=== PATIENT | female | born 1940 | race Caucasian/White ===

== ENCOUNTER 2019-12-23 12:27 | Emergency (ER) | payer OTHER ==
--- OUTSIDE RECORDS SUMMARY | 2019-12-23 12:34 | XMS REPORT | Continuity of Care Document ---
:1940 Author Organization [employer] Information [facility] Care Team Providers Name Role Phone Exit41 Unavailable Un available Problems Problem Status Onset Classification Date Comments Sourc e Date Reported LUMBAR HNP Active Condition 08/12/2014 [facility] 015 Neuro LUMBAR SPINAL STENOSIS Active Condition 08/12/2014 Mischer 015 Neuro 724.4 - LUMBOSACRAL Active OPID TRISTIAN 015 [employer] LUMBAR RADICULOPATHY Active Condition 08/12/2014 Mischer 015 Neuro LOW BACK PAIN Active Condition 08/12/2014 Misch er 015 Neuro JUAN Active [address] HISTORY OF Active Condition 08/12/2014 M[facility] HYPERCHOLESTEROLEMIA 012 Neuro HISTORY OF DEPRESSION Active Condition 08/12/2014 [facility] 012 Neuro STATUS POST Active Condition 08/12/2014 M[facility] HYSTERECTOMY 012 Neuro STATUS POST Active Condition 08/12/2014 M[facility] APPENDECTOMY HX OF 012 N euro STATUS POST BREAST Active Condition 08/12/2014 Mischer BIOPSY 012 Neuro STATUS POST BACK Active Condition 08/12/2014 Mi ignacio SURGERY 012 Neuro TRIGEMINAL NERVE Active [address] History of - Active Problem 08/18/2011 Peter as trigeminal neuralgia [facility] Pain Active Problem 08/18/2011 [facility] Headache Active Problem 09/04/2011 [facility] TRIGEMINAL NEURALGIA Active Condition 08/12/2014 [facility] Neuro Peripheral Neuropathy Active 04/20/2012 [facility] Herniated Active 04/20/2012 [facility] Interverte[facility] Facial Pain Active 04/20/2012 [facility] Headache Active 04/20/2012 [facility] Fibromyalgia Active 04/20/2012 [facility] Chronic Fatigue Active 04/20/2012 [facility] Syndrome [facility] TRIGEMINAL NEURALGIA Active [facility] HEADACHE Active [facility] Medications Medication Details Route Status Patient Ordering Order Source Instructions Provider Date MEDROL (MITCHEL) 4 MG to be taken as No 06/17/ Mischer TABS directed Longer 2014 Neuro Active LIDODERM 5 % PTCH apply to No 06/17/ Misch er affected area Longer 2014 Neuro 12h on 12h off Active per 24h period (may use up to 3 patches at one time) LIDODERM 5 % PTCH Apply to the No 05/13/ M ischer affected area Longer 2014 Neuro 12 hrs on and Active 12hrs off per 24 hr period. ( up to 3 patches at one time) Amitriptyline HCl ; Start Date: Active 02/10/ [place] 10 MG Oral Tablet 02/11/2012; 2011 Ph ysicians End Date: (Active) hydrochlorothiazi 12.5 mg, 1 PO No Lo 09/02/ [facility] de tab, Route: Longer 2011 Medical PO, Drug form: Active Center TAB, Daily, Start date: 09/03/11 9:00:00, Duration: 30 day, Stop date: 10/02/11 9:00:00 pravastatin 80 mg, 4 tab, PO No 09/02/ Peter as Route: PO, Longer 2011 Medical Drug form: Active Center TAB, Daily, Start date: 09/03/11 9:00:00, Duration: 30 day, Stop date: 10/02/11 9:00:00 levothyroxine 0.075 mg, 1 PO No Lo 09/02/ Peter as tab, Route: Longer 2011 Medical PO, Drug form: Active Center TAB, Daily, Start date: 09/03/11 9:00:00, Duration: 30 day, Stop date: 10/02/11 9:00:00 fluoxetine 40 mg, 2 cap, PO No Lo 09/02/ Petera s Route: PO, Longer 2011 Medical Drug form: Active Center CAP, Daily, Start date: 09/03/11 9:00:00, Duration: 30 day, Stop date: 10/02/11 9:00:00 diphenhydrAMINE 25 mg, 1 cap, PO No Lo 09/02/ [place] Route: PO, Longer 2011 Medical Drug form: Active Center CAP, Bedtime, Start date: 09/02/11 21:00:00, Duration: 30 day, Stop date: 10/01/11 21:00:00 Pepcid 20 mg oral 20 mg, 1 tab, PO Active Lo 09/01[facility] tablet PO, BID, 180 2011 Medical tab, Center Substitution Allowed dexamethasone 1 1 mg, 1 tab, PO Active 09/01[facility] [place] mg oral tablet PO, QID, 90 2011 Medic al tab, Center Substitution Allowed, Dexamethasone Taper:4mg PO QID x 2 days, then 3mg PO QID x 2 days, then 2mg PO QID x 2 days, then 1mg PO QID x 2 days, then 1 mg PO BID x 2 days, then 1mg PO daily x 2 days, then stop, TABDexamethaso ne Taper:4mg PO QID x 2 days, then 3mg PO QID x 2 days, then 2mg PO QID x 2 days, then 1mg PO QID x 2 days, then 1 mg PO BID x 2 days, then 1mg PO daily x 2 days, then stop levothyroxine 75 microgram, PO Active [place] PO, Daily, 2011 [facility] Substitution [place] Allowed diphenhydrAMINE 25 mg, PO, [place] Bed[place], 2011 Medical Substitution Center Allowed acetaminophen 325 mg, PO, PO Active 09/01[facility] [place] as Q4H, 2011 Medical Substitution Center Allowed hydrochlorothiazi 12.5 mg, PO, PO Active 09/01/ H [place] de Daily, 2011 Medical Substitution Center Allowed fluoxetine 40 mg 40 mg, 1 cap, PO Active [facility] oral capsule PO, Daily, 30 2011 Medic al cap, [place] Substitution Allowed, CAP pravastatin 80 mg 80 mg, 1 tab, PO Active [facility] oral tablet PO, Daily, 30 2011 Medica l tab, Center Substitution Allowed, TAB Saline Flush 0.9% 5 ml, Route: IVP No Mendoza [facility] IVP, Drug Longer 2011 Medical Form: INJ, Active Center Q12H, Start date: 09/01/11 9:00:00, Duration: 30 day, Stop date: 09/30/11 21:00:00 vancomycin 1 gm, Route: IVPB No [place] IVPB, Q12H, Longer 2011 Medical For 65 - 90kg, Active Center Start date: 09/01/11 9:00:00, Duration: 30 day, Stop date: 09/30/11 21:00:00 docusate sodium 100 mg, 1 cap, PO No Mendoza [place] 100 mg oral Route: PO, Longer 2011 Medical capsule Drug form: Active Center CAP, Q12H, Start date: 09/01/11 9:00:00, Duration: 30 day, Stop date: 09/30/11 21:00:00 senna 8.6 mg, 1 tab, PO No Mendoza [place] Route: PO, Longer 2011 Medical Drug Form: Active Center TAB, Q12H, Start date: 09/01/11 9:00:00, Duration: 30 day, Stop date: 09/30/11 21:00:00 docusate sodium 100 mg, 10 mL, NG No Mendoza [place] 100 mg/25 mL oral Route: NG, Longer 2011 Med ical syrup Drug form: Active Center LIQ, Q12H, Start date: 09/01/11 9:00:00, Duration: 30 day, Stop date: 09/30/11 21:00:00 dexamethasone 4 mg, 1 tab, PO No Mendoza [place] Route: PO, Longer 2011 Medical Drug form: Active Center TAB, Q6H, Start date: 09/01/11 6:00:00, Duration: 30 day, Stop date: 10/01/11 0:00:00 Dextrose 50% 6.25 gm, 12.5 IVP No Calvin [facility] Syringe mL, Route: Longer 2011 Medical IVP, Drug Active Center Form: INJ, PRN, PRN Abnormal Lab Result, Start date: 09/01/11 3:08:00, Duration: 30 day, Stop date: 10/01/11 3:07:00 insulin regular 7 unit, 0.07 SUB-Q No Calvin [facility] human recombinant mL, Route: Longer 2011 Med ical 100 units/mL SUB-Q, Drug Active Center injectable form: SOLN, solution PRN, PRN Abnormal Lab Result, Start date: 09/01/11 3:08:00, Duration: 30 day, Stop date: 10/01/11 3:07:00 Saline Flush 0.9% 5 ml, Route: IVP No Calvin 07/13[facility] IVP, Drug Longer 2011 Medical Form: INJ, Active Center PRN, PRN Line Flush, Start date: 09/01/11 3:08:00, Duration: 30 day, Stop date: 10/01/11 3:07:00 acetaminophen-hyd 1 tab, Route: PO No Calvin 08/31 [facility] rocodone 325 PO, Drug Form: Longer 2011 Medi joann mg-10 mg oral TAB, Q4H, PRN Active Cent er tablet Pain Score 4-6, Start date: 09/01/11 3:08:00, Duration: 30 day, Stop date: 10/01/11 3:07:00 ondansetron 4 mg, 2 mL, IVP No [place] 08/31[facility] [place] Route: IVP, Longer 2011 Medical Drug form: Active Center INJ, Q8H, PRN Nausea & Vomiting, Start date: 09/01/11 3:08:00, Duration: 30 day, Stop date: 10/01/11 3:07:00 bisacodyl 10 mg, 1 supp, [place] No Calvin 08/31[facility] [place] Route: [place], Longer 2011 Medical Drug form: Active Center SUPP, Daily, PRN Constipation, Start date: 09/01/11 3:08:00, Duration: 30 day, Stop date: 10/01/11 3:07:00 Sodium Chloride 250 mL, Rate: IV No Calvin [facility] 0.9% (Bolus) IV 500 ml/hr, Longer 2011 Medic al 250 mL Infuse over: Active Center 30 minutes, Route: IV, Dosing Weight 77.273 kg, Total Volume: 250, Priority: STAT, Start date: 09/01/11 3:08:00, Duration: 1 doses or times, Stop date: 09/01/11 3:37:00 Sodium Chloride 1,000 mL, IV No [place] [id number] 0.9% IV 1,000 mL Rate: 50 Longer 2011 Medica l ml/hr, Infuse Active Center over: 20 hr, Route: IV, Dosing Weight 77.273 kg, Total Volume: 1,000, Start date: 09/01/11 3:08:00, Duration: 30 day, Stop date: 10/01/11 3:07:00 DEXAMETHASONE 1 qd Active 08/28/ Mischer MG TABS 2011 Neuro Flomax 0.8 mg, 2 cap, PO No Dexter 08/15[facility] Route: PO, Longer 2011 Medical Drug form: Active Center CAP, After Breakfast, Start date: 08/16/11 8:30:00, Duration: 1 day, Stop date: 08/16/11 8:30:00 calcium gluconate 3,000 mg, 30 IVPB No Wilma H [place] mL, Route: Longer 2011 Medical IVPB, ONCE, Active Center Start date: 08/16/11 3:30:00, Stop date: 08/16/11 3:30:00 K-Dur 20 40 mEq, 2 tab, PO No Wilma 08/15[facility] Route: PO, Longer 2011 Medical Drug form: Active Center ERTAB, ONCE, Start date: 08/16/11 3:00:00, Stop date: 08/16/11 3:00:00 heparin 5,000 unit, 1 [facility] mL, Route: Longer 2011 Medical SUB-Q, Drug Active Center form: INJ, Q8H, Start date: 08/16/11 0:00:00, Duration: 30 day, Stop date: 09/14/11 16:00:00 acetaminophen 650 mg, 2 tab, PO No [facility] 08/14[facility] Route: PO, Longer 2011 Medical Drug form: Active Center TAB, Q6H, PRN Pain, Start date: 08/15/11 10:56:00, Duration: 30 day, Stop date: 09/14/11 10:55:00 Tylenol 325 mg, 1 tab, PO No [facility] 08/14[facility] Route: PO, Longer 2011 Medical Drug form: Active Center TAB, Q4H, PRN Pain, Start date: 08/15/11 10:39:00, Duration: 30 day, Stop date: 09/14/11 10:38:00 Prozac 40 mg, 2 cap, PO No Parul 08/14[facility] Route: PO, Longer 2011 Medical Drug form: Active Center CAP, Daily, Start date: 08/15/11 9:00:00, Duration: 30 day, Stop date: 09/13/11 9:00:00 Microzide 12.5 mg, 1 PO No [facility] 08/14[facility] cap, Route: Longer 2011 Medical PO, Drug form: Active Center CAP, Daily, Start date: 08/15/11 9:00:00, Duration: 30 day, Stop date: 09/13/11 9:00:00 Synthroid 0.075 mg, 1 PO No [facility] 08/14[facility] tab, Route: Longer 2011 Medical PO, Drug form: Active Center TAB, Before Breakfast, Start date: 08/15/11 7:30:00, Duration: 30 day, Stop date: 09/13/11 7:30:00 Senokot 8.6 mg, 1 tab, PO No [facility] 08/14[facility] Route: PO, Longer 2011 Medical Drug Form: Active Center TAB, Q12H, Start date: 08/14/11 21:00:00, Duration: 30 day, Stop date: 09/13/11 9:00:00 vancomycin (SCIP) 1 gm, Route: IVPB No [facility] 08/14[facility] IVPB, Drug Longer 2011 Medical form: INJ, Active Center [id number], Start date: 08/14/11 20:00:00, Duration: 2 doses or times, Stop date: 08/15/11 8:00:00 dexamethasone 4 mg, 1 tab, PO No [facility] 08/13[facility] [place] Route: PO, Longer 2011 Medical Drug form: Active Center TAB, Q6H, Start date: 08/14/11 18:00:00, Duration: 30 day, Stop date: 09/13/11 12:00:00 Reglan 10 mg, 2 mL, IVP No Zakaria 08/13[facility] Route: IVP, Longer 2011 Medical Drug form: Active Center INJ, Q6H, Start date: 08/14/11 18:00:00, Duration: 48 hr, Stop date: 08/16/11 12:00:00 Pravachol 80 mg, 4 tab, PO [facility] [place] Route: PO, Longer 2011 Medical Drug form: Active Center TAB, QPM, Start date: 08/14/11 17:00:00, Duration: 30 day, Stop date: 09/12/11 17:00:00 Klonopin 2 mg, 1 tab, PO No Abdunnur 08/13[facility] Route: PO, Longer 2011 Medical Drug form: Active Center TAB, TID, Start date: 08/14/11 17:00:00, Duration: 30 day, Stop date: 09/13/11 13:00:00 promethazine 6.25 mg, 0.25 IVPB No [place] 08/13[facility] [place] mL, Route: Longer 2011 Medical IVPB, Drug Active Center form: INJ, ONCE, PRN Nausea & Vomiting, Start date: 08/14/11 14:23:00 ondansetron 4 mg, 2 mL, IVP No More[place] 08/13[facility] [place] Route: IVP, Longer 2011 Medical Drug form: Active Center INJ, ONCE, PRN Nausea & Vomiting, Start date: 08/14/11 14:23:00 dexamethasone 4 mg, 1 mL, IVP No Moreno 08/13[facility] [place] as Route: IVP, Longer 2011 Medical Drug form: Active Center INJ, ONCE, PRN Nausea & Vomiting, Start date: 08/14/11 14:23:00 naloxone 0.04 mg, 0.1 IVP No [place] 08/13[facility] [place] mL, Route: Longer 2011 Medical IVP, Drug Active Center form: INJ, Q2MIN, PRN Narcotic Reversal, Start date: 08/14/11 14:23:00, Duration: 8 doses or times, Stop date: 08/15/11 0:00:00 flumazenil 0.2 mg, 2 mL, IVP No Moreno 08/13[facility] [place] Route: IVP, Longer 2011 Medical Drug form: Active Center INJ, PRN, PRN Benzodiazepine Reversal, Initial dose, Start date: 08/14/11 14:23:00, Stop date: 08/15/11 0:00:00 hydromorphone 0.5 mg, 0.25 IVP No [place] 08/13[facility] [place] mL, Route: Longer 2011 Medical IVP, Drug Active Center form: INJ, Q5Min, PRN Pain Score 4-6, Start date: 08/14/11 14:23:00, Duration: 5 doses or times, Stop date: 08/15/11 0:00:00 hydrALAZINE 5 mg, 0.25 mL, IVP No [place] 08/13[facility] [place] Route: IVP, Longer 2011 Medical Drug form: Active Center INJ, Q5Min, PRN Elevated BP, Start date: 08/14/11 14:23:00, Duration: 4 doses or times, Stop date: 08/15/11 0:00:00 labetalol 5 mg, 1 mL, IVP No [place] 08/13[facility] [place] Route: IVP, Longer 2011 Medical Drug form: Active Center INJ, Q5Min, PRN Elevated BP, Start date: 08/14/11 14:23:00, Duration: 5 doses or times, Stop date: 08/15/11 0:00:00 dexamethasone 4 mg, 1 tab, [facility] [place] Route: PO, Longer 2011 Medical Drug form: Active Center TAB, Q6H, Start date: 08/14/11 12:00:00, Duration: 30 day, Stop date: 09/13/11 6:00:00 metoclopramide 10 mg, 2 mL, IVP No [facility] 08/13[facility] [place] Route: IVP, Longer 2011 Medical Drug form: Active Center INJ, Q6H, Start date: 08/14/11 12:00:00, Duration: 48 hr, Stop date: 08/16/11 6:00:00 clonazepam 2 mg, 1 tab, PO No Abdunnur 08/13[facility] [place] Route: PO, Longer 2011 Medical Drug form: Active Center TAB, TID, Start date: 08/14/11 9:00:00, Duration: 30 day, Stop date: 09/12/11 17:00:00 Pepcid 20 mg oral 20 mg, 1 tab, PO No Abdunnur 08/13[facility] [place] tablet Route: PO, Longer 2011 Medical Drug form: Active Center TAB, Q12H, Start date: 08/14/11 9:00:00, Duration: 30 day, Stop date: 09/12/11 21:00:00 Saline Flush 0.9% 5 ml, Route: IVP No Abdunnur 08/13[facility] [place] IVP, Drug Longer 2011 Medical Form: INJ, Active Center Q12H, Start date: 08/14/11 9:00:00, Duration: 30 day, Stop date: 09/12/11 21:00:00 vancomycin (SCIP) 1 gm, Route: IVPB No [facility] 08/13[facility] IVPB, Drug Longer 2011 Medical form: INJ, Active Center Q12H, Start date: 08/14/11 9:00:00, Duration: 2 doses or times, Stop date: 08/14/11 21:00:00 senna 8.6 mg, 1 tab, PO No [facility] 08/13[facility] Route: PO, Longer 2011 Medical Drug Form: Active Center TAB, Q12H, Start date: 08/14/11 9:00:00, Duration: 30 day, Stop date: 09/12/11 21:00:00 docusate sodium 100 mg, 1 cap, PO No [facility] 08/13[facility] [place] 100 mg oral Route: PO, Longer 2011 Medical capsule Drug form: Active Center CAP, Q12H, Start date: 08/14/11 9:00:00, Duration: 30 day, Stop date: 09/12/11 21:00:00 levothyroxine 0.075 mg, 1 PO No [facility] 08/13[facility] [place] tab, Route: Longer 2011 Medical PO, Drug form: Active Center TAB, Daily, Start date: 08/14/11 9:00:00, Duration: 30 day, Stop date: 09/12/11 9:00:00 pravastatin 80 mg, 4 tab, PO No [facility] 08/13[facility] [place] Route: PO, Longer 2011 Medical Drug form: Active Center TAB, Daily, Start date: 08/14/11 9:00:00, Duration: 30 day, Stop date: 09/12/11 9:00:00 hydrochlorothiazi 12.5 mg, 1 PO No [facility] 08/13[facility] de 12.5 mg oral cap, Route: Longer 2011 Medi joann capsule PO, Drug form: Active Center CAP, Daily, Start date: 08/14/11 9:00:00, Duration: 30 day, Stop date: 09/12/11 9:00:00 Prozac 40 mg, 2 cap, PO No [facility] [place] Route: PO, Longer 2011 Medical Drug form: Active Center CAP, Daily, Start date: 08/14/11 9:00:00, Duration: 30 day, Stop date: 09/12/11 9:00:00 magnesium citrate 17.45 gm, 300 PO Active [facility] 8.85% oral liquid mL, PO, ONCE, 2011 Medical PRN, 1 mL, 1, Center 1, Severe constipation, Substitution Allowed, Maintenance, LIQ docusate sodium 100 mg, 0, PO, PO Active Abdunnur [place] 100 mg oral BID, 20 cap, 2011 Medical capsule Substitution Center Allowed Pepcid 20 mg oral 20 mg, 1 tab, PO No Zakaria [place] tablet PO, BID, 16 Longer 2011 Medical tab, Active Center Substitution Allowed [place] 10/325 oral 1 tab, PO, [facility] tablet Q4H, PRN, 30 Longer 2011 Medical tab, 2, 2, as Active Center needed for pain, Substitution Allowed, Maintenance, TAB dexamethasone 1 1 mg, 1 tab, PO Active [facility] [place] mg oral tablet PO, BID, 37 2011 Medic al tab, Center Substitution Allowed, Please take 2 tabs PO Q6H x 2 days, then 2 tabs PO Q8H x 2 days, then 1 tab PO Q8H x 2 days, then 1 tab PO Q12h x 1 day, then 1 tab PO daily x 1 day, then stop, TABPlease take 2 tabs PO Q6H x 2 days, then 2 tabs PO Q8H x 2 days, then 1 tab PO Q8H x 2 days, then 1 tab PO Q12h x 1 day, then 1 tab PO daily x 1 day, then stop insulin regular 7 unit, 0.07 SUB-Q No [facility] human recombinant mL, Route: Longer 2011 Med ical 100 units/mL SUB-Q, Drug Active Center injectable form: SOLN, solution PRN, PRN Abnormal Lab Result, Start date: 08/14/11 6:47:00, Duration: 30 day, Stop date: 09/13/11 6:46:00 Dextrose 50% 12.5 gm, 25 IVP No [facility] Peter as Syringe mL, Route: Longer 2011 Medical IVP, Drug Active Center Form: INJ, PRN, PRN Abnormal Lab Result, Start date: 08/14/11 6:47:00, Duration: 30 day, Stop date: 09/13/11 6:46:00 Saline Flush 0.9% 5 ml, Route: IVP No Parul [place] IVP, Drug Longer 2011 Medical Form: INJ, Active Center PRN, PRN Line Flush, Start date: 08/14/11 6:47:00, Duration: 30 day, Stop date: 09/13/11 6:46:00 acetaminophen-hyd 2 tab, Route: PO No [place] rocodone 325 mg-5 PO, Drug Form: Longer 2011 Medical mg oral tablet TAB, Q4H, PRN Active [facility] ter Pain Score 4-6, Start date: 08/14/11 6:47:00, Duration: 30 day, Stop date: 09/13/11 6:46:00 morphine Sulfate 2 mg, 0.5 mL, IVP No Parul [place] Route: IVP, Longer 2011 Medical Drug form: Active Center INJ, Q1H, PRN Pain Score 7-10, Start date: 08/14/11 6:47:00, Duration: 30 day, Stop date: 09/13/11 6:46:00 ondansetron 4 mg, 2 mL, IVP No B[place]ani [place] Route: IVP, Longer 2011 Medical Drug form: Active Center INJ, Q8H, PRN Nausea & Vomiting, Start date: 08/14/11 6:47:00, Duration: 30 day, Stop date: 09/13/11 6:46:00 Sodium Chloride 1,000 mL, IV No blake [place] 0.9% IV 1,000 mL Rate: 50 Longer 2011 Medica l ml/hr, Infuse Active Center over: 20 hr, Route: IV, Dosing Weight 65.909 kg, Total Volume: 1,000, Start date: 08/14/11 6:47:00, Duration: 30 day, Stop date: 09/13/11 6:46:00 Benadryl 25 mg, 1 cap, PO No Parul [place] Route: PO, Longer 2011 Medical Drug form: Active Center CAP, Bedtime, PRN as needed for sleep, Start date: 08/14/11 6:44:00, Stop date: 09/13/11 6:43:00 vancomycin 1 gm, Route: IVPB No [facility] Jeanne luz IVPB, Drug Longer 2011 Medical form: INJ, PRE Active Center OP, Start date: 08/13/11 22:00:00, Duration: 1 day, Stop date: 08/14/11 21:59:00 Tylenol 325 mg 325 mg, 1 tab, PO Active [place] oral tablet PO, Q4H, PRN, 2011 Medica l 60 tab, Pain, Center Substitution Allowed hydrochlorothiazi 12.5 mg, 1 PO Active [facility] [place] de 12.5 mg oral tab, PO, 2011 Medical tablet Daily, 30 tab, Center Substitution Allowed, TAB Prozac 40 mg oral 40 mg, 1 cap, PO Active [facility] [place] capsule PO, Daily, 30 2011 Medical cap, Center Substitution Allowed, CAP clonazepam 2 mg 2 mg, 1 tab, PO Active [facility] oral tablet PO, TID, 2011 Medical Substitution Center Allowed, TAB diphenhydrAMINE 25 mg, 1 cap, PO Active [facility] [place] 25 mg oral PO, Bedtime, 2011 Medical capsule PRN, 30 cap, [place] Insomnia, Substitution Allowed pravastatin 80 mg 80 mg, 1 tab, PO Active [facility] [place] oral tablet PO, Daily, 30 2011 Medica l tab, Center Substitution Allowed, TAB levothyroxine 75 75 microgram, PO Active [facility] 07/31[facility] [place] mcg (0.075 mg) 1 tab, PO, 2011 Medica l oral tablet Daily, 30 tab, Cente r Substitution Allowed, TAB Bactrim DS 1 tab, PO, PO No [place] BID, 20 tab, Longer 2011 Medical Substitution Active Center Allowed, Maintenance Gabapentin 100 MG ; Start Date: Active [place] Oral Capsule 07/19/2011; 2011 Physici ans End Date: (Active) LEVOTHYROXINE 1 tab po qd Active Mische r SODIUM 75 MCG 2011 Neuro TABS HYDROCHLOROTHIAZI 1 cap po qd Active ignacio DE 12.5 MG CAPS 2011 Neuro FLUOXETINE HCL 40 1 cap po qd Active ignacio MG CAPS 2011 Neuro PRAVASTATIN 1 tab po qd Active cher SODIUM 80 MG TABS 2011 Neuro CLONAZEPAM 2 MG 1 tab po tid Active Mis milly TABS 2011 Neuro CLONAZEPAM 2 MG 1 tab po tid Active Mis milly TABS 2011 Neuro Pravastatin (Active) Active [place] Sodium 80 MG Oral Physic ians Tablet ClonazePAM 2 MG (Active) Active [place] Oral Tablet Physicians Hydrochlorothiazi (Active) Active [place] de 12.5 MG Oral Physicia ns Capsule Levothyroxine (Active) Active [place] Sodium 75 MCG [facility] Oral Tablet Allergies, Adverse Reactions, Alerts Substance Category Reaction Severity Reaction Status Date Comments S ource type Reported DEMEROL Drug DEMEROL Mische r allergy 2 Neuro PCN Drug PCN Mische r allergy 2 Neuro CODEINE Drug CODEINE Mische r allergy 2 Neuro FENTANYL Drug FENTANYL Mis her allergy 2 Neuro codeine drug Allergy Active [facility] Demerol HCl drug Allergy Active [facility] fentaNYL drug Allergy Active [facility] penicillins drug Allergy Active [facility] cephalosporins drug Allergy Active M [facility] Darvon drug Allergy Active [facility] Demerol TABS drug drug Active [place] allergy allergy Physicia ns Penicillins drug drug Active [place] allergy allergy Physicia ns Codeine drug drug Active [place] Derivatives allergy allergy Phys icians FentaNYL [id number] drug drug Active [place] allergy allergy Physicia ns Immunizations No Data Provided for This Section Results Order Name Results Value Reference Date Interpretation Comments Lore rce Range BEDSIDE Gluc POC 126 70 - 99 09/01 HI <sup>2</sup>I [facility] GLUCOSE [place] nterpretive Medical TESTING Data: [place] Reportable Limit: 200 mg/dL. BEDSIDE Comment2 Sliding 09/01 NA [facility] GLUCOSE Scale /2011 Medical TESTING Center BEDSIDE Comment1 Notify 09/01 NA [facility] GLUCOSE RN/MD /2011 Medical TESTING Center BEDSIDE Gluc POC 171 70 - 99 09/01 HI <sup>3</sup>I [facility] GLUCOSE Lifscn /2011 nterpretive Medical TESTING Data: [place] Reportable Limit: 200 mg/dL. CHEMISTRY Ca Ion mgdL 4.00 4.65 - 08/31 [facility] 5. [facility] CHEMISTRY Ca Ion 1.00 1.16 - 08/31 [facility] [place] 1.30 Medical Center CHEMISTRY Ca Norm 1.01 1.16 - 08/31 [facility] 1.30 [facility] CHEMISTRY Ca Norm mgdL 4.04 4.65 - 08/31 [facility] 5. [facility] CHEMISTRY Globulin 3.2 2.0 - 4.0 08/31 Normal [facility] CHEMISTRY Bili Indirect 0.6 0.0 - 1.0 08/31 Normal [facility] CHEMISTRY A/G Ratio 1.0 0.7 - 1.6 08/31 Normal [facility] CHEMISTRY Total Protein 6.3 6.4 - 8.4 08/31 LOW [facility] CHEMISTRY Bili Total 0.8 0.2 - 1.3 08/31 Normal [facility] CHEMISTRY Bili Direct 0.2 0.0 - 0.3 08/31 Normal [facility] CHEMISTRY AST 11 0 - 37 08/31 Normal [facility] CHEMISTRY Alk Phos 70 39 - 136 08/31 Normal [facility] CHEMISTRY Albumin Lvl 3.1 3.5 - 5.0 08/31 LOW [facility] CHEMISTRY ALT 17 0 - 65 08/31 Normal [facility] HEMATOLOGY PTT 30.9 22.9 - 08/31 Normal <sup>5</sup>I Jeanne s 35.8 nterpretive Medical Data: Heparin Center Therapeutic Range: 57 - 92 Second[place] HEMATOLOGY PT 13.7 12.0 - 08/31 Normal [place] 14.7 Medical [place] HEMATOLOGY INR 1.05 0.85 - 08/31 Normal <sup>4</sup>I Jeanne s 1. nterpretive Medical Data: Center RECOMMENDED RANGES FOR PROTIME INR:
2.0-3.0 for most medical and surgical thromboemboli c states.
2.5-3.5 for artificial heart valves and recurrent embolism.<br/ >
INR SHOULD BE USED ONLY FOR PATIENTS ON STABLE ANTICOAGULANT THERAPY. HEMATOLOGY MCV 96.0 81.0 - 08/31 Normal [facility] 99.0 Medical Center HEMATOLOGY MPV 8.4 7.4 - 10.4 08/31 Normal /2011 [facility] HEMATOLOGY Platelet 181 133 - 450 08/31 Normal [facility] HEMATOLOGY RDW 16.9 11.5 - 07 HI [place] 14.5 /2011 Medical Center HEMATOLOGY MCHC 33.7 32.0 - 07 Normal [place] 36.0 /2011 Medical Center HEMATOLOGY MCH 32.3 27.0 - 07 HI [place] 31.0 /2011 Medical Center HEMATOLOGY Hct 32.5 36.0 - 07 LOW [place] 48.0 /2011 Medical Center HEMATOLOGY Hgb 11.0 12.0 - 07 LOW [place] 16.0 /2011 Medical Center HEMATOLOGY RBC 3.39 4.20 - 07 LOW [place] 5.40 /2011 Medical Center HEMATOLOGY WBC 13.2 3.7 - 10.4 08/31 HI [facility] HEMATOLOGY Lymphocytes 3.0 20.0 - 08/31 LOW [place] 40.0 /2011 [facility] HEMATOLOGY Monocytes 1.0 2.0 - 12.0 08/31 LOW [facility] HEMATOLOGY Lymphocytes # 0.4 1.0 - 5.5 08/31 [place] [facility] HEMATOLOGY Monocytes # 0.1 0.0 - 0.8 08/31 [place] [facility] HEMATOLOGY Atypical 0.0 <=0.0 08/31 Normal [place] Lymphs [facility] HEMATOLOGY Bands 1.0 0.0 - 11.0 08/31 Normal [facility] HEMATOLOGY Segs 95.0 45.0 - 08/31 [facility] [place] 75.0 /2011 Medical [place] HEMATOLOGY Segs-Bands # 12.7 1.5 - 8.1 08/31 [facility] [place] /2011 [facility] BODY FLUIDS Supernat CSF Colorless Colorless 08/31 Normal [place] (09/01/2011 03:10:00) Nm dical Center BODY FLUIDS Tube Num CSF 4 08/31 [place] [facility] BODY FLUIDS Color CSF Colorless Colorless 08/31 Normal [place] as (09/01/2011 03:10:00) Nm dical Center BODY FLUIDS Clarity CSF Slight Clear 08/31 ABN [place] *ABN* /2011 Medical (09/01/2011 03:10:00) Ce nter BODY FLUIDS WBC CSF 1566 0 - 5 08/31 HI [facility] BODY FLUIDS RBC CSF 2 0 - 0 / HI [facility] BODY FLUIDS Lymph CSF 4 40 - 80 / LOW [facility] BODY FLUIDS Monocyte CSF 3 15 - 45 08/31 [place] [facility] BODY FLUIDS Segs CSF 93 0 - 6 08/31 HI [facility] BODY FLUIDS Lactic Acid 3.0 0.6 - 2.2 08/31 HI [place] as CSF [facility] BODY FLUIDS Protein CSF 176 15 - 45 08/31 HI <sup>1</sup>R esult Medical Comment: Center "Significant Findings called to dr hastings __at _09/01/2011 04:15:41 CDT__by _lg__.Read Back OK." BODY FLUIDS Tube Num CSF 1 08/31 NA [place] [facility] BODY FLUIDS Color CSF Colorless Colorless 08/31 Normal [place] as (09/01/2011 03:05:00) [facility] BODY FLUIDS Supernat CSF Colorless Colorless 08/31 Normal [place] (09/01/2011 03:05:00) /[facility] WBC CSF 1761 0 - 5 08/31 [facility] BODY FLUIDS Clarity CSF Slight Clear 08/31 ABN *ABN* /2011 Medical (09/01/2011 03:05:00) Ce nter BODY FLUIDS RBC CSF 2 0 - 0 08/31 [facility] BODY FLUIDS Segs CSF 92 0 - 6 08/31 [facility] BODY FLUIDS Lymph CSF 4 40 - 80 08/31 LOW [facility] BODY FLUIDS Monocyte CSF 4 15 - 45 08/31 [place] [facility] BODY FLUIDS Glucose CSF 78 45 - 80 08/31 Normal [facility] FUNGAL - Crypto Ag CSF Negative Negative 08/31 [facility]09[facility]01[facility]2011 03:05:00) /[facility] VDRL Scr CSF Non Reactive Non 08/31 Normal [facility] (09/01/2011 03:05:00) /2011 edical Center IMMUNOLOGY CSF Men B Negative Negative 08/31 Normal [facility] (09/01/2011 03:05:00) /2011 Nm dicvt Center IMMUNOLOGY CSF Men A Negative Negative 08/31 Normal [facility] (09/01/2011 03:05:00) Nm dicvt Center IMMUNOLOGY CSF H Influ B Negative 6 Negative 08/31 Normal <sup>6</sup >I [facility] (09/01/2011 03:05:00) nterpretiv e Medical Data: Testing Center includes polyclonal antibody to Haemophilus influenzae
type b. IMMUNOLOGY CSF S pneumo Negative Negative 08/31 Normal [place] as (09/01/2011 03:05:00) Nm dical Center IMMUNOLOGY CSF Men C Negative Negative 08/31 Normal [facility] (09/01/2011 03:05:00) Nm dicvt Center IMMUNOLOGY CSF Strep B Negative Negative 08/[place] (09/01/[place] 03:05:00) [facility] Microbiolog Culture: CSF 08/31 [facility] y w[facility] BEDSIDE Gluc POC 174 70 - 99 08/15 HI <sup>2</sup>I [facility] GLUCOSE [facility] nterpretive Medical TESTING Data: [place] Reportable Limit: 200 mg/dL. BEDSIDE Gluc POC 151 70 - 99 08/15 HI <sup>3</sup>I [facility] TESTING Data: [place] Reportable Limit: 200 mg/dL. BEDSIDE Gluc POC 147 70 - 99 08/15 HI <sup>4</sup>I [facility] TESTING Data: [place] Reportable Limit: 200 mg/dL. CHEMISTRY Magnesium Lvl 2.0 1.8 - 2.4 08/15 Normal [place] [facility] CHEMISTRY AGAP 7.6 10.0 - 08/15 LOW [place] 20.0 Medical Center CHEMISTRY Calcium Lvl 8.4 8.5 - 10.5 08/15 LOW [facility] CHEMISTRY CO2 32 24 - 32 08/15 Normal [facility] CHEMISTRY Chloride Lvl 107 95 - 109 08/15 Normal [facility] CHEMISTRY Creatinine 1.0 0.5 - 1.4 08/15 Normal [facility] Medical Center CHEMISTRY BUN 21 7 - 22 08/15 Normal Medical Center CHEMISTRY Potassium Lvl 3.6 3.5 - 5.1 08/15 Normal [facility] CHEMISTRY Sodium Lvl 143 135 - 145 08/15 Normal Medical Center CHEMISTRY Glucose Lvl 136 70 - 99 08/15 HI <sup>5</sup>I T ex nterpretive Medical Data: Adult Center reference range values reflect the clinical guidelines of the [place] [employer]. CHEMISTRY Phosphorus 2.2 2.5 - 4.5 08/15 LOW [facility] CHEMISTRY Ca Ion 1.09 1.16 - 08/15 LOW [place] . Medical Center CHEMISTRY Ca Ion mgdL 4.36 4.65 - 08/15 [facility] [place] 07.08 Medical Center CHEMISTRY Ca Norm mgdL 4.60 4. - 08/15 [facility] [place] . [facility] CHEMISTRY Ca Norm 1.15 1. - 08/15 [facility] [place] . Medical Center HEMATOLOGY Platelet 211 133 - 450 08/15 Normal Medical Center HEMATOLOGY RDW 15.9 11.5 - 08/15 [facility] [place] 14.5 Medical Center HEMATOLOGY MCV 93.4 81.0 - 08/15 Normal [place] 99.0 Medical Center HEMATOLOGY MCHC 34.1 32.0 - 08/15 [facility] [place] 36.0 Medical Center HEMATOLOGY MCH 31.8 27.0 - 08/15 [facility] [place] 31.0 Medical Center HEMATOLOGY MPV 9.3 7.4 - 10.4 08/15 [facility] HEMATOLOGY Hct 29.6 36.0 - 08/15 [facility] [place] 48.0 /2011 Medical Center HEMATOLOGY Hgb 10.1 12.0 - 08/15 [facility] [place] 16.0 Medical Center HEMATOLOGY RBC 3.17 4.20 - 08/15 [facility] [place] 5.40 Medical Center HEMATOLOGY WBC 16.3 3.7 - 10.4 08/15 [facility] Medical Center HEMATOLOGY Basophils # 0.0 0.0 - 0.2 08/15 [place] [facility] [place] HEMATOLOGY Eosinophils # 0.0 0.0 - 0.5 08/15 [place] [facility] HEMATOLOGY Lymphocytes 3.1 20.0 - 08/15 [facility] [place] 40.0 Medical Center HEMATOLOGY Segs 95.4 45.0 - 08/15 [facility] [place] 75.0 Medical Center HEMATOLOGY Lymphocytes # 0.5 1.0 - 5.5 08/15 [place] [facility] HEMATOLOGY Eosinophils 0.0 0.0 - 4.0 08/15 Normal a [facility] HEMATOLOGY Monocytes 1.5 2.0 - 12.0 08/15 LOW [facility] HEMATOLOGY Segs-Bands # 15.6 1.5 - 8.1 08/15 HI Medical Center HEMATOLOGY Basophils 0.0 0.0 - 1.0 08/15 Normal [facility] HEMATOLOGY Monocytes # 0.2 0.0 - 0.8 08/15 Normal [facility] BEDSIDE Comment1 Notify 08/15 [facility] GLUCOSE RN/MD Medical TESTING Center CHEMISTRY Total CK 75 12 - 191 08/15 Normal [facility] CHEMISTRY CK MB Index 1.6 0.0 - 2.5 08/15 Normal Medical [place] CHEMISTRY CK MB 1.2 0.5 - 3.6 08/15 Normal Medical Center BEDSIDE Comment1 Notify 08/15 [facility] GLUCOSE RN/MD Medical TESTING Center CHEMISTRY POC A O2 Sat 100.0 95.0 - 08/14 [facility] 100.0 Medical Center CHEMISTRY POC A BE 3 -2-2 - 2 08/14 [facility] Medical Center CHEMISTRY POC A PO2 184 80 - 100 08/14 [facility] Medical Center CHEMISTRY POC A pH 7.44 7.35 - 08/14 [facility] [place] 7.45 Medical Center CHEMISTRY POC A Temp 37.0 08/14 [facility] Medical Center CHEMISTRY POC A HCO3 28 22 - 26 08/14 [facility] Medical Center CHEMISTRY POC A PCO2 41 35 - 45 08/14 Normal Medical Center CHEMISTRY POC A Source ART 08/14 [facility] Medical Center CHEMISTRY POC A %FIO2 50.0 18.0 - 08/14 Normal [place] 100.0 Medical Center CHEMISTRY POC A O2 Sat 70.0 95.0 - 08/14 LOW [place] 100.0 Medical Center CHEMISTRY POC A BE 3 -2-2 - 2 08/14 [facility] Medical Center CHEMISTRY POC A %FIO2 50.0 18.0 - 08/14 Normal [place] 100.0 Medical Center CHEMISTRY POC A Source ART 08/14 NA Medical Center CHEMISTRY POC A Temp 37.0 08/14 NA Medical Center CHEMISTRY POC A pH 7.39 7.35 - 08/14 Normal 7.45 Medical Center CHEMISTRY POC A PO2 37 80 - 100 08/14 [facility] CHEMISTRY POC A HCO3 29 22 - 26 08/14 [facility] CHEMISTRY POC A PCO2 48 35 - 45 08/14 HI Medical Center BEDSIDE Comment1 Notify 08/14 NA [facility] GLUCOSE RN/MD Medical TESTING Center CHEMISTRY Total CK 76 12 - 191 08/14 Normal Medical Center CHEMISTRY CK MB Index 1.6 0.0 - 2.5 08/14 Normal Medical Center CHEMISTRY CK MB 1.2 0.5 - 3.6 08/14 Normal Medical Center CHEMISTRY POC A Source ART 08/14 NA Medical Center CHEMISTRY POC A PCO2 54 35 - 45 08/14 HI [facility] Center CHEMISTRY POC A PO2 113 80 - 100 08/14 HI [facility] Center CHEMISTRY POC A pH 7.32 7.35 - 08/14 LOW Medical Center CHEMISTRY POC A Temp 37.0 08/14 NA Medical Center CHEMISTRY POC A O2 Sat 98.0 95.0 - 08/14 Normal 100.0 Medical Center CHEMISTRY POC A BE 1 -2-2 - 2 08/14 Normal Medical Center CHEMISTRY POC A HCO3 28 22 - 26 08/14 HI Medical Center CHEMISTRY Total CK 78 12 - 191 08/14 Normal Medical Center CHEMISTRY AGAP 14.1 10.0 - 08/14 Normal 20.0 Medical Center CHEMISTRY Chloride Lvl 111 95 - 109 08/14 [facility] Medical Center CHEMISTRY Calcium Lvl 8.2 8.5 - 10.5 08/14 LOW Medical Center CHEMISTRY CO2 24 24 - 32 08/14 Normal Medical Center CHEMISTRY Glucose Lvl 120 70 - 99 08/14 HI <sup>6</sup>I T ex nterpretive Medical Data: Adult Center reference range values reflect the clinical guidelines of the [place] [employer]. CHEMISTRY Sodium Lvl 145 135 - 145 08/14 Normal [facility] CHEMISTRY Potassium Lvl 4.1 3.5 - 5.1 08/14 Normal [place] [facility] CHEMISTRY BUN 25 7 - 22 08/14 [facility] Medical Center CHEMISTRY Creatinine 1.3 0.5 - 1.4 08/14 Normal [place] Lvl Medical Center CHEMISTRY CK MB Index 2.4 0.0 - 2.5 08/14 Normal [facility] CHEMISTRY CK MB 1.9 0.5 - 3.6 08/14 Normal [facility] HEMATOLOGY Basophils # 0.0 0.0 - 0.2 08/14 Normal [place] [facility] HEMATOLOGY Basophils 0.0 0.0 - 1.0 08/14 Normal Medical [place] HEMATOLOGY Segs-Bands # 14.6 1.5 - 8.1 08/14 [facility] HEMATOLOGY Lymphocytes # 0.5 1.0 - 5.5 08/14 [place] [facility] HEMATOLOGY Eosinophils # 0.0 0.0 - 0.5 08/14 [place] [facility] HEMATOLOGY Monocytes # 0.5 0.0 - 0.8 08/14 Normal [place] [facility] HEMATOLOGY Lymphocytes 3.1 20.0 - 08/14 [facility] [place] 40.0 Medical Center HEMATOLOGY Eosinophils 0.0 0.0 - 4.0 08/14 [place] [facility] HEMATOLOGY Monocytes 3.4 2.0 - 12.0 08/14 Normal Medical Center HEMATOLOGY Segs 93.5 45.0 - 08/14 [facility] [place] 75.0 Medical Center HEMATOLOGY Platelet 255 133 - 450 08/14 Normal Medical Center HEMATOLOGY RDW 16.1 11.5 - 08/14 [facility] [place] 14.5 Medical Center HEMATOLOGY Hct 33.2 36.0 - 08/14 LOW [place] 48.0 Medical Center HEMATOLOGY MCV 94.5 81.0 - 08/14 Normal [place] 99.0 Medical Center HEMATOLOGY MCH 32.3 27.0 - 08/14 [facility] [place] 31.0 Medical Center HEMATOLOGY Hgb 11.3 12.0 - 08/14 [facility] [place] 16.0 [facility] HEMATOLOGY MCHC 34.1 32.0 - 08/14 Normal [facility] 36.0 [facility] HEMATOLOGY MPV 8.9 7.4 - 10.4 08/14 [facility] HEMATOLOGY WBC 15.6 3.7 - 10.4 08/14 [facility] HEMATOLOGY RBC 3.51 4.20 - 08/14 LOW [facility] 5.40 [facility] CHEMISTRY POC A %FIO2 40.0 18.0 - 08/14 Normal [facility] 100.0 [facility] CHEMISTRY POC A 5.0 0.0 - 40.0 08/14 Normal [facility] BIPAP(E) [facility] CHEMISTRY POC A 10.0 0.0 - 50.0 08/14 [facility] BIPAP(I) [facility] CHEMISTRY POC A Mech 5 0 - 70 08/14 Normal [facility] Rate [facility] CHEMISTRY Troponin-I <0.02 0.00 - 08/14 Normal [facility] 0.40 [facility] CHEMISTRY Troponin-T <0.010 0.000 - 08/14 Normal [facility] 0.100 [facility] CHEMISTRY Myoglobin 117 25 - 72 08/14 [facility] Microbiolog Culture: 08/13 [facility] y Resistant [facility] Center Screen BACTERIAL - MRSA by PCR Negative 1 08/13 Normal <sup>1</sup>I [facility] SEROLOGY (08/14/2011 15:45:00) nterpreti ve Medical Data: Center INTERPRETATIO N: Negative..... .No MRSA DNA detected by PCR Positive..... .MRSA DNA detected by PCR ASSAY LIMITATIONS: This is a screening test for colonization by MRSA. A positive test result indicates the patient is colonized by MRSA, but does not necessarily mean that an infection is present or that treatment is necessary. Likewise, a negative test does not exclude colonization or infection. Patients should be evaluated clinically for symptoms and signs of infection before making therapeutic decisions. Routine decolonizatio n is discouraged and should only be considered for select patients after consultation with an infectious diseases specialist. CHEMISTRY Calcium Lvl 8.0 8.5 - 10.5 08/13 [place] [facility] [place] CHEMISTRY Chloride Lvl 108 95 - 109 08/13 Normal Medical Center CHEMISTRY CO2 22 24 - 32 08/13 LOW [facility] CHEMISTRY BUN 22 7 - 22 08/13 Normal [facility] CHEMISTRY Glucose Lvl 179 70 - 99 08/13 [place] <sup>7</sup>I T ex nterpretive Medical Data: Adult Center reference range values reflect the clinical guidelines of the [place] [employer]. CHEMISTRY Sodium Lvl 140 135 - 145 08/13 Normal [facility] CHEMISTRY Potassium Lvl 3.6 3.5 - 5.1 08/13 Normal [facility] CHEMISTRY Creatinine 1.4 0.5 - 1.4 08/13 Normal [place] [facility] CHEMISTRY AGAP 13.6 10.0 - 08/13 Normal [place] 20.0 [facility] HEMATOLOGY Segs-Bands # 10.1 1.5 - 8.1 08/13 [facility] HEMATOLOGY Monocytes 0.6 2.0 - 12.0 08/13 [facility] HEMATOLOGY Basophils 0.0 0.0 - 1.0 08/13 Normal [facility] HEMATOLOGY Eosinophils 0.0 0.0 - 4.0 08/13 [place] [facility] HEMATOLOGY Lymphocytes 5.5 20.0 - 08/13 [facility] [place] 40.0 [facility] HEMATOLOGY Basophils # 0.0 0.0 - 0.2 08/13 Normal [place] [facility] HEMATOLOGY Eosinophils # 0.0 0.0 - 0.5 08/13 [place] [facility] HEMATOLOGY Monocytes # 0.1 0.0 - 0.8 08/13 Normal a [facility] HEMATOLOGY Lymphocytes # 0.6 1.0 - 5.5 08/13 [facility] [place] [facility] HEMATOLOGY Segs 93.9 45.0 - 08/13 [facility] [place] 75.0 Medical Center HEMATOLOGY INR 1.12 0.85 - 08/13 Normal <sup>8</sup>I [place] 1. nterpretive Medical Data: Center RECOMMENDED RANGES FOR PROTIME INR: 2.0-3.0 for most medical and surgical thromboemboli c states. 2.5-3.5 for artificial heart valves and recurrent embolism. INR SHOULD BE USED ONLY FOR PATIENTS ON STABLE ANTICOAGULANT THERAPY. HEMATOLOGY PT 14.4 12.0 - 08/13 Normal [facility] 14.7 /2011 [facility] HEMATOLOGY MPV 9.5 7.4 - 10.4 08/13 Normal /2011 [facility] HEMATOLOGY Platelet 230 133 - 450 08/13 Normal [facility] HEMATOLOGY RDW 16.4 11.5 - 08/13 [facility] [place] 14.5 /2011 [facility] HEMATOLOGY MCHC 33.7 32.0 - 08/13 Normal [facility] 36.0 /2011 [facility] HEMATOLOGY WBC 10.7 3.7 - 10.4 08/13 [facility] HEMATOLOGY MCH 31.4 27.0 - 08/13 [facility] 31.0 [facility] HEMATOLOGY MCV 93.2 81.0 - 08/13 Normal [facility] 99.0 /2011 [facility] HEMATOLOGY Hct 33.3 36.0 - 08/13 LOW [place] 48.0 /2011 [facility] HEMATOLOGY Hgb 11.2 12.0 - 08/13 LOW [facility] 16.0 [facility] HEMATOLOGY RBC 3.57 4.20 - 08/13 LOW [facility] 5.40 /2011 [facility] URINALYSIS UA Mucus Few /LPF None Seen 08/13 [facility] Medical (08/14/2011 15:44:00) Ce nter URINALYSIS UA Amorph Occasional /HPF None Seen 08/13 [facility] * Medical (08/14/2011 15:44:00) Ce nter URINALYSIS UA 0.1 - 1.0 08/13 [facility] Urobilinogen /2011 [facility] URINALYSIS UA Bacteria Occasional /HPF None Seen 08/13 [facility] Medical (08/14/2011 15:44:00) Ce nter URINALYSIS UA Leuk Est Negative Negative 08/13 [place] (08/14/2011 15:44:00) /2011 Nm dicvt Center URINALYSIS UA RBC 6 0 - 2 08/13 [facility] URINALYSIS UA Sq Epi Occasional /LPF Few 08/13 [facility] Medical (08/14/2011 15:44:00) Ce nter URINALYSIS UA WBC 1 0 - 5 08/13 Normal [facility] URINALYSIS UA Blood Negative Negative 08/13 Normal [facility] (08/14/2011 15:44:00) Nm dical Center URINALYSIS UA Nitrite Negative Negative 08/13 Normal [facility] (08/14/2011 15:44:00) Nm dical Center URINALYSIS UA Bili Negative Negative 08/13 NA [facility] * Medical (08/14/2011 15:44:00) Ce nter URINALYSIS UA Turbidity Slight Clear 08/13 [facility] (08/14/2011 15:44:00) Ce nter URINALYSIS [facility] Color Yellow [facility] 15:44:00[facility] Ce nter URINALYSIS UA Ketones Negative mg/dL Negative 08/13 [facility] (08/14[facility]2011 15:44:00) Ce nter URINALYSIS UA Glucose 50 mg/dL Negative 08/13 [facility] (08/14/2011 15:44:00) Ce nter URINALYSIS UA Protein 20 mg/dL Negative 08/13 [facility] (08/14/2011 15:44:00) Ce nter URINALYSIS UA Spec Grav 1.036 <=1.030 08/13 [facility] URINALYSIS UA pH 5.5 5.0 - 8.0 08/13 Normal [facility] Microbiolog Culture: 08/13 [facility] y [facility] CHEMISTRY POC A Ca Ion 1.14 1.16 - 08/13 LOW [place] 1.30 [facility] CHEMISTRY POC A LA 2.3 0.5 - 2.2 08/13 [facility] CHEMISTRY POC A Glu 100 70 - 99 08/13 [facility] CHEMISTRY POC A Na 136 135 - 145 08/13 Normal [facility] CHEMISTRY POC A K 3.2 3.5 - 5.1 08/13 LOW [facility] CHEMISTRY POC A Hct 36.0 36.0 - 08/13 Normal 48.0 [facility] BLOOD BANK ABO/Rh A NEG 08/13 Unknown Medical Center BLOOD BANK Antibody Scrn Negative 08/13 Normal [facility] as RESULTS (08/14/2011 06:20:00) /2011 Nm dical Center HEMATOLOGY INR 1.12 0.85 - 07/31 Normal <sup>9</sup>I [facility] 1.17 nterpretive Medical Data: Center RECOMMENDED RANGES FOR PROTIME INR: 2.0-3.0 for most medical and surgical thromboemboli c states. 2.5-3.5 for artificial heart valves and recurrent embolism. INR SHOULD BE USED ONLY FOR PATIENTS ON STABLE ANTICOAGULANT THERAPY. HEMATOLOGY PT 14.4 12.0 - 07/31 Normal [place] 14.7 /2011 [facility] HEMATOLOGY PTT 32.4 22.9 - 07/31 Normal <sup>10</sup> [facility] 35.8 Interpretive Medical Data: Heparin Center Therapeutic Range: 57 - 92 Seconds Chemistry SODIUM 138 MEQ/L 135 - 145 07/17 Neuro Chemistry POTASSIUM 3.9 MEQ/L 3.5 - 5.1 07/17 Neuro Chemistry CREATININE 1.2 0.5 - 1.4 07/17 Neuro Chemistry BUN 17 7 - 22 07/17 Neuro Chemistry BUN/CREAT 14 6 - 25 07/17 Neuro Chemistry ALBUMIN 4.5 3.5 - 5.0 07/17 Neuro Chemistry CALCIUM 9.3 8.5 - 10.5 07/17 Neuro Chemistry SGPT (ALT) 20 0 - 65 07/17 Neuro Chemistry SGOT (AST) 15 0 - 37 07/17 Neuro Chemistry ALK PHOS 121 39 - 136 07/17 Neuro Chemistry TSH 3.200 0.360 - 07/17 [facility] 3.740 /2011 Neuro Chemistry SODIUM 138 MEQ/L 135 - 145 07/17 Neuro Chemistry POTASSIUM 3.9 MEQ/L 3.5 - 5.1 07/17 Neuro Chemistry CREATININE 1.2 0.5 - 1.4 07/17 Neuro Chemistry BUN 17 7 - 22 07/17 Neuro Chemistry BUN/CREAT 14 6 - 25 07/17 Neuro Chemistry ALBUMIN 4.5 3.5 - 5.0 07/17 Neuro Chemistry CALCIUM 9.3 8.5 - 10.5 07/17 Neuro Chemistry SGPT (ALT) 20 0 - 65 07/17 Neuro Chemistry SGOT (AST) 15 0 - 37 07/17 Neuro Chemistry ALK PHOS 121 39 - 136 07/17 Neuro Chemistry TSH 3.200 0.360 - 07/17 Neuro Chemistry SODIUM 138 MEQ/L 135 - 145 07/17 Neuro Chemistry POTASSIUM 3.9 MEQ/L 3.5 - 5.1 07/17 Neuro Chemistry CREATININE 1.2 0.5 - 1.4 07/17 Neuro Chemistry BUN 17 7 - 22 07/17 Neuro Chemistry BUN/CREAT 14 6 - 25 07/17 Neuro Chemistry ALBUMIN 4.5 3.5 - 5.0 07/17 Neuro Chemistry CALCIUM 9.3 8.5 - 10.5 07/17 Neuro Chemistry SGPT (ALT) 20 0 - 65 07/17 Neuro Chemistry SGOT (AST) 15 0 - 37 07/17 Neuro Chemistry ALK PHOS 121 39 - 136 07/17 Neuro Chemistry TSH 3.200 0.360 - 07/17 Neuro Chemistry SODIUM 138 MEQ/L 135 - 145 07/17 Neuro Chemistry POTASSIUM 3.9 MEQ/L 3.5 - 5.1 07/17 Neuro Chemistry CREATININE 1.2 0.5 - 1.4 07/17 Neuro Chemistry BUN 17 7 - 22 07/17 Neuro Chemistry BUN/CREAT 14 6 - 25 07/17 Neuro Chemistry ALBUMIN 4.5 3.5 - 5.0 07/17 Neuro Chemistry CALCIUM 9.3 8.5 - 10.5 07/17 Neuro Chemistry SGPT (ALT) 20 0 - 65 07/17 Neuro Chemistry SGOT (AST) 15 0 - 37 07/17 Neuro Chemistry ALK PHOS 121 39 - 136 07/17 Neuro Chemistry TSH 3.200 0.360 - 07/17 Neuro Hematology HGB 14.0 12.0 - 07/17 [facility] 16. Neuro Hematology HCT 41.1 36.0 - 07/17 [facility] . Neuro Hematology PLATELETS 262 K/CMM 133 - 450 07/17 Neuro Hematology ESR 18 0 - 20 07/17 Neuro Hematology HGB 14.0 12.0 - 07/17 [facility] . Neuro Hematology HCT 41.1 36.0 - 07/17 [facility] 48. Neuro Hematology PLATELETS 262 K/CMM 133 - 450 07/17 Neuro Hematology ESR 18 0 - 20 07/17 Neuro Hematology HGB 14.0 12.0 - 07/17cher Neuro Hematology HCT 41.1 36.0 - 07/17cher . Neuro Hematology PLATELETS 262 K/CMM 133 - 450 07/17 Neuro Hematology ESR 18 0 - 20 07/17 Neuro Hematology HGB 14.0 12.0 - 07/17cher . Neuro Hematology HCT 41.1 36.0 - 07/17cher Neuro Hematology PLATELETS 262 K/CMM 133 - 450 07/17 Neuro Hematology ESR 18 0 - 20 07/17 Neuro Serology KIMBERLY Positive 07/17 Neuro Serology KIMBERLY Positive 07/17 Neuro Serology KIMBERLY Positive 07/17 Neuro Serology KIMBERLY Positive 07/17 Neuro Pathology Reports No Data Provided for This Section Diagnostic Reports No Data Provided for This Section Consultation Notes No Data Provided for This Section Discharge Summaries No Data Provided for This Section History and Physicals No Data Provided for This Section Vital Signs Vital Sign Value Date Comments Source Weight 138 08/12/2014 [facility] 66 [facility] 80 [facility]12[facility] Systolic (mm Hg) 141 08/12/2014 [facility] [place] [facility] Diastolic (mm Hg) 80 08/12/2014 [facility] Weight 140.0 06/17/2014 [facility] Height 66 06/17/2014 [facility] Heart Rate 90 06/17/2014 [facility] Systolic (mm Hg) 136 06/17/2014 [facility] [place] [facility] Diastolic (mm Hg) 81 06/17/2014 [facility] Temperature Oral (F) 97.9 F 06/17/2014 [facility] Respitory Rate 15 06/17/2014 [facility] Weight 140.0 05/13/2014 [facility] Height 66 05/13/2014 [facility] Temperature Oral (F) 98.4 F 05/13/2014 [facility] Heart Rate 78 05/13/2014 [facility] Systolic (mm Hg) 133 05/13/2014 [facility] [place] [facility] Diastolic (mm Hg) 75 05/13/2014 [facility] Respitory Rate 14 05/13/2014 [facility] Weight 144.6 09/12/2011 [facility] Height 66 09/12/2011 [facility] Temperature Oral (F) 98.7 F 09/12/2011 [facility] Heart Rate 61 09/12/2011 [facility] Systolic (mm Hg) 148 09/12/2011 [facility] [place] [facility] Diastolic (mm Hg) 81 09/12/2011 [facility] Respitory Rate 18 09/02/2011 [facility] Center Systolic (mm Hg) 159 09/02/2011 [facility] Diastolic (mm Hg) 77 09/02/2011 [facility] [place] Temperature Oral (F) 98.7 F 09/02/2011 [facility] Heart Rate 74 09/02/2011 [facility] Diastolic (mm Hg) 65 09/02/2011 [facility] Center Respitory Rate 20 09/02/2011 [facility] jo[facility] Center Systolic (mm Hg) 139 09/02/2011 [facility] Heart Rate 86 09/02/2011 [facility] Temperature Oral (F) 98.3 F 09/02/2011 [facility] Heart Rate 86 09/02/2011 [facility] Diastolic (mm Hg) 70 09/02/2011 [facility] Center Systolic (mm Hg) 147 09/02/2011 [facility] Respitory Rate 20 09/02/2011 [facility] jo[facility] Center Temperature Oral (F) 98.4 F 09/02/2011 [facility] Weight 65.909 09/01/2011 [facility] Height 167.64 cm 09/01/2011 [facility] Height 167.64 cm 09/01/2011 [facility] Weight 77.273 09/01/2011 [facility] Weight 147.6 08/29/2011 [facility] Height 66 08/29/2011 [facility] Temperature Oral (F) 99.0 F 08/29/2011 [facility] Heart Rate 76 08/29/2011 [facility] Diastolic (mm Hg) 143 08/29/2011 [facility] Systolic (mm Hg) 128 08/16/2011 [facility] Diastolic (mm Hg) 74 08/16/2011 [facility] Center Respitory Rate 43 08/16/2011 [facility] Diastolic (mm Hg) 70 08/16/2011 [facility] Systolic (mm Hg) 133 08/16/2011 [facility] [place] Respitory Rate 29 08/16/2011 [facility] Diastolic (mm Hg) 64 08/16/2011 [facility] Systolic (mm Hg) 145 08/16/2011 [facility] Center Respitory Rate 34 08/16/2011 [facility] Temperature Oral (F) 98.1 F 08/14/2011 [facility] Heart Rate 61 08/14/2011 [facility] Height 167.64 cm 08/14/2011 [facility] Weight 65.909 08/14/2011 [facility] Weight 147.8 08/01/2011 [facility] Height 66 08/01/2011 [facility] Temperature Oral (F) 98.8 F 08/01/2011 [facility] Heart Rate 83 08/01/2011 [facility] Systolic (mm Hg) 144 08/01/2011 [facility] [place] [facility] Diastolic (mm Hg) 86 08/01/2011 [facility] Height 167.64 cm 08/01/2011 [facility] Weight 65.909 08/01/2011 [facility] Encounters Location Location Encounter Encounter Reason Attending ADM AK Stat us Source Details Type Number For Provider Date Date Visit [facility] Inpatient [id number] PANTERA DILLON 08/13 08/15 Disch arg [facility] ed Medical Center Center [facility] OU [id number] YESSICA DILLON 08/31 09/01 Active [facility] [place] [facility] AUDIT [id number] 02/08 Phys[facility] AUDIT [id number] 02/11 Physicia ns GES, [id number] 03/12 02/11 [place] Provider: /2012 ELISSA Ozuna mary ann , Status: Pen, Time: 11:30 AM AUDIT [id number] 04/19 Physicajith ns [facility] [id number] Pantera Dillon 05/13 05/13 Mi ign[facility] Visit 75013 [facility] [id number] Pantera 06/17 Mi ignacio Neuroscienc Visit 28589 [facility] e [facility] [id number] Pantera Wilma 08/12 08/12 Mi ignacio Neuroscienc Visit 70555 [facility] Outpatient [id number] RHODA 12/03 [facility] FENOY Giorgi Procedures Procedure Code Date Perfomer Comments Source smoking/tobacco 14 07/18/2011 not needed [facility] euro cessation, patient education and counseling Assessment and Plan No Data Provided for This Section Plan of Care No Data Provided for This Section Social History Social History Date Source Alcohol Use (Active) 04/20/2012 [facility] Never A Smoker (Active) Marital History - Currently (Active) No History of Drug Use (Denied) Family History Value Date Source Paternal history of Acute 04/20/2012 [facility] Myocardial Infarction (V17.3); (Active) Paternal history of Stroke Syndrome (V17.1); (Active) Paternal history of Stroke 02/12/2012 [facility] Syndrome (V17.1); (Active) Paternal history of Acute Myocardial Infarction (V17.3); (Active) Paternal history of Acute 02/09/2012 [facility] Myocardial Infarction (V17.3); (Active) Paternal history of Stroke Syndrome (V17.1); (Active) Advance Directives Order Name Results Value Date Source Advance Directives Advance Directives No Advance 04/20/2012 [facility] Directives available. Advance Directives Advance Directives No Advance 02/12/2012 [facility] Directives available. Advance Directives Advance Directives No Advance 02/09/2012 [facility] Directives available. Functional Status No Data Provided for This Section
--- OUTSIDE RECORDS SUMMARY | 2019-12-23 12:37 | XMS REPORT | Summary of Care ---
:1940 Author Organization [facility] Address [address] [place] [address] Care Team Providers Name Role Phone Serena Rojas Primary Care Provider Reason for Visit Reason Comments Refill Request Encounter Details Date Type Department Care Team Description 10/08/2019 Refill [facility] Miky Ortiz MD Refill Request Neurology-[address] [place] [phone] [address] [place] [address] [phone] Allergies Active Allergy Reactions Severity Noted Date Comments Onabotulinumtoxina Other - See comments 02/26/2018 Codeine Hallucinations 02/26/2018 Meperidine Hcl Other - See comments 02/26/2018 fever Penicillin Hives 02/26/2018 documented as of this encounter (statuses as of 10/10/2019) Medications Medication Sig Dispensed Refills Start Date End Date Status levothyroxine 75 mcg 0 10/29/2017 Active tablet pravastatin 80 mg 0 10/29/2017 A ctive tablet spironolactone 50 mg 0 10/29/2017 Active tablet traZODONE 100 mg 0 12/27/2017 Ac tive tablet clonazePAM 2 mg Take 1 60 tablet 0 10/10/2019 Act albertina tabletIndications: tablet by 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 clonazePAM 2 mg Take 1 60 tablet 0 09/05/2019 Dis continued tabletIndications: tablet by 0 ( Reorder) 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 documented as of this encounter (statuses as of 10/10/2019) Active Problems Not on filedocumented as of this encounter (statuses as of 10/10/2019) Social History Tobacco Use Types Packs/Day Years Used Date Never Smoker Smokeless Tobacco: Never Used Alcohol Use Drinks/Week oz/Week Comments No Sex Assigned at Date Recorded Not on file documented as of this encounter Last Filed Vital Signs Not on filedocumented in this encounter Miscellaneous Notes Telephone Encounter - Keira Becerra LVN - 10/10/2019 3:01 PM CDT Received erx refill request for: Requested Prescriptions Pending Prescriptions Disp Refills clonazePAM 2 mg tablet 60 tablet 0 Sig: Take 1 tablet by mouth 2 (two) times daily. Last filled: clonazePAM 2 mg tablet 60 tablet 0 09/05/2019 Follow up scheduled for : Not scheduled yet Last office visit: 05-19-19We will continue with the clonazepam. It has provided her with some benefit, she doesn't like muscle relaxers, and she has had previous uses of other analgesics which have notbenefitted her. She will return to the office and follow-up in the future as needed. Refilled approval sent to: Pharmacy: [id number] - [place], [place] - [address] [facility] [address] 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 [facility] Medicare & B t 82 [id number] [place] [phone] [employer] AETNA INDEMNITY [id number] 2013-[place] Silvaty t documented as of this encounter
--- OUTSIDE RECORDS SUMMARY | 2019-12-23 12:37 | XMS REPORT | Summary of Care ---
:1940 Author Organization [facility] Address [address] [place] [address] Care Team Providers Name Role Phone Serena Rojas Primary Care Provider Reason for Visit Reason Comments Refill Request Encounter Details Date Type Department Care Team Description 10/31/2019 Refill [facility] Miky Ortiz MD Refill Request Neurology-[address] [place] [phone] [address] [place] [address] [phone] Allergies Active Allergy Reactions Severity Noted Date Comments Onabotulinumtoxina Other - See comments 02/26/2018 Codeine Hallucinations 02/26/2018 Meperidine Hcl Other - See comments 02/26/2018 fever Penicillin Hives 02/26/2018 documented as of this encounter (statuses as of 11/05/2019) Medications Medication Sig Dispensed Refills Start Date End Date Status levothyroxine 75 mcg 0 10/29/2017 Active tablet pravastatin 80 mg 0 10/29/2017 A ctive tablet spironolactone 50 mg 0 10/29/2017 Active tablet traZODONE 100 mg 0 12/27/2017 Ac tive tablet clonazePAM 2 mg Take 1 60 tablet 0 11/05/2019 Act albertina tabletIndications: tablet by 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 clonazePAM 2 mg Take 1 60 tablet 0 11/05/2019 Dis continued tabletIndications: tablet by 0 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 documented as of this encounter (statuses as of 11/05/2019) Active Problems Not on filedocumented as of this encounter (statuses as of 11/05/2019) Social History Tobacco Use Types Packs/Day Years Used Date Never Smoker Smokeless Tobacco: Never Used Alcohol Use Drinks/Week oz/Week Comments No Sex Assigned at Date Recorded Not on file documented as of this encounter Last Filed Vital Signs Not on filedocumented in this encounter Miscellaneous Notes Telephone Encounter - Keira Becerra LVN - 11/05/2019 10:39 AM CDT Received erx refill request for: Requested Prescriptions Pending Prescriptions Disp Refills clonazePAM 2 mg tablet 60 tablet 0 Sig: Take 1 tablet by mouth 2 (two) times daily. Last filled: clonazePAM 2 mg tablet 60 tablet 0 10/10/2019 Follow up scheduled for : Not scheduled yet Last office visit: 04-22-19 Impression: We will continue with the clonazepam. It has provided her with some benefit, she doesn'tlike muscle relaxers, and she has had previous uses of other analgesics which have not benefitted her. She will return to the office and follow-up in the future as needed. Refilled approval sent to: Pharmacy: [id number] - [place], [place] - [address] [facility] [address] [facility] [address] [facility] [id number] Refilled per Guidelines documented in this encounter [...] ss Type Group MEDICARE MEDICARE PART A [id number] 1993-Walker [phone] [address] Medicare & B t 82 [id number] [place] [phone] A[employer] AETNA INDEMNITY [id number] 2013-[place] Indemnity t documented as of this encounter
--- OUTSIDE RECORDS SUMMARY | 2019-12-23 12:37 | XMS REPORT | Summary of Care ---
:1940 Author Organization [facility] - Health Address [address] [place] [address] Care Team Providers Name Role Phone Serena Rojas Primary Care Provider Encounter Details Date Type Department Care Team Description 10/31/2019 Orders Only [facility] Doctor Unassigned, No [address] [facility] [place] [address] [address] [place] [address] Allergies Active Allergy Reactions Severity Noted Date Comments Onabotulinumtoxina Other - See comments 02/26/2018 Codeine Hallucinations 02/26/2018 Meperidine Hcl Other - See comments 02/26/2018 fever Penicillin Hives 02/26/2018 documented as of this encounter (statuses as of 11/12/2019) Medications Medication Sig Dispensed Refills Start Date End Date Status levothyroxine 75 mcg 0 10/29/2017 Active tablet pravastatin 80 mg tablet 0 10/29/2017 Active spironolactone 50 mg 0 10/29/2017 Active tablet traZODONE 100 mg tablet 0 12/27/2017 Active clonazePAM 2 mg Take 1 tablet by 60 tablet 0 11/05/2019 Active tabletIndications: mouth 2 (two) Lumbosacral spondylosis times daily. without myelopathy documented as of this encounter (statuses as of 11/12/2019) Active Problems Not on filedocumented as of this encounter (statuses as of 11/12/2019) Social History Tobacco Use Types Packs/Day Years Used Date Never Smoker Smokeless Tobacco: Never Used Alcohol Use Drinks/Week oz/Week Comments No Sex Assigned at Date Recorded Not on file documented as of this encounter Last Filed Vital Signs Not on filedocumented in this encounter Plan of Treatment Health Maintenance Due Date Last Done Comments DTaP,Tdap,and Td Vaccines (1 - Tdap) 1961 Zoster Recombinant Vaccine (SHINGRIX) (1 of 2) 02/11/1992 Medicare Wellness Visit 2007 Osteoporosis Screening 2007 PNEUMOCOCCAL VACCINES 65+ (1 of 1 - PPSV23) 2007 INFLUENZA VACCINE (#1) 2019 Depression Screening 04/21/2020 04/22/2019 documented as of this encounter Procedures Procedure Name Priority Date/Time Associated Diagnosis Comme nts CONTROLLED SUBSTANCE Routine 10/31/2019 12:01 AM PRESCRIPTION CDT documented in this encounter Results Not on filedocumented in this encounter Insurance Payer Benefit Plan / Subscriber ID Effective Dates Phone Addre ss Type Group MEDICARE MEDICARE PART A [id number] 1993-Walker [phone] Medicare & B t 82 [id number] [place] [phone] [employer] AETNA INDEMNITY [id number] 2013-[place] espinosa documented as of this encounter
--- OUTSIDE RECORDS SUMMARY | 2019-12-23 12:37 | XMS REPORT | Continuity of Care Document ---
:1940 Author Organization [facility] t Address [address] [place] [address] Care Team Providers Name Role Phone Diana GIBBS, Gene Attending Clinician Doctor Unassigned, Name Attending Clinician Unavailable Problems Condition Condition Condition Status Onset Resolution Last Treating Co mments Source Name Details Category Date Date Treatment Clinician Date LUMBAR HNP Condition Active 2014-08-12 Memoria 06-17 11:35:12 l LUMBAR 00:00: Dudley HNP 00 Active 06/17/2014 Condition 5 [facility] LUMBAR Condition Active 2014-08-12 Mem oria SPINAL 06-17 11:35:12 l STENOSIS LUMBAR 00:00: Richie n SPINAL 00 STENOSIS Active 06/17/2014 Condition 5 [facility] 724.4 - Diagnosis Active 2014-07-05 Me moria LUMBOSACRA 06-02 15:44:00 l L STEPHEN 724.4 - 00:01: Giorgi LUMBOSACRA 00 L STEPHEN Active 06/02/2014 [facility] LUMBAR Condition Active 2014-08-12 Mem oria RADICULOPA 05-13 11:35:12 l THY LUMBAR 00:00: Dudley RADICULOPA 00 THY Active 05/13/2014 Condition 5 [facility] LOW BACK Condition Active 2014-08-12 M emoria PAIN 05-13 11:35:12 l LOW BACK 00:00: Richie n PAIN 00 Active 05/13/2014 Condition 5 [facility] JUAN Diagnosis Active 2011-09-11 Mem oria 7-12 21:43:00 l JUAN 00:00: Giorgi 00 Active 08/31/2011 [facility] HISTORY OF Condition Active 2014-08-12 Memoria HYPERCHOLE 07-17 11:35:12 l STEROLEMIA HISTORY 00:00: Her gray OF 00 HYPERCHOLE STEROLEMIA Active 07/18/2011 Condition 5 [facility] HISTORY OF Condition Active 2014-08-12 Memoria DEPRESSION 07-17 11:35:12 l HISTORY 00:00: Dudley OF 00 DEPRESSION Active 07/18/2011 Condition 5 [facility] STATUS Condition Active 2014-08-12 Mem oria POST 07-17 11:35:12 l HYSTERECTO STATUS 00:00: Herm heber MY POST 00 HYSTERECTO MY Active 2 Condition 08/12/2014 [facility] STATUS Condition Active 2014-08-12 Mem oria POST 07-17 11:35:12 l APPENDECTO STATUS 00:00: Herm heber MY HX OF POST 00 APPENDECTO MY HX OF Active 07/18/2011 Condition 5 [facility] STATUS Condition Active 2014-08-12 Mem oria POST 07-17 11:35:12 l BREAST STATUS 00:00: Giorgi BIOPSY POST 00 BREAST BIOPSY Active 07/18/2011 Condition 5 [facility] STATUS Condition Active 2014-08-12 Mem oria POST BACK 07-17 11:35:12 l SURGERY STATUS 00:00: Giorgi POST BACK 00 SURGERY Active 07/18/2011 Condition 5 [facility] TRIGEMINAL Diagnosis Active 2011-08-16 Memoria NERVE 07-17 02:41:00 l 00:00: Giorgi TRIGEMINAL 00 NERVE Active 07/18/2011 [facility] History of Problem Active 2011-08-18 M emoria - 08:27:27 l trigeminal History Her gray neuralgia of - trigeminal neuralgia Active Problem 08/18/2011 [facility] Pain Problem Active 2011-08-18 Memor ia 08:27:27 l Pain Giorgi Active Problem 08/18/2011 [facility] Headache Problem Active 2011-09-04 Mem oria 08:24:51 l Headache Richie n Active Problem 09/04/2011 [facility] TRIGEMINAL Condition Active 2014-08-12 Memoria NEURALGIA 11:35:12 l Dudley TRIGEMINAL NEURALGIA Active Condition 08/12/2014 [facility] Peripheral Problem Active 2012-04-20 M emoria Neuropathy 02:06:39 l Dudley Peripheral Neuropathy Active 04/20/2012 [facility] Herniated Problem Active 2012-04-20 Me moria Interverte 02:06:39 l bral Disc Giorgi Herniated Interverte bral Disc Active 3 [facility] Facial Problem Active 2012-04-20 Memor ia Pain 02:06:39 l Facial Dudley Pain Active 3 [facility] Fibromyalg Problem Active 2012-04-20 M emoria ia 02:06:39 l Giorgi Fibromyalg ia Active 04/20/2012 [facility] Chronic Problem Active 2012-04-20 José Luis ke Fatigue 02:06:39 l Syndrome Chronic Kiera nn Fatigue Syndrome Active 3 [facility] TRIGEMINAL Diagnosis Active 2011-08-16 Memoria NEURALGIA 02:41:00 l Dudley TRIGEMINAL NEURALGIA Active [facility] Allergies, Adverse Reactions, Alerts Allergy Allergy Status Severity Reaction(s) Onset Inactive Treating Comm ents Source Name Type Date Date Clinician DEMEROL DEMEROL Active Memoria 5-29 l 00:00: Dudley 00 PCN PCN Active Memoria 5-29 l 00:00: Giorgi 00 CODEINE CODEINE Active Memoria 5-29 l 00:00: Dudley 00 FENTANYL FENTANYL Active Memori a 5-29 l 00:00: Giorgi 00 codeine codeine Active Memoria l Dudley Demerol Demerol Active Memoria HCl HCl l Dudley fentaNYL fentaNYL Active Memori a l Dudley penicill penicill Active Memori a ins ins l Giorgi cephalos cephalos Active Memori a porins porins l Giorgi Darvon Darvon Active Memoria l Giorgi Demerol Demerol Active Memoria TABS TABS l Giorgi Penicill Penicill Active Memori a ins ins l Giorgi Codeine Codeine Active Memoria Derivati Derivati l ves ves Giorgi FentaNYL FentaNYL Active Memori a PT72 PT72 l Dudley Family History Family Member Diagnosis Comments Start Date Stop Date Source Unknown Family Family History 2012-02-09 2012-02-09 Memori al Dudley Member 12:35:28 12:35:28 Social History Social Habit Start Date Stop Date Quantity Comments Source Social History 2012-04-20 2012-04-20 [facility] 02:06:39 02:06:39 Medications Ordered Filled Start Stop Current Ordering Indication Dosage Frequency Signature Comments Components Source Medication Medication Date Date Medication? Clinician (SIG) Name Name OCTAVIA No to be Memoria (MITCHEL) 4 MG 4-29 taken as l TABS 00:00: directed Giorgi 00 LIDODERM 5 No apply to Mem oria % PTCH 4-29 affected l 00:00: area 12h Giorgi 00 on 12h off per 24h period (may use up to 3 patches at one time) LIDODERM 5 No Apply to Mem oria % PTCH 3-25 the l 00:00: affected Dudley 00 area 12 hrs on and 12hrs off per 24 hr period. ( up to 3 patches at one time) Pravastatin Yes (Active) M emoria Sodium 80 3-02 l MG Oral 02:06: Dudley Tablet 39 ClonazePAM Yes (Active) Me moria 2 MG Oral 3-02 l Tablet 02:06: Giorgi 39 Hydrochloro Yes (Active) M emoria thiazide 3-02 l 12.5 MG 02:06: Dudley Oral 39 Capsule Levothyroxi Yes (Active) M emoria ne Sodium 3-02 l 75 MCG Oral 02:06: Richie n Tablet 39 Amitriptyli 2011-02 Yes ; Start Mem oria ne HCl 10 -23 Date: l MG Oral 06:00: 02/11/2012 Herm heber Tablet 00 ; End Date: (Active) hydrochloro No Patel 12.5 mg, 1 Memoria thiazide 7-15 Ping-Mora tab, l 14:00: Lo Route: PO, Giorgi Drug form: TAB, Daily, Start date: 09/03/11 9:00:00, Duration: 30 day, Stop date: 10/02/11 9:00:00 pravastatin No Patel 80 mg, 4 Memoria 7-15 Ping-Mora tab, l 14:00: Lo Route: PO, Dudley 00 Drug form: TAB, Daily, Start date: 09/03/11 9:00:00, Duration: 30 day, Stop date: 10/02/11 9:00:00 levothyroxi No Patel 0.075 mg, Memoria ne 7-15 Ping-Mora 1 tab, l 14:00: Lo Route: PO, Giorgi 00 Drug form: TAB, Daily, Start date: 09/03/11 9:00:00, Duration: 30 day, Stop date: 10/02/11 9:00:00 fluoxetine No Patel 40 mg, 2 M emoria 7-15 Ping-Mora cap, l 14:00: Lo Route: PO, Giorgi Drug form: CAP, Daily, Start date: 09/03/11 9:00:00, Duration: 30 day, Stop date: 10/02/11 9:00:00 diphenhydrA No Patel 25 mg, 1 Memoria MINE 7-15 Ping-Mora cap, l 02:00: Lo Route: PO, Dudley 00 Drug form: CAP, Bedtime, Start date: 09/02/11 21:00:00, Duration: 30 day, Stop date: 10/01/11 21:00:00 Pepcid 20 Yes Patel 20 mg, 1 Me moria mg oral 7-14 Ping-Mora tab, PO, l tablet 17:49: Lo BID, 180 Giorgi 52 tab, Substituti on Allowed dexamethaso Yes Patel 1 mg, 1 M emoria ne 1 mg 7-14 Ping-Mora tab, PO, l oral tablet 17:49: Lo QID, 90 Her gray 46 tab, Substituti on Allowed, Dexamethas one Taper:4mg PO QID x 2 days, then 3mg PO QID x 2 days, then 2mg PO QID x 2 days, then 1mg PO QID x 2 days, then 1 mg PO BID x 2 days, then 1mg PO daily x 2 days, then stop, TABDexamet hasone Taper:4mg PO QID x 2 days, then 3mg PO QID x 2 days, then 2mg PO QID x 2 days, then 1mg PO QID x 2 days, then 1 mg PO BID x 2 days, then 1mg PO daily x 2 days, then stop levothyroxi Yes Patel 75 José Luis ke ne 7-14 Ping-Mora microgram, l 16:33: Lo PO, Daily, Giorgi 01 Substituti on Allowed diphenhydrA Yes Patel 25 mg, PO, Memoria MINE 7-14 Ping-Mora Bedtime, l 16:32: Lo Substituti Dudley 13 on Allowed acetaminoph Yes 325 mg, Mem oria en 7-14 PO, Q4H, l 16:31: Substituti Giorgi 17 on Allowed hydrochloro Yes Patel 12.5 mg, Memoria thiazide 14 Ping-Mora PO, Daily, l 16:29: Lo Substituti Dudley 58 on Allowed fluoxetine Yes Patel 40 mg, 1 M emoria 40 mg oral 09-01 Ping-Mora cap, PO, l capsule 16:29: Lo Daily, 30 Kiera nn 22 cap, Substituti on Allowed, CAP pravastatin Yes Patel 80 mg, 1 Memoria 80 mg oral 09-01 Ping-Mora tab, PO, l tablet 16:28: Lo Daily, 30 Richie n 44 tab, Substituti on Allowed, TAB Saline No Alexey 5 ml, Memor ia Flush 0.9% 08-31 Efren Route: l 14:00: Mendoza IVP, Drug He rmann 00 Form: INJ, Q12H, Start date: 09/01/11 9:00:00, Duration: 30 day, Stop date: 09/30/11 21:00:00 vancomycin No Alexey 1 gm, M emoria 08-31 Efren Route: l 14:00: Mendoza IVPB, Richie n 00 Q12H, For 65 - 90kg, Start date: 09/01/11 9:00:00, Duration: 30 day, Stop date: 09/30/11 21:00:00 docusate No Alexey 100 mg, 1 Memoria sodium 100 08-31 Efren cap, l mg oral 14:00: Mendoza Route: PO, Giorgi capsule 00 Drug form: CAP, Q12H, Start date: 09/01/11 9:00:00, Duration: 30 day, Stop date: 09/30/11 21:00:00 senna 2012-0 No Alexey 8.6 mg, 1 Me moria 7-13 Efren tab, l 14:00: Mendoza Route: PO, H ermann 00 Drug Form: TAB, Q12H, Start date: 09/01/11 9:00:00, Duration: 30 day, Stop date: 09/30/11 21:00:00 docusate 2011-0 No Alexey 100 mg, 10 Memoria sodium 100 7-13 Efren mL, Route: l mg/25 mL 14:00: Mendoza NG, Drug Giorgi oral syrup 00 form: LIQ, Q12H, Start date: 09/01/11 9:00:00, Duration: 30 day, Stop date: 09/30/11 21:00:00 dexamethaso 2011-0 No Alexey 4 mg, 1 Memoria ne -13 Efren tab, l 11:00: Mendoza Route: PO, H ermann 00 Drug form: TAB, Q6H, Start date: 09/01/11 6:00:00, Duration: 30 day, Stop date: 10/01/11 0:00:00 Dextrose 2011-0 No Alexey 6.25 gm, Memoria 50% Syringe 08-31 Efren 12.5 mL, l 08:08: Mendoza Route: Kiera nn 00 IVP, Drug Form: INJ, PRN, PRN Abnormal Lab Result, Start date: 09/01/11 3:08:00, Duration: 30 day, Stop date: 10/01/11 3:07:00 insulin 2011-0 No Alexey 7 unit, [place] moria regular - Efren 0.07 mL, l human 08:08: Mendoza Route: Herm heber recombinant 00 SUB-Q, 100 Drug form: units/mL SOLN, PRN, injectable PRN solution Abnormal Lab Result, Start date: 09/01/11 3:08:00, Duration: 30 day, Stop date: 10/01/11 3:07:00 Saline 2011-0 No Alexey 5 ml, Memor ia Flush 0.9% - Efren Route: l 08:08: Mendoza IVP, Drug He rmann 00 Form: INJ, PRN, PRN Line Flush, Start date: 09/01/11 3:08:00, Duration: 30 day, Stop date: 10/01/11 3:07:00 acetaminoph 2011-0 No Alexey 1 tab, Memoria en-hydrocod 08-31 Efren Route: PO, l one 325 08:08: Mendoza Drug Form: Giorgi mg-10 mg 00 TAB, Q4H, oral tablet PRN Pain Score 4-6, Start date: 09/01/11 3:08:00, Duration: 30 day, Stop date: 10/01/11 3:07:00 ondansetron 2011- No Alexey 4 mg, 2 Memoria - Efren mL, Route: l 08:08: Mendoza IVP, Drug He rmann 00 form: INJ, Q8H, PRN Nausea & Vomiting, Start date: 09/01/11 3:08:00, Duration: 30 day, Stop date: 10/01/11 3:07:00 bisacodyl 2011- No Alexey 10 mg, 1 Memoria - Efren supp, l 08:08: Mendoza Route: MD, H ermann 00 Drug form: SUPP, Daily, PRN Constipati on, Start date: 09/01/11 3:08:00, Duration: 30 day, Stop date: 10/01/11 3:07:00 Sodium 2011-0 No Alexey 250 mL, Mem oria Chloride 08-31 Efren Rate: 500 l 0.9% 08:08: Mendoza ml/hr, Kiera nn (Bolus) IV 00 Infuse 250 mL over: 30 minutes, Route: IV, Dosing Weight 77.273 kg, Total Volume: 250, Priority: STAT, Start date: 09/01/11 3:08:00, Duration: 1 doses or times, Stop date: 09/01/11 3:37:00 Sodium 2011-0 No Alexey 1,000 mL, M emoria Chloride 08-31 Efren Rate: 50 l 0.9% IV 08:08: Mendoza ml/hr, He rmann 1,000 mL 00 Infuse over: 20 hr, Route: IV, Dosing Weight 77.273 kg, Total Volume: 1,000, Start date: 09/01/11 3:08:00, Duration: 30 day, Stop date: 10/01/11 3:07:00 DEXAMETHASO Yes qd Memori a NE 1 MG 7-10 l TABS 00:00: Giorgi 00 Flomax No Cl 0.8 mg, 2 Memor ia 08-15 Patel cap, l 13:30: Abdunnur Route: PO, Her Drug form: CAP, After Breakfast, Start date: 08/16/11 8:30:00, Duration: 1 day, Stop date: 08/16/11 8:30:00 calcium No Dong H Wilma 3,000 mg, Memoria gluconate 08-15 30 mL, l 08:30: Route: Dudley 00 IVPB, ONCE, Start date: 08/16/11 3:30:00, Stop date: 08/16/11 3:30:00 K-Dur 20 No Dong H Wilma 40 mEq, 2 Memoria 08-15 tab, l 08:00: Route: PO, Drug form: ERTAB, ONCE, Start date: 08/16/11 3:00:00, Stop date: 08/16/11 3:00:00 heparin No Asma 5,000 Memoria 08-15 Zakaria unit, 1 l 05:00: mL, Route: SUB-Q, Drug form: INJ, Q8H, Start date: 08/16/11 0:00:00, Duration: 30 day, Stop date: 09/14/11 16:00:00 acetaminoph No Asma 650 mg, 2 M emoria en 08-14 Zakaria tab, l 15:56: Route: PO, Drug form: TAB, Q6H, PRN Pain, Start date: 08/15/11 10:56:00, Duration: 30 day, Stop date: 09/14/11 10:55:00 Tylenol No Asma 325 mg, 1 Memor ia 08-14 Zakaria tab, l 15:39: Route: PO, Drug form: TAB, Q4H, PRN Pain, Start date: 08/15/11 10:39:00, Duration: 30 day, Stop date: 09/14/11 10:38:00 Prozac 2012-0 No Cl 40 mg, 2 Memori a 08-14 Patel cap, l 14:00: Abdunnur Route: PO, Her gray 00 Drug form: CAP, Daily, Start date: 08/15/11 9:00:00, Duration: 30 day, Stop date: 09/13/11 9:00:00 Microzide 2011-0 No Cl 12.5 mg, 1 M emoria 08-14 Patel cap, l 14:00: Abdunnur Route: PO, Her gray 00 Drug form: CAP, Daily, Start date: 08/15/11 9:00:00, Duration: 30 day, Stop date: 09/13/11 9:00:00 Synthroid 2011-0 No Cl 0.075 mg, Me moria 08-14 Patel 1 tab, l 12:30: Abdunnur Route: PO, Her gray 00 Drug form: TAB, Before Breakfast, Start date: 08/15/11 7:30:00, Duration: 30 day, Stop date: 09/13/11 7:30:00 Senokot 2011-0 No Cl 8.6 mg, 1 José Luis ke 08-14 Patel tab, l 02:00: Abdunnur Route: PO, Her rgay 00 Drug Form: TAB, Q12H, Start date: 08/14/11 21:00:00, Duration: 30 day, Stop date: 09/13/11 9:00:00 vancomycin 2011-0 No Cl 1 gm, Memor ia (SCIP) 08-14 Patel Route: l 01:00: Abdunnur IVPB, Drug Her gray 00 form: INJ, [id number], Start date: 08/14/11 20:00:00, Duration: 2 doses or times, Stop date: 08/15/11 8:00:00 dexamethaso 2011-0 No Cl 4 mg, 1 Me moria ne 08-13 Patel tab, l 23:00: Abdunnur Route: PO, Her gray 00 Drug form: TAB, Q6H, Start date: 08/14/11 18:00:00, Duration: 30 day, Stop date: 09/13/11 12:00:00 Reglan 2011-0 No Asma 10 mg, 2 Memoria 25 Zakaria mL, Route: l 23:00: IVP, Drug Dudley 00 form: INJ, Q6H, Start date: 08/14/11 18:00:00, Duration: 48 hr, Stop date: 08/16/11 12:00:00 Pravachol 2012-0 No Cl 80 mg, 4 Mem oria 6-25 Patel tab, l 22:00: Abdunnur Route: PO, Her gray 00 Drug form: TAB, QPM, Start date: 08/14/11 17:00:00, Duration: 30 day, Stop date: 09/12/11 17:00:00 Klonopin 2012-0 No Cl 2 mg, 1 Memor ia 6-25 Patel tab, l 22:00: Abdunnur Route: PO, Her gray 00 Drug form: TAB, TID, Start date: 08/14/11 17:00:00, Duration: 30 day, Stop date: 09/13/11 13:00:00 promethazin 2011-0 No Kin 6.25 mg, Memoria e 6-25 Chavez Moreno 0.25 mL, l 19:23: Route: Giorgi IVPB, Drug form: INJ, ONCE, PRN Nausea & Vomiting, Start date: 08/14/11 14:23:00 ondansetron 2011-0 No Kin 4 mg, 2 M emoria 6-25 Chavez Moreno mL, Route: l 19:23: IVP, Drug form: INJ, ONCE, PRN Nausea & Vomiting, Start date: 08/14/11 14:23:00 dexamethaso 2011-0 No Kin 4 mg, 1 M emoria ne 6-25 Chavez Moreno mL, Route: l 19:23: IVP, Drug form: INJ, ONCE, PRN Nausea & Vomiting, Start date: 08/14/11 14:23:00 naloxone 2011-0 No Kin 0.04 mg, Mem oria 6-25 Chavez Moreno 0.1 mL, l 19:23: Route: Dudley 00 IVP, Drug form: INJ, Q2MIN, PRN Narcotic Reversal, Start date: 08/14/11 14:23:00, Duration: 8 doses or times, Stop date: 08/15/11 0:00:00 flumazenil 2011-0 No Kin 0.2 mg, 2 Memoria 6-25 Chavez Moreno mL, Route: l 19:23: IVP, Drug Giorgi form: INJ, PRN, PRN Benzodiaze pine Reversal, Initial dose, Start date: 08/14/11 14:23:00, Stop date: 08/15/11 0:00:00 hydromorpho 2011-0 No Kin 0.5 mg, M emoria ne 6-25 Chavez Moreno 0.25 mL, l 19:23: Route: Dudley IVP, Drug form: INJ, Q5Min, PRN Pain Score 4-6, Start date: 08/14/11 14:23:00, Duration: 5 doses or times, Stop date: 08/15/11 0:00:00 hydrALAZINE 2011-0 No Kin 5 mg, 0.25 Memoria 6-25 Chavez Moreno mL, Route: l 19:23: IVP, Drug Dudley 00 form: INJ, Q5Min, PRN Elevated BP, Start date: 08/14/11 14:23:00, Duration: 4 doses or times, Stop date: 08/15/11 0:00:00 labetalol 2011-0 No Kin 5 mg, 1 Mem oria 6-25 Chavez Moreno mL, Route: l 19:23: IVP, Drug Giorgi 00 form: INJ, Q5Min, PRN Elevated BP, Start date: 08/14/11 14:23:00, Duration: 5 doses or times, Stop date: 08/15/11 0:00:00 dexamethaso 2011-0 No Cl 4 mg, 1 Me moria ne 6-25 Patel tab, l 17:00: Abdunnur Route: PO, Her gray 00 Drug form: TAB, Q6H, Start date: 08/14/11 12:00:00, Duration: 30 day, Stop date: 09/13/11 6:00:00 metoclopram 2011-0 No Cl 10 mg, 2 M emoria virgie 6-25 Patel mL, Route: l 17:00: Abdunnur IVP, Drug Herm form: INJ, Q6H, Start date: 08/14/11 12:00:00, Duration: 48 hr, Stop date: 08/16/11 6:00:00 clonazepam 2011-0 No Cl 2 mg, 1 Mem oria 6-25 Patel tab, l 14:00: Abdunnur Route: PO, Her gray 00 Drug form: TAB, TID, Start date: 08/14/11 9:00:00, Duration: 30 day, Stop date: 09/12/11 17:00:00 Pepcid 20 2011-0 No Cl 20 mg, 1 Mem oria mg oral 6-25 Patel tab, l tablet 14:00: Abdunnur Route: PO, H ermann 00 Drug form: TAB, Q12H, Start date: 08/14/11 9:00:00, Duration: 30 day, Stop date: 09/12/11 21:00:00 Saline 2011-0 No Cl 5 ml, Memoria Flush 0.9% 6-25 Patel Route: l 14:00: Abdunnur IVP, Drug Herm heber 00 Form: INJ, Q12H, Start date: 08/14/11 9:00:00, Duration: 30 day, Stop date: 09/12/11 21:00:00 vancomycin 2011-0 No Cl 1 gm, Memor ia (SCIP) 6-25 Patel Route: l 14:00: Abdunnur IVPB, Drug Her gray 00 form: INJ, Q12H, Start date: 08/14/11 9:00:00, Duration: 2 doses or times, Stop date: 08/14/11 21:00:00 senna 2011-0 No Cl 8.6 mg, 1 Memori a 6-25 Patel tab, l 14:00: Abdunnur Route: PO, Her gray 00 Drug Form: TAB, Q12H, Start date: 08/14/11 9:00:00, Duration: 30 day, Stop date: 09/12/11 21:00:00 docusate 2011-0 No Cl 100 mg, 1 Mem oria sodium 100 6-25 Patel cap, l mg oral 14:00: Abdunnur Route: PO, Dudley capsule 00 Drug form: CAP, Q12H, Start date: 08/14/11 9:00:00, Duration: 30 day, Stop date: 09/12/11 21:00:00 levothyroxi 2012-0 No Cl 0.075 mg, Memoria ne 6-25 Patel 1 tab, l 14:00: Abdunnur Route: PO, Her gray 00 Drug form: TAB, Daily, Start date: 08/14/11 9:00:00, Duration: 30 day, Stop date: 09/12/11 9:00:00 pravastatin No Cl 80 mg, 4 M emoria 6-25 Patel tab, l 14:00: Abdunnur Route: PO, Her gray 00 Drug form: TAB, Daily, Start date: 08/14/11 9:00:00, Duration: 30 day, Stop date: 09/12/11 9:00:00 hydrochloro No Cl 12.5 mg, 1 Memoria thiazide 6-25 Patel cap, l 12.5 mg 14:00: Abdunnur Route: PO, Dudley oral 00 Drug form: capsule CAP, Daily, Start date: 08/14/11 9:00:00, Duration: 30 day, Stop date: 09/12/11 9:00:00 Prozac No Cl 40 mg, 2 Memori a 6-25 Patel cap, l 14:00: Abdunnur Route: PO, Her gray 00 Drug form: CAP, Daily, Start date: 08/14/11 9:00:00, Duration: 30 day, Stop date: 09/12/11 9:00:00 magnesium Yes Cl 17.45 gm, Me moria citrate 6-25 Patel 300 mL, l 8.85% oral 11:49: Abdunnur PO, ONCE, Giorgi liquid 24 PRN, 1 mL, 1, 1, Severe constipati on, Substituti on Allowed, Maintenanc e, LIQ docusate Yes Cl 100 mg, 0, Me moria sodium 100 6-25 Patel PO, BID, l mg oral 11:49: Abdunnur 20 cap, Her gray capsule 20 Substituti on Allowed Pepcid 20 No Asma 20 mg, 1 José Luis ke mg oral 6-25 Zakaria tab, PO, l tablet 11:49: BID, 16 Dudley 16 tab, Substituti on Allowed [place] No Asma 1 tab, PO, Memori a 10/325 oral 6-25 Zakaria Q4H, PRN, l tablet 11:49: 30 tab, 2, Kiera nn 14 2, as needed for pain, Substituti on Allowed, Maintenanc e, TAB dexamethaso Yes Cl 1 mg, 1 Me moria ne 1 mg 625 Patel tab, PO, l oral tablet 11:49: Abdunnur BID, 37 Giorgi 13 tab, Substituti on Allowed, Please take 2 tabs PO Q6H [...] daily x 1 day, then stop insulin No Cl 7 unit, Memori a regular -25 Patel 0.07 mL, l human 11:47: Abdunnur Route: Richie n recombinant 00 SUB-Q, 100 Drug form: units/mL SOLN, PRN, injectable PRN solution Abnormal Lab Result, Start date: 08/14/11 6:47:00, Duration: 30 day, Stop date: 09/13/11 6:46:00 Dextrose No Cl 12.5 gm, José Luis ke 50% Syringe 08-13 Patel 25 mL, l 11:47: Abdunnnani Route: Dudley 00 IVP, Drug Form: INJ, PRN, PRN Abnormal Lab Result, Start date: 08/14/11 6:47:00, Duration: 30 day, Stop date: 09/13/11 6:46:00 Saline No Cl 5 ml, Memoria Flush 0.9% 25 Patel Route: l 11:47: Abdunnur IVP, Drug Herm heber 00 Form: INJ, PRN, PRN Line Flush, Start date: 08/14/11 6:47:00, Duration: 30 day, Stop date: 09/13/11 6:46:00 acetaminoph No Asma 2 tab, José Luis ke en-hydrocod 6-25 Zakaria Route: PO, l one 325 11:47: Drug Form: Herm heber mg-5 mg 00 TAB, Q4H, oral tablet PRN Pain Score 4-6, Start date: 08/14/11 6:47:00, Duration: 30 day, Stop date: 09/13/11 6:46:00 morphine 2011-0 No Cl 2 mg, 0.5 Mem oria Sulfate 6-25 Patel mL, Route: l 11:47: Abdunnur IVP, Drug Herm heber 00 form: INJ, Q1H, PRN Pain Score 7-10, Start date: 08/14/11 6:47:00, Duration: 30 day, Stop date: 09/13/11 6:46:00 ondansetron 2011-0 No Cl 4 mg, 2 Me moria 6-25 Patel mL, Route: l 11:47: Abdunnur IVP, Drug Herm heber 00 form: INJ, Q8H, PRN Nausea & Vomiting, Start date: 08/14/11 6:47:00, Duration: 30 day, Stop date: 09/13/11 6:46:00 Sodium 2011-0 No Asma 1,000 mL, Memori a Chloride 6-25 Zakaria Rate: 50 l 0.9% IV 11:47: ml/hr, Giorgi 1,000 mL 00 Infuse over: 20 hr, Route: IV, Dosing Weight 65.909 kg, Total Volume: 1,000, Start date: 08/14/11 6:47:00, Duration: 30 day, Stop date: 09/13/11 6:46:00 Benadryl 2011-0 No Cl 25 mg, 1 José Luis ke 6-25 Patel cap, l 11:44: Abdunnur Route: PO, Her gray 00 Drug form: CAP, Bedtime, PRN as needed for sleep, Start date: 08/14/11 6:44:00, Stop date: 09/13/11 6:43:00 vancomycin 2011-0 No Cl 1 gm, Memor ia 6-25 Patel Route: l 03:00: Abdunnur IVPB, Drug Her gray 00 form: INJ, PRE OP, Start date: 08/13/11 22:00:00, Duration: 1 day, Stop date: 08/14/11 21:59:00 Tylenol 325 Yes 325 mg, 1 M emoria mg oral 6-12 tab, PO, l tablet 17:22: Q4H, PRN, Richie n 58 60 tab, Pain, Substituti on Allowed hydrochloro Yes Cl 12.5 mg, 1 Memoria thiazide 6-12 Patel tab, PO, l 12.5 mg 17:22: Abdunnur Daily, 30 H ermann oral tablet 47 tab, Substituti on Allowed, TAB Prozac 40 Yes Cl 40 mg, 1 Mem oria mg oral 6-12 Patel cap, PO, l capsule 17:22: Abdunnur Daily, 30 H ermann 10 cap, Substituti on Allowed, CAP clonazepam Yes Cl 2 mg, 1 Mem oria 2 mg oral 6-12 Patel tab, PO, l tablet 17:21: Abdunnur TID, Giorgi 55 Substituti on Allowed, TAB diphenhydrA Yes Cl 25 mg, 1 M emoria MINE 25 mg 6-12 Patel cap, PO, l oral 17:21: Abdunnur Bedtime, Kiera nn capsule 36 PRN, 30 cap, Insomnia, Substituti on Allowed pravastatin Yes Cl 80 mg, 1 M emoria 80 mg oral 6-12 Patel tab, PO, l tablet 17:21: Abdunnur Daily, 30 He rmann 18 tab, Substituti on Allowed, TAB levothyroxi Yes Cl 75 Memor ia ne 75 mcg 6-12 Patel microgram, l (0.075 mg) 17:21: Abdunnur 1 tab, PO, Giorgi oral tablet 06 Daily, 30 tab, Substituti on Allowed, TAB Bactrim DS No 1 tab, PO, M emoria 6-12 BID, 20 l 17:20: tab, Giorgi 52 Substituti on Allowed, Maintenanc e Gabapentin Yes ; Start José Luis ke 100 MG Oral 5-30 Date: l Capsule 05:00: 07/19/2011 Herm heber 00 ; End Date: (Active) LEVOTHYROXI Yes 1 tab po Me moria NE SODIUM 5-29 qd l 75 MCG TABS 00:00: Richie ibrahim 00 HYDROCHLORO 2011-0 Yes 1 cap po Me moria THIAZIDE 5-29 qd l 12.5 MG 00:00: [place] CAPS 00 FLUOXETINE 2011- Yes 1 cap po [facility] HCL 40 MG 5-29 qd l CAPS 00:00: [place] 00 PRAVASTATIN 2011-0 Yes 1 tab po Me moria SODIUM 80 5-29 qd l MG TABS 00:00: [place] CLONAZEPAM 2011- Yes 1 tab po [facility] 2 MG TABS 5-29 tid l 00:00: Giorgi CLONAZEPAM 2011-0 Yes 1 tab po [facility] 2 MG TABS 5-29 tid l 00:00: [place] Vital Signs Vital Name Observation Time Observation Value Comments Source Weight 2014-08-12 16:35:12 [facility] Height 2014-08-12 16:35:12 [facility] Heart Rate 2014-08-12 16:35:12 [facility] Systolic (mm Hg) 2014-08-12 16:35:12 José Luis rial [facility] Diastolic (mm Hg) 2014-08-12 16:35:12 [facility] Weight 2014-06-17 17:09:01 [facility] Height 2014-06-17 17:09:01 [facility] [place] Heart Rate 2014-06-17 17:09:01 [facility] Systolic (mm Hg) 2014-06-17 17:09:01 José Luis rial [place] Diastolic (mm Hg) 2014-06-17 17:09:01 [facility] Temperature Oral (F) 2014-06-17 17:09:01 97.9 F [facility] Respitory Rate 2014-06-17 17:09:01 [facility] Weight 2014-05-13 18:20:11 [facility] Height 2014-05-13 18:20:11 [facility] Temperature Oral (F) 2014-05-13 18:20:11 98.4 F [facility] Heart Rate 2014-05-13 18:20:11 [facility] Systolic (mm Hg) 2014-05-13 18:20:11 José Luis [facility] Diastolic (mm Hg) 2014-05-13 18:20:11 [facility] Respitory Rate 2014-05-13 18:20:11 [facility] Weight 2011-09-12 14:52:20 [facility] Height 2011-09-12 14:52:20 [facility] Temperature Oral (F) 2011-09-12 14:52:20 98.7 F [facility] Heart Rate 2011-09-12 14:52:20 [facility] Systolic (mm Hg) 2011-09-12 14:52:20 José Luis [facility] Diastolic (mm Hg) 2011-09-12 14:52:20 [facility] Respitory Rate 2011-09-02 16:30:00 [facility] Systolic (mm Hg) 2011-09-02 16:30:00 José Luis [facility] Diastolic (mm Hg) 2011-09-02 16:30:00 [facility] Temperature Oral (F) 2011-09-02 16:30:00 98.7 F [facility] Heart Rate 2011-09-02 16:30:00 [facility] Diastolic (mm Hg) 2011-09-02 12:00:00 [facility] Respitory Rate 2011-09-02 12:00:00 [facility] Systolic (mm Hg) 2011-09-02 12:00:00 José Luis [facility] Heart Rate 2011-09-02 12:00:00 [facility] Temperature Oral (F) 2011-09-02 12:00:00 98.3 F [facility] Heart Rate 2011-09-02 09:00:00 [facility] Diastolic (mm Hg) 2011-09-02 09:00:00 [facility] Systolic (mm Hg) 2011-09-02 09:00:00 José Luis [facility] Respitory Rate 2011-09-02 09:00:00 [facility] Temperature Oral (F) 2011-09-02 09:00:00 98.4 F [facility] Weight 2011-09-01 11:48:00 [facility] Height 2011-09-01 11:48:00 167.64 cm [facility] Height 2011-09-01 04:34:00 167.64 cm [facility] Weight 2011-09-01 04:34:00 [facility] Weight 2011-08-29 17:03:50 [facility] Height 2011-08-29 17:03:50 [facility] Temperature Oral (F) 2011-08-29 17:03:50 99.0 F [facility] Heart Rate 2011-08-29 17:03:50 [facility] Diastolic (mm Hg) 2011-08-29 17:03:50 [facility] Systolic (mm Hg) 2011-08-16 23:00:00 José Luis [facility] Diastolic (mm Hg) 2011-08-16 23:00:00 [facility] Respitory Rate 2011-08-16 23:00:00 [facility] Diastolic (mm Hg) 2011-08-16 22:00:00 [facility] Systolic (mm Hg) 2011-08-16 22:00:00 José Luis [facility] Respitory Rate 2011-08-16 22:00:00 [facility] Diastolic (mm Hg) 2011-08-16 21:00:00 [facility] Systolic (mm Hg) 2011-08-16 21:00:00 José Luis [facility] Respitory Rate 2011-08-16 21:00:00 [facility] Temperature Oral (F) 2011-08-14 20:00:00 98.1 F [facility] Heart Rate 2011-08-14 11:10:00 [facility] Height 2011-08-14 11:01:00 167.64 cm [facility] Weight 2011-08-14 11:01:00 [facility] Weight 2011-08-01 17:53:50 [facility] Height 2011-08-01 17:53:50 [facility] Temperature Oral (F) 2011-08-01 17:53:50 98.8 F [facility] Heart Rate 2011-08-01 17:53:50 [facility] Systolic (mm Hg) 2011-08-01 17:53:50 José Luis [facility] Diastolic (mm Hg) 2011-08-01 17:53:50 [facility] Height 2011-08-01 17:42:00 167.64 cm [facility] Weight 2011-08-01 17:42:00 [facility] Procedures Procedure Date / Time Performed Performing Clinician [facility] e smoking/tobacco 2011-07-18 18:46:51 [facility] cessation, patient education and counseling Encounters Start End Encounter Admission Attending Care Care Encounter Source Date/Time Date/Time Type Type Clinicians Facility Department ID 2019-10-31 2019-10-31 IESHA Gan [id number] 00:00:00 00:00:00 Miky Rowell [id number] [place] [id number] Professio [phone] [address] 2019-10-31 2019-10-31 Orders Doctor STEFAN [id number] 00:00:00 00:00:00 Only Unassigned, REGAN [id number] [employer] [facility] [id number] [id number] 2019-10-08 2019-10-08 [facility] [id number] 00:00:00 00:00:00 Miky Rowell [id number] [place] [id number] Professio [id number] [address] 2019-08-29 2019-08-29 [facility] [id number] 00:00:00 00:00:00 Miky Rowell [id number] [place] [id number] Professio [phone] [address] 2012-04-19 2012-04-19 Outpatient MHIE HANNAH [id number] 20:06:57 20:06:39 2012-02-12 2012-02-12 Outpatient MHIE IE [id number] 03:02:06 03:01:32 2012-02-09 2012-02-09 Outpatient MHIE HANNAH [id number] 06:35:44 06:35:28 Results Test Description Test Time Test Comments Results Result Comments Source BEDSIDE GLUCOSE 2011-09-02 126 [facility] TESTING 17:02:00 BEDSIDE GLUCOSE 2011-09-02 171 [facility] TESTING 03:35:00 CHEMISTRY 2011-09-01 4.00 [facility] nn 11:00:00 CHEMISTRY 2011-09-01 1.00 [facility] nn 11:00:00 CHEMISTRY 2011-09-01 1.01 [facility] nn 11:00:00 CHEMISTRY 2011-09-01 4.04 [facility] nn 11:00:00 CHEMISTRY 2011-09-01 3.2 [facility] nn 11:00:00 CHEMISTRY 2011-09-01 0.6 [facility] nn 11:00:00 CHEMISTRY 2011-09-01 1.0 [facility] nn 11:00:00 CHEMISTRY 2011-09-01 6.3 [facility] nn 11:00:00 CHEMISTRY 2011-09-01 0.8 [facility] nn 11:00:00 CHEMISTRY 2011-09-01 0.2 [facility] nn 11:00:00 CHEMISTRY 2011-09-01 11 [facility] nn 11:00:00 CHEMISTRY 2011-09-01 70 [facility] nn 11:00:00 CHEMISTRY 2011-09-01 3.1 [facility] nn 11:00:00 CHEMISTRY 2011-09-01 17 [facility] nn 11:00:00 HEMATOLOGY 2011-09-01 11:00:00 Test Item Value Reference Range Interpretation Comme nts PTT (test code = PTT) 30.9 s 22.9-35.8 N [facility] QmmjthuODHKWHYWTI9607-32-60 11:00:00 Test Item Value Reference Range Interpretation Comments PT (test code = PT) 13.7 s 12.0-14.7 N [facility] AzyaemmMAPDYMGOSP3084-25-22 11:00:001.05[facility]annHEMATOLOGY 2011-09-01 11:00:0096.0[facility] RiqctieBLLBHCTVTO6025-11-55 11:00:008.4[facility] AreorsxGZJILSEAIM2852-55-95 11:00:38089Czkujsxf BhfvnixHYWYDZYIEM6073-27-38 11:00:0016.9[facility] ZkfwibcEHMBITJKYR9924-49-57 11:00:0033.7[facility] JCBHEDHXMB2472-72-42 11:00:00 Test Item Value Reference Range Interpretation Comments MCH (test code = MCH) 32.3 pg 27.0-31.0 H [facility] XtpfgegWVGBTYYXDU5341-77-88 11:00:0032.5[facility] HermannHEMATOLOGY 2011-09-01 11:00:0011.0[facility] VntwnzvIZHUNTCTRA7838-35-05 11:00:003.39[facility] LytnueuZNEFZVNIBO2146-04-95 11:00:0013.2[facility] UzmgwsoSCQUIIROEH9237-32-37 11:00:003.0[facility] FaxlnhdDOXLJDOVDY1740-06-42 11:00:001.0[facility] DPZMAUABPJ2376-04-18 11:00:000.4[facility] GcxdiwlCJPGZEIFJO1830-39-27 11:00:000.1 [facility] PpwrlljJAJNTSSDSH6426-22-48 11:00:000.0[facility] HermannHEMATOLOGY 2011-09-01 11:00:001.0[facility] QixtiwsQXLEECKMOA9177-62-40 11:00:0095.0[facility] MorwifzCJWVASBWIM6168-79-16 11:00:0012.7[facility] HermannBODY NBRHLT9858-76-20 08:10:00Colorless (09/01/2011 03:10:00)[facility] WTWGWT8294-58-37 08:10:00 Test Item Value Reference Range Interpretation Comments Tube Num CSF (test code = Tube Num CSF) 4 1 [facility] IJFFSJ0831-34-73 08:10:00Colorless (09/01/2011 03:10:00) [facility] YSMESE0512-86-28 08:10:00Slight *ABN*(09/01/2011 03:10:00) [facility] YXUCDF9738-23-94 08:10:297519Ztxsxxjk [facility]ann[facility] FLUIDS 2011-09-01 08:10:002[facility] MANHZI9693-32-72 08:10:004[facility] AHDWWD6611-79-78 08:10:003[facility] ABFBKI4125-15-18 08:10:0093[facility] PDDPEV2711-33-57 08:05:003.0[facility] PUTGJA8894-29-77 08:05:96045Azrfxuzn [facility]ann[facility] FKJHDC1732-21-43 08:05:00 Test Item Value Reference Range Interpretation Comments Tube Num CSF (test code = Tube Num CSF) 1 1 [facility] GYZDIR9554-45-18 08:05:00Colorless (09/01/2011 03:05:00) [facility] BLOMWA0633-36-74 08:05:00Colorless (09/01/2011 03:05:00) [facility] CKBBAC2351-26-17 08:05:915540Udpdxnet [facility] FLUIDS 2011-09-01 08:05:00Slight *ABN*(09/01/2011 03:05:00)[facility] HermannBODY FLUIDS 2011-09-01 08:05:002[facility] ZGWJGI3446-73-85 08:05:0092[facility]ann[facility] MCLEGH5173-53-68 08:05:004[facility] TTHVZI4345-11-80 08:05:004[facility]ann[facility] SCJDKE1199-09-72 08:05:0078[facility] HermannFUNGAL - FQGBBTUF8915-29-66 08:05:00Negative (09/01/2011 03:05:00)[facility] AVWUBSHZXL6733-73-25 08:05:00Non Reactive (09/01/2011 03:05:00)[facility] DSWWEMSQRN1630-85-23 08:05:00Negative (09/01/2011 03:05:00)[facility] DWCFSFPCNS6488-15-39 08:05:00Negative (09/01/2011 03:05:00)[facility] FCZEVRNABW1372-23-97 08:05:00Negative 6(09/01/2011 03:05:00)[facility] HAFZLWATJV5172-17-45 08:05:00Negative (09/01/2011 03:05:00)[facility] USEVXWIERE4471-65-92 08:05:00Negative (09/01/2011 03:05:00)[facility] SVDHCAZAWI9816-95-52 08:05:00Negative (09/01/2011 03:05:00)[facility] BEDSIDE GLUCOSE XACFJVH0671-92-28 22:14:56941Fbbfeocc HermannBEDSIDE GLUCOSE FEEJCYN9529-61-34 16:37:29659Fjonxnqd HermannBEDSIDE GLUCOSE EPRDPSI5524-37-54 12:56:32115Brmcpmmc XlfyyuzLADUKEBMB9725-83-72 05:50:002.0[facility] OCTBHWXJE2149-39-77 05:50:007.6[facility] IviiielRODOUYXWR0096-59-50 05:50:008.4 [facility] YdyqewqUUSIQOPXE5495-53-85 05:50:0032[facility] HermannCHEMISTRY 2011-08-16 05:50:61293Qcivhuee EgzjizoEUSXTDPNW0996-16-01 05:50:001.0[facility] DsfictgQOGKYFENA7173-35-12 05:50:0021[facility] ZhiqdyoPTLKMBFCZ3771-45-13 05:50:003.6[facility] PfzlhlrSSQPPLJFS5789-10-33 05:50:49571Umshnuye [facility] MZYTUCCMG3096-34-98 05:50:90398Oxajmtfz SswjgbuKPIRSOZGB7809-58-23 05:50:002.2 [facility] ZchcdnxTOANIEBNR8150-08-74 05:50:001.09[facility] HermannCHEMISTRY 2011-08-16 05:50:004.36[facility] JdnxyzsGOEZZRTOA5837-29-98 05:50:004.60[facility] QxssehsKIOSCFNBY2261-48-89 05:50:001.15[facility] WqbtprdWPXIVMIXMK6570-61-64 05:50:16081Jmkznbqz KtfqzpsHTPBQGLLEV2309-80-59 05:50:0015.9[facility] CVDVSPAHDT2996-28-45 05:50:0093.4[facility] XpuprtbOUUAMOXFJV3247-50-20 05:50:00 34.1[facility] DeyrbiuVJXDIEIEVD3080-63-01 05:50:00 Test Item Value Reference Range Interpretation Comments MCH (test code = MCH) 31.8 pg 27.0-31.0 H [facility] AhmunfuNBCFGNNXUQ7871-00-88 05:50:009.3[facility] HermannHEMATOLOGY 2011-08-16 05:50:0029.6[facility] PesqgqmQDCOTQELGU8270-57-74 05:50:0010.1[facility] TgxvnicHFWUXQRVAP7788-89-85 05:50:003.17[facility] GluwawgSZVCZXNKZG0343-20-02 05:50:0016.3[facility] LtrgoqoIHVUXGSIUH7031-11-92 05:50:000.0[facility] MHLXPAYOEC4855-68-78 05:50:000.0[facility] WupzhuhGMUXPGOAJJ9417-07-43 05:50:003.1 [facility] DchylcaKHATWZZDQP8512-54-85 05:50:0095.4[facility] HermannHEMATOLOGY 2011-08-16 05:50:000.5[facility] AvhnazyNMUIWSZJCB9673-72-77 05:50:000.0[facility] SgbkxnxFYLMQFTKYQ6225-28-51 05:50:001.5[facility] IfxkxdoXDUZJLTDRS7401-92-51 05:50:0015.6[facility] GwmaroxUNDFGHOBAX6017-81-36 05:50:000.0[facility] XSCPPVOSAU1178-58-76 05:50:000.2[facility] YxyyjvaTMBBLNMSO9299-09-31 01:19:0075 [facility] HsidsarLDGSGIWWO0108-92-43 01:19:001.6[facility] HermannCHEMISTRY 2011-08-16 01:19:001.2[facility] DfnnxfbSEKLBAFWS5008-34-71 22:15:51477.0[facility] EbplkaaRYPDIDGBC6347-69-16 22:15:003[facility] QuxznzmRYHKFYKFO9974-44-28 22:15:00 184[facility] YbulezbPLDPKLHZJ1830-72-45 22:15:007.44[facility] HermannCHEMISTRY 2011-08-15 22:15:0037.0[facility] SmhcfuzHOIAFCYWE9734-24-47 22:15:0028[facility] KetgwklIUTEBYGUK0819-26-53 22:15:0041[facility] OjhtoqlBPMHUAJLZ8929-59-36 22:15:0050.0[facility] QxtyqefZOALIKAGJ2541-15-48 22:09:0070.0[facility] QAXSXVRYM3413-06-07 22:09:003[facility] BeknpmqURIESJEYE2402-12-26 22:09:0050.0 [facility] OszsuojDQGHVZGEF5784-41-15 22:09:0037.0[facility] HermannCHEMISTRY 2011-08-15 22:09:007.39[facility] OqgxuneWPXRUJLEJ6492-13-81 22:09:0037[facility] NgnutteUASBUJAUW4948-07-77 22:09:0029[facility] NiojcogZWKEMBBCV8865-31-19 22:09:0048[facility] RbkcbotFHYLMJTPF9523-48-10 17:50:0076[facility] XPVCMWPVC0326-86-11 17:50:001.6[facility] KxbjdmrEIHSVAVXA2780-65-00 17:50:001.2 [facility] SwjvjckYWRFGBJQC4319-03-88 08:25:0054[facility] HermannCHEMISTRY 2011-08-15 08:25:95479Reglbfjx HqxebfoENYLUFIID8956-62-98 08:25:007.32[facility] DqopjymSHLRFSBKK1454-43-03 08:25:0037.0[facility] OhlliwbJYJLPYZBZ8143-35-35 08:25:0098.0[facility] UymibrxPMQJVRYGB5728-17-29 08:25:001[facility] TPGIUNHXE7520-44-61 08:25:0028[facility] SmbhzyzLWRMYSKET0895-62-26 06:00:0078 [facility] NpdlwcoZALCEPDHF1793-77-53 06:00:0014.1[facility] HermannCHEMISTRY 2011-08-15 06:00:87703Idqcgzym MoultlkMPWSKOSTV6597-64-17 06:00:008.2[facility] GhemtljHMOBGKIQQ8596-54-39 06:00:0024[facility] AfiqeaxPGSCQVIYU8828-93-79 06:00:90105Jguxvihg EsiqwisORERKGQWJ8523-79-57 06:00:35455Uezfltpq [facility] GBEUSVOXP1033-50-10 06:00:004.1[facility] PwheasvDSVDXCZIL8260-00-26 06:00:0025 [facility] DujvkufRZPCCPACT3085-01-71 06:00:001.3[facility] HermannCHEMISTRY 2011-08-15 06:00:002.4[facility] WhyjiqdCLUUIVHNS2124-86-59 06:00:001.9[facility] KbtsjlcJAPACNBBYI4885-36-19 06:00:000.0[facility] PdyrkfxOHAHMXHROB8451-78-04 06:00:000.0[facility] XhuhybxROBSVWUBBJ2053-17-68 06:00:0014.6[facility] HHELUOWGXP1892-75-94 06:00:000.5[facility] WaszouaCSCXSKKRGC3698-18-79 06:00:000.0 [facility] SysjxlsMYRZUTJERP0419-00-83 06:00:000.5[facility] HermannHEMATOLOGY 2011-08-15 06:00:003.1[facility] ZcuwdykBSLEQUCMSJ5538-64-05 06:00:000.0[facility] UjcuuoeKSLPDOXRUZ5796-76-07 06:00:003.4[facility] UorjtviORBZPLHLGT8808-49-39 06:00:0093.5[facility] AmmxpqeWOSFVCWZAG7402-97-75 06:00:30659Sqyloykf [facility] HJSIBUXTQL4152-11-46 06:00:0016.1[facility] ZiqcejbUSLVPZBWQX6677-54-39 06:00:00 33.2[facility] WtbkvsuHSLHAFYAKN3984-20-33 06:00:0094.5[facility] HermannHEMATOLOGY 2011-08-15 06:00:00 Test Item Value Reference Range Interpretation Comments MCH (test code = MCH) 32.3 pg 27.0-31.0 H [facility] CaknudzRFWJZELAFQ9518-39-58 06:00:0011.3[facility] HermannHEMATOLOGY 2011-08-15 06:00:0034.1[facility] TaudvgxIZOJJDZKLI1051-46-05 06:00:008.9[facility] NetwyayXHZVGLPWCW9249-11-64 06:00:0015.6[facility] OtmqbrpPDRZLSUXVX9422-89-92 06:00:003.51[facility] LwnxbmcDJKINAUJN9393-29-32 03:11:0040.0[facility] VATVPXLRG3989-80-56 03:11:005.0[facility] JiocsnwLSYVOAJHX7292-29-94 03:11:0010.0 [facility] DfrtegqSLXZTFLPT3427-46-72 03:11:00 Test Item Value Reference Range Interpretation Comments POC A Mech Rate (test code = POC A Mech 5 bpm <=70 N Rate) [facility] NsdxhqdICRTAAKGZ4558-99-04 02:21:00<0.02[facility] HermannCHEMISTRY 2011-08-15 02:21:00<0.010[facility] XtxiphoLIRDLGBCD0774-15-88 02:21:14657 [facility] HermannBACTERIAL - EBLKTHDY9277-41-43 20:45:00Negative 1(08/14/2011 15:45:00)[facility] QdpwijtIEWXJSBXL5126-64-34 20:44:008.0[facility] OAKFJJWMR9375-80-52 20:44:86501Jxdtkvov UtbpgxoVMHYZVJNG0749-17-13 20:44:0022 [facility] HridiasUMXVMFPEJ0871-95-11 20:44:0022[facility] HermannCHEMISTRY 2011-08-14 20:44:62177Gozoxlwy TympmdxCFKEQMHRY5682-73-99 20:44:49272Mgkvubwg LbzxhhoQIZYIXTQC8075-63-55 20:44:003.6[facility] FicuurwCOAMJJWOZ0005-74-94 20:44:001.4[facility] RzhbpeuCZYGJVTMS6891-16-32 20:44:0013.6[facility] ZEKNQTWEUS1433-03-53 20:44:0010.1[facility] SolknhyOKIYMXYDXL8495-18-06 20:44:00 0.6[facility] EztimgeXJZFMSUGVC0397-72-18 20:44:000.0[facility] HermannHEMATOLOGY 2011-08-14 20:44:000.0[facility] EwnkhchBGYBSYNTML1351-30-69 20:44:005.5[facility] HnafxvkDBJLONAFKT1517-22-60 20:44:000.0[facility] TjtxoaiARXDEZBKNP3349-05-63 20:44:000.0[facility] RivzhyyHUINJAOYUJ9767-61-63 20:44:000.1[facility] LLIZCQNBOX1120-50-39 20:44:000.6[facility] ElfmjbbJSTAOMHMWH0011-98-14 20:44:00 93.9[facility] AqxihedIBCTOFVDSD2134-91-36 20:44:001.12[facility] HermannHEMATOLOGY 2011-08-14 20:44:00 Test Item Value Reference Range Interpretation Comments PT (test code = PT) 14.4 s 12.0-14.7 N [facility] DqienqhJOJKREKOTW4371-68-84 20:44:009.5[facility] HermannHEMATOLOGY 2011-08-14 20:44:47097Qimmqnrt HzccxrbROFAEQKQUY0609-09-84 20:44:0016.4[facility] TvphtrgOYZJZTAQDR9305-81-56 20:44:0033.7[facility] GkstfgoJLAGCLBOCY9578-57-91 20:44:0010.7[facility] AhrdgymTRHAQOXMPI3041-90-55 20:44:00 Test Item Value Reference Range Interpretation Comments MCH (test code = MCH) 31.4 pg 27.0-31.0 H [facility] NsbkxxiQPXROXHNLP3021-93-97 20:44:0093.2[facility] HermannHEMATOLOGY 2011-08-14 20:44:0033.3[facility] CqmmhnzYXMGFSBNRL4768-97-65 20:44:0011.2[facility] KlakhjkZFSVFLNJUK8523-27-33 20:44:003.57[facility] WlphulqOKOAPLWLTG8593-18-69 20:44:00Few /LPF *NA*(08/14/2011 15:44:00)[facility] AoqdddePHEIALDSFC9829-95-61 20:44:00Occasional /HPF *NA*(08/14/2011 15:44:00)[facility] HermannURINALYSIS 2011-08-14 20:44:00Occasional /HPF *NA*(08/14/2011 15:44:00)[facility] RRWWQPUMAE1733-58-79 20:44:00Negative (08/14/2011 15:44:00)[facility] IZUNKYUAIF9322-61-82 20:44:006[facility] RsklnruJWRWCTOSWJ7811-64-42 20:44:00 Occasional /LPF *NA*(08/14/2011 15:44:00)[facility] YjjwstzBYBXHRLCBY0155-72-98 20:44:001[facility] UjlsekaWZAKPILXAF2603-61-99 20:44:00Negative (08/14/2011 15:44:00)[facility] LyvrawwSVPTQWUVEL9019-84-76 20:44:00Negative (08/14/2011 15:44:00)[facility] NwazifbIKWCZCGSTP1342-07-87 20:44:00Negative *NA*(08/14/2011 15:44:00)[facility] YiagktxOCJEJDQHYT1041-45-33 20:44:00Slight *ABN*(08/14/2011 15:44:00)[facility] UofaulkLPYTRZTDDO4945-05-43 20:44:00Yellow *NA*(08/14/2011 15:44:00)[facility] DjyhsyvMNBMFMABZE8911-70-17 20:44:00Negative mg/dL *NA*(08/14/2011 15:44:00)[facility] TkpmmniKOOFYQULNC4057-69-85 20:44:0050 mg/dL *ABN*(08/14/2011 15:44:00)[facility] AbmpkieUMHFAWVZSZ0834-32-42 20:44:0020 mg/dL *ABN*(08/14/2011 15:44:00)[facility] TfrktsaPMULBWQZDL7139-43-70 20:44:001.036 [facility] ItmaeufNEJXBZBBTX8557-98-73 20:44:005.5[facility] HermannCHEMISTRY 2011-08-14 14:17:001.14[facility] HvaqjovSRWJAFIIQ6821-09-24 14:17:002.3[facility] BoagsybIXTYRMJCA2363-28-54 14:17:21221Vikwzkpq BfwlbmvBODUDOHMN9146-13-83 14:17:73624Rihiqhxl WbrzmcrXXKRSZMPO4991-58-61 14:17:003.2[facility] VIVDXZHZO8002-90-86 14:17:0036.0[facility]BL[facility] B[facility] KPWFAFZ7438-81-47 11:20:00Negative (08/14/2011 06:20:00)[facility] RhkcarpJXIVFKRZNY9267-44-93 16:30:001.12[facility] WvowqxzMZJFCUGQZX6432-15-06 16:30:00 Test Item Value Reference Range Interpretation Comments PT (test code = PT) 14.4 s 12.0-14.7 [facility]ALJOEKH7043-01-47 16:30:00 Test Item Value Reference Range Interpretation Comments PTT (test code = PTT) 32.4 s 22.9-35.8 N [facility] GigwlexFepnwpufn4031-00-04 20:25:54910 MEQ/LMemorial HermannChemistry 2011-07-18 20:25:003.9 MEQ/LMemorial GghdhsnYouoxagsf3400-35-34 20:25:001.2 [facility] OskmrmhZzjtteblr0328-71-18 20:25:0017[facility] HermannChemistry 2011-07-18 20:25:00 Test Item Value Reference Range Interpretation Comments BUN/CREAT (test code = BUN/CREAT) 14 08-13 [facility] EldtbpsSgzfzxvpc2334-88-46 20:25:004.5[facility] HermannChemistry 2011-07-18 20:25:009.3[facility] KsmiwllCggqiopkt9112-38-57 20:25:0020[facility] XzlvkldIvctshlnm2760-68-80 20:25:0015[facility] GdmxvkoCbnpvgheh8213-58-19 20:25:39484Ftyewnln MfmujngLotcojaua7094-46-74 20:25:003.200[facility] Btkrixdju2420-93-06 20:25:83322 MEQ/LMem[facility] LwmqixzDacsilrnx9781-01-04 20:25:003.9 MEQ/LMem[facility] FuhxxbbEpepcwvnr2478-71-70 20:25:001.2[facility] Jlhoorioc5318-94-26 20:25:0017[facility] SpdwtfjCwkuonjqq6178-14-96 20:25:00 Test Item Value Reference Range Interpretation Comments BUN/CREAT (test code = BUN/CREAT) 14 02 24- [facility] AfkbklwNitgnbvkt6071-20-33 20:25:004.5[facility] 2011-07-18 20:25:009.3[facility] PqschdiPzmivdcsb8829-79-68 20:25:0020[facility] WgiwkkuMxlyhkkyn7353-22-27 20:25:0015[facility] PxblykvGjpsxodar4660-24-32 20:25:06537Jqczmjrh YjpphifOyrdlrpps5881-88-37 20:25:003.200[facility] Dvdveyccp6895-04-47 20:25:15505 MEQ/LMem[facility] OhqhjivUidawsaca4387-80-44 20:25:003.9 MEQ/LMem[facility] LdwmjicTsaztqsll9418-24-05 20:25:001.2[facility] Eziciwuxi6282-27-68 20:25:0017[facility] UssltdsViougggar6753-08-98 20:25:00 Test Item Value Reference Range Interpretation Comments BUN/CREAT (test code = BUN/CREAT) 14 08-13 [facility] LwvstquQtfaalxer4535-72-55 20:25:004.5[facility] 2011-07-18 20:25:009.3[facility] HmudvfgClwljzmnl9834-83-99 20:25:0020[facility] JkbfjczLgxqidras0947-66-79 20:25:0015[facility] HuvhvesTebtmwghy5157-48-34 20:25:76183Meguvhov EwdthhoQawbcdezm8983-90-12 20:25:003.200[facility] Iuawpdgdk9914-07-87 20:25:69518 MEQ/LMem[facility] DuaddbkGvsjihjpq9548-01-36 20:25:003.9 MEQ/LMem[facility] XuslqdmFlwpbnehy6395-15-89 20:25:001.2[facility] Diresqhne5155-48-83 20:25:0017[facility] FpfkzutUkgttlyiz1452-91-36 20:25:00 Test Item Value Reference Range Interpretation Comments BUN/CREAT (test code = BUN/CREAT) 08-13 [facility] UfbaeimRqovhrkbu7351-56-84 20:25:004.5[facility] 2011-07-18 20:25:009.3[facility] PpiubvfNkbuwmsxg0364-31-25 20:25:0020[facility] VetclolOwmtsgxam6456-66-29 20:25:0015[facility] MrhualkRkjqkvgtv0901-85-00 20:25:93328Kzodmdyc JoeviflRudavtojj9033-93-65 20:25:003.200[facility] Yghunnytve5279-62-17 20:25:0014.0[facility] PuncczsHnnkgwdrje7830-49-44 20:25:00 41.1[facility] NiyujojOkiwohnmqh9436-29-39 20:25:70224 K/CMMMemorial Giorgi Smpbqmusmp7616-04-83 20:25:0018[facility] JseibxmLhwgszcigf1893-24-78 20:25:0014.0 [facility] TwvusjfMbssidmcah7204-21-23 20:25:0041.1[facility] 2011-07-18 20:25:48243 K/CMemorial LsvxrwnTlzexatqyb6197-32-90 20:25:0018 [facility] NumqndwXjeopbdxfo8376-23-06 20:25:0014.0[facility] 2011-07-18 20:25:0041.emorial SnfankjXugfdlydhk5163-82-94 20:25:70058 K/CM [facility] IjfnwdsLusxonicou0435-45-43 20:25:0018[facility] 2011-07-18 20:25:0014.0[facility] AblmhcuAyqzjrkkkd3220-63-63 20:25:0041.emorial SoasmwgWmxvginznp9260-65-47 20:25:08709 K/CMem[facility]annHematology 2011-07-18 20:25:0018[facility] OtubcplXxvvwqyq7046-28-85 20:25:00PositiveMemorial JfoxoruGismccmg4674-01-99 20:25:00PositiveMemorial ZdzpqelMzyvlkxe1999-59-39 20:25:00PositiveMemorial QxenvakFheowrey7881-94-35 20:25:00PositiveMemorial Dudley
[2019-12-23] MEDS ORDERED: MORPHINE 2 MG/ML SYR ONE (14:44)
[2019-12-23] MEDS ORDERED: NA CHLORIDE 0.9% 500 ML ONE (14:44)
[2019-12-23] MEDS ORDERED: ONDANSETRON 4 MG/2 ML VIAL ONE (14:44)
[2019-12-23] MEDS ORDERED: PANTOPRAZOLE 40 MG INJ ONE (14:44)
[2019-12-23 14:59] LABS: Basophils % 0.5 % (0-1.3); Hematocrit 39.2 % (36.0-45.0); Lymphocytes % 20.2 % (15.3-44.8); MPV 9.6 fL (7.6-11.3); RBC Red Blood Cell Count 4.35 M/uL (3.86-4.86)
[2019-12-23 15:06] LABS: Albumin 3.6 g/dL (3.4-5.0); Bilirubin Direct 0.2 mg/dL (0-0.2); Magnesium 2.1 mg/dL (1.8-2.4); Potassium 4.2 mmol/L (3.5-5.1); Protein, Total 6.9 g/dL (6.4-8.2)
--- NOTE | 2019-12-23 16:26 | RAD REPORT ---
EXAM DESCRIPTION: CT - Abdomen Pelvis W Contrast - 12/23/2019 3:39 pm CLINICAL HISTORY: ABD PAIN COMPARISON: <Comparisons> TECHNIQUE: Biphasic, helical CT imaging of the abdomen and pelvis was performed following 100 ml non -ionic IV contrast. No oral contrast given. All CT scans are performed using dose optimization technique as appropriate and may include automated exposure control or mA/KV adjustment according to patient size. FINDINGS: No suspicious findings in the lung bases. The liver, spleen, and pancreas show no suspicious findings. Gallbladder and biliary tree are also wi thout suspicious finding. Symmetric renal function is seen with no hydronephrosis or suspicious renal mass. No pyelonephritis o r acute parenchymal process. No bladder abnormalities. No adrenal abnormalities. Uterus is absent. Ov zaki are absent or atrophic. No dilated bowel loops or bowel wall thickening. Prominent diverticulosis without diverticulitis. The re are several prominent, distended small bowel loops. No transition point, mass or focal wall thicke lisette. No free air or pneumatosis. One small trace focus of free fluid is present in the lower right p lidia. No hernia, mass or bulky lymphadenopathy. Disc and bony degenerative changes are present. No pathologic bone process. IMPRESSION: Prominent small bowel loops are present and likely reflect a nonspecific enteritis. This likely accounts for the trace amount of free fluid in the pelvis.
--- NOTE | 2019-12-23 16:53 | ER ---
Nurse's Notes [facility] Name: Jarrod Graham Age: 79 yrs Sex: Female : 1940 Arrival Date: 12/23/2019 Time: 12:28 Bed 5 Private MD: Diagnosis: Unspecified abdominal pain Presentation: 12/22 12:39 Chief complaint: Patient states: Abdominal pain with N/D for 5 days. No fever. ll1 Coronavirus screen: Client denies travel out of the [place] in the last 14 days. diarrhea, nausea, Client presents with at least one sign or symptom that may indicate coronavirus-19. Standard/surgical mask placed on the client. Ebola Screen: Patient denies travel to an Ebola-affected area in the 21 days before illness onset. Initial Sepsis Screen: Does the patient meet any 2 criteria? No. Patient's initial sepsis screen is negative. Does the patient have a suspected source of infection? Yes: Acute abdominal pain. Risk Assessment: Do you want to hurt yourself or someone else? Patient reports no desire to harm self or others. Onset of symptoms was December 19, 2019. 12:39 Method Of Arrival: Ambulatory ll1 12:39 Acuity: JIN 3 ll1 Historical: - Allergies: 12:42 PENICILLINS; ll1 12:42 Codeine; ll1 12:42 Fentanyl; ll1 12:42 meperidine HCl; ll1 12:42 Trazodone; ll1 - PMHx: 12:42 Hypertension; Thyroid problem; ll1 - PSHx: 12:42 Hysterectomy; Brain surgery; Levy's Palsy surgery; ll1 - Immunization history:: Flu vaccine is not up to date. - Social history:: Smoking status: Patient denies any tobacco usage or history of. Screenin:24 Abuse screen: Denies threats or abuse. Denies injuries from another. Nutritional sv screening: No deficits noted. Tuberculosis screening: No symptoms or risk factors identified. Fall Risk None identified. Assessment: 15:45 Reassessment: Patient appears in no apparent distress at this time. Patient and/or sv family updated on plan of care and expected duration. Pain level reassessed. Patient is alert, oriented x 3, equal unlabored respirations, skin warm/dry/pink. Patient states feeling better. Patient states symptoms have improved. 16:47 Reassessment: Patient appears in no apparent distress at this time. Patient and/or sv family updated on plan of care and expected duration. Pain level reassessed. Patient is alert, oriented x 3, equal unlabored respirations, skin warm/dry/pink. Pt able to drink 3 sips of water with her Bentyl. Patient states feeling better. Patient states symptoms have improved. 17:16 Reassessment: Patient appears in no apparent distress at this time. Patient and/or sv family updated on plan of care and expected duration. Pain level reassessed. Patient is alert, oriented x 3, equal unlabored respirations, skin warm/dry/pink. Patient states feeling better. Patient states symptoms have improved. Vital Signs: 12:39 BP 146 / 90; Pulse 75; Resp 17; Temp 97.9; Pulse Ox 98% ; Weight 61.69 kg; Height 5 ft. ll1 6 in. (167.64 cm); Pain 6/10; 15:00 BP 147 / 55; Pulse 55; Resp 16; Pulse Ox 100% ; sv 15:45 Pain 2/10; sv 16:08 BP 116 / 49; Pulse 65; Resp 16; Pulse Ox 100% ; sv 16:47 BP 137 / 58; Pulse 64; Resp 16; Pulse Ox 100% ; sv 12:39 Body Mass Index 21.95 (61.69 kg, 167.64 cm) ll1 ED Course: 12:28 Patient arrived in ED. ds1 12:41 Triage completed. ll1 12:41 Arm band placed on. ll1 14:03 Jb Wallace PA is PHCP. cp 14:03 Martínez Grullon MD is Attending Physician. cp 14:10 Nivia Jo, RIKA is Primary Nurse. sv 14:24 Patient has correct armband on for positive identification. Bed in low position. Call sv light in reach. 14:40 Inserted saline lock: 22 gauge in right forearm, using aseptic technique. ,using sv aseptic technique. diffusics Blood collected. Flushed right forearm with 5 ml normal saline. 15:39 CT Abd/Pelvis - IV Contrast Only In Process Unspecified. EDMS 16:20 Awaiting radiology results. Awaiting re-evaluation by ER provider. sv 17:16 No provider procedures requiring assistance completed. IV discontinued, intact, sv bleeding controlled, No redness/swelling at site. Pressure dressing applied. Administered Medications: 14:42 Drug: NS 0.9% 500 ml Route: IV; Rate: 500 ml/hr; Site: right forearm; sv 14:42 Drug: Zofran (Ondansetron) 4 mg Route: IVP; Site: right forearm; sv 15:53 Follow up: Response: No adverse reaction sv 14:44 Drug: ProTONIX 40 mg Route: IVP; Site: right forearm; sv 15:53 Follow up: Response: No adverse reaction sv 14:46 Drug: morphine 2 mg {Note: rass2.} Route: IVP; Site: right forearm; sv 15:45 Follow up: Pain 210 Adult; Response: No adverse reaction; Marked relief of symptoms; sv Pain is decreased; RASS: Alert and Calm (0) 16:46 Drug: Bentyl 20 mg Route: PO; sv Outcome: 16:53 Discharge ordered by MD. cp 17:16 Discharged to home via wheelchair, with family. sv 17:16 Condition: stable 17:16 Discharge instructions given to patient, family, Instructed on discharge instructions, follow up and referral plans. medication usage, Demonstrated understanding of instructions, follow-up care, medications, Prescriptions given X 4. 17:17 Patient left the ED. sv Signatures: Dispatcher [employer] Nivai Yang RN RN sv Sanford, Demi ds1 Jb Wallace PA PA cp Lewis, Lynsay RN RN ll1
--- NOTE | 2019-12-23 16:54 | EDPHYS ---
Physician Documentation [facility] Name: Jarrod Graham Age: 79 yrs Sex: Female : 1940 Arrival Date: 12/23/2019 Time: 12:28 Bed 5 Private MD: ED Physician Martínez Grullon HPI: 12/22 14:24 This 79 yrs old Female presents to ER via Ambulatory with complaints of cp Abdominal Pain. 14:24 The patient presents with abdominal pain that is diffuse. Onset: The symptoms/episode cp began/occurred 5 day(s) ago. The symptoms do not radiate. Associated signs and symptoms: Pertinent positives: nausea, Pertinent negatives: constipation, diarrhea, fever, vomiting. Historical: - Allergies: 12:42 PENICILLINS; ll1 12:42 Codeine; ll1 12:42 Fentanyl; ll1 12:42 meperidine HCl; ll1 12:42 Trazodone; ll1 - PMHx: 12:42 Hypertension; Thyroid problem; ll1 - PSHx: 12:42 Hysterectomy; Brain surgery; Levy's Palsy surgery; ll1 - Immunization history:: Flu vaccine is not up to date. - Social history:: Smoking status: Patient denies any tobacco usage or history of. ROS: 14:28 Eyes: Negative for injury, pain, redness, and discharge. cp 14:28 Constitutional: Negative for body aches, chills, fever, poor PO intake. 14:28 ENT: Negative for ear pain, sore throat, difficulty swallowing, difficulty handling secretions. 14:28 Cardiovascular: Negative for chest pain, palpitations. 14:28 Respiratory: Negative for cough, shortness of breath, wheezing. 14:28 Abdomen/GI: Positive for abdominal pain, nausea, anorexia, loose stools, Negative for vomiting, diarrhea, constipation, black/tarry stool, rectal bleeding. 14:28 Back: Negative for radiated pain. 14:28 : Negative for urinary symptoms. 14:28 Neuro: Negative for altered mental status, headache, syncope, weakness. 14:28 All other systems are negative. Exam: 14:35 Constitutional: The patient appears in no acute distress, alert, awake, cp non-diaphoretic, non-toxic, well developed, well nourished. 14:35 Head/Face: Normocephalic, atraumatic. cp 14:35 Eyes: Periorbital structures: appear normal, Conjunctiva: normal, no exudate, no injection, Sclera: no appreciated abnormality, Lids and lashes: appear normal, bilaterally. 14:35 ENT: External ear(s): are unremarkable, Nose: is normal, Posterior pharynx: Airway: no evidence of obstruction, patent. 14:35 Neck: ROM/movement: is normal, is supple, without pain, no range of motions limitations. 14:35 Chest/axilla: Inspection: normal, Palpation: is normal, no crepitus, no tenderness. 14:35 Cardiovascular: Rate: normal, Rhythm: regular, Edema: is not appreciated, JVD: is not appreciated. 14:35 Respiratory: the patient does not display signs of respiratory distress, Respirations: normal, no use of accessory muscles, no retractions, labored breathing, is not present, Breath sounds: are clear throughout, no decreased breath sounds. 14:35 Abdomen/GI: Inspection: abdomen appears normal, Bowel sounds: active, all quadrants, Palpation: soft, in all quadrants, moderate abdominal tenderness, in all quadrants, rebound tenderness, is not appreciated, involuntary guarding, is elicited in the left lower quadrant. 14:35 Back: pain, is absent, ROM is normal. Vital Signs: 12:39 BP 146 / 90; Pulse 75; Resp 17; Temp 97.9; Pulse Ox 98% ; Weight 61.69 kg; Height 5 ft. ll1 6 in. (167.64 cm); Pain 6/10; 15:00 BP 147 / 55; Pulse 55; Resp 16; Pulse Ox 100% ; sv 15:45 Pain 2/10; sv 16:08 BP 116 / 49; Pulse 65; Resp 16; Pulse Ox 100% ; sv 16:47 BP 137 / 58; Pulse 64; Resp 16; Pulse Ox 100% ; sv 12:39 Body Mass Index 21.95 (61.69 kg, 167.64 cm) ll1 MDM: 14:14 Patient medically screened. cp 16:52 Data reviewed: vital signs, nurses notes, lab test result(s), radiologic studies, CT cp scan. 16:52 Differential diagnosis: cholecystitis, Cholelithiasis, diverticulitis, gastritis, cp non-specific abd pain, pancreatitis, urinary tract infection. Counseling: I had a detailed discussion with the patient and/or guardian regarding: the historical points, exam findings, and any diagnostic results supporting the discharge/admit diagnosis, lab results, radiology results, to return to the emergency department if symptoms worsen or persist or if there are any questions or concerns that arise at home. Response to treatment: the patient's symptoms have markedly improved after treatment, Nausea and pain markedly improved. Will discharge to home for continued monitoring. 12/22 14:27 Order name: Basic Metabolic Panel; Complete Time: 15:19 cp 12/22 15:19 Interpretation: Normal except: CL 108; GFR 43. cp 12/22 14:27 Order name: CBC with Diff; Complete Time: 15:19 cp 12/22 15:19 Interpretation: Normal except: MCV 90.1. cp 12/22 14:27 Order name: Hepatic Function; Complete Time: 15:19 cp 12/22 14:27 Order name: Lipase; Complete Time: 15:19 cp 12/22 14:27 Order name: Magnesium; Complete Time: 15:19 cp 12/22 14:28 Order name: Lactate; Complete Time: 15:19 cp 12/22 14:27 Order name: IV Saline Lock; Complete Time: 14:54 cp 12/22 14:27 Order name: CT Abd/Pelvis - IV Contrast Only; Complete Time: 16:31 cp 12/22 14:27 Order name: Labs collected and sent; Complete Time: 14:54 cp 12/22 16:32 Order name: PO challenge; Complete Time: 16:46 cp Administered Medications: 14:42 Drug: NS 0.9% 500 ml Route: IV; Rate: 500 ml/hr; Site: right forearm; sv 14:42 Drug: Zofran (Ondansetron) 4 mg Route: IVP; Site: right forearm; sv 15:53 Follow up: Response: No adverse reaction sv 14:44 Drug: ProTONIX 40 mg Route: IVP; Site: right forearm; sv 15:53 Follow up: Response: No adverse reaction sv 14:46 Drug: morphine 2 mg {Note: rass2.} Route: IVP; Site: right forearm; sv 15:45 Follow up: Pain 2/10 Adult; Response: No adverse reaction; Marked relief of symptoms; sv Pain is decreased; RASS: Alert and Calm (0) 16:46 Drug: Bentyl 20 mg Route: PO; sv Disposition: 17:34 Co-signature as Attending Physician, Martínez Grullon MD. rn Disposition: 12/23/19 16:53 Discharged to Home. Impression: Unspecified abdominal pain. - Condition is Stable. - Discharge Instructions: Abdominal Pain, Adult. - Prescriptions for Bentyl 20 mg Oral Tablet - take 2 tablets by ORAL route every 6 hours As needed; 30 tablet. Pepcid 20 mg Oral Tablet - take 1 tablet by ORAL route every 12 hours for 5 days; 10 tablet. Zofran 4 mg Oral Tablet - take 1 tablet by ORAL route every 12 hours As needed; 20 tablet. Cipro 500 mg Oral Tablet - take 1 tablet by ORAL route every 12 hours for 7 days; 14 tablet. - Medication Reconciliation Form, Thank You Letter, Antibiotic Education, Prescription Opioid Use form. - Follow up: Private Physician; When: 1 - 2 days; Reason: Recheck today's complaints. - Problem is new. - Symptoms have improved. Signatures: Dispatcher [employer] [facility] Nivia Jo RN RN sv Nieto, Roman, MD MD rn Page, Corey, PA PA cp Lewis, Lynsay RN RN ll1 Corrections: (The following items were deleted from the chart) 17:02 14:29 UA MICROSCOPIC+[id number].LAB.BRZ ordered. [facility] EDIN 17:17 16:53 12/23/2019 16:53 Discharged to Home. Impression: Unspecified abdominal pain. sv Condition is Stable. Forms are Medication Reconciliation Form, Thank You Letter, Antibiotic Education, Prescription Opioid Use. Follow up: Private Physician; When: 1 - 2 days; Reason: Recheck today's complaints. Problem is new. Symptoms have improved. cp 12/23 14:48 12/22 14:24 Associated signs and symptoms: Pertinent positives: nausea, cp cp
[2019-12-23] MEDS ORDERED: DICYCLOMINE HCL 10 MG CAP ONE (16:56)
[2019-12-23 18:28] VITALS: TEMP 97.9
[2019-12-23 18:30] VITALS: O2SAT 100
[2019-12-23 18:35] VITALS: BP 137/58
== END 2019-12-23 17:17 | disposition home or self-care (01) ==
LOC: ER 12:27
DX: R10.9 Unspecified abdominal pain (principal); I10 Essential (primary) hypertension; Z88.0 Allergy status to penicillin; Z88.5 Allergy status to narcotic agent; Z88.8 Allergy status to other drugs, medicaments and biological substances
CPT/HCPCS: 85025; 80048; 36415; 83735; 80076; 83605; 83690; 74177; Q9967; C9113; J2270; J7040; J2405; 96374; 96375; 99284

== ENCOUNTER 2020-02-22 13:30 | Observation (INO) | payer OTHER ==
--- OUTSIDE RECORDS SUMMARY | 2020-02-22 13:35 | XMS REPORT | Continuity of Care Document ---
:1940 Author Organization [facility] [facility] Care Team Providers Name Role Phone [facility] Unavailable Un available Problems Problem Status Onset Classification Date Comments Sourc e Date Reported LUMBAR HNP Active Condition 08/12/2014 [facility] 015 Neuro LUMBAR SPINAL STENOSIS Active Condition 08/12/2014 [facility] 015 Neuro 724.4 - LUMBOSACRAL Active OPID TRISTIAN 015 [employer] LUMBAR RADICULOPATHY Active Condition 08/12/2014 [facility] 015 Neuro LOW BACK PAIN Active Condition 08/12/2014 Misch er 015 Neuro JUAN Active [address] HISTORY OF Active Condition 08/12/2014 Mischer [...] ignacio SURGERY 012 Neuro TRIGEMINAL NERVE Active [address] History of - Active Problem 08/18/2011 Peter as trigeminal neuralgia [facility] Pain Active Problem 08/18/2011 [facility] Headache Active Problem 09/04/2011 [facility] TRIGEMINAL NEURALGIA Active Condition 08/12/2014 [facility] Peripheral Neuropathy Active 04/20/2012 [facility] Herniated Active 04/20/2012 MD Inter[facility] Facial Pain Active 04/20/2012 [facility] Headache Active 04/20/2012 [facility] Fibromyalgia Active 04/20/2012 [facility] Chronic Fatigue Active 04/20/2012 MD Syndrome [facility] TRIGEMINAL NEURALGIA Active [facility] HEADACHE Active [facility] Medications Medication Details Route Status Patient Ordering [...] (Active) hydrochlorothiazi 12.5 mg, 1 PO No 09/02/ [facility] de tab, Route: Longer 2011 Medical PO, Drug form: Active Center TAB, Daily, Start date: 09/03/11 9:00:00, Duration: 30 day, Stop date: 10/02/11 9:00:00 pravastatin 80 mg, 4 tab, PO No 09/02[facility] Peter as Route: PO, Longer 2011 Medical [...] fluoxetine 40 mg, 2 cap, PO No 09/02/ Petera s Route: PO, Longer 2011 [...] oral 20 mg, 1 tab, PO Active [place] tablet PO, BID, 180 2011 Medical tab, Center Substitution Allowed dexamethasone 1 1 mg, 1 tab, PO Active 09/01[facility] [place] mg oral tablet PO, QID, 90 [...] then stop levothyroxine 75 microgram, PO Active 09/01[facility] [place] PO, Daily, 2011 [facility] [place] Allowed diphenhydrAMINE 25 mg, PO, [place] Bed[place], 2011 Medical Substitution Center Allowed acetaminophen 325 mg, PO, PO Active 09/01[facility] [place] Q4H, 2011 Medical Substitution Center Allowed hydrochlorothiazi 12.5 mg, PO, PO Active 09/01/ H [place] de Daily, 2011 Medical Substitution Center Allowed fluoxetine 40 mg 40 mg, 1 cap, PO Active [facility] oral capsule PO, Daily, 30 2011 Medic al cap, [place] Substitution Allowed, CAP pravastatin 80 mg 80 mg, 1 tab, PO Active [facility] oral tablet PO, Daily, 30 2011 Medica l tab, Center Substitution Allowed, TAB Saline Flush 0.9% 5 ml, Route: IVP No Mendoza [facility] IVP, Drug Longer 2011 Medical Form: [...] Dextrose 50% 6.25 gm, 12.5 IVP No [place] [facility] Syringe mL, Route: Longer 2011 Medical IVP, Drug Active Center Form: INJ, PRN, PRN Abnormal Lab Result, Start date: 09/01/11 3:08:00, Duration: 30 day, Stop date: 10/01/11 3:07:00 insulin regular 7 unit, 0.07 SUB-Q No [place] [facility] human recombinant mL, Route: Longer 2011 Med ical 100 units/mL SUB-Q, Drug Active Center injectable form: SOLN, solution PRN, PRN Abnormal Lab Result, Start date: 09/01/11 3:08:00, Duration: 30 day, Stop date: 10/01/11 3:07:00 Saline Flush 0.9% 5 ml, Route: IVP No [place] 08/31[facility] IVP, Drug Longer 2011 Medical Form: INJ, Active Center PRN, PRN Line Flush, Start date: 09/01/11 3:08:00, Duration: 30 day, Stop date: 10/01/11 3:07:00 acetaminophen-hyd 1 tab, Route: PO No [place] 08/31 [facility] rocodone 325 PO, Drug Form: Longer 2011 Medi joann mg-10 mg oral TAB, Q4H, PRN Active Cent er tablet Pain Score 4-6, Start date: 09/01/11 3:08:00, Duration: 30 day, Stop date: 10/01/11 3:07:00 ondansetron 4 mg, 2 mL, [place]P [place] Route: IVP, Longer 2011 Medical Drug form: Active Center INJ, Q8H, PRN Nausea & Vomiting, Start date: 09/01/11 3:08:00, Duration: 30 day, Stop date: 10/01/11 3:07:00 bisacodyl 10 mg, 1 supp, NE [place] 08/31[facility] [place] Route: NE, Longer 2011 Medical Drug form: Active Center SUPP, Daily, PRN Constipation, Start date: 09/01/11 3:08:00, Duration: 30 day, Stop date: 10/01/11 3:07:00 Sodium Chloride 250 mL, Rate: IV No [place] [facility] 0.9% (Bolus) IV 500 ml/hr, Longer 2011 Medic al 250 mL Infuse over: Active Center 30 minutes, Route: IV, Dosing Weight 77.273 kg, Total Volume: 250, Priority: STAT, Start date: 09/01/11 3:08:00, Duration: 1 doses or times, Stop date: 09/01/11 3:37:00 Sodium Chloride 1,000 mL, IV No [place] [address] 0.9% IV 1,000 mL Rate: 50 Longer 2011 Medica l ml/hr, Infuse Active Center over: 20 hr, Route: IV, Dosing Weight 77.273 kg, Total Volume: 1,000, Start date: 09/01/11 3:08:00, Duration: 30 day, Stop date: 10/01/11 3:07:00 DEXAMETHASONE 1 qd Active 08/28/ [facility] MG TABS 2011 Neuro Flomax 0.8 mg, 2 cap, PO No Dexter 08/15[facility] Route: PO, Longer 2011 Medical Drug form: Active Center CAP, After Breakfast, Start date: 08/16/11 8:30:00, Duration: 1 day, Stop date: 08/16/11 8:30:00 calcium gluconate 3,000 mg, 30 IVPB No Wilma H [place] mL, Route: Longer 2011 Medical IVPB, ONCE, Active Center Start date: 08/16/11 3:30:00, Stop date: 08/16/11 3:30:00 K-Dur 20 40 mEq, 2 tab, PO No Wilma 08/15[facility] Route: PO, Longer 2011 Medical Drug form: Active Center ERTAB, ONCE, Start date: 08/16/11 3:00:00, Stop date: 08/16/11 3:00:00 heparin 5,000 unit, 1 [facility] mL, Route: Longer 2011 Medical SUB-Q, Drug Active Center form: INJ, Q8H, Start date: 08/16/11 0:00:00, Duration: 30 day, Stop date: 09/14/11 16:00:00 acetaminophen 650 mg, 2 tab, PO No [facility] 08/14[facility] Route: PO, Longer 2011 Medical Drug form: Active Center TAB, Q6H, PRN Pain, Start date: 08/15/11 10:56:00, Duration: 30 day, Stop date: 09/14/11 10:55:00 Tylenol 325 mg, 1 tab, PO No [facility] 08/14[facility] Route: PO, Longer 2011 Medical Drug form: Active Center TAB, Q4H, PRN Pain, Start date: 08/15/11 10:39:00, Duration: 30 day, Stop date: 09/14/11 10:38:00 Prozac 40 mg, 2 cap, PO No Dexter 08/14[facility] Route: PO, Longer 2011 Medical Drug form: Active Center CAP, Daily, Start date: 08/15/11 9:00:00, Duration: 30 day, Stop date: 09/13/11 9:00:00 Microzide 12.5 mg, 1 PO No [facility] 08/14[facility] cap, Route: Longer 2011 Medical PO, Drug form: Active Center CAP, Daily, Start date: 08/15/11 9:00:00, Duration: 30 day, Stop date: 09/13/11 9:00:00 Synthroid 0.075 mg, 1 PO No [facility] 08/14[facility] tab, Route: Longer 2011 Medical PO, Drug form: Active Center TAB, Before Breakfast, Start date: 08/15/11 7:30:00, Duration: 30 day, Stop date: 09/13/11 7:30:00 Senokot 8.6 mg, 1 tab, PO No [facility] 08/14[facility] Route: PO, Longer 2011 Medical Drug Form: Active Center TAB, Q12H, Start date: 08/14/11 21:00:00, Duration: 30 day, Stop date: 09/13/11 9:00:00 vancomycin (SCIP) 1 gm, Route: IVPB No [facility] 08/14[facility] IVPB, Drug Longer 2011 Medical form: INJ, Active Center [id number], Start date: 08/14/11 20:00:00, Duration: 2 doses or times, Stop date: 08/15/11 8:00:00 dexamethasone 4 mg, 1 tab, PO No [facility] 08/13[facility] [place] Route: PO, Longer 2011 Medical Drug form: Active Center TAB, Q6H, Start date: 08/14/11 18:00:00, Duration: 30 day, Stop date: 09/13/11 12:00:00 Reglan 10 mg, 2 mL, IVP No Zakaria 08/13[facility] Route: IVP, Longer 2011 Medical Drug form: Active Center INJ, Q6H, Start date: 08/14/11 18:00:00, Duration: 48 hr, Stop date: 08/16/11 12:00:00 Pravachol 80 mg, 4 tab, [facility] [place] Route: PO, Longer 2011 Medical Drug form: Active Center TAB, QPM, Start date: 08/14/11 17:00:00, Duration: 30 day, Stop date: 09/12/11 17:00:00 Klonopin 2 mg, 1 tab, PO No Abdunnur 08/13[facility] Route: PO, Longer 2011 Medical Drug form: Active Center TAB, TID, Start date: 08/14/11 17:00:00, Duration: 30 day, Stop date: 09/13/11 13:00:00 promethazine 6.25 mg, 0.25 IVPB No [place] 08/13[facility] [place] mL, Route: Longer 2011 Medical IVPB, Drug Active Center form: INJ, ONCE, PRN Nausea & Vomiting, Start date: 08/14/11 14:23:00 ondansetron 4 mg, 2 mL, IVP No [place] 08/13[facility] [place] Route: IVP, Longer 2011 Medical Drug form: Active Center INJ, ONCE, PRN Nausea & Vomiting, Start date: 08/14/11 14:23:00 dexamethasone 4 mg, 1 mL, IVP No More[place] 08/13[facility] [place] as Route: IVP, Longer 2011 Medical Drug form: Active Center INJ, ONCE, PRN Nausea & Vomiting, Start date: 08/14/11 14:23:00 naloxone 0.04 mg, 0.1 IVP No [place] 08/13[facility] [place] mL, Route: Longer 2011 Medical IVP, Drug Active Center form: INJ, Q2MIN, PRN Narcotic Reversal, Start date: 08/14/11 14:23:00, Duration: 8 doses or times, Stop date: 08/15/11 0:00:00 flumazenil 0.2 mg, 2 mL, IVP No [place] 08/13[facility] [place] Route: IVP, Longer 2011 Medical Drug form: Active Center INJ, PRN, PRN Benzodiazepine Reversal, Initial dose, Start date: 08/14/11 14:23:00, Stop date: 08/15/11 0:00:00 hydromorphone 0.5 mg, 0.25 IVP No [place]13[facility] [place] mL, Route: Longer 2011 Medical IVP, Drug Active Center form: INJ, Q5Min, PRN Pain Score 4-6, Start date: 08/14/11 14:23:00, Duration: 5 doses or times, Stop date: 08/15/11 0:00:00 hydrALAZINE 5 mg, 0.25 mL, IVP No [place] 06[place] [place] Route: IVP, Longer 2011 Medical Drug form: Active Center INJ, Q5Min, PRN Elevated BP, Start date: 08/14/11 14:23:00, Duration: 4 doses or times, Stop date: 08/15/11 0:00:00 labetalol 5 mg, 1 mL, IVP No [place] 08/13[facility] [place] Route: IVP, Longer 2011 Medical Drug form: Active Center INJ, Q5Min, PRN Elevated BP, Start date: 08/14/11 14:23:00, Duration: 5 doses or times, Stop date: 08/15/11 0:00:00 dexamethasone 4 mg, 1 tab, [facility] [place] Route: PO, Longer 2011 Medical Drug form: Active Center TAB, Q6H, Start date: 08/14/11 12:00:00, Duration: 30 day, Stop date: 09/13/11 6:00:00 metoclopramide 10 mg, 2 mL, [facility]P [facility] [place] Route: IVP, Longer 2011 Medical Drug form: Active Center INJ, Q6H, Start date: 08/14/11 12:00:00, Duration: 48 hr, Stop date: 08/16/11 6:00:00 clonazepam 2 mg, 1 tab, PO No Abdunnur 08[place]13[facility] [place] Route: PO, Longer 2011 Medical Drug form: Active Center TAB, TID, Start date: 08/14/11 9:00:00, Duration: 30 day, Stop date: 09/12/11 17:00:00 Pepcid 20 mg oral 20 mg, 1 tab, PO No Abdunnur 08/13[facility] [place] tablet Route: PO, Longer 2011 Medical Drug form: Active Center TAB, Q12H, Start date: 08/14/11 9:00:00, Duration: 30 day, Stop date: 09/12/11 21:00:00 Saline Flush 0.9% 5 ml, Route: IVP No Abdunnnani 08/13[facility] [place] IVP, Drug Longer 2011 Medical Form: INJ, Active Center Q12H, Start date: 08/14/11 9:00:00, Duration: 30 day, Stop date: 09/12/11 21:00:00 vancomycin (SCIP) 1 gm, Route: IVPB No [facility] 08/13[facility] IVPB, Drug Longer 2011 Medical form: INJ, Active Center Q12H, Start date: 08/14/11 9:00:00, Duration: 2 doses or times, Stop date: 08/14/11 21:00:00 senna 8.6 mg, 1 tab, PO No [facility] [address] [place] [address] Route: PO, Longer 2011 Medical Drug Form: Active Center TAB, Q12H, Start date: 08/14/11 9:00:00, Duration: 30 day, Stop date: 09/12/11 21:00:00 docusate sodium 100 mg, 1 cap, PO No [facility] 08/13[facility] [place] 100 mg oral Route: PO, Longer 2011 Medical capsule Drug form: Active Center CAP, Q12H, Start date: 08/14/11 9:00:00, Duration: 30 day, Stop date: 09/12/11 21:00:00 levothyroxine 0.075 mg, 1 PO No [facility] 08/13[facility] [place] tab, Route: Longer 2011 Medical PO, Drug form: Active Center TAB, Daily, Start date: 08/14/11 9:00:00, Duration: 30 day, Stop date: 09/12/11 9:00:00 pravastatin 80 mg, 4 tab, PO No [facility] 08[place]13[facility] [place] Route: PO, Longer 2011 Medical Drug form: Active Center TAB, Daily, Start date: 08/14/11 9:00:00, Duration: 30 day, Stop date: 09/12/11 9:00:00 hydrochlorothiazi 12.5 mg, 1 PO No [facility] 08/13[facility] [place] de 12.5 mg oral cap, Route: Longer 2011 Medi joann capsule PO, Drug form: Active Center CAP, Daily, Start date: 08/14/11 9:00:00, Duration: 30 day, Stop date: 09/12/11 9:00:00 Prozac 40 mg, 2 cap, PO No [facility] [place] Route: PO, Longer 2011 Medical Drug form: Active Center CAP, Daily, Start date: 08/14/11 9:00:00, Duration: 30 day, Stop date: 09/12/11 9:00:00 magnesium citrate 17.45 gm, 300 PO Active [facility] 8.85% oral liquid mL, PO, ONCE, [...] 2011 Medical tab, Active Center Substitution Allowed Nelson 10/325 oral 1 tab, PO, [facility] tablet Q4H, PRN, 30 Longer 2011 Medical tab, 2, 2, as Active Center needed for pain, Substitution Allowed, Maintenance, TAB dexamethasone 1 1 mg, 1 tab, PO Active [facility] [place] mg oral tablet PO, BID, 37 [...] insulin regular 7 unit, 0.07 SUB-Q No [facility] human recombinant mL, Route: Longer 2011 Med ical 100 units/mL SUB-Q, Drug Active Center injectable form: SOLN, solution PRN, PRN Abnormal Lab Result, Start date: 08/14/11 6:47:00, Duration: 30 day, Stop date: 09/13/11 6:46:00 Dextrose 50% 12.5 gm, 25 IVP No [facility] Peter as Syringe mL, Route: Longer 2011 [...] ondansetron 4 mg, 2 mL, IVP No [facility] [place] Route: IVP, Longer 2011 Medical Drug form: Active Center INJ, Q8H, PRN Nausea & Vomiting, Start date: 08/14/11 6:47:00, Duration: 30 day, Stop date: 09/13/11 6:46:00 Sodium Chloride 1,000 mL, IV [facility] [place] as 0.9% IV 1,000 mL Rate: [...] 6:43:00 vancomycin 1 gm, Route: IVPB No [facility] Jeanne luz IVPB, Drug Longer 2011 Medical form: INJ, PRE Active Center OP, Start date: 08/13/11 22:00:00, Duration: 1 day, Stop date: 08/14/11 21:59:00 Tylenol 325 mg 325 mg, 1 tab, PO Active [place] oral tablet PO, Q4H, PRN, 2011 Medica l 60 tab, Pain, Center Substitution Allowed hydrochlorothiazi 12.5 mg, [address] [facility] [place] de 12.5 mg oral tab, PO, 2011 Medical tablet Daily, 30 tab, Center Substitution Allowed, TAB Prozac 40 mg oral 40 mg, 1 cap, PO Active [facility] [place] capsule PO, Daily, 30 2011 Medical cap, Center Substitution Allowed, CAP clonazepam 2 mg 2 mg, 1 tab, PO Active [facility] oral tablet PO, TID, 2011 Medical Substitution Center Allowed, TAB diphenhydrAMINE 25 mg, 1 cap, PO Active [facility] H [place] 25 mg oral PO, Bedtime, 2011 Medical capsule PRN, 30 cap, [place] Insomnia, Substitution Allowed pravastatin 80 mg 80 mg, 1 tab, PO Active [facility] [place] oral tablet PO, Daily, 30 2011 Medica l tab, Center Substitution Allowed, TAB levothyroxine 75 75 microgram, PO Active [facility] [place] mcg (0.075 mg) 1 tab, PO, 2011 Medica l oral tablet Daily, 30 tab, Cente r Substitution Allowed, TAB Bactrim DS 1 tab, PO, PO No [place] BID, 20 tab, Longer 2011 Medical Substitution Active Center Allowed, Maintenance Gabapentin 100 MG ; Start Date: Active MD Oral Capsule 07/19/2011; 2011 Physici ans End Date: (Active) LEVOTHYROXINE 1 tab po qd Active Mische r SODIUM 75 MCG 2011 Neuro TABS HYDROCHLOROTHIAZI 1 cap po qd Active Ar ignacio DE 12.5 MG CAPS 2011 Neuro [...] allergy 2 Neuro codeine drug Allergy Active [facility] Demerol HCl drug Allergy Active [facility] fentaNYL drug Allergy Active [facility] penicillins drug Allergy Active [facility] cephalosporins drug Allergy Active M [facility] Darvon drug Allergy Active [facility] Demerol TABS drug drug Active [place] allergy [...] 126 70 - 99 09/01 [place] <sup>2</sup>I [facility] GLUCOSE Lifkyn nterpretive Medical TESTING Data: [place] Reportable Limit: 200 mg/dL. BEDSIDE Comment2 Sliding 09/01 NA [place] GLUCOSE Scale /2011 Medical TESTING Center BEDSIDE Comment1 Notify 09/01 NA [facility] GLUCOSE RN/MD /2011 Medical TESTING Center BEDSIDE Gluc POC 171 70 - 99 09/01 HI <sup>3</sup>I [facility] GLUCOSE Lifscn /2011 nterpretive Medical TESTING Data: [place] Reportable Limit: 200 mg/dL. CHEMISTRY Ca Ion mgdL 4.00 4.65 - 08/31 [facility] 5. [facility] CHEMISTRY Ca Ion 1.00 1.16 - 08/31 [facility] [place] 1.30 Medical [place] CHEMISTRY Ca Norm 1.01 1.16 - 08/31 [facility] 1.30 [facility] CHEMISTRY Ca Norm mgdL 4.04 4.65 - 08/31 [facility] 5. [facility] CHEMISTRY Globulin 3.2 2.0 - 4.0 08/31 Normal [facility] CHEMISTRY Bili Indirect 0.6 0.0 - 1.0 08/31 Normal [facility] CHEMISTRY A/G Ratio 1.0 0.7 - 1.6 08/31 Normal [facility] CHEMISTRY Total Protein 6.3 6.4 - 8.4 08/31 LOW [facility] CHEMISTRY Bili Total 0.8 0.2 - 1.3 08/31 Normal [facility] CHEMISTRY Bili Direct 0.2 0.0 - 0.3 08/31 Normal [facility] CHEMISTRY AST 11 0 - 37 08/31 Normal [facility] CHEMISTRY Alk Phos 70 39 - 136 08/31 Normal [facility] CHEMISTRY Albumin Lvl 3.1 3.5 - 5.0 08/31 LOW [facility] CHEMISTRY ALT 17 0 - 65 08/31 Normal [facility] HEMATOLOGY PTT 30.9 22.9 - 08/31 Normal <sup>5</sup>I Jeanne s 35.8 nterpretive Medical Data: Heparin Center Therapeutic Range: 57 - 92 Seconds HEMATOLOGY PT 13.7 12.0 - 08/31 Normal [place] 14.7 [facility] HEMATOLOGY INR 1.05 0.85 - 08/31 Normal <sup>4</sup>I Jeanne s 1. nterpretive Medical Data: Center RECOMMENDED RANGES FOR PROTIME INR:
2.0-3.0 for most medical and surgical thromboemboli c states.
2.5-3.5 for artificial heart valves and recurrent embolism.<br/ >
INR SHOULD BE USED ONLY FOR PATIENTS ON STABLE ANTICOAGULANT THERAPY. HEMATOLOGY MCV 96.0 81.0 - 08/31 Normal [facility] 99.0 [facility] HEMATOLOGY MPV 8.4 7.4 - 10.4 08/31 Normal /2011 Medical [place] HEMATOLOGY Platelet 181 133 - 450 08/31 Normal [facility] HEMATOLOGY RDW 16.9 11.5 - [...] WBC 13.2 3.7 - 10.4 08/31 [facility] HEMATOLOGY Lymphocytes 3.0 20.0 - 08/31 LOW [place] 40.0 /2011 Medical Center HEMATOLOGY Monocytes 1.0 2.0 - 12.0 08/31 LOW [facility] HEMATOLOGY Lymphocytes # 0.4 1.0 - 5.5 08/31 [place] /2011 [facility] HEMATOLOGY Monocytes # 0.1 0.0 - 0.8 08/31 [place] [facility] HEMATOLOGY Atypical 0.0 <=0.0 08/31 Normal [place] Lymphs /2011 [facility] HEMATOLOGY Bands 1.0 0.0 - 11.0 08/31 Normal [facility] HEMATOLOGY Segs 95.0 45.0 - 08/31 [facility] [place] 75.0 /2011 Medical [place] HEMATOLOGY Segs-Bands # 12.7 1.5 - 8.1 08/31 [facility] Peter as /2011 [facility] BODY FLUIDS Supernat CSF Colorless Colorless 08/31 Normal [place] (09/01/2011 03:10:00) Az dical Center BODY FLUIDS Tube Num CSF 4 08/31 [place] [facility] BODY FLUIDS Color CSF Colorless Colorless 08/31 Normal Epter as (09/01/2011 03:10:00) Az dical Center BODY FLUIDS Clarity CSF Slight Clear 08/31 ABN [place] *ABN* /2011 Medical (09/01/2011 03:10:00) Ce nter BODY FLUIDS WBC CSF 1566 0 - 5 08/31 [facility] BODY FLUIDS RBC CSF 2 0 - 0 / HI Medical [place] BODY FLUIDS Lymph CSF 4 40 - 80 / LOW [facility] BODY FLUIDS Monocyte CSF 3 15 - 45 08/31 [place] [facility] BODY FLUIDS Segs CSF 93 0 - 6 08/31 [facility] BODY FLUIDS Lactic Acid 3.0 0.6 - 2.2 08/31 HI [place] as CSF Medical [place] BODY FLUIDS Protein CSF 176 15 - 45 08/31 HI <sup>1</sup>R esult Medical Comment: Center "Significant Findings called to dr hastings __at _09/01/2011 04:15:41 CDT__by _lg__.Read Back OK." BODY FLUIDS Tube Num CSF 1 08/31 NA [place] [facility] BODY FLUIDS Color CSF Colorless Colorless 08/31 Normal [place] (09/01/2011 03:05:00) Az dicnh Center BODY FLUIDS Supernat CSF Colorless Colorless 08/31 Normal [place] (09/01/2011 03:05:00) /2011 Az dicnh Center BODY FLUIDS WBC CSF 1761 0 - 5 08/31 [facility] BODY FLUIDS Clarity CSF Slight Clear 08/31 ABN [place] *ABN* /2011 Medical (09/01/2011 03:05:00) Ce nter BODY FLUIDS RBC CSF 2 0 - 0 08/31 [facility] BODY FLUIDS Segs CSF 92 0 - 6 08/31 [facility] BODY FLUIDS Lymph CSF 4 40 - 80 08/31 LOW [facility] BODY FLUIDS Monocyte CSF 4 15 - 45 08/31 [place] [facility] BODY FLUIDS Glucose CSF 78 45 - 80 08/31 Normal [facility] FUNGAL - Crypto Ag CSF Negative Negative 08/31 Normal [facility]09/01/2011 03:05:00[facility] V[facility]L Scr CSF Non Reactive Non 08/31 Normal [facility] (09/01/2011 03:05:00) /2011 edical Center IMMUNOLOGY CSF Men B Negative Negative 08/31 Normal [facility] (09/01/2011 03:05:00) /2011 [facility] dic[facility] Center IMMUNOLOGY CSF Men A Negative Negative 08/31 Normal [facility] (09/01/2011 03:05:00) Az dicnh Center IMMUNOLOGY CSF H Influ B Negative 6 Negative 08/31 Normal <sup>6</sup >I [facility] (09/01/2011 03:05:00) nterpretiv e Medical Data: Testing Center includes polyclonal antibody to Haemophilus influenzae
type b. IMMUNOLOGY CSF S pneumo Negative Negative 08/31 Normal [place] as (09/01/2011 03:05:00) Az dical Center IMMUNOLOGY CSF Men C Negative Negative 08/31 Normal [facility] (09/01/2011 03:05:00) Az dicnh Center IMMUNOLOGY CSF Strep B Negative Negative 08/31 [place] (09/01/2011 03:05:00) [facility] Microbiolog Culture: CSF 08/31 [facility] s y w/[facility] BEDSIDE Gluc POC 174 70 - 99 08/15 [place] <sup>2</sup>I [facility] n[facility] TESTING Data: [place] Reportable Limit: 200 mg/dL. BEDSIDE Gluc POC 151 70 - 99 08/15 [place] <sup>3</sup>I [facility] n[facility]pret[facility] Medical TESTING Data: [place] Reportable Limit: 200 mg/dL. BEDSIDE Gluc POC 147 70 - 99 08/15 [place] <sup>4</sup>I [facility] nterpretive Medical TESTING Data: [place] Reportable Limit: 200 mg/dL. CHEMISTRY Magnesium Lvl 2.0 1.8 - 2.4 08/15 Normal [place] [facility] CHEMISTRY AGAP 7.6 10.0 - 08/15 LOW [place] 20.0 Medical Center CHEMISTRY Calcium Lvl 8.4 8.5 - 10.5 08/15 LOW [facility] CHEMISTRY CO2 32 24 - 32 08/15 Normal [facility] CHEMISTRY Chloride Lvl 107 95 - 109 08/15 Normal [facility] CHEMISTRY Creatinine 1.0 0.5 - 1.4 08/15 Normal [facility] CHEMISTRY BUN 21 7 - 22 08/15 Normal [facility] CHEMISTRY Potassium Lvl 3.6 3.5 - 5.1 08/15 Normal [facility] CHEMISTRY Sodium Lvl 143 135 - 145 08/15 Normal Medical Center CHEMISTRY Glucose Lvl 136 70 - 99 08/15 HI <sup>5</sup>I T ex nterpretive Medical Data: Adult Center reference range values reflect the clinical guidelines of the [employer]. CHEMISTRY Phosphorus 2.2 2.5 - 4.5 08/15 LOW [facility] CHEMISTRY Ca Ion 1.09 1.16 - 08/15 LOW [place] [facility] CHEMISTRY Ca Ion mgdL 4.36 4.65 - 08/15 LOW [place] 07.08 Medical Center CHEMISTRY Ca Norm mgdL 4.60 4. - 08/15 [facility] [place] 07.08 Medical Center CHEMISTRY Ca Norm 1.15 1. - 08/15 [facility] [place] [facility] HEMATOLOGY Platelet 211 133 - 450 08/15 Normal Medical Center HEMATOLOGY RDW 15.9 11.5 - 08/15 [facility] [place] 14.5 Medical Center HEMATOLOGY MCV 93.4 81.0 - 08/15 Normal [place] 99.0 Medical Center HEMATOLOGY MCHC 34.1 32.0 - 08/15 [facility] [place] 36.0 Medical Center HEMATOLOGY MCH 31.8 27.0 - 08/15 [facility] [place] 31.0 Medical Center HEMATOLOGY MPV 9.3 7.4 - 10.4 08/15 Normal Medical Center HEMATOLOGY Hct 29.6 36.0 - 08/15 [facility] [place] 48.0 /2011 Medical Center HEMATOLOGY Hgb 10.1 12.0 - 08/15 LOW [place] 16.0 Medical Center HEMATOLOGY RBC 3.17 4.20 - 08/15 [facility] [place] 5.40 Medical Center HEMATOLOGY WBC 16.3 3.7 - 10.4 08/15 [facility] HEMATOLOGY Basophils # 0.0 0.0 - 0.2 08/15 [place] [facility] HEMATOLOGY Eosinophils # 0.0 0.0 - 0.5 08/15 [place] [facility] HEMATOLOGY Lymphocytes 3.1 20.0 - 08/15 LOW [place] 40.0 Medical Center HEMATOLOGY Segs 95.4 45.0 - 08/15 [facility] [place] 75.0 Medical Center HEMATOLOGY Lymphocytes # 0.5 1.0 - 5.5 08/15 [place] [facility] HEMATOLOGY Eosinophils 0.0 0.0 - 4.0 08/15 Normal a Medical [place] HEMATOLOGY Monocytes 1.5 2.0 - 12.0 08/15 LOW [facility] HEMATOLOGY Segs-Bands # 15.6 1.5 - 8.1 08/15 [facility] Medical Center HEMATOLOGY Basophils 0.0 0.0 - 1.0 08/15 Normal Medical [place] HEMATOLOGY Monocytes # 0.2 0.0 - 0.8 08/15 Normal [facility] BEDSIDE Comment1 Notify 08/15 [facility] GLUCOSE RN/MD Medical TESTING Center CHEMISTRY Total CK 75 12 - 191 08/15 Normal [facility] CHEMISTRY CK MB Index 1.6 0.0 - 2.5 08/15 Normal Medical [place] CHEMISTRY CK MB 1.2 0.5 - 3.6 08/15 Normal Medical Center BEDSIDE Comment1 Notify 08/15 [facility] GLUCOSE RN/MD Medical TESTING Center CHEMISTRY POC A O2 Sat 100.0 95.0 - 08/14 [facility] 100.0 Medical Center CHEMISTRY POC A BE 3 -2-2 - 2 08/14 [facility] Medical Center CHEMISTRY POC A PO2 184 80 - 100 08/14 [facility] Medical Center CHEMISTRY POC A pH 7.44 7.35 - 08/14 [facility] 7.45 Medical Center CHEMISTRY POC A Temp 37.0 08/14 [facility] Medical Center CHEMISTRY POC A HCO3 28 22 - 26 08/14 [facility] Medical Center CHEMISTRY POC A PCO2 41 35 - 45 08/14 [facility] Center CHEMISTRY POC A Source ART 08/14 [facility] Medical Center CHEMISTRY POC A %FIO2 50.0 18.0 - 08/14 Normal [place] 100.0 Medical Center CHEMISTRY POC A O2 Sat 70.0 95.0 - 08/14 LOW [place] 100.0 Medical Center CHEMISTRY POC A BE 3 -2-2 - 2 08/14 [facility] Medical Center CHEMISTRY POC A %FIO2 [...] Medical Center BEDSIDE Comment1 Notify 08/14 NA [facility] GLUCOSE RN/MD Medical TESTING Center CHEMISTRY [...] Chloride Lvl 111 95 - 109 08/14 [facility] CHEMISTRY Calcium Lvl 8.2 8.5 - 10.5 08/14 [place] [facility] CHEMISTRY CO2 24 24 - 32 08/14 Normal Medical Center CHEMISTRY Glucose Lvl 120 70 - 99 08/14 [place] <sup>6</sup>I [facility] [place] nterpretive Medical Data: Adult Center reference range values reflect the clinical guidelines of the [employer] [employer]. CHEMISTRY Sodium Lvl 145 135 - 145 08/14 [facility] CHEMISTRY Potassium Lvl 4.1 3.5 - 5.1 08/14 [facility] CHEMISTRY BUN 25 7 - 22 08/14 [facility] Medical Center CHEMISTRY Creatinine 1.3 0.5 - 1.4 08/14 Normal [place] L[place] Medical Center CHEMISTRY CK MB Index 2.4 0.0 - 2.5 08/14 [facility] CHEMISTRY CK MB 1.9 0.5 - 3.6 08/14 Normal [facility] HEMATOLOGY Basophils # 0.0 0.0 - 0.2 08/14 [place] [facility] HEMATOLOGY Basophils 0.0 0.0 - 1.0 08/14 Normal Medical [place] HEMATOLOGY Segs-Bands # 14.6 1.5 - 8.1 08/14 [facility] HEMATOLOGY Lymphocytes # 0.5 1.0 - 5.5 08/14 [place] [facility] HEMATOLOGY Eosinophils # 0.0 0.0 - 0.5 08/14 [facility] [place] [facility] HEMATOLOGY Monocytes # 0.5 0.0 - 0.8 08/14 [place] [facility] HEMATOLOGY Lymphocytes 3.1 20.0 - 08/14 LOW [place] 40.0 Medical Center HEMATOLOGY Eosinophils 0.0 0.0 - 4.0 08/14 [place] [facility] HEMATOLOGY Monocytes 3.4 2.0 - 12.0 08/14 Normal Medical Center HEMATOLOGY Segs 93.5 45.0 - 08/14 [facility] [place] 75.0 Medical Center HEMATOLOGY Platelet 255 133 - 450 08/14 Normal Medical Center HEMATOLOGY RDW 16.1 11.5 - 08/14 [facility] [place] 14.5 Medical Center HEMATOLOGY Hct 33.2 36.0 - 08/14 LOW [place] 48.0 Medical Center HEMATOLOGY MCV 94.5 81.0 - 08/14 Normal [place] 99.0 Medical Center HEMATOLOGY MCH 32.3 27.0 - 08/14 [facility] [place] 31.0 Medical Center HEMATOLOGY Hgb 11.3 12.0 - 08/14 [facility] 16.0 [facility] HEMATOLOGY MCHC 34.1 32.0 - 08/14 [facility] 36.0 [facility] HEMATOLOGY MPV 8.9 7.4 - 10.4 08/14 [facility] HEMATOLOGY WBC 15.6 3.7 - 10.4 08/14 [facility] HEMATOLOGY RBC 3.51 4.20 - 08/14 LOW [facility] 5.40 [facility] CHEMISTRY POC A %FIO2 40.0 18.0 - 08/14 Normal [facility] 100.0 [facility] CHEMISTRY POC A 5.0 0.0 - 40.0 08/14 Normal [facility] BIPAP(E) [facility] CHEMISTRY POC A 10.0 0.0 - 50.0 08/14 [facility] BIPAP(I) [facility] CHEMISTRY POC A Mech 5 0 - 70 08/14 Normal [facility] Rate [facility] CHEMISTRY Troponin-I <0.02 0.00 - 08/14 Normal [facility] 0.40 [facility] CHEMISTRY Troponin-T <0.010 0.000 - 08/14 Normal [facility] 0.100 [facility] CHEMISTRY Myoglobin 117 25 - 72 08/14 [facility] Microbiolog Culture: 08/13 [facility] y Resistant [facility] Center Screen BACTERIAL - MRSA by PCR Negative 1 08/13 Normal <sup>1</sup>I [facility] SEROLOGY (08/14/2011 15:45:00) nterpreti ve Medical [...] Lvl 8.0 8.5 - 10.5 08/13 LOW [facility] CHEMISTRY Chloride Lvl 108 95 - 109 08/13 Normal Medical Center CHEMISTRY CO2 22 24 - 32 08/13 LOW [facility] CHEMISTRY BUN 22 7 - 22 08/13 [facility] CHEMISTRY Glucose Lvl 179 70 - 99 08/13 [place] <sup>7</sup>I T ex nterpretive Medical Data: Adult Center reference range values reflect the clinical guidelines of the [employer]. CHEMISTRY Sodium Lvl 140 135 - 145 08/13 Normal [facility] CHEMISTRY Potassium Lvl 3.6 3.5 - 5.1 08/13 Normal [facility] CHEMISTRY Creatinine 1.4 0.5 - 1.4 08/13 Normal [place] Lvl [facility] CHEMISTRY AGAP 13.6 10.0 - 08/13 Normal [place] 20.0 [facility] HEMATOLOGY Segs-Bands # 10.1 1.5 - 8.1 08/13 [facility] HEMATOLOGY Monocytes 0.6 2.0 - 12.0 08/13 [facility] HEMATOLOGY Basophils 0.0 0.0 - 1.0 08/13 Normal [facility] HEMATOLOGY Eosinophils 0.0 0.0 - 4.0 08/13 [place] [facility] HEMATOLOGY Lymphocytes 5.5 20.0 - 08/13 [facility] [place] 40.0 [facility] HEMATOLOGY Basophils # 0.0 0.0 - 0.2 08/13 [place] [facility] HEMATOLOGY Eosinophils # 0.0 0.0 - 0.5 08/13 [place] [facility] HEMATOLOGY Monocytes # 0.1 0.0 - 0.8 08/13 Normal [place] [facility] HEMATOLOGY Lymphocytes # 0.6 1.0 - 5.5 08/13 [facility] [place] [facility] HEMATOLOGY Segs 93.9 45.0 - 08/13 [facility] [place] 75.0 Medical Center HEMATOLOGY INR 1.12 0.85 - 08/13 Normal <sup>8</sup>I [place] 1[place] nterpretive Medical Data: Center RECOMMENDED RANGES FOR PROTIME INR: 2.0-3.0 for most medical and surgical thromboemboli c states. 2.5-3.5 for artificial heart valves and recurrent embolism. INR SHOULD BE USED ONLY FOR PATIENTS ON STABLE ANTICOAGULANT THERAPY. HEMATOLOGY PT 14.4 12.0 - 08/13 Normal [facility] 14.7 /2011 [facility] HEMATOLOGY MPV 9.5 7.4 - 10.4 08/13 Normal /2011 [facility] HEMATOLOGY Platelet 230 133 - 450 08/13 Normal /2011 [facility] HEMATOLOGY RDW 16.4 11.5 - 08/13 [facility] [place] 14.5 /2011 [facility] HEMATOLOGY MCHC 33.7 32.0 - 08/13 Normal [facility] 36.0 /2011 [facility] HEMATOLOGY WBC 10.7 3.7 - 10.4 08/13 [facility] HEMATOLOGY MCH 31.4 27.0 - 08/13 [facility] 31.0 [facility] HEMATOLOGY MCV 93.2 81.0 - 08/13 Normal [facility] 99.0 /2011 [facility] HEMATOLOGY Hct 33.3 36.0 - 08/13 LOW [facility] 48.0 /2011 [facility] HEMATOLOGY Hgb 11.2 12.0 - 08/13 LOW [facility] 16.0 /2011 [facility] HEMATOLOGY RBC 3.57 4.20 - 08/13 LOW [facility] 5.40 /2011 [facility] URINALYSIS UA Mucus Few /LPF None [facility] (08/14/2011 15:44:00) Ce nter URINALYSIS UA Amorph Occasional /HPF None Seen 08/13 [facility] * Medical (08/14/2011 15:44:00) Ce nter URINALYSIS UA 0.1 - 1.0 08/13 [facility] Urobilinogen /2011 [facility] URINALYSIS UA Bacteria Occasional /HPF None Seen 08/13 [facility] Medical (08/14/2011 15:44:00) Ce nter URINALYSIS UA Leuk Est Negative Negative 08/13 [place] (08/14/2011 15:44:00) /2011 [facility] URINALYSIS UA RBC 6 0 - 2 08/13 [facility] URINALYSIS UA Sq Epi Occasional /LPF Few 08/13 [facility] (08/14/2011 15:44:00) Ce nter URINALYSIS UA WBC 1 0 - 5 08/13 Normal [facility] URINALYSIS UA Blood Negative Negative 08/13 Normal [facility] (08/14/2011 15:44:00) Az dical Center URINALYSIS UA Nitrite Negative Negative 08/13 Normal [facility] (08/14/2011 15:44:00) Az dical Center URINALYSIS UA Bili Negative Negative 08/13 NA [facility] *NA Medical (08/14/2011 15:44:00) Ce nter URINALYSIS UA Turbidity Slight Clear 08/13 [facility]08/14[facility]2011 15:44:00) Ce nter URINALYSIS UA Color Yellow Yellow 08/13 [facility] (08/14/2011 15:44:00) Ce nter URINALYSIS UA Ketones Negative mg/dL Negative 08/13 [facility] (08/14/2011 15:44:00) Ce nter URINALYSIS UA Glucose 50 mg/dL Negative 08/13 [facility] (08/14/2011 15:44:00) Ce nter URINALYSIS UA Protein 20 mg/dL Negative 08/13 [facility] (08/14/2011 15:44:00) Ce nter URINALYSIS UA Spec Grav 1.036 <=1.030 08/13 [facility] URINALYSIS UA pH 5.5 5.0 - 8.0 08/13 Normal [facility] Microbiolog Culture: 08/13 [facility] y [facility] CHEMISTRY POC A Ca Ion 1.14 1.16 - 08/13 LOW 1.30 [facility] CHEMISTRY POC A LA 2.3 0.5 - 2.2 08/13 [facility] CHEMISTRY POC A Glu 100 70 - 99 08/13 [facility] CHEMISTRY POC A Na 136 135 - 145 08/13 Normal [facility] CHEMISTRY POC A K 3.2 3.5 - 5.1 08/13 LOW [facility] CHEMISTRY POC A Hct 36.0 36.0 - 08/13 Normal 48.0 [facility] BLOOD BANK ABO/Rh A NEG 08/13 Unknown Medical Center BLOOD BANK Antibody Scrn Negative 08/13 Normal AUDREY [place] as RESULTS (08/14/2011 06:20:00) /2011 Az dical Center HEMATOLOGY INR 1.12 0.85 - 07/31 Normal <sup>9</sup>I AUDREY luz 1.17 nterpretive Medical Data: Center RECOMMENDED RANGES FOR PROTIME INR: 2.0-3.0 for most medical and surgical thromboemboli c states. 2.5-3.5 for artificial heart valves and recurrent embolism. INR SHOULD BE USED ONLY FOR PATIENTS ON STABLE ANTICOAGULANT THERAPY. HEMATOLOGY PT 14.4 12.0 - 07/31 Normal [facility] 14.7 [facility] HEMATOLOGY PTT 32.4 22.9 - [...] Neuro Hematology HGB 14.0 12.0 - 07/17cher 16. Neuro Hematology HCT 41.1 36.0 - 07/17cher 48. Neuro Hematology PLATELETS 262 K/CMM 133 [...] 08/12/2014 [facility] Height 66 [facility]/12[facility] Heart Rate 80 08/12/2014 [facility] Systolic (mm Hg) 141 08/12/2014 [facility] [place] [facility] Diastolic (mm Hg) 80 08/12/2014 [facility] Weight 140.0 06/17/2014 [facility] Height 66 06/17/2014 [facility] Heart Rate 90 06/17/2014 [facility] Systolic (mm Hg) 136 06/17/2014 [facility] [...] [facility] Respitory Rate 18 09/02/2011 [facility] joann Center Systolic (mm Hg) 159 09/02/2011 [facility] dical Center Diastolic (mm Hg) 77 09/02/[facility] [place] Temperature Oral (F) 98.7 F 09/02/2011 [facility] Heart Rate 74 09/02/2011 [facility] Diastolic (mm Hg) 65 09/02/2011 [facility] edical Center Respitory Rate 20 09/02/2011 [facility] joann Center Systolic (mm Hg) 139 09/02/2011 [facility] dical Center Heart Rate 86 09/02/2011 [facility] Center Temperature Oral (F) 98.3 F 09/02/2011 [facility] Heart Rate 86 09/02/2011 [facility] Center Diastolic (mm Hg) 70 09/02/2011 [facility] edical Center Systolic (mm Hg) 147 09/02/2011 [facility] dical Center Respitory Rate 20 09/02/2011 [facility] Center Temperature Oral (F) 98.4 F 09/02/2011 [facility] Weight 65.909 09/01/2011 [facility] Height 167.64 cm 09/01/2011 [facility] Height 167.64 cm 09/01/2011 [facility] Center Weight 77.273 09/01/2011 [facility] Weight 147.6 08/29/2011 [facility] Height 66 08/29/2011 [facility] Temperature Oral (F) 99.0 F 08/29/2011 [facility] Heart Rate 76 08/29/2011 [facility] Diastolic (mm Hg) 143 08/29/2011 [facility] Systolic (mm Hg) 128 08/16/2011 [facility] dical Center Diastolic (mm Hg) 74 08/16/2011 [facility] edical Center Respitory Rate 43 08/16/2011 [facility] Diastolic (mm Hg) 70 08/16/2011 [facility] Systolic (mm Hg) 133 08/16/2011 [facility] [place] Respitory Rate 29 08/16/2011 [facility] Diastolic (mm Hg) 64 08/16/[facility] Systolic (mm Hg) 145 08/16/2011 [facility] Center Respitory Rate 34 08/16/2011 [facility] Temperature Oral (F) 98.1 F 08/14/2011 [facility] Heart Rate 61 08/14/2011 [facility] Height 167.64 cm 08/14/2011 [facility] Center Weight 65.909 08/14/2011 [facility] Center Weight 147.8 08/01/2011 [facility] Height 66 08/01/2011 [facility] Temperature Oral (F) 98.8 F 08/01/2011 [facility] Heart Rate 83 08/01/2011 [facility] Systolic (mm Hg) 144 08/01/2011 [facility] [place] [facility] Diastolic (mm Hg) 86 08/01/2011 [facility] Height 167.64 cm 08/01/2011 [facility] Weight 65.909 08/01/2011 [facility] Encounters Location Location Encounter Encounter Reason Attending ADM [place] Stat us Source Details Type Number For Provider Date Date Visit [facility] Inpatient [id number] PANTERA DILLON 08/13 08/15 Disch arg [facility] ed Medical [place] [facility] OU [id number] YESSICA DILLON 08/31 09/01 Active [facility] [place] [facility] AUDIT [id number] 02/08 Physicia ns AUDIT [id number] 02/11 Physicia ns GES, [id number] 03/12 02/11 MD Provider: /2012 ELISSA Ozuna mary ann , Status: Pen, Time: 11:30 AM AUDIT [id number] 04/19 Physicia ns [facility] [id number] Pantera Dillon 05/13 05/13 [facility] [id number] [facility] [id number] Pantera Dillon 06/17 06/17 [facility] Visit [id number] [facility] [id number] Pantera Dillon 08/12 08/12 Mi [facility] Visit 32384 [facility] Outpatient [id number] RHODA 12/03 [facility] [place] Procedures Procedure Code Date Perfomer Comments Source smoking/tobacco 14 07/18/2011 not needed [facility] euro cessation, patient education and counseling Assessment and Plan No Data Provided for This Section Plan of Care No Data Provided for This Section Social History Social History Date Source Alcohol Use (Active) 04/20/2012 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 Never A Smoker (Active) Marital History - Currently (Active) No History of Drug Use (Denied) Family History Value Date Source Paternal history of Acute 04/20/2012 [facility] Myocardial Infarction (V17.3); (Active) Paternal history of Stroke Syndrome (V17.1); (Active) Paternal history of Stroke 02/12/2012 [facility] Syndrome (V17.1); (Active) Paternal history of Acute Myocardial Infarction (V17.3); (Active) Paternal history of Acute 02/09/2012 [facility] Myocardial Infarction (V17.3); (Active) Paternal history of Stroke Syndrome (V17.1); (Active) Advance Directives Order Name Results Value Date Source Advance Directives Advance Directives No Advance 04/20/2012 [facility] Directives available. Advance Directives Advance Directives No Advance 02/12/2012 [facility] Directives available. Advance Directives Advance Directives No Advance 02/09/2012 [facility] Directives available. Functional Status No Data Provided for This Section
--- OUTSIDE RECORDS SUMMARY | 2020-02-22 13:37 | XMS REPORT | Summary of Care ---
:1940 Author Organization [facility] Address [address] [place] [address] Care Team Providers Name Role Phone Serena Rojas Primary Care Provider Reason for Visit Reason Comments Refill Request Encounter Details Date Type Department Care Team Description 01/30/2020 Refill [facility] Miky Ortiz MD Refill Request Neurology-[address] [place] [id number] [address] [place] [address] [phone] Allergies Active Allergy Reactions Severity Noted Date Comments Onabotulinumtoxina Other - See comments 02/26/2018 Codeine Hallucinations 02/26/2018 Meperidine Hcl Other - See comments 02/26/2018 fever Penicillin Hives 02/26/2018 documented as of this encounter (statuses as of 02/02/2020) Medications Medication Sig Dispensed Refills Start Date End Date Status levothyroxine 75 mcg 0 10/29/2017 Active tablet pravastatin 80 mg 0 10/29/2017 A ctive tablet spironolactone 50 mg 0 10/29/2017 Active tablet traZODONE 100 mg 0 12/27/2017 Ac tive tablet clonazePAM 2 mg Take 1 60 tablet 0 02/02/2020 Act albertina tabletIndications: tablet by 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 documented as of this encounter (statuses as of 02/02/2020) Active Problems Not on filedocumented as of this encounter (statuses as of 02/02/2020) Social History Tobacco Use Types Packs/Day Years Used Date Never Smoker Smokeless Tobacco: Never Used Alcohol Use Drinks/Week oz/Week Comments No Sex Assigned at Date Recorded Not on file documented as of this encounter Last Filed Vital Signs Not on filedocumented in this encounter Miscellaneous Notes Telephone Encounter - Keira Becerra LVN - 02/02/2020 3:14 PM CST Received erx refill request for: Requested Prescriptions Pending Prescriptions Disp Refills clonazePAM 2 mg tablet 60 tablet 0 Sig: Take 1 tablet by mouth 2 (two) times daily. Last filled: clonazePAM 2 mg tablet 60 tablet 0 11/05/2019 Follow up scheduled for : Not scheduled yet Last office visit: 04-22-19 Impression: We will continue with the clonazepam. It has provided her withsome benefit, she doesn't like muscle relaxers, and she has had previous uses of other analgesics which have not benefitted her. Refilled approval sent to: Pharmacy: [id number] - [place], [place] - [address] [address] [address] [facility] [address] [facility] [id number] Refilled per Guidelines [employer]ER documented in this encounter Plan of Treatment [...] ss Type Group MEDICARE MEDICARE PART A [id number] 1993-[place] [phone] Medicare & B t [id number] [place]IER[place] [phone] [employer] AETNA INDEMNITY [id number] 2013-[place] Indemnity t documented as of this encounter
--- OUTSIDE RECORDS SUMMARY | 2020-02-22 13:37 | XMS REPORT | Continuity of Care Document ---
:1940 Author Organization [facility] t Address [address] [place] [address] Care Team Providers Name Role Phone Diana GIBBS, Gene Attending Clinician Doctor Unassigned, Name Attending Clinician Unavailable Problems Condition Condition Condition Status Onset Resolution Last Treating Co mments Source Name Details Category Date Date Treatment Clinician Date LUMBAR HNP Condition Active 2014-08-12 Memoria 06-17 11:35:12 l LUMBAR 00:00: Giorgi HNP 00 Active 06/17/2014 Condition 5 [facility] LUMBAR Condition Active 2014-08-12 Mem oria SPINAL 06-17 11:35:12 l STENOSIS LUMBAR 00:00: Richie n SPINAL 00 STENOSIS Active 06/17/2014 Condition 5 [facility] 724.4 - Diagnosis Active 2014-07-05 Me moria LUMBOSACRA 06-02 15:44:00 l L STEPHEN 724.4 - 00:01: [place] LUMBOSACRA 00 L STEPHEN Active 06/02/2014 [facility] LUMBAR Condition Active 2014-08-12 Mem oria RADICULOPA 05-13 11:35:12 l THY LUMBAR 00:00: [place] RADICULOPA 00 THY Active 05/13/2014 Condition 5 [facility] LOW BACK Condition Active 2014-08-12 M emoria PAIN 05-13 11:35:12 l LOW BACK 00:00: Richie n PAIN 00 Active 05/13/2014 Condition 5 [facility] JUAN Diagnosis Active 2011-09-11 Mem oria 7-12 21:43:00 l JUAN 00:00: Giorgi 00 Active 08/31/2011 [facility] HISTORY OF Condition Active 2014-08-12 Memoria HYPERCHOLE 07-17 11:35:12 l STEROLEMIA HISTORY 00:00: Her gray OF 00 HYPERCHOLE STEROLEMIA Active 07/18/2011 Condition 5 [facility] HISTORY OF Condition Active 2014-08-12 Memoria DEPRESSION 07-17 11:35:12 l HISTORY 00:00: Girogi OF 00 DEPRESSION Active 07/18/2011 Condition 5 [...] 00:00: Giorgi TRIGEMINAL 00 NERVE Active 07/18/2011 [facility] History of Problem Active 2011-08-18 M emoria - 08:27:27 l trigeminal History Her gray neuralgia of - trigeminal neuralgia Active Problem 08/18/2011 [facility] Pain Problem Active 2011-08-18 Memor ia 08:27:27 l Pain [place] Active Problem 08/18/2011 [facility] Headache Problem Active 2011-09-04 Mem oria 08:24:51 l Headache Richie n Active Problem 09/04/2011 [facility] TRIGEMINAL Condition Active 2014-08-12 Memoria NEURALGIA 11:35:12 l Giorgi TRIGEMINAL NEURALGIA Active Condition 08/12/2014 [facility] Peripheral Problem Active 2012-04-20 M emoria Neuropathy 02:06:39 l Giorgi Peripheral Neuropathy Active 04/20/2012 [facility] Herniated Problem Active 2012-04-20 Me moria Interverte 02:06:39 l bral Disc Giorgi Herniated Interverte bral Disc Active 3 [facility] Facial Problem Active 2012-04-20 Memor ia Pain 02:06:39 l Facial [place] Pain Active 3 [facility] Fibromyalg Problem Active 2012-04-20 M emoria ia 02:06:39 l [place] Fibromyalg ia Active 04/20/2012 [facility] Chronic Problem Active 2012-04-20 José Luis ke Fatigue 02:06:39 l Syndrome Chronic Kiera nn Fatigue Syndrome Active 3 [facility] TRIGEMINAL Diagnosis Active 2011-08-16 Memoria NEURALGIA 02:41:00 l Giorgi TRIGEMINAL NEURALGIA Active [facility] Allergies, Adverse Reactions, Alerts Allergy Allergy Status Severity Reaction(s) Onset Inactive Treating Comm ents Source Name Type Date Date Clinician DEMEROL DEMEROL Active Memoria 5-29 l 00:00: Giorgi 00 PCN PCN Active Memoria 5-29 l 00:00: [place] 00 CODEINE CODEINE Active Memoria 5-29 l 00:00: [place] 00 FENTANYL FENTANYL Active Memori a 5-29 l 00:00: [place] 00 codeine codeine Active Memoria l [place] Demerol Demerol Active Memoria HCl HCl l Giorgi fentaNYL fentaNYL Active Memori a l Giorgi penicill penicill Active Memori a ins ins l Giorgi cephalos cephalos Active Memori a porins porins l Giorgi Darvon Darvon Active Memoria l Giorgi Demerol Demerol Active Memoria TABS TABS l [place] Penicill Penicill Active Memori a ins ins l Giorgi Codeine Codeine Active Memoria Derivati Derivati l ves ves Giorgi FentaNYL FentaNYL Active Memori a PT72 PT72 l Giorgi Family History Family Member Diagnosis Comments Start Date Stop Date Source Unknown Family Family History 2012-02-09 2012-02-09 Memori al Giorgi Member 12:35:28 12:35:28 Social History Social Habit Start Date Stop Date Quantity Comments Source Social History 2012-04-20 2012-04-20 [facility] 02:06:39 02:06:39 Medications Ordered Filled Start Stop Current Ordering Indication Dosage Frequency Signature Comments Components Source Medication Medication Date Date Medication? Clinician (SIG) Name Name OCTAVIA No to be Memoria (MITCHEL) 4 MG 4-29 taken as l TABS 00:00: directed Giorgi 00 LIDODERM 5 No apply to Mem oria % PT[facility] 4-29 affected l 00:00: area 12h [place] 00 on 12h off per 24h period (may use up to 3 patches at one time) LIDODERM 5 No Apply to Mem oria % PTCH 3-25 the l 00:00: affected Giorgi 00 area 12 hrs on and 12hrs off per 24 hr period. ( up to 3 patches at one time) Pravastatin Yes (Active) M emoria Sodium 80 3-02 l MG Oral 02:06: [place] Tablet 39 ClonazePAM Yes (Active) Me moria 2 MG Oral 3-02 l Tablet 02:06: Giorgi 39 Hydrochloro Yes (Active) M emoria thiazide 3-02 l 12.5 MG 02:06: Giorgi Oral 39 Capsule Levothyroxi Yes (Active) M emoria ne Sodium 3-02 l 75 MCG Oral 02:06: Richie n Tablet 39 Amitriptyli 2011-02 Yes ; Start Mem oria ne HCl 10 -23 Date: l MG Oral 06:00: 02/11/2012 Herm heber Tablet 00 ; End Date: (Active) hydrochloro No Patel 12.5 mg, 1 Memoria thiazide 7-15 Ping-Mora tab, l 14:00: Lo Route: PO, [place] 00 Drug form: TAB, Daily, Start date: 09/03/11 9:00:00, Duration: 30 day, Stop date: 10/02/11 9:00:00 pravastatin No Patel 80 mg, 4 Memoria 7-15 Ping-Mora tab, l 14:00: Lo Route: PO, [place] 00 Drug form: TAB, Daily, Start date: [...] Ping-Mora cap, l 14:00: Lo Route: PO, [place] 00 Drug form: CAP, Daily, Start date: 09/03/11 9:00:00, Duration: 30 day, Stop date: 10/02/11 9:00:00 diphenhydrA No Patel 25 mg, 1 Memoria MINE 7-15 Ping-Mora cap, l 02:00: Lo Route: PO, Giorgi 00 Drug form: CAP, Bedtime, Start date: 09/02/11 21:00:00, Duration: 30 day, Stop date: 10/01/11 21:00:00 Pepcid 20 Yes Patel 20 mg, 1 Me moria mg oral 7-14 Ping-Mora tab, PO, l tablet 17:49: Lo BID, 180 [place] 52 tab, Substituti on Allowed dexamethaso Yes [...] 7-14 Ping-Mora Bedtime, l 16:32: Lo Substituti Giorgi 13 on Allowed acetaminoph Yes 325 mg, Mem oria en 7-14 PO, Q4H, l 16:31: Substituti Giorgi 17 on Allowed hydrochloro Yes Patel 12.5 mg, Memoria thiazide -14 Ping-Mora PO, Daily, l 16:29: Lo Substituti Giorgi 58 on Allowed fluoxetine Yes Patel 40 [...] l mg/25 mL 14:00: Mendoza NG, Drug [place] oral syrup 00 form: LIQ, Q12H, Start date: 09/01/11 9:00:00, Duration: 30 day, Stop date: 09/30/11 21:00:00 dexamethaso 2011-0 No Alexey 4 mg, 1 Memoria ne 7-13 Efren tab, l 11:00: Mendoza Route: PO, [...] 3:07:00 insulin 2011-0 No Alexey 7 unit, Dc moria regular - Efren 0.07 mL, l [...] NE 1 MG 7-10 l TABS 00:00: [place] 00 Flomax No Cl 0.8 mg, 2 Memor ia 08-15 Patel cap, l 13:30: Abdunnur Route: PO, Her Drug form: CAP, After Breakfast, Start date: 08/16/11 8:30:00, Duration: 1 day, Stop date: 08/16/11 8:30:00 calcium No Dong H Wilma 3,000 mg, Memoria gluconate 08-15 30 mL, l 08:30: Route: Giorgi 00 IVPB, ONCE, Start date: 08/16/11 3:30:00, [...] tab, l 02:00: Abdunnur Route: PO, Her gray 00 Drug Form: TAB, Q12H, Start date: 08/14/11 21:00:00, Duration: 30 day, Stop date: 09/13/11 9:00:00 vancomycin 2011-0 No Cl 1 gm, Memor ia (SCIP) 08-14 Patel Route: l 01:00: Abdunnur IVPB, Drug Her gray 00 form: INJ, [id number], Start date: 08/14/11 20:00:00, Duration: 2 doses [...] Zakaria mL, Route: l 23:00: IVP, Drug [place] 00 form: INJ, Q6H, Start date: 08/14/11 18:00:00, Duration: 48 hr, Stop date: 08/16/11 12:00:00 Pravachol 2011-0 No Cl 80 mg, 4 Mem oria [...] Chavez Moreno 0.25 mL, l 19:23: Route: [place] IVPB, Drug form: INJ, ONCE, PRN Nausea [...] Chavez Moreno 0.1 mL, l 19:23: Route: [place] 00 IVP, Drug form: INJ, Q2MIN, PRN Narcotic Reversal, Start date: 08/14/11 14:23:00, Duration: 8 doses or times, Stop date: 08/15/11 0:00:00 flumazenil 2012-0 No Kin 0.2 mg, 2 Memoria 6-25 Chavez Moreno mL, Route: l 19:23: IVP, Drug [place] form: INJ, PRN, PRN Benzodiaze pine Reversal, Initial dose, Start date: 08/14/11 14:23:00, Stop date: 08/15/11 0:00:00 hydromorpho 2012-0 No Kin 0.5 mg, M emoria ne 6-25 Chavez Moreno 0.25 mL, l 19:23: Route: [place] IVP, Drug form: INJ, Q5Min, PRN Pain [...] Moreno mL, Route: l 19:23: IVP, Drug [place] 00 form: INJ, Q5Min, PRN Elevated BP, [...] l mg oral 14:00: Abdunnur Route: PO, [place] capsule 00 Drug form: CAP, Q12H, Start [...] l 12.5 mg 14:00: Abdunnur Route: PO, [place] oral 00 Drug form: capsule CAP, Daily, [...] l 8.85% oral 11:49: Abdunnur PO, ONCE, [place] liquid 24 PRN, 1 mL, 1, 1, [...] tab, PO, l tablet 11:49: BID, 16 Giorgi 16 tab, Substituti on Allowed [place] No Asma 1 tab, PO, Memori a 10/325 oral 6-25 Zakaria Q4H, PRN, l tablet 11:49: 30 tab, 2, Kiera nn 14 2, as needed for pain, Substituti on Allowed, Maintenanc e, TAB dexamethaso Yes Cl 1 mg, 1 Me moria ne 1 mg 6-25 Patel tab, PO, l oral tablet 11:49: [...] No Cl 7 unit, Memori a regular 6-25 Patel 0.07 mL, l human 11:47: Abdunnur Route: Richie n recombinant 00 SUB-Q, 100 Drug form: units/mL SOLN, PRN, injectable PRN solution Abnormal Lab Result, Start date: 08/14/11 6:47:00, Duration: 30 day, Stop date: 09/13/11 6:46:00 Dextrose No Cl 12.5 gm, José Luis ke 50% Syringe 6-25 Patel 25 mL, l 11:47: Abdunnur Route: [place] 00 IVP, Drug Form: INJ, PRN, PRN Abnormal Lab Result, Start date: 08/14/11 6:47:00, Duration: 30 day, Stop date: 09/13/11 6:46:00 Saline No Cl 5 ml, Memoria Flush 0.9% 6-25 Patel Route: l 11:47: Abdunnur IVP, Drug [...] 08/14/11 6:44:00, Stop date: 09/13/11 6:43:00 vancomycin 2012-0 No Cl 1 gm, Memor ia 6-25 Patel Route: l 03:00: Abdunnur IVPB, Drug Her gray 00 form: INJ, PRE OP, Start date: 08/13/11 22:00:00, Duration: 1 day, Stop date: 08/14/11 21:59:00 Tylenol 325 Yes 325 mg, 1 M emoria mg oral 6-12 tab, PO, l tablet 17:22: Q4H, PRN, Richie ibrahim 58 60 tab, Pain, Substituti on Allowed [...] tab, PO, l tablet 17:21: Abdunnur TID, [place] 55 Substituti on Allowed, TAB diphenhydrA Yes [...] (0.075 mg) 17:21: Abdunnur 1 tab, PO, [place] oral tablet 06 Daily, 30 tab, Substituti on Allowed, TAB Bactrim DS No 1 tab, PO, M emoria 6-12 BID, 20 l 17:20: tab, [place] 52 Substituti on Allowed, Maintenanc e Gabapentin Yes ; Start José Luis ke 100 MG Oral 5-30 Date: l Capsule 05:00: 07/19/2011 Herm heber 00 ; End Date: (Active) LEVOTHYROXI Yes 1 tab po Me moria NE SODIUM 5-29 qd l 75 MCG TABS 00:00: Richie ibrahim 00 HYDROCHLORO 2011-0 Yes 1 cap po Me moria THIAZIDE 5-29 qd l 12.5 MG 00:00: Giorgi CAPS 00 FLUOXETINE 2011-0 Yes 1 cap po Mem oria HCL 40 MG 5-29 qd l CAPS 00:00: [place] 00 PRAVASTATIN 2011-0 Yes 1 tab po Me moria SODIUM 80 5-29 qd l MG TABS 00:00: Giorgi CLONAZEPAM 2011-0 Yes 1 tab po Mem oria 2 MG TABS 5-29 tid l 00:00: [place] CLONAZEPAM 2011-0 Yes 1 tab po Mem oria 2 MG TABS 5-29 tid l 00:00: [place] Vital Signs Vital Name Observation Time Observation Value Comments Source Weight 2014-08-12 16:35:12 [facility] Giorgi Height 2014-08-12 16:35:12 [facility] Heart Rate 2014-08-12 16:35:12 [facility] Systolic (mm Hg) 2014-08-12 16:35:12 José Luis rial Giorgi Diastolic (mm Hg) 2014-08-12 16:35:12 Mem orial Giorgi Weight 2014-06-17 17:09:01 [facility] Giorgi Height 2014-06-17 17:09:01 [facility] [place] Heart Rate 2014-06-17 17:09:01 [facility] [place] Systolic (mm Hg) 2014-06-17 17:09:01 José Luis rial Giorgi Diastolic (mm Hg) 2014-06-17 17:09:01 Mem orial [place] Temperature Oral (F) 2014-06-17 17:09:01 97.9 F [facility] G[facility]gi Respitory Rate 2014-06-17 17:09:01 Memori al Giorgi Weight 2014-05-13 18:20:11 [facility] [place] Height 2014-05-13 18:20:11 [facility] [place] Temperature Oral (F) 2014-05-13 18:20:11 98.4 F [facility] [place] Heart Rate 2014-05-13 18:20:11 [facility] [place] Systolic (mm Hg) 2014-05-13 18:20:11 José Luis rial [place] Diastolic (mm Hg) 2014-05-13 18:20:11 Mem orial Giorgi Respitory Rate 2014-05-13 18:20:11 Memori al Giorgi Weight 2011-09-12 14:52:20 [facility] [place] Height 2011-09-12 14:52:20 [facility] Giorgi Temperature Oral (F) 2011-09-12 14:52:20 98.7 F [facility] Heart Rate 2011-09-12 14:52:20 [facility] G[facility] Systolic (mm Hg) 2011-09-12 14:52:20 José Luis rial [place] Diastolic (mm Hg) 2011-09-12 14:52:20 Mem orial [place] Respitory Rate 2011-09-02 16:30:00 Memori al [place] Systolic (mm Hg) 2011-09-02 16:30:00 José Luis rial Giorgi Diastolic (mm Hg) 2011-09-02 16:30:00 Mem orial [place] Temperature Oral (F) 2011-09-02 16:30:00 98.7 F [facility] [place] Heart Rate 2011-09-02 16:30:00 [facility] [place] Diastolic (mm Hg) 2011-09-02 12:00:00 Mem orial Giorgi Respitory Rate 2011-09-02 12:00:00 Memori al Giorgi Systolic (mm Hg) 2011-09-02 12:00:00 José Luis rial [place] Heart Rate 2011-09-02 12:00:00 [facility] [place] Temperature Oral (F) 2011-09-02 12:00:00 98.3 F [facility] [place] Heart Rate 2011-09-02 09:00:00 [facility] Giorgi Diastolic (mm Hg) 2011-09-02 09:00:00 Mem orial [place] Systolic (mm Hg) 2011-09-02 09:00:00 Ojsé Luis rial [place] Respitory Rate 2011-09-02 09:00:00 Memori al [place] Temperature Oral (F) 2011-09-02 09:00:00 98.4 F [facility] [place] Weight 2011-09-01 11:48:00 [facility] [place] Height 2011-09-01 11:48:00 167.64 cm [facility] [place] Height 2011-09-01 04:34:00 167.64 cm [facility] Giorgi Weight 2011-09-01 04:34:00 [facility] Weight 2011-08-29 17:03:50 [facility] Height 2011-08-29 17:03:50 [facility] Temperature Oral (F) 2011-08-29 17:03:50 99.0 F [facility] [place] Heart Rate 2011-08-29 17:03:50 [facility] G[facility]gi Diastolic (mm Hg) 2011-08-29 17:03:50 Mem orial [place] Systolic (mm Hg) 2011-08-16 23:00:00 José Luis rial Giorgi Diastolic (mm Hg) 2011-08-16 23:00:00 Mem orial Giorgi Respitory Rate 2011-08-16 23:00:00 Memori al [place] Diastolic (mm Hg) 2011-08-16 22:00:00 Mem orial Giorgi Systolic (mm Hg) 2011-08-16 22:00:00 José Luis rial Giorgi Respitory Rate 2011-08-16 22:00:00 Memori al Giorgi Diastolic (mm Hg) 2011-08-16 21:00:00 Mem orial [place] Systolic (mm Hg) 2011-08-16 21:00:00 José Luis rial Giorgi Respitory Rate 2011-08-16 21:00:00 Memori al [place] Temperature Oral (F) 2011-08-14 20:00:00 98.1 F [facility] Heart Rate 2011-08-14 11:10:00 [facility] Height 2011-08-14 11:01:00 167.64 cm [facility] Weight 2011-08-14 11:01:00 [facility] Weight 2011-08-01 17:53:50 [facility] Height 2011-08-01 17:53:50 [facility] Temperature Oral (F) 2011-08-01 17:53:50 98.8 F [facility] [place] Heart Rate 2011-08-01 17:53:50 [facility] Systolic (mm Hg) 2011-08-01 17:53:50 José Luis rial Giorgi Diastolic (mm Hg) 2011-08-01 17:53:50 Mem orial G[place] Height 2011-08-01 17:42:00 167.64 cm [facility] Weight 2011-08-01 17:42:00 [facility] Procedures Procedure Date / Time Performed Performing Clinician [facility] e smoking/tobacco 2011-07-18 18:46:51 [facility] Her gray cessation, patient education and counseling Encounters Start End Encounter Admission Attending Care Care Encounter Source Date/Time Date/Time Type Type Clinicians Facility Department ID 2020-01-30 2020-01-30 IESHA Gan [id number] 00:00:00 00:00:00 Miky Rowell [id number] [place] [id number] Professio [id number] [address] 2019-10-31 2019-10-31 Maryse Ortiz [facility] [id number] 00:00:00 00:00:00 Miky Rowell [id number] [place] [id number] Professio [id number] [address] 2019-10-31 2019-10-31 Orders Doctor STEFAN [id number] 00:00:00 00:00:00 Only Unassigned, REGAN [id number] [facility]onnell [facility] [id number] [id number] 2019-10-08 2019-10-08 [facility] [id number] 00:00:00 00:00:00 Miky Rowell [id number] [place] [id number] Professio [id number] [address] 2019-08-29 2019-08-29 [facility] [id number] 00:00:00 00:00:00 Miky Rowell [id number] [place] [id number] Professio [id number] [address] 2012-04-19 2012-04-19 Outpatient MHIE SELVIN [id number] 20:06:57 20:06:39 2012-02-12 2012-02-12 Outpatient MHHANNAH MONTALVO [id number] 03:02:06 03:01:32 2012-02-09 2012-02-09 Outpatient MHHANNAH MONTALVO [id number] 06:35:44 06:35:28 Results Test Description Test Time Test Comments Results Result Comments Source BEDSIDE GLUCOSE 2011-09-02 126 [facility] [place] TESTING 17:02:00 BEDSIDE GLUCOSE 2011-09-02 171 [facility] [place] TESTING 03:35:00 CHEMISTRY 2011-09-01 4.00 [facility] [place] [...] = PTT) 30.9 s 22.9-35.8 N [facility] [id number] 11:00:00 Test Item Value Reference Range Interpretation Comments PT (test code = PT) 13.7 s 12.0-14.7 N [facility] HsxpautVVTHUFOMMF9114-88-77 11:00:001.05[facility]OLOGY 2011-09-01 11:00:0096.0[facility] CawjcpmPDRSBLRWHR0314-54-39 11:00:008.4[facility] SjoiwveNMVBJMVQLN6623-38-85 11:00:09968Hgkavwmq XkujocqDCJHPKGCZZ3070-81-53 11:00:0016.9[facility] VcxsfokRZDYZEMBOE3474-28-36 11:00:0033.7[facility] [place] TPHBVSLHBU5549-11-31 11:00:00 Test Item Value Reference Range Interpretation Comments MCH (test code = MCH) 32.3 pg 27.0-31.0 H [facility] MjcmmozVXGXUUFXMV6543-82-94 11:00:0032.5[facility]annHEMATOLOGY 2011-09-01 11:00:0011.0[facility] CntdpzhFJOMYBVWAB8067-80-59 11:00:003.39[facility] IdtwouwPIPOOJTXBG7264-23-44 11:00:0013.2[facility] RtqdokqLTLHEQYTSG9501-21-89 11:00:003.0[facility] CkpbjbeRSWVCCYIXI9075-15-15 11:00:001.0[facility] [place] EXZBCPUCLF2329-77-11 11:00:000.4[facility] QefybmpFKJBEMOETE6600-15-29 11:00:000.1 [facility] YoehqawRYZKBGATBY5606-64-29 11:00:000.0[facility]ann[facility]MATOLOGY 2011-09-01 11:00:001.0[facility] XdtkqdlVEDBRPGRQO0858-08-46 11:00:0095.0[facility] QovnqvjAXCBQTQLTO8159-94-31 11:00:0012.7[facility]ann[facility] ZMIOWF9894-67-71 08:10:00Colorless (09/01/2011 03:10:00)[facility] TUWXHI1319-29-77 08:10:00 Test Item Value Reference Range Interpretation Comments Tube Num CSF (test code = Tube Num CSF) 4 1 [facility] MQQCBF3613-13-95 08:10:00Colorless (09/01/2011 03:10:00) [facility] MFWGLW2327-68-73 08:10:00Slight *ABN*(09/01/2011 03:10:00) [facility] JPOUOO9170-97-97 08:10:548339Uuwkwpbt [facility]ann[facility] FLUIDS 2011-09-01 08:10:002[facility] TDJHVU6167-76-98 08:10:004[facility] FDSJNT1151-05-86 08:10:003[facility] KEUDLA7099-10-95 08:10:0093[facility] ARYYOE2989-60-71 08:05:003.0[facility] SYZRWN1483-96-25 08:05:33407Tzcfhowe HermannB[facility] DVGQPB7888-85-98 08:05:00 Test Item Value Reference Range Interpretation Comments Tube Num CSF (test code = Tube Num CSF) 1 1 [facility] VOYKFP0105-22-22 08:05:00Colorless (09/01/2011 03:05:00) [facility] [id number] 08:05:00Colorless (09/01/2011 03:05:00) [facility] [id number] 08:05:576117Hojfcfdp [facility] FLUIDS 2011-09-01 08:05:00Slight *ABN*(09/01/2011 03:05:00)[facility] FLUIDS 2011-09-01 08:05:002[facility] TRQWOO3831-41-83 08:05:0092[facility] CEXTAG9513-76-92 08:05:004[facility] ZOFCXJ5343-25-24 08:05:004[facility] CZYIHA2152-86-41 08:05:0078[facility] HermannFUNGAL - PZVBPWSI6129-60-17 08:05:00Negative (09/01/2011 03:05:00)[facility] [place] MZIWAQYLFW0496-29-40 08:05:00Non Reactive (09/01/2011 03:05:00)[facility] [place] QQKBRZDFOB8283-46-49 08:05:00Negative (09/01/2011 03:05:00)[facility] HEOPDJANTQ6356-79-82 08:05:00Negative (09/01/2011 03:05:00)[facility] YJVKLRGJIC7549-40-73 08:05:00Negative 6(09/01/2011 03:05:00)[facility] PRCPEEOYLM0814-09-42 08:05:00Negative (09/01/2011 03:05:00)[facility] HEKAZZWYVC5157-04-31 08:05:00Negative (09/01/2011 03:05:00)[facility] IAZHHDFUFH6695-36-38 08:05:00Negative (09/01/2011 03:05:00)[facility] XRUYGIL4146-79-33 22:14:44569Kntcaova HermannBEDSIDE GLUCOSE MPUWAQT9802-41-24 16:37:94759Vfrkghej HermannBEDSIDE GLUCOSE ELKRJGO2333-97-14 12:56:81485Nlwaaaze KxgljcvLKFPIXSUZ8974-11-23 05:50:002.0[facility] [place] BKRMPYITO4562-02-55 05:50:007.6[facility] MgzmauyKGKTXHUYK2418-11-57 05:50:008.4 [facility] XupmuobJKHUYPNWR4856-50-98 05:50:0032[facility] HermannCHEMISTRY 2011-08-16 05:50:07201Nkyouykk PzklpnhQIYDGEEQJ8593-43-70 05:50:001.0[facility] CloofjwJWQHNPFAA6619-05-55 05:50:0021[facility] RnvvxenCZJXFFMPO5570-69-07 05:50:003.6[facility] RnppyfyXBBDTSVVZ4838-06-57 05:50:49430Jcwpvocv [place] PYUHVMEWR0782-83-21 05:50:60578Mmujjbxg QshwkbqRJPURAVGJ3455-94-09 05:50:002.2 [facility] IyjitekDLXOSOZZK7111-58-97 05:50:001.09[facility] HermannCHEMISTRY 2011-08-16 05:50:004.36[facility] SrjgkniCVOBZSWUR8705-22-25 05:50:004.60[facility] FmyobeqQRELFUYHT8652-74-34 05:50:001.15[facility] VbvtnaiFWHWORIMSU4229-33-81 05:50:57472Wqiwbtcl YrojrkuBASVOLHZJJ3827-17-00 05:50:0015.9[facility] LQDBKLVVAE3087-76-71 05:50:0093.4[facility] FsbajloCEVCLQBPCZ8282-82-22 05:50:00 34.1[facility] TlwbaowTIQFZPVWMZ2687-19-88 05:50:00 Test Item Value Reference Range Interpretation Comments MCH (test code = MCH) 31.8 pg 27.0-31.0 H [facility] QumzsoaTMCYHUBBQW6364-86-94 05:50:009.3[facility] HermannHEMATOLOGY 2011-08-16 05:50:0029.6[facility] LwtqwhtRTHUAIOLPF4025-75-38 05:50:0010.1[facility] BslwfjzRNETKFBWNI6109-27-88 05:50:003.17[facility] MpfgtezWFURXMQSXB4693-43-97 05:50:0016.3[facility] MqfxxrmRXHRVDTCPD9015-08-04 05:50:000.0[facility] [place] IYZCABFFCU1551-41-89 05:50:000.0[facility] XwxsrrrLVHBFDRWKM7199-13-79 05:50:003.1 [facility] HpwqkbyPTUCCTRHXH4305-10-20 05:50:0095.4[facility]annHEMATOLOGY 2011-08-16 05:50:000.5[facility] NvzatazZHPWHBIDYV9635-35-55 05:50:000.0[facility] UjwcdbcLGLPXHLPIF1144-70-51 05:50:001.5[facility] OcmnsnfVQEKDKQUNV2520-20-73 05:50:0015.6[facility] GfrynjlOLBSGIAJRN5286-12-75 05:50:000.0[facility] RHXMAAVPMQ9984-48-15 05:50:000.2[facility] IpaatjlLKPMPOFVB0700-93-86 01:19:0075 [facility] JznzksfGHMFUCARM1211-49-59 01:19:001.6[facility]annCHEMISTRY 2011-08-16 01:19:001.2[facility] TfecqnpXEZDROWYQ2855-33-94 22:15:65082.0[facility] MtjmyyvEFADSHKKY9590-56-35 22:15:003[facility] CqyimslRMFNHNSXX7128-67-35 22:15:00 184[facility] PksifftUUCVUIKWZ4674-72-43 22:15:007.44[facility]annCHEMISTRY 2011-08-15 22:15:0037.0[facility] NbtsjrkWLJKDBQHV7829-15-75 22:15:0028[facility] PojelpzDRHRNEQSA8523-55-03 22:15:0041[facility] NmorzvuZHDLSOVXG0427-27-04 22:15:0050.0[facility] DtcrgfmAJIMGZDGS8581-72-07 22:09:0070.0[facility] [place] ZTVCYGQSK0692-88-60 22:09:003[facility] GvogzkkVGCKYJSZI4815-78-70 22:09:0050.0 [facility] VsnovtuGLYYRYMDP7229-59-90 22:09:0037.0[facility]annCHEMISTRY 2011-08-15 22:09:007.39[facility] UiuonxjXWWIQVXWF8003-10-41 22:09:0037[facility] SunzffsVYKTFVAGA7935-16-84 22:09:0029[facility] KgooynmJWGNJVXQD6190-36-97 22:09:0048[facility] ZinijcyDRXSSTVPT8384-54-52 17:50:0076[facility] [place] NUUPXNHOF1889-11-24 17:50:001.6[facility] HrqonkuREGOKFSJQ0060-19-86 17:50:001.2 [facility] GnrgoxlDGDKBASXU8001-28-71 08:25:0054[facility]annCHEMISTRY 2011-08-15 08:25:04154Wiqrudox UqrzdlvOXEMAVHCC7904-29-86 08:25:007.32[facility] HaupecjGJHMMHDBY1436-09-93 08:25:0037.0[facility] NbrdhuqZZSONBXDH2834-54-61 08:25:0098.0[facility] GwabphgCSYCDDMQR0221-34-85 08:25:001[facility] [place] NMHIZPJHB0214-44-80 08:25:0028[facility] MjudvfzUGIIPHCLU5632-37-42 06:00:0078 [facility] KfbdurxVHQPXMRTP1145-72-49 06:00:0014.1[facility]annCHEMISTRY 2011-08-15 06:00:32904Cjdslnqz EwlprozIFTKPDGXJ0283-96-79 06:00:008.2[facility] GfktkjpXWWTDJWMJ8048-41-88 06:00:0024[facility] YcmrhqxXTLUINREF5314-71-35 06:00:09848Qowfqevr WebjbvbWGBSCAAZP1993-78-58 06:00:89019[facility]h [place] BDEMTKMWF8919-15-93 06:00:004.1[facility] SmuwkqyFFQXLBGRR8913-49-44 06:00:0025 [facility] WndxdjqZKTQKDAZO8108-94-23 06:00:001.3[facility]annCHEMISTRY 2011-08-15 06:00:002.4[facility] VpiaerrCSVWIAEWL7057-70-86 06:00:001.9[facility] OexhcowSFGOYBKYFU0436-77-09 06:00:000.0[facility] FprczroBHGNCTANKP0017-58-20 06:00:000.0[facility] MwlakccXDBRPLZUFP7391-31-33 06:00:0014.6[facility] WDDTGAWEEW4462-14-14 06:00:000.5[facility] WidsnnfHGZCBIZRYH6817-25-56 06:00:000.0 [facility] QytvmxhRNPMPOWFLE3718-55-31 06:00:000.5[facility]annHEMATOLOGY 2011-08-15 06:00:003.1[facility] DafsgckKVOINQQIYH5457-60-23 06:00:000.0[facility] TwqwcynVBDSZTKTSV8007-81-07 06:00:003.4[facility] SstlaxvIMTPHVYNHW3628-50-88 06:00:0093.5[facility] DkimjjuRROSCDFNGD0326-57-35 06:00:00868Nlnsgzsf [place] LACKBWWBQS6911-54-02 06:00:0016.1[facility] AoacxeyRFJRFVQBFD8552-13-95 06:00:00 33.2[facility] SmccpffORJDTJQSSL9849-48-07 06:00:0094.5[facility]annHEMATOLOGY 2011-08-15 06:00:00 Test Item Value Reference Range Interpretation Comments MCH (test code = MCH) 32.3 pg 27.0-31.0 H [facility] AmicpcxVNAKMSDBYD7464-00-21 06:00:0011.3[facility]annHEMATOLOGY 2011-08-15 06:00:0034.1[facility] AnuyzauLXUKDBUODF9184-83-81 06:00:008.9[facility] BytysozQVXBHYSFVC6354-46-02 06:00:0015.6[facility] HxibmerOLUCCUAIIO3700-41-53 06:00:003.51[facility] MmnajsoQTLKBBIXQ1105-47-97 03:11:0040.0[facility] JGOFXDYJG6685-93-04 03:11:005.0[facility] TshksorGTDQBMFLI3574-03-96 03:11:0010.0 [facility] WxtnfjvODYEBCEHV0880-62-97 03:11:00 Test Item Value Reference Range Interpretation Comments POC A Mech Rate (test code = POC A Mech 5 bpm <=70 N Rate) [facility] AepslmwBONZSTETW7382-90-44 02:21:00<0.02[facility]annCHEMISTRY 2011-08-15 02:21:00<0.010[facility] JpxrvjiQDSUDCTTK2048-51-17 02:21:62604 [facility]annBACTERIAL - WLCYOMKW5847-20-96 20:45:00Negative 1(08/14/2011 15:45:00)[facility] JabpcsiVKWTMFVEX8042-62-22 20:44:008.0[facility] [place] QDJSCNTWB8446-32-26 20:44:42821Hsnpqktm AwqydppYHBRCZBXQ7018-49-61 20:44:0022 [facility] JgheiuvOMMNBUTAK8094-28-10 20:44:0022[facility]annCHEMISTRY 2011-08-14 20:44:42242Wdyrplfu XninqzzJCTMAUIEA7689-19-20 20:44:67573Hvelbfom IemvixnJNVAYNVNX2366-22-09 20:44:003.6[facility] KnpbvlzFDNREIMEG0457-98-03 20:44:001.4[facility] KpnbwhhUEVSDAMMM0217-63-63 20:44:0013.6[facility] HNCISIDCOM4924-55-65 20:44:0010.1[facility] MgctepyXTSUWADLJN2162-35-45 20:44:00 0.6[facility] HklcqxfKXLEEBVKCC0069-25-57 20:44:000.0[facility]annHEMATOLOGY 2011-08-14 20:44:000.0[facility] JhidxnrXPLRNAAUJC8152-44-66 20:44:005.5[facility] HkheqhhJFURIMSUDI1342-67-03 20:44:000.0[facility] RjgeixsWIYEGFZCKM6984-38-17 20:44:000.0[facility] WxelvjjJKOCGQVZMB7938-64-39 20:44:000.1[facility] [place] EZNIVUPPPN7069-12-78 20:44:000.6[facility] RlcckelFECAUEDRMS5918-45-99 20:44:00 93.9[facility] DfwvpfaGFRVUAYHBO5417-58-86 20:44:001.12[facility]annHEMATOLOGY 2011-08-14 20:44:00 Test Item Value Reference Range Interpretation Comments PT (test code = PT) 14.4 s 12.0-14.7 N [facility] UsqmcniTYQVFQJLDO2968-84-49 20:44:009.5[facility]annHEMATOLOGY 2011-08-14 20:44:24589[place]jaivkoa LnlufdcEQXUBHCDBM4833-10-52 20:44:0016.4[facility] HqafpgqBPPWRURRKW2794-43-07 20:44:0033.7[facility] CwwvrsnELFPYDWJQJ1725-68-56 20:44:0010.7[facility] QstsqogRPIDEBOXKM1143-56-57 20:44:00 Test Item Value Reference Range Interpretation Comments MCH (test code = MCH) 31.4 pg 27.0-31.0 H [facility] EtwtpyvZECBXGEHIQ8700-02-80 20:44:0093.2[facility]annHEMATOLOGY 2011-08-14 20:44:0033.3[facility] PdwlrnbYAGCPNTMGY6932-76-46 20:44:0011.2[facility] UhurdbdZAJPCNHIUZ4593-64-87 20:44:003.57[facility] DmmsvfsTNDMJZQCEF9143-44-57 20:44:00Few /LPF *NA*(08/14/2011 15:44:00)[facility] RmuylriSEWGCJEVTL3186-07-59 20:44:00Occasional /HPF *NA*(08/14/2011 15:44:00)[facility] HermannURINALYSIS 2011-08-14 20:44:00Occasional /HPF *NA*(08/14/2011 15:44:00)[facility] TCGRZBCAHG1875-00-96 20:44:00Negative (08/14/2011 15:44:00)[facility] [place] SGOAVCRZVV6364-81-28 20:44:006[facility] ZeklydvKXQZSPTNPL4148-30-31 20:44:00 Occasional /LPF *NA*(08/14/2011 15:44:00)[facility] McdfebtFLTUQKLKFL5807-61-93 20:44:001[facility] OfkiranRMTIEFGVSV8492-64-92 20:44:00Negative (08/14/2011 15:44:00)[facility] RxplgbeSQVGDKXGJD2022-20-20 20:44:00Negative (08/14/2011 15:44:00)[facility] DodusgqSGADEOKHQU9043-79-13 20:44:00Negative *NA*(08/14/2011 15:44:00)[facility] UxzjoioQARWVYIGRH4577-56-97 20:44:00Slight *ABN*(08/14/2011 15:44:00)[facility] MstctdqNCUUPOAPIM2774-80-69 20:44:00Yellow *NA*(08/14/2011 15:44:00)[facility] PwfdvkiGIXTOBFJPQ9652-09-90 20:44:00Negative mg/dL *NA*(08/14/2011 15:44:00)[facility] JjrxnfuIPBVFLESHD9573-87-02 20:44:0050 mg/dL *ABN*(08/14/2011 15:44:00)[facility] UqxemieNRRFIPIWQA5141-28-28 20:44:0020 mg/dL *ABN*(08/14/2011 15:44:00)[facility] PmlhefoLLXROYRFNY4410-47-57 20:44:001.036 [facility] ImcotamNUQDFMNJCC3255-84-07 20:44:005.5[facility] HermannCHEMISTRY 2011-08-14 14:17:001.14[facility] CmamnaiDCZZMYVRJ8253-53-43 14:17:002.3[facility] UhvmnopRNWZFCEYL9473-20-56 14:17:86357Gcyhmhqu UfqausyTQKIBNJLA6688-54-89 14:17:18391Dnalwfyb HuojacmRNQLFOYQZ4898-47-14 14:17:003.2[facility] BFZTLTYSY6167-88-18 14:17:0036.0[facility] HermannBLOOD BANK ENGHGJE5838-27-84 11:20:00Negative (08/14/2011 06:20:00)[facility] KmsmhjbTVZMNDQQPU5441-20-92 16:30:001.12[facility] SpfqonwADSNBKAEQU1929-00-96 16:30:00 Test Item Value Reference Range Interpretation Comments PT (test code = PT) 14.4 s 12.0-14.7 N [facility] MrrrjulHDUZGKSFXU6186-36-58 16:30:00 Test Item Value Reference Range Interpretation Comments PTT (test code = PTT) 32.4 s 22.9-35.8 N [facility] NkkpwzqUhununkrm7481-37-74 20:25:14699 MEQ/LMem[facility] HermannChemistry 2011-07-18 20:25:003.9 MEQ/LMemorial YopyncdYmismhhyi9355-97-13 20:25:001.2 [facility] IivrnvyAamodojst1758-58-20 20:25:0017[facility] HermannChemistry 2011-07-18 20:25:00 Test Item Value Reference Range Interpretation Comments BUN/CREAT (test code = BUN/CREAT) 14 1 6-25 [facility] HthigjlAfkqtzldg1226-20-30 20:25:004.5[facility] HermannChemistry 2011-07-18 20:25:009.3[facility] JuytvqlDegsnnhzo2088-85-89 20:25:0020[facility] QrtxmojNtrjczagy2052-65-42 20:25:0015[facility] EttvetdRoodvdjkw2551-59-83 20:25:15717Ppvgvsbt ZwepriwYuxzrjnum3784-02-55 20:25:003.200[facility] Udvyssyos9308-05-70 20:25:15249 MEQ/LMemorial ShkltqwXuyxpnvfn9484-45-26 20:25:003.9 MEQ/LMemorial RbyccerJpmyavzjf0913-70-71 20:25:001.2[facility] [place] Eaioaftia0678-48-83 20:25:0017[facility] XqxsavtMloahgyku6752-58-20 20:25:00 Test Item Value Reference Range Interpretation Comments BUN/CREAT (test code = BUN/CREAT) 14 08-13 [facility] TuicfofCsbacfswg4528-27-41 20:25:004.5[facility] HermannChemistry 2011-07-18 20:25:009.3[facility] HuirgrcNcwghyhvy1596-98-33 20:25:0020[facility] CbzvnhkCfgrgktmo5151-07-34 20:25:0015[facility] QrlmquiRkktmpgec4623-84-03 20:25:48760Avneezpm MfupcksTyslqoucx7549-61-58 20:25:003.200[facility] Wfppwvimo7150-53-91 20:25:50740 MEQ/LMemorial GvliobwTcgitlidz5171-63-83 20:25:003.9 MEQ/LMemorial GxzkujeJkonlrlir4820-23-01 20:25:001.2[facility] [place] Aqtmurhbk7400-78-32 20:25:0017[facility] ZroutmeQlyyypxfm9635-09-39 20:25:00 Test Item Value Reference Range Interpretation Comments BUN/CREAT (test code = BUN/CREAT) 14 08-13 [facility] LjhqcckAcjxvabat8621-21-39 20:25:004.5[facility] HermannChemistry 2011-07-18 20:25:009.3[facility] ZwgtptcJsebxnysz9805-27-55 20:25:0020[facility] NasdoruYhecjlfej1833-28-47 20:25:0015[facility] ReoxtpyOajfdwuep3046-98-49 20:25:56809Iwdvckmq CfeajpiHipjrcalu4527-64-41 20:25:003.200[facility] [place] Hzbufrcds4824-18-02 20:25:16140 MEQ/LMemorial AxcuotyIxzymaucf4925-43-14 20:25:003.9 MEQ/LMemorial DyccxjiQeiphfucq4911-87-48 20:25:001.2[facility] Ejzynepfq9080-29-84 20:25:0017[facility] QzudvnrMxsxztrjd9914-21-38 20:25:00 Test Item Value Reference Range Interpretation Comments BUN/CREAT (test code = BUN/CREAT) 14 08-13 [facility] SrinwobCpyytqtkr8549-37-82 20:25:004.5[facility] HermannChemistry 2011-07-18 20:25:009.3[facility] XmhrgylEfccxxvbp5127-83-49 20:25:0020[facility] EgseptkDmopvhwrq8096-32-00 20:25:0015[facility] AydfmgyNglulopcd8381-65-66 20:25:65518Uqyjtgcj XslrxviRrxymscbk2869-70-52 20:25:003.200[facility] Baskzzhvin2837-64-94 20:25:0014.0[facility] ZiuuhxpNudzztjail9455-63-13 20:25:00 41.1[facility] NxaqqubYrgxlyoegu8972-65-85 20:25:77672 K/CMemorial [facility] Cpwkmzrmva8663-48-78 20:25:0018[facility] MkwhjzxZnwkypjzsq3517-08-28 20:25:0014.0 [facility] UvdhlurPtokyaxznu0098-96-04 20:25:0041.1[facility] HermannHematology 2011-07-18 20:25:01913 [facility] KbfgwijNnbyxmlrss7465-77-35 20:25:0018 [facility] FpfrvfbJbnltntmax8275-17-03 20:25:0014.0[facility] HermannHematology 2011-07-18 20:25:0041.1[facility] IvoweylOijfdbbpnw4768-62-21 20:25:23662 K/[facility] CdcwlodDrgvefttxh6284-01-34 20:25:0018[facility] HermannHematology 2011-07-18 20:25:0014.0[facility] TrnbsnqFtkfwrkygz5434-67-40 20:25:0041.1[facility] VokncpjCuaycjbcfc8038-99-73 20:25:96974 K/CMMMem[facility] HermannHematology 2011-07-18 20:25:0018[facility] OcsnxmpNnmxpdea4126-10-25 20:25:00PositiveMemorial AktrhzpXtxehffu4060-29-52 20:25:00PositiveMemorial WjjkyucMvopjolg5977-62-72 20:25:00PositiveMemorial KfdzqkeFwkikunb7268-30-98 20:25:00PositiveMemorial Giorgi
[2020-02-22] MEDS ORDERED: dexAMETHasone 10 MG/ML VIAL ONE (14:02)
[2020-02-22] MEDS ORDERED: ASPIRIN 81 MG CHEWABLE TABLET ONE (14:02)
[2020-02-22] MEDS ORDERED: NA CHLORIDE 0.9% 1,000 ML ONE (14:03)
[2020-02-22] MEDS ORDERED: FAMOTIDINE 20 MG/2 ML VIAL IV ONE (14:03)
[2020-02-22 14:11] LABS: Absolute Lymphocytes (CBC) 0.9 K/uL (0.7-4.9); Basophils % 0.1 % (0-1.3); Hematocrit 40.5 % (36.0-45.0); Lymphocytes % 7.6 % (15.3-44.8); MPV 10.1 fL (7.6-11.3); RBC Red Blood Cell Count 4.55 M/uL (3.86-4.86)
[2020-02-22 14:17] LABS: Protime INR 1.02
[2020-02-22 14:29] LABS: ALT/SGPT 13 U/L (12-78); AST/SGOT 8 U/L (15-37); Albumin 3.1 g/dL (3.4-5.0); Alkaline Phosphatase 66 U/L (45-117); BUN Blood Urea Nitrogen 30 mg/dL (7-18); Bicarbonate 23 mmol/L (21-32); Bilirubin Direct 0.1 mg/dL (0-0.2); Bilirubin Total 0.6 mg/dL (0.2-1.0); C-Reactive Protein < 2.90 mg/L (<3.00); Ferritin 119.9 ng/mL (8-388); Glucose Level 122 mg/dL (74-106); Lipase 264 U/L (73-393); Magnesium 2.2 mg/dL (1.8-2.4); NT PRO-BNP 646 pg/mL (<450); Potassium 3.5 mmol/L (3.5-5.1); Protein, Total 6.2 g/dL (6.4-8.2); Sodium Level 138 mmol/L (136-145); Troponin (Emerg Dept Use Only) < 0.02 ng/mL (0.0-0.045)
--- NOTE | 2020-02-22 14:32 | RAD REPORT ---
EXAM DESCRIPTION: RAD - Chest Single View - 02/22/2020 2:19 pm CLINICAL HISTORY: Chest pain;Dyspnea Chest pain. COMPARISON: CHEST PA AND LAT 2 VIEW dated 09/10/2014; CHEST SINGLE VIEW dated 06/11/2014; CHEST PA AND LAT 2 VIEW dated 04/14/2013; CHEST PA AND LAT 2 VIEW dated 03/31/2013 FINDINGS: Portable technique limits examination quality. The lungs are grossly clear. The heart is normal in size. No displaced fractures. IMPRESSION: No acute intrathoracic process suspected.
--- NOTE | 2020-02-22 15:23 | RAD REPORT ---
EXAM DESCRIPTION: CT - Chest For Pe Angio - 02/22/2020 3:10 pm CLINICAL HISTORY: Chest pain. CHEST PAIN COMPARISON: THORAX W CONTRAST dated 04/10/2013 TECHNIQUE: CT angiogram of the pulmonary arteries was performed with MIP. All CT scans are performed using dose optimization technique as appropriate and may include automated exposure control or mA/KV adjustment according to patient size. FINDINGS: No evidence of pulmonary thromboembolism. No acute aortic finding demonstrated. The lungs are clear. No significant pericardial or pleural fluid. No concerning bony finding. IMPRESSION: No evidence of pulmonary thromboembolism. No acute lung findings.
--- NOTE | 2020-02-22 15:39 | ER ---
Nurse's Notes [facility] Name: Jarrod Graham Age: 80 yrs Sex: Female : 1940 Arrival Date: 02/22/2020 Time: 13:34 Bed 13 Private MD: Diagnosis: Chest pain, unspecified Presentation: 02/21 13:35 Chief complaint: Patient states: Intermittent CP that began 5 days ago. Pt test + for ss COVID on 02/10. Denies pain at this time. Coronavirus screen: Client denies travel out of the [place] in the last 14 days. Client presents with at least one sign or symptom that may indicate coronavirus-19. Standard/surgical mask placed on the client. Provider contacted for isolation considerations. Ebola Screen: Patient denies exposure to infectious person. Patient denies travel to an Ebola-affected area in the 21 days before illness onset. Initial Sepsis Screen: Does the patient meet any 2 criteria? No. Patient's initial sepsis screen is negative. Does the patient have a suspected source of infection? No. Patient's initial sepsis screen is negative. Risk Assessment: Do you want to hurt yourself or someone else? Patient reports no desire to harm self or others. Onset of symptoms was February 11, 2020. 13:35 Method Of Arrival: EMS: [facility] 13:35 Acuity: JIN 3 ss Historical: - Allergies: 13:44 Codeine; ss 13:44 Fentanyl; ss 13:44 meperidine HCl; ss 13:44 PENICILLINS; ss 13:44 Trazodone; ss - PMHx: 13:44 Hypertension; Thyroid problem; ss - PSHx: 13:44 Hysterectomy; Brain surgery; Levy's Palsy surgery; ss - Immunization history:: Adult Immunizations up to date. - Social history:: Smoking status: Patient denies any tobacco usage or history of. Screenin:45 Abuse screen: Denies threats or abuse. Nutritional screening: No deficits noted. em Tuberculosis screening: No symptoms or risk factors identified. Fall Risk None identified. Assessment: 13:35 General: Appears in no apparent distress. comfortable, Behavior is calm, cooperative, em appropriate for age. Pain: Denies pain. Neuro: Level of Consciousness is awake, alert, obeys commands, Oriented to person, place, time, situation, Appropriate for age. Cardiovascular: Denies shortness of breath, Capillary refill < 3 seconds Patient's skin is warm and dry. Respiratory: Airway is patent Respiratory effort is even, unlabored. Derm: Skin is intact, is fragile, is thin, Skin is pink, warm \T\ dry. Musculoskeletal: Capillary refill < 3 seconds, Range of motion: intact in all extremities. 14:45 Reassessment: Patient appears in no apparent distress at this time. Patient and/or em family updated on plan of care and expected duration. Pain level reassessed. Patient is alert, oriented x 3, equal unlabored respirations, skin warm/dry/pink. 15:05 Reassessment: wheeled to CT via stretcher. em 15:30 Reassessment: Patient appears in no apparent distress at this time. Patient and/or em family updated on plan of care and expected duration. Pain level reassessed. Patient is alert, oriented x 3, equal unlabored respirations, skin warm/dry/pink. 16:30 Reassessment: Patient appears in no apparent distress at this time. Patient and/or em family updated on plan of care and expected duration. Pain level reassessed. Patient is alert, oriented x 3, equal unlabored respirations, skin warm/dry/pink. 17:30 Reassessment: Patient appears in no apparent distress at this time. Patient and/or em family updated on plan of care and expected duration. Pain level reassessed. Patient is alert, oriented x 3, equal unlabored respirations, skin warm/dry/pink. 18:15 Reassessment: Patient appears in no apparent distress at this time. Patient and/or em family updated on plan of care and expected duration. Pain level reassessed. Patient is alert, oriented x 3, equal unlabored respirations, skin warm/dry/pink. 02/22 16:13 Reassessment: pt aox4. d/c pending ride. zb Vital Signs: 02/21 13:35 BP 142 / 75; Pulse 53; Resp 18; Temp 97.7(TE); Pulse Ox 100% on R/A; Pain 0/10; ss 14:45 BP 140 / 87; Pulse 51; Resp 18; Pulse Ox 100% on R/A; Pain 0/10; em 15:30 BP 130 / 65; Pulse 65; Resp 20; Pulse Ox 100% on R/A; em 16:30 BP 130 / 55; Pulse 48; Resp 16; Pulse Ox 100% on R/A; em 17:30 BP 145 / 97; Pulse 53; Resp 20; Pulse Ox 99% on R/A; em 18:15 BP 133 / 56; Pulse 55; Resp 16; Pulse Ox 98% on R/A; em ED Course: 13:34 Patient arrived in ED. ss 13:37 Jb Brar MD is Attending Physician. mary jo 13:43 Elliott Mcintosh, RIKA is Primary Nurse. em 13:43 Triage completed. ss 13:44 Jb Wallace PA is PHCP. cp 13:44 Arm band placed on right wrist. ss 13:45 Patient maintains SpO2 saturation greater than 95% on room air. em 13:45 Maintain EMS IV. Dressing intact. Good blood return noted. Site clean \T\ dry. Gauge \T\ em site: 20 G LAC. 14:00 Patient has correct armband on for positive identification. Bed in low position. Call em light in reach. Side rails up X2. drop hammer mechanic on. Pulse ox on. NIBP on. 14:19 XRAY Chest (1 view) In Process Unspecified. EDMS 15:10 CT Chest For PE Angio In Process Unspecified. EDMS 15:37 Carlos Albarran MD is Hospitalizing Provider. cp 20:32 patient's family member [place] [phone]. mw2 02/22 07:00 No provider procedures requiring assistance completed. Patient admitted, IV remains in aa5 place. Administered Medications: 03 14:15 Drug: NS 0.9% 500 ml Route: IV; Rate: bolus; Site: left antecubital; em 16:30 Follow up: IV Status: Completed infusion; IV Intake: 500ml em 14:18 Drug: Decadron - Dexamethasone 6 mg Route: IVP; Site: left antecubital; em 14:30 Follow up: Response: No adverse reaction em 14:21 Drug: Pepcid 20 mg Route: IVP; Site: left antecubital; em 14:30 Follow up: Response: No adverse reaction em 14:21 Drug: Aspirin 162 mg Route: PO; em 14:30 Follow up: Response: No adverse reaction em 15:38 Drug: NS 0.9% 1000 ml Route: IV; Rate: 125 ml/hr; Site: left antecubital; ll1 Intake: 16:30 IV: 500ml; Total: 500ml. em Outcome: 15:38 Decision to Hospitalize by Provider. britni 02/22 07:00 Admitted to ER Hold. Please see [facility] for further documentation. aa5 18:19 Patient left the ED. aa5 Signatures: Dispatcher [employer] EDJb Hackett MD MD cha Munoz, Edgar, RN RN Tonja Arana RN RN aa5 Chrissie Li, RIKA RN ss Jb Wallace, PA PA Claritza Moise mw2 Genaro Little RN RN ll1 Mabel Campa RN RN zb
--- NOTE | 2020-02-22 15:39 | EDPHYS ---
Physician Documentation [facility] Name: Jarrod Graham Age: 80 yrs Sex: Female : 1940 Arrival Date: 02/22/2020 Time: 13:34 Bed 13 Private MD: ED Physician Jb Brar HPI: 02/21 13:45 This 80 yrs old Female presents to ER via EMS with complaints of Chest Pain. cp Historical: - Allergies: 13:44 Codeine; ss 13:44 Fentanyl; ss 13:44 meperidine HCl; ss 13:44 PENICILLINS; ss 13:44 Trazodone; ss - PMHx: 13:44 Hypertension; Thyroid problem; ss - PSHx: 13:44 Hysterectomy; Brain surgery; Levy's Palsy surgery; ss - Immunization history:: Adult Immunizations up to date. - Social history:: Smoking status: Patient denies any tobacco usage or history of. ROS: 13:55 Constitutional: Negative for body aches, chills, fever, poor PO intake. cp 13:55 Eyes: Negative for injury, pain, redness, and discharge. cp 13:55 Cardiovascular: Positive for chest pain, Negative for edema, palpitations. 13:55 Respiratory: Positive for cough, with no reported sputum, Negative for shortness of breath, wheezing. 13:55 Abdomen/GI: Negative for abdominal pain, nausea, vomiting, and diarrhea. Exam: 13:55 ECG was reviewed by the Attending Physician. cp Vital Signs: 13:35 BP 142 / 75; Pulse 53; Resp 18; Temp 97.7(TE); Pulse Ox 100% on R/A; Pain 0/10; ss 14:45 BP 140 / 87; Pulse 51; Resp 18; Pulse Ox 100% on R/A; Pain 0/10; em 15:30 BP 130 / 65; Pulse 65; Resp 20; Pulse Ox 100% on R/A; em 16:30 BP 130 / 55; Pulse 48; Resp 16; Pulse Ox 100% on R/A; em 17:30 BP 145 / 97; Pulse 53; Resp 20; Pulse Ox 99% on R/A; em 18:15 BP 133 / 56; Pulse 55; Resp 16; Pulse Ox 98% on R/A; em MDM: 13:37 Patient medically screened. mary jo 15:36 The patient was given aspirin in the Emergency Department. Data reviewed: vital signs, cp nurses notes, lab test result(s), EKG, radiologic studies, CT scan, plain films. Test interpretation: by ED physician or midlevel provider: ECG. Physician consultation: Carlos Albarran MD was contacted at 15:37, regarding admission, to the telemetry unit. patient's condition. 02/21 13:39 Order name: Basic Metabolic Panel; Complete Time: 14:37 [facility] 02/21 14:37 Interpretation: Normal except: CL 108; GLUC 122; BUN 30; GFR 42. 02/21 13:39 Order name: CBC with Diff; Complete Time: 14:37 mary jo 02/21 14:37 Interpretation: Normal except: WBC 11.9; STEPHEN% 83.7; LYM% 7.6; NEUT A 10.0. 02/21 13:39 Order name: LFT's; Complete Time: 14:37 mary jo 02/21 13:39 Order name: Magnesium; Complete Time: 14:37 [facility] 02/21 13:39 Order name: NT PRO-BNP; Complete Time: 14:37 mary jo 02/21 13:39 Order name: PT-INR; Complete Time: 14:37 mary jo 02/21 13:39 Order name: Troponin (emerg Dept Use Only); Complete Time: 14:37 mary jo 02/21 13:39 Order name: Lipase; Complete Time: 14:37 mary jo 02/21 13:39 Order name: CRP; Complete Time: 14:37 [facility] 02/21 13:39 Order name: Ferritin; Complete Time: 14:37 [facility] 02/21 15:38 Order name: COVID-19 02/21 15:46 Order name: Basic Metabolic Panel EDFL 02/21 15:46 Order name: Basic Metabolic Panel EDFL 02/21 15:46 Order name: CBC with Automated Diff EDFL 02/21 13:39 Order name: XRAY Chest (1 view); Complete Time: 14:37 mary jo 02/21 13:39 Order name: CT Chest For PE Angio; Complete Time: 15:27 mary jo 02/21 15:27 Interpretation: Report reviewed. 02/21 15:46 Order name: Echo with Doppler EDMS 02/21 15:46 Order name: CBC with Automated Diff EDFL 02/21 15:46 Order name: Lipid Profile EDFL 02/21 15:46 Order name: Lipid Profile EDFL 02/21 15:46 Order name: Troponin I EDFL 02/21 15:46 Order name: Troponin I EDFL 02/21 15:46 Order name: Troponin I EDFL 02/21 17:51 Order name: SARS-COV-2 RT PCR EDMS 02/22 03:56 Order name: Lipid Profile EDMS 02/22 03:56 Order name: T4 Free EDFL 02/22 03:56 Order name: Thyroid Stimulating Hormone EDFL 02/22 04:46 Order name: Manual Differential EDMS 02/21 13:39 Order name: EKG; Complete Time: 13:40 mary jo 02/21 13:39 Order name: Cardiac monitoring; Complete Time: 13:44 [facility] 02/21 13:39 Order name: EKG - Nurse/Tech; Complete Time: 14:00 [facility] 02/21 13:39 Order name: IV Saline Lock; Complete Time: 14:00 [facility] 02/21 13:39 Order name: Labs collected and sent; Complete Time: 14:00 [facility] 02/21 13:39 Order name: O2 Per Protocol; Complete Time: 13:44 [facility] 02/21 13:39 Order name: O2 Sat Monitoring; Complete Time: 13:44 [facility] 02/21 15:46 Order name: CONS Physician Consult EDFL 02/21 15:46 Order name: Heart Healthy EDFL 02/21 15:46 Order name: EKG Electrocardiogram EDFL 02/21 15:46 Order name: EKG Electrocardiogram EDFL EC:55 Rate is 47 beats/min. Rhythm is regular. WI interval is normal. QRS interval is normal. cp QT interval is normal. T waves are Inverted in leads aVL, aVR. Interpreted by me. Reviewed by me. Administered Medications: 14:15 Drug: NS 0.9% 500 ml Route: IV; Rate: bolus; Site: left antecubital; em 16:30 Follow up: IV Status: Completed infusion; IV Intake: 500ml em 14:18 Drug: Decadron - Dexamethasone 6 mg Route: IVP; Site: left antecubital; em 14:30 Follow up: Response: No adverse reaction em 14:21 Drug: Pepcid 20 mg Route: IVP; Site: left antecubital; em 14:30 Follow up: Response: No adverse reaction em 14:21 Drug: Aspirin 162 mg Route: PO; em 14:30 Follow up: Response: No adverse reaction em 15:38 Drug: NS 0.9% 1000 ml Route: IV; Rate: 125 ml/hr; Site: left antecubital; ll1 Disposition: 02/22/20 15:38 Hospitalization ordered by Carlos Albarran for Observation. Preliminary diagnosis is Chest pain, unspecified. - Bed requested for [facility] ER HOLD. - Status is Observation. aa5 - Condition is Stable. - Problem is new. - Symptoms have improved. Addendum: 02/24/2020 22:00 Addendum: HPI: Patient is a 80 y/o female who complains of intermittent chest pain c p times 5 days. Pain aggravated by activity. Patient reports testing positive for COVID-19 on 02-11-2020 and reports non-productive cough. Denies shortness of breath, denies fever. 22:10 Addendum: EXAM: Constitutional: The patient appears in no acute distress, alert, awake, c p non-diaphoretic, non-toxic, well developed, well nourished. Head/Face: Normocephalic, atraumatic. Eyes: Periorbital structures: appear normal, Conjunctiva: normal, no exudate, no injection, Sclera: no appreciated abnormality, Lids and lashes: appear normal, bilaterally. ENT: External ear(s): are unremarkable, Nose: is normal, Mouth: Lips: moist, Oral mucosa: moist, Posterior pharynx: Airway: no evidence of obstruction, patent. Neck: ROM/movement: is normal, is supple, no meningismus, no nuchal rigidity. Chest/axilla: Inspection: normal, Palpation: is normal, no crepitus, no tenderness. Cardiovascular: Rate: normal, Rhythm: regular, Edema: is not appreciated, JVD: is not appreciated. Respiratory: the patient does not display signs of respiratory distress, Respirations: breathing is not labored, Breath sounds: clear throughout bilaterally, breath sounds are not decreased, stridor is not appreciated, wheezing is not appreciated. Abdomen/GI: Inspection: abdomen appears normal, Palpation: abdomen is soft and non-tender, in all quadrants. Back: pain, is absent, ROM is normal. Neuro: Orientation: to person, place \T\ time. Mentation: is normal, Motor: moves all fours, strength is normal, Sensation: is normal. Addendum: Data reviewed: vital signs, nurses notes, lab test result(s), EKG, radiologic studies, plain films, and as a result, I will admit patient. 02/25/2020 06:49 Co-signature as Attending Physician, Jb Brar MD I agree with the assessment and c ta plan of care. Signatures: Dispatcher [employer] Janeth Leary RN Jb Wray MD MD cha Munoz, Edgar, RN RN Tonja Arana RN RN aa5 Chrissie Li RN RN ss Page, Corey, PA PA Genaro Nolasco RN RN ll1 Corrections: (The following items were deleted from the chart) 02/21 20:12 15:38 Hospitalization Ordered by Carlos Albarran MD for Observation. Preliminary dw diagnosis is Chest pain, unspecified. Bed requested for Telemetry/MedSurg (observation). Status is Observation. Condition is Stable. Problem is new. Symptoms have improved. cp 02/22 18:19 02/21 20:12 02/22/2020 15:38 Hospitalization Ordered by Carlos Albarran MD for aa5 Observation. Preliminary diagnosis is Chest pain, unspecified. Bed requested for [facility] ER HOLD. Status is Observation. Condition is Stable. Problem is new. Symptoms have improved. dw 03/04 04:27 03:57 Addendum: HPI: Patient is a 80 y/o female who complains of intermittent chest cp pain times 5 days. Pain aggravated by activity. Patient reports testing positive for COVID-19 on 02-11-2020 and reports non-productive cough. Denies shortness of breath, denies fever. cp
[2020-02-22] MEDS ORDERED: ACETAMINOPHEN 500 MG TAB PO PRN (15:42)
[2020-02-22] MEDS ORDERED: MORPHINE 4 MG/ML SYR IV PRN (15:42)
[2020-02-22] MEDS ORDERED: CLOPIDOGREL 75 MG TABLET PO ONE (15:46)
[2020-02-22] MEDS ORDERED: NA CHLORIDE 0.9% 1,000 ML IV SCH (18:00)
[2020-02-22] MEDS ORDERED: METHYLPREDNISOLONE 125 MG INJ IV SCH (18:00)
[2020-02-22] MEDS ORDERED: ATORVASTATIN 40 MG TAB PO SCH (21:00)
[2020-02-22] MEDS: MECLIZINE HCL 12.5 MG TAB PO SCH (21:00)
[2020-02-22] MEDS ORDERED: METOPROLOL TAR 50 MG TAB PO SCH (21:00)
[2020-02-22] MEDS ORDERED: CLOPIDOGREL 75 MG TABLET ONE (21:59)
[2020-02-22] MEDS ORDERED: METOPROLOL TAR 50 MG TAB ONE (21:59)
[2020-02-22] MEDS ORDERED: MECLIZINE HCL 12.5 MG TAB ONE (22:00)
[2020-02-22] MEDS ORDERED: ATORVASTATIN 20 MG TAB ONE (22:00)
[2020-02-23] MEDS ORDERED: METHYLPREDNISOLONE 40 MG INJ ONE (00:49)
--- NOTE | 2020-02-23 03:15 | P.HP ---
Certification for Inpatient Patient admitted to: Observation With expected LOS: <2 Midnights Patient will require the following post-hospital care: None Practitioner: I am a practitioner with admitting privileges, knowledge of patient current condition, hospital course, and medical plan of care. Services: Services provided to patient in accordance with Admission requirements found in Title 42 Section 412.3 of the Code of Federal Regulations Patient History Date of Service: 02/22/20 Reason for admission: Vertigo; chest pain; diagnosis of COVID-19 History of Present Illness: Patient is a 80-year-old female who came to the hospital with chest discomfort. Patient has a history of a brain tumor and has had some vertigo for quite a while. She said it was worse than her baseline. The chest pain started about 5 days ago. She said it did not radiate except to the left side of her neck. She has some shortness of breath associated with it. No diaphoresis. The vertigo was also worse. She was diagnosed with COVID-19 on February 11, 2020. patient came into the hospital for further evaluation. In the emergency room patient had CT of the chest that was negative. There was no pulmonary embolism or a pneumonia that was visible on the CT scan. Patient was not hypoxic. Patient appears to be doing well clinically. We will give her some anti Sandro for the vertigo and rule out for acute coronary syndrome. If her workup is negative she can be discharged with outpatient follow-up. Allergies fentanyl Allergy (Verified 06/11/14 20:56) Hives/Rash codeine [Codeine] Adverse Reaction (Intermediate, Verified 08/31/11 15:52) rash/hallucination meperidine HCl [From Demerol] Adverse Reaction (Mild, Verified 08/31/11 15:52) hives/fever/kidney problems Penicillins Adverse Reaction (Mild, Verified 06/11/14 20:56) Hives, DIARRHEA trazodone Adverse Reaction (Mild, Verified 08/31/11 15:52) Hives codeine Allergy (Uncoded 06/11/14 20:56) Hives Tramadol HCl Allergy (Uncoded 06/11/14 20:56) Anaphylaxis Home Medications: Clonazepam 2 mg PO BEDTIME 06/11/14 Levothyroxine Sodium 100 mcg PO DAILY 06/11/14 Pravastatin Sodium 80 mg PO DAILY 06/11/14 Losartan Potassium [Cozaar] 25 mg PO DAILY #30 tablet 06/12/14 - Past Medical/Surgical History Diabetic: No -: HTN -: HYPERLIPIDEMIA -: HYPOTHYROIDISM -: BELLS PALSY -: HERNIATED DISC -: VIRAL MENINGITIS -: FULL BODY SPASMS -: HYSTERECTOMY -: BRAIN SURGERY -: BELLS PALSY SURGERY -: NOSE SURGERY- SINUSES -: APPENDECTOMY -: HEMMORHOIDECTOMY - Family History Mother Medical History: Hypertension, Lung disease, Stroke Father Medical History: Heart disease, Hypertension, Stroke Notes: Post Traumatic Stress Disorder - Social History Alcohol use: No CD- Drugs: No Caffeine use: No Review of Systems 10-point ROS is otherwise unremarkable Physical Examination - Vital Signs Temperature: 97 F Blood Pressure: 140/70 Pulse: 45 Respirations: 18 Pulse Ox (%): 96 - Physical Exam General: Alert, In no apparent distress, Oriented x3 HEENT: Atraumatic, PERRLA, Mucous membr. moist/pink, EOMI, Sclerae nonicteric Neck: Supple, 2+ carotid pulse no bruit, No LAD, Without JVD or thyroid abnormality Respiratory: Clear to auscultation bilaterally, Normal air movement Cardiovascular: Regular rate/rhythm, Normal S1 S2, No murmurs Gastrointestinal: Normal bowel sounds, Soft and benign, Non-distended, No tenderness Musculoskeletal: No clubbing, No swelling, No tenderness Integumentary: No rashes Neurological: Normal gait, Normal speech, Normal strength at 5/5 x4 extr, Normal tone, Sensation intact, Cranial nerves 3-12 intact, Normal affect Lymphatics: No axilla or inguinal lymphadenopathy - Studies Laboratory Data (last 24 hrs) 02/22/20 14:00: PT 12.0, INR 1.02 02/22/20 14:00: WBC 11.9 H, Hgb 13.5, Hct 40.5, Plt Count 220 02/22/20 14:00: Sodium 138, Potassium 3.5, BUN 30 H, Creatinine 1.23, Glucose 122 H, Magnesium 2.2, Total Bilirubin 0.6, AST 8 L, ALT 13, Alkaline Phosphatase 66, Lipase 264 Assessment & Plan - Problems (Diagnosis) (1) Chest pain, rule out acute myocardial infarction Current Visit: Yes Status: Acute (2) Vertigo Current Visit: Yes Status: Acute (3) History of brain tumor Current Visit: Yes Status: Acute - Plan 1. Serial troponins and EKG 2. Cardiology consultation-may be able to follow up as an outpatient 3. Echocardiogram 4. Anti-platelet therapy, anti coagulation, beta-luis, statin, and O2 as needed 5. IV morphine for pain 6. Nitro p.r.n. 7. Bradycardia but hemodynamically stable 8. check thyroid studies 9. GI/DVT prophylaxis Discharge Plan: Home Plan to discharge in: 24 Hours - Advance Directives Does patient have a Living Will: Yes Does patient have a Durable POA for Healthcare: No - Code Status/Comfort Care Code Status Assessed: Yes Code Status: Full Code Critical Care: No Time Spent Managing PTS Care (In Minutes): 35
--- NOTE | 2020-02-23 03:24 | P.PN ---
Date of Service: 02/22/[address] of the brain.
[2020-02-23 03:41] LABS: Absolute Lymphocytes (CBC) 0.6 K/uL (0.7-4.9); Basophils % 0.1 % (0-1.3); Hematocrit 40.8 % (36.0-45.0); Lymphocytes % 5.6 % (15.3-44.8); MPV 9.9 fL (7.6-11.3); RBC Red Blood Cell Count 4.62 M/uL (3.86-4.86)
[2020-02-23 03:56] LABS: BUN Blood Urea Nitrogen 26 mg/dL (7-18); Bicarbonate 27 mmol/L (21-32); Glucose Level 140 mg/dL (74-106); HDL Cholesterol 54 mg/dL (40-60); LDL Cholesterol, Calculated 83 (<130); Potassium 4.6 mmol/L (3.5-5.1); Sodium Level 138 mmol/L (136-145); Thyroid Stimulating Hormone 0.023 uIU/mL (0.360-3.740); Troponin I < 0.02 ng/mL (0.0-0.045)
[2020-02-23 04:45] LABS: Blood Morphology Comment NOTED (NOT SEEN); Platelet Estimate ADEQ
[2020-02-23] MEDS ORDERED: LEVOTHYROXINE SOD 0.1 MG TAB PO SCH (07:15)
--- NOTE | 2020-02-23 08:48 | P.DS ---
Admission Date: 02/22/20 Discharge Date: 02/23/20 Primary Care Provider: PCP in [facility] Disposition: ROUTINE DISCHARGE Discharge Condition: GOOD Reason for Admission: Vertigo; chest pain; diagnosis of COVID-19 Consultations: Cardiology-Dr. Macario Procedures: CT head: Patient refused. CT Chest: FINDINGS: No evidence of pulmonary thromboembolism. No acute aortic finding demonstrated. The lungs are clear. No significant pericardial or pleural fluid. No concerning bony finding. IMPRESSION: No evidence of pulmonary thromboembolism. No acute lung findings. ECHO: Obtained Medical Problem List: Chest pain, atypical Hypertension Hypothyroidism Chronic renal disease stage III Hyperlipidemia COVID 19, asymptomatic Vertigo Brief History of Present Illness: 80-year-old female who came to the hospital with chest discomfort. Patient has a history of a brain tumor and has had some vertigo for quite a while. She said it was worse than her baseline. The chest pain started about 5 days ago. She said it did not radiate except to the left side of her neck. She has some shortness of breath associated with it. No diaphoresis. The vertigo was also worse. She was diagnosed with COVID-19 on February 11, 2020. patient came into the hospital for further evaluation. In the emergency room patient had CT of the chest that was negative. There was no pulmonary embolism or a pneumonia that was visible on the CT scan. Patient was not hypoxic. Patient appears to be doing well clinically. Patient admitted for further evaluation. Hospital Course: Patient presented with chest pain. Cardiac enzymes unremarkable. Patient seen and evaluated by Cardiology. Cardiology recommended echocardiogram to further evaluate. Echo obtained. Patient with underlying hypertension and hyperlipidemia. At discharge patient will continue with her current medications of losartan 25 mg daily and pravastatin 80 mg daily. Patient may continue with 81 mg of aspirin. Recommend follow up with cardiology in 2-4 weeks to follow up this hospitalization and continue her care. Patient with hypothyroidism. Tsh 0.023 and free T4 1.61. Patient reports medications have been adjusted. She was previously on 75 mcg. This was increased to 100 mcg. Medications need further adjustment due to recent lab. Will recommend to decrease levothyroxine to 88 mcg daily. Recommend to recheck tsh and free T4 in 4-6 weeks to further address. Further adjustment can be done by her PCP at that time. Patient with vertigo. This has resolved. Patient was given meclizine. Patient with chronic renal disease stage III. Patient with mild dehydration. Encourage oral intake. Patient with recent diagnosis of COVID pneumonia. CT chest negative. Patient asymptomatic at this time. Will provide education on isolation and COVID pneumonia. Vital Signs/Physical Exam: Temp Pulse Resp BP Pulse Ox 98.1 F 51 18 130/45 L 98 02/23/20 04:00 02/23/20 04:00 02/23/20 04:00 02/23/20 04:00 02/23/20 04:00 General: Alert, In no apparent distress, Oriented x3, Cooperative HEENT: Atraumatic Neck: Supple Respiratory: Clear to auscultation bilaterally, Normal air movement Cardiovascular: Normal pulses, Regular rate/rhythm Gastrointestinal: Normal bowel sounds, No tenderness, No masses, No rebound, No guarding Musculoskeletal: No erythema, No tenderness, No warmth Neurological: Normal speech, Normal strength at 5/5 x4 extr, Normal tone, Normal affect Laboratory Data at Discharge: WBC 10.2 K/uL (4.3-10.9) D 02/23/20 03:06 Hgb 13.9 g/dL (12.0-15.0) 02/23/20 03:06 Hct 40.8 % (36.0-45.0) 02/23/20 03:06 Plt Count 207 K/uL (152-406) 02/23/20 03:06 PT 12.0 SECONDS (9.5-12.5) 02/22/20 14:00 INR 1.02 02/22/20 14:00 Sodium 138 mmol/L (136-145) 02/23/20 03:06 Potassium 4.6 mmol/L (3.5-5.1) 02/23/20 03:06 BUN 26 mg/dL (7-18) H 02/23/20 03:06 Creatinine 1.04 mg/dL (0.55-1.3) 02/23/20 03:06 Glucose 140 mg/dL (74-106) H 02/23/20 03:06 Magnesium 2.2 mg/dL (1.8-2.4) 02/22/20 14:00 Total Bilirubin 0.6 mg/dL (0.2-1.0) 02/22/20 14:00 AST 8 U/L (15-37) L 02/22/20 14:00 ALT 13 U/L (12-78) 02/22/20 14:00 Alkaline Phosphatase 66 U/L (45-117) 02/22/20 14:00 Troponin I < 0.02 ng/mL (0.0-0.045) 02/23/20 03:06 Triglycerides Cancelled 02/23/20 06:00 Cholesterol Cancelled 02/23/20 06:00 HDL Cholesterol Cancelled 02/23/20 06:00 Cholesterol/HDL Ratio Cancelled 02/23/20 06:00 Lipase 264 U/L (73-393) 02/22/20 14:00 Home Medications: Clonazepam 2 mg PO BEDTIME 06/11/14 Pravastatin Sodium 80 mg PO DAILY 06/11/14 Losartan Potassium [Cozaar] 25 mg PO DAILY #30 tablet 06/12/14 Levothyroxine Sodium [Levothyroxine] 88 mcg PO DAILY #30 capsule 02/23/20 New Medications: Levothyroxine Sodium [Levothyroxine] 88 mcg PO DAILY #30 capsule Patient Discharge Instructions: Patient presented with chest pain. Cardiac enzymes unremarkable. Patient seen and evaluated by Cardiology. Cardiology recommended echocardiogram to further evaluate. Echo obtained. Patient with underlying hypertension and hyperlipidemia. At discharge patient will continue with her current medications of losartan 25 mg daily and pravastatin 80 mg daily. Patient may continue with 81 mg of aspirin. Recommend follow up with cardiology in 2-4 weeks to follow up this hospitalization and continue her care. Patient with hypothyroidism. Tsh 0.023 and free T4 1.61. Patient reports medications have been adjusted. She was previously on 75 mcg. This was in creased to 100 mcg. Medications need further adjustment due to recent lab. Will recommend to decrease levothyroxine to 88 mcg daily. Recommend to recheck tsh and free T4 in 4-6 weeks to further address. Further adjustment can be done by her PCP at that time. Patient with vertigo. This has resolved. Patient was given meclizine. Patient with chronic renal disease stage III. Patient with mild dehydration. Encourage oral intake. Patient with recent diagnosis of COVID pneumonia. CT chest negative. Patient asymptomatic at this time. Will provide education on isolation and COVID pneumonia. OK TO DC IV AND DC HOME. FOLLOW-UP WITH PRIMARY CARE PROVIDER IN 1-2 WEEKS. FOLLOW-UP WITH CARDIOLOGY IN 1-2 WEEKS. RETURN TO THE ER IF symptoms worsen. CALL DR. VALDES AT [phone] IF ANY QUESTIONS REGARDING HOSPITAL STAY. PLEASE CALL THE FLOOR AT [phone] IF ANY MEDICATION OR NURSING QUESTIONS. Diet: AHA Activity: Fall precautions Followup: Unknown,U [Primary Care Provider] - Time spent managing pt's care (in minutes): 55
[2020-02-23] MEDS ORDERED: CLOPIDOGREL 75 MG TABLET ONE (08:49)
[2020-02-23] MEDS ORDERED: ENOXAPARIN 40 MG/0.4 ML SQ ONE (08:49)
[2020-02-23] MEDS ORDERED: ASPIRIN EC 81 MG TAB PO ONE (08:49)
[2020-02-23] MEDS ORDERED: MECLIZINE HCL 12.5 MG TAB ONE (08:49)
[2020-02-23] MEDS ORDERED: ASPIRIN EC 81 MG TAB PO SCH (09:00)
[2020-02-23] MEDS ORDERED: ENOXAPARIN 40 MG/0.4 ML SQ SCH (09:00)
[2020-02-23] MEDS ORDERED: CLOPIDOGREL 75 MG TABLET PO SCH (09:00)
[2020-02-23] MEDS: MECLIZINE HCL 12.5 MG TAB PO SCH ×2 (09:00→14:00)
[2020-02-23 09:28] VITALS: BP 148/70; TEMP 98.4
--- NOTE | 2020-02-23 10:30 | EKG ---
Test Date: 2020-02-22 Test Time: 13:50:13 Medication Nurse: AMALIA MEASUREMENT RESULTS: Intervals: Rate: 47 KS: 132 QRSD: 98 QT: 440 QTc: 389 [place]: P: 15 KS: 132 QRS: 21 T: 63 INTERPRETIVE STATEMENTS: Sinus bradycardia Otherwise normal ECG Compared to ECG 06/12/2014 07:23:29 Sinus rhythm no longer present Atrial premature complex(es) no longer present Electronically Signed On 02-23-20 10:27:57 MACHINE LEATHER TRIMMER by Abelardo Macario
--- NOTE | 2020-02-23 12:35 | ECHO ---
HEIGHT: ft in WEIGHT: lb oz DATE OF STUDY: 02/23/[address]: Carlos Albarran MD 2-DIMENSIONAL: YES M.MODE: YES DOPPLER: YES COLOR FLOW: YES TDS: PORTABLE: DEFINITY: BUBBLE STUDY: DIAGNOSIS: CHEST PAIN CARDIAC HISTORY: CATHERIZATION: NO SURGERY: NO PROSTHETIC VALVE: NO PACEMAKER: NO MEASUREMENTS (cm) DIASTOLIC (NORMALS) SYSTOLIC (NORMALS) IVSd 0.9 (0.6-1.2) LA Diam 3.7 (1.9-4.0) LVEF 73% LVIDd 4.5 (3.5-5.7) LVIDs 2.6 (2.0-3.5) %FS 42% LVPWd 1.2 (0.6-1.2) Ao Diam 2.6 (2.0-3.7) 2 DIMENSIONAL ASSESSMENT: RIGHT ATRIUM: NORMAL LEFT ATRIUM: NORMAL RIGHT VENTRICLE: NORMAL LEFT VENTRICLE: NORMAL TRICUSPID VALVE: NORMAL MITRAL VALVE: NORMAL PULMONIC VALVE: NORMAL AORTIC VALVE: NORMAL PERICARDIAL EFFUSION: NONE AORTIC ROOT: NORMAL LEFT VENTRICULAR WALL MOTION: NORMAL DOPPLER/COLOR FLOW: MILD TRICUPSID REGURGITATION COMMENTS: NORMAL 2-DIMENSIONAL ECHOCARDIOGRAM. MILD TRICUSPID REGURGITATION. NORMAL RIGHT VENTRICULAR SYSTOLIC PRESSURE. NO WALL MOTION ABNORMALITY. NO EFFUSION. TECHNOLOGIST: ANGELINA MACEDO
[2020-02-23 20:11] VITALS: O2SAT 98
--- NOTE | 2020-02-27 13:11 | CON ---
Date of Consultation: 02/23/[address] Padron on 02/22/2020. The patient was seen on 02/23/2020. Reason For Consultation: Chest pain. History Of Present Illness: Ms. Graham is a 80-year-old woman with history of hypertension, dysl ipidemia, has had a brain surgery before, and hypothyroidism. She came in with atypical chest pain, sharp, stabbing left lateral, worse with breathing. No nausea, vomiting, diaphoresis, PND, orthopnea , pedal edema, palpitation, or syncope. By the time she was seen, she was already ruled out for an M I. Past Medical History: As stated above. Allergies: NONE. Review of Systems: Negative. Social History: Negative. Family History: Noncontributory. Allergies: INCLUDE CODEINE, FENTANYL, DEMEROL, PENICILLIN, TRAMADOL. Medications: At home include losartan and Synthroid. Physical Examination: Vital Signs: Stable, afebrile. HEENT: Negative. Neck: Supple without any bruit, lymphadenopathy, JVD, or thyromegaly. Chest: Clear to auscultation and percussion. Cardiac: Revealed a regular rhythm and rate. No murmurs, gallops, or rubs. Abdomen: Benign. Extremities: Revealed no clubbing, cyanosis, or edema. Diagnostic Data: All within normal limit. Impression And Plan: Atypical chest pain in a patient with history of hypertension, dyslipidemia. N ormal EKG, troponin, BNP, and x-ray. She is asymptomatic now. Symptoms are more consistent with ple urisy. Echocardiogram is pending. I think if that is normal, she can be sent home and followup with us as an outpatient. SHIN/CYNTHIA Voice ID: [id number] Report ID: [id number]
== END 2020-02-23 17:30 | disposition home or self-care (01) ==
LOC: ER 13:30 → ERHOLD 15:42
PROVIDERS: ADMIT Hospitalist; ATTEND Family Medicine
DX: R07.89 Other chest pain (principal); I12.9 Hypertensive chronic kidney disease with stage 1 through stage 4 chronic kidney disease, or unspecified chronic kidney disease; N18.30 Chronic kidney disease, stage 3 unspecified; E03.9 Hypothyroidism, unspecified; E78.5 Hyperlipidemia, unspecified; Z86.16 Personal history of COVID-19; R42 Dizziness and giddiness; E86.0 Dehydration; Z20.822 Contact with and (suspected) exposure to COVID-19
CPT/HCPCS: 36415; 71045; 71275; 80048; 80061; 80076; 82728; 83690; 83735; 83880; 84439; 84443; 84484; 85025; 85610; 86140; 93005; 93306; 96361; 96374; 96375; 99285; G0378; J1100; J1650; J2920; J7030; Q9967; U0003

== ENCOUNTER 2020-03-13 22:33 | Observation (INO) | payer OTHER ==
--- OUTSIDE RECORDS SUMMARY | 2020-03-13 22:39 | XMS REPORT | Continuity of Care Document ---
:1940 Author Organization [employer] [facility] Care Team Providers Name Role Phone [employer] [facility] Unavailable Un available Problems Problem Status Onset Classification Date Comments Sourc e Date Reported LUMBAR HNP Active Condition 08/12/2014 [facility] 015 Neuro LUMBAR SPINAL STENOSIS Active Condition 08/12/2014 [facility] 015 Neuro 724.4 - LUMBOSACRAL Active OPID TRISTIAN 015 [employer] LUMBAR RADICULOPATHY Active Condition 08/12/2014 [facility] 015 Neuro LOW BACK PAIN Active Condition 08/12/2014 Misch er 015 Neuro JUAN Active [address] HISTORY OF Active Condition 08/12/2014 [facility] [...] ignacio SURGERY 012 Neuro TRIGEMINAL NERVE Active [address] History of - Active Problem 08/18/2011 [place] as trigeminal neuralgia [facility] Center Pain Active Problem 08/18/2011 [facility] Headache Active Problem 09/04/2011 [facility] TRIGEMINAL NEURALGIA Active Condition 08/12/2014 [facility] Peripheral Neuropathy Active 04/20/2012 [facility] Herniated Active 04/20/2012 [facility] Facial Pain Active 04/20/2012 [facility] Headache Active 04/20/2012 [facility] Fibromyalgia Active 04/20/2012 [facility] Chronic Fatigue Active 04/20/2012 [facility] TRIGEMINAL NEURALGIA Active [facility] HEADACHE Active [facility] Medications Medication Details Route Status Patient Ordering [...] hydrochlorothiazi 12.5 mg, 1 PO No 09/02/ [facility] de tab, Route: Longer 2011 Medical PO, Drug form: Active Center TAB, Daily, Start date: 09/03/11 9:00:00, Duration: 30 day, Stop date: 10/02/11 9:00:00 pravastatin 80 mg, 4 tab, PO No 09/02[facility] [place] as Route: PO, Longer 2011 Medical [...] 1 1 mg, 1 tab, PO Active 09/01[facility] [place] mg oral tablet PO, QID, 90 [...] then stop levothyroxine 75 microgram, PO Active 09/01[facility] [place] PO, Daily, 2011 [facility] Substitution [place] diphenhydrAMINE 25 mg, PO, [place] Bed[place], 2011 Medical Substitution Center Allowed acetaminophen 325 mg, PO, PO Active 09/01[facility] [place] Q4H, 2011 Medical Substitution Center Allowed hydrochlorothiazi 12.5 mg, PO, PO Active 09/01/ H [place] de Daily, 2011 Medical Substitution Center Allowed fluoxetine 40 mg 40 mg, 1 cap, PO Active [facility] oral capsule PO, Daily, 30 2011 Medic al cap, [place] Substitution Allowed, CAP pravastatin 80 mg 80 mg, 1 tab, PO Active [facility] oral tablet PO, Daily, 30 2011 Medica l tab, Center Substitution Allowed, TAB Saline Flush 0.9% 5 ml, Route: IVP No [place] [facility] IVP, Drug Longer 2011 Medical Form: INJ, [...] Dextrose 50% 6.25 gm, 12.5 IVP No [place] [facility] Syringe mL, Route: Longer 2011 Medical IVP, Drug Active Center Form: INJ, PRN, PRN Abnormal Lab Result, Start date: 09/01/11 3:08:00, Duration: 30 day, Stop date: 10/01/11 3:07:00 insulin regular 7 unit, 0.07 SUB-Q No [place] [facility] human recombinant mL, Route: Longer 2011 Med ical 100 units/mL SUB-Q, Drug Active Center injectable form: SOLN, solution PRN, PRN Abnormal Lab Result, Start date: 09/01/11 3:08:00, Duration: 30 day, Stop date: 10/01/11 3:07:00 Saline Flush 0.9% 5 ml, Route: IVP No [place] 08/31[facility] IVP, Drug Longer 2011 Medical Form: INJ, Active Center PRN, PRN Line Flush, Start date: 09/01/11 3:08:00, Duration: 30 day, Stop date: 10/01/11 3:07:00 acetaminophen-hyd 1 tab, Route: PO No [place] 08/31 [facility] rocodone 325 PO, Drug Form: Longer 2011 Medi joann mg-10 mg oral TAB, Q4H, PRN Active Cent er tablet Pain Score 4-6, Start date: 09/01/11 3:08:00, Duration: 30 day, Stop date: 10/01/11 3:07:00 ondansetron 4 mg, 2 mL, IVP [place] Route: IVP, Longer 2011 Medical Drug form: Active Center INJ, Q8H, PRN Nausea & Vomiting, Start date: 09/01/11 3:08:00, Duration: 30 day, Stop date: 10/01/11 3:07:00 bisacodyl 10 mg, 1 supp, DC No [place] 08/31[facility] [place] Route: DC, Longer 2011 Medical Drug form: Active Center SUPP, Daily, PRN Constipation, Start date: 09/01/11 3:08:00, Duration: 30 day, Stop date: 10/01/11 3:07:00 Sodium Chloride 250 mL, Rate: IV No [place] [facility] 0.9% (Bolus) IV 500 ml/hr, Longer 2011 Medic al 250 mL Infuse over: Active Center 30 minutes, Route: IV, Dosing Weight 77.273 kg, Total Volume: 250, Priority: STAT, Start date: 09/01/11 3:08:00, Duration: 1 doses or times, Stop date: 09/01/11 3:37:00 Sodium Chloride 1,000 mL, IV No [place] [id number] 0.9% IV 1,000 mL Rate: 50 Longer 2011 Medica l ml/hr, Infuse Active Center over: 20 hr, Route: IV, Dosing Weight 77.273 kg, Total Volume: 1,000, Start date: 09/01/11 3:08:00, Duration: 30 day, Stop date: 10/01/11 3:07:00 DEXAMETHASONE 1 qd Active 08/28/ [facility] MG TABS 2011 Neuro Flomax 0.8 mg, 2 cap, PO No Dexter 08/15[facility] Route: PO, Longer 2011 Medical Drug form: Active Center CAP, After Breakfast, Start date: 08/16/11 8:30:00, Duration: 1 day, Stop date: 08/16/11 8:30:00 calcium gluconate 3,000 mg, 30 IVPB No [place]ma H [place] mL, Route: Longer 2011 Medical IVPB, ONCE, Active Center Start date: 08/16/11 3:30:00, Stop date: 08/16/11 3:30:00 K-Dur 20 40 mEq, 2 tab, PO No [place] 08/15[facility] Route: PO, Longer 2011 Medical Drug form: Active Center ERTAB, ONCE, Start date: 08/16/11 3:00:00, Stop date: 08/16/11 3:00:00 heparin 5,000 unit, 1 SUB-Q [facility] mL, Route: Longer 2011 Medical SUB-Q, Drug Active Center form: INJ, Q8H, Start date: 08/16/11 0:00:00, Duration: 30 day, Stop date: 09/14/11 16:00:00 acetaminophen 650 mg, 2 tab, PO No [facility] 08/14[facility] Route: PO, Longer 2011 Medical Drug form: Active Center TAB, Q6H, PRN Pain, Start date: 08/15/11 10:56:00, Duration: 30 day, Stop date: 09/14/11 10:55:00 Tylenol 325 mg, 1 tab, PO No [facility] 08/14[facility] Route: PO, Longer 2011 Medical Drug form: Active Center TAB, Q4H, PRN Pain, Start date: 08/15/11 10:39:00, Duration: 30 day, Stop date: 09/14/11 10:38:00 Prozac 40 mg, 2 cap, PO No Dexter 08/14[facility] Route: PO, Longer 2011 Medical Drug form: Active Center CAP, Daily, Start date: 08/15/11 9:00:00, Duration: 30 day, Stop date: 09/13/11 9:00:00 Microzide 12.5 mg, 1 PO No [facility] 08/14[facility] cap, Route: Longer 2011 Medical PO, Drug form: Active Center CAP, Daily, Start date: 08/15/11 9:00:00, Duration: 30 day, Stop date: 09/13/11 9:00:00 Synthroid 0.075 mg, 1 PO No [facility] 08/14[facility] tab, Route: Longer 2011 Medical PO, Drug form: Active Center TAB, Before Breakfast, Start date: 08/15/11 7:30:00, Duration: 30 day, Stop date: 09/13/11 7:30:00 Senokot 8.6 mg, 1 tab, PO No [facility] 08/14[facility] Route: PO, Longer 2011 Medical Drug Form: Active Center TAB, Q12H, Start date: 08/14/11 21:00:00, Duration: 30 day, Stop date: 09/13/11 9:00:00 vancomycin (SCIP) 1 gm, Route: IVPB No [facility] 08/14[facility] IVPB, Drug Longer 2011 Medical form: INJ, Active Center [id number], Start date: 08/14/11 20:00:00, Duration: 2 doses or times, Stop date: 08/15/11 8:00:00 dexamethasone 4 mg, 1 tab, PO No [facility] 08/13[facility] [place] Route: PO, Longer 2011 Medical Drug form: Active Center TAB, Q6H, Start date: 08/14/11 18:00:00, Duration: 30 day, Stop date: 09/13/11 12:00:00 Reglan 10 mg, 2 mL, IVP No Zak[place] 08/13[facility] Route: IVP, Longer 2011 Medical Drug form: Active Center INJ, Q6H, Start date: 08/14/11 18:00:00, Duration: 48 hr, Stop date: 08/16/11 12:00:00 Pravachol 80 mg, 4 tab, [facility] [place] Route: PO, Longer 2011 Medical Drug form: Active Center TAB, QPM, Start date: 08/14/11 17:00:00, Duration: 30 day, Stop date: 09/12/11 17:00:00 Klonopin 2 mg, 1 tab, PO No Abdunnur 08/13[facility] Route: PO, Longer 2011 Medical Drug form: Active Center TAB, TID, Start date: 08/14/11 17:00:00, Duration: 30 day, Stop date: 09/13/11 13:00:00 promethazine 6.25 mg, 0.25 IVPB No [place] 08/13[facility] [place] mL, Route: Longer 2011 Medical IVPB, Drug Active Center form: INJ, ONCE, PRN Nausea & Vomiting, Start date: 08/14/11 14:23:00 ondansetron 4 mg, 2 mL, IVP No [place] 08/13[facility] [place] Route: IVP, Longer 2011 Medical Drug form: Active Center INJ, ONCE, PRN Nausea & Vomiting, Start date: 08/14/11 14:23:00 dexamethasone 4 mg, 1 mL, IVP No [place] 08/13[facility] [place] as Route: IVP, Longer 2011 Medical Drug form: Active Center INJ, ONCE, PRN Nausea & Vomiting, Start date: 08/14/11 14:23:00 naloxone 0.04 mg, 0.1 IVP No [place] 08/13[facility] [place] mL, Route: Longer 2011 Medical IVP, Drug Active Center form: INJ, Q2MIN, PRN Narcotic Reversal, Start date: 08/14/11 14:23:00, Duration: 8 doses or times, Stop date: 08/15/11 0:00:00 flumazenil 0.2 mg, 2 mL, IVP No [place] 08/13[facility] [place] Route: IVP, Longer 2011 Medical Drug form: Active Center INJ, PRN, PRN Benzodiazepine Reversal, Initial dose, Start date: 08/14/11 14:23:00, Stop date: 08/15/11 0:00:00 hydromorphone 0.5 mg, 0.25 IVP No [place] 08[place]13[facility] [place] mL, Route: Longer 2011 Medical IVP, Drug Active Center form: INJ, Q5Min, PRN Pain Score 4-6, Start date: 08/14/11 14:23:00, Duration: 5 doses or times, Stop date: 08/15/11 0:00:00 hydrALAZINE 5 mg, 0.25 mL, IVP No [place] 06[place] [place] Route: IVP, Longer 2011 Medical Drug form: Active Center INJ, Q5Min, PRN Elevated BP, Start date: 08/14/11 14:23:00, Duration: 4 doses or times, Stop date: 08/15/11 0:00:00 labetalol 5 mg, 1 mL, IVP No [place] 08/13[facility] [place] Route: IVP, Longer 2011 Medical Drug form: Active Center INJ, Q5Min, PRN Elevated BP, Start date: 08/14/11 14:23:00, Duration: 5 doses or times, Stop date: 08/15/11 0:00:00 dexamethasone 4 mg, 1 tab, [facility] [place] Route: PO, Longer 2011 Medical Drug form: Active Center TAB, Q6H, Start date: 08/14/11 12:00:00, Duration: 30 day, Stop date: 09/13/11 6:00:00 metoclopramide 10 mg, 2 mL, IVP No [facility] 08[place] [place] Route: IVP, Longer 2011 Medical Drug form: Active Center INJ, Q6H, Start date: 08/14/11 12:00:00, Duration: 48 hr, Stop date: 08/16/11 6:00:00 clonazepam 2 mg, 1 tab, PO No Abdunnur 08/13[facility] [place] Route: PO, Longer 2011 Medical Drug form: Active Center TAB, TID, Start date: 08/14/11 9:00:00, Duration: 30 day, Stop date: 09/12/11 17:00:00 Pepcid 20 mg oral 20 mg, 1 tab, PO No Abdunnur 08/13[facility] [place] tablet Route: PO, Longer 2011 Medical Drug form: Active Center TAB, Q12H, Start date: 08/14/11 9:00:00, Duration: 30 day, Stop date: 09/12/11 21:00:00 Saline Flush 0.9% 5 ml, Route: IVP No Abdunnnani 08/13[facility] [place] IVP, Drug Longer 2011 Medical Form: INJ, Active Center Q12H, Start date: 08/14/11 9:00:00, Duration: 30 day, Stop date: 09/12/11 21:00:00 vancomycin (SCIP) 1 gm, Route: IVPB No [facility] 08/13[facility] IVPB, Drug Longer 2011 Medical form: INJ, Active Center Q12H, Start date: 08/14/11 9:00:00, Duration: 2 doses or times, Stop date: 08/14/11 21:00:00 senna 8.6 mg, 1 tab, PO No [facility] [address] [place] [address] Route: PO, Longer 2011 Medical Drug Form: Active Center TAB, Q12H, Start date: 08/14/11 9:00:00, Duration: 30 day, Stop date: 09/12/11 21:00:00 docusate sodium 100 mg, 1 cap, PO No [facility] 08/13[facility] [place] 100 mg oral Route: PO, Longer 2011 Medical capsule Drug form: Active Center CAP, Q12H, Start date: 08/14/11 9:00:00, Duration: 30 day, Stop date: 09/12/11 21:00:00 levothyroxine 0.075 mg, 1 PO No [facility] 08[place]13[facility] [place] tab, Route: Longer 2011 Medical PO, Drug form: Active Center TAB, Daily, Start date: 08/14/11 9:00:00, Duration: 30 day, Stop date: 09/12/11 9:00:00 pravastatin 80 mg, 4 tab, PO No [facility] 08[place]13[facility] [place] Route: PO, Longer 2011 Medical Drug form: Active Center TAB, Daily, Start date: 08/14/11 9:00:00, Duration: 30 day, Stop date: 09/12/11 9:00:00 hydrochlorothiazi 12.5 mg, 1 PO No [facility] 08/13[facility] [place] de 12.5 mg oral cap, Route: Longer 2011 Medi joann capsule PO, Drug form: Active Center CAP, Daily, Start date: 08/14/11 9:00:00, Duration: 30 day, Stop date: 09/12/11 9:00:00 Prozac 40 mg, 2 cap, PO No [facility] [place] Route: PO, Longer 2011 Medical Drug form: Active Center CAP, Daily, Start date: 08/14/11 9:00:00, Duration: 30 day, Stop date: 09/12/11 9:00:00 magnesium citrate 17.45 gm, 300 PO Active [facility] 8.85% oral liquid mL, PO, ONCE, 2011 [...] 2011 Medical tab, Active Center Substitution Allowed [place] 10/325 oral 1 tab, PO, PO [facility] tablet Q4H, PRN, 30 Longer 2011 Medical tab, 2, 2, as Active Center needed for pain, Substitution Allowed, Maintenance, TAB dexamethasone 1 1 mg, 1 tab, PO Active [facility] [place] mg oral tablet [...] insulin regular 7 unit, 0.07 SUB-Q No [facility] human recombinant mL, Route: Longer 2011 Med ical 100 units/mL SUB-Q, Drug Active Center injectable form: SOLN, solution PRN, PRN Abnormal Lab Result, Start date: 08/14/11 6:47:00, Duration: 30 day, Stop date: 09/13/11 6:46:00 Dextrose 50% 12.5 gm, 25 IVP No [facility] Peter as Syringe mL, Route: [...] ondansetron 4 mg, 2 mL, [facility]P No [facility] [place] Route: IVP, Longer 2011 Medical Drug form: Active Center INJ, Q8H, PRN Nausea & Vomiting, Start date: 08/14/11 6:47:00, Duration: 30 day, Stop date: 09/13/11 6:46:00 Sodium Chloride 1,000 mL, IV No [facility] 08/[facility] [place] as 0.9% IV 1,000 mL Rate: [...] 6:43:00 vancomycin 1 gm, Route: IVPB No [facility] Jeanne luz IVPB, Drug Longer 2011 Medical form: INJ, PRE Active Center OP, Start date: 08/13/11 22:00:00, Duration: 1 day, Stop date: 08/14/11 21:59:00 Tylenol 325 mg 325 mg, 1 tab, PO Active [place] oral tablet PO, Q4H, PRN, 2011 Medica l 60 tab, Pain, Center Substitution Allowed hydrochlorothiazi 12.5 mg, 1 PO Active [facility] [place] de 12.5 mg oral tab, PO, 2011 Medical tablet Daily, 30 tab, Center Substitution Allowed, TAB Prozac 40 mg oral 40 mg, 1 cap, PO Active [facility] [place] capsule PO, Daily, 30 2011 Medical cap, Center Substitution Allowed, CAP clonazepam 2 mg 2 mg, 1 tab, PO Active [facility] oral tablet PO, TID, 2011 Medical Substitution Center Allowed, TAB diphenhydrAMINE 25 mg, 1 cap, PO Active [facility] H [place] 25 mg oral PO, Bedtime, 2011 Medical capsule PRN, 30 cap, [place] Insomnia, Substitution Allowed pravastatin 80 mg 80 mg, 1 tab, PO Active [facility] [place] oral tablet PO, Daily, 30 2011 Medica l tab, Center Substitution Allowed, TAB levothyroxine 75 75 microgram, PO Active [facility] [place] mcg (0.075 mg) 1 tab, PO, 2011 Medica l oral tablet Daily, 30 tab, Cente r Substitution Allowed, TAB Bactrim DS 1 tab, PO, PO No [place] BID, 20 tab, Longer 2011 Medical Substitution Active Center Allowed, Maintenance Gabapentin 100 MG ; Start Date: Active [place] Oral Capsule 07/19/2011; 2011 Physici ans End Date: (Active) LEVOTHYROXINE 1 tab po qd Active Mische r SODIUM 75 MCG 2011 Neuro TABS HYDROCHLOROTHIAZI 1 cap po qd Active [facility] [place] 12.5 MG CAPS 2011 Neuro [...] allergy 2 Neuro codeine drug Allergy Active [facility] Demerol HCl drug Allergy Active [facility] fentaNYL drug Allergy Active [facility] penicillins drug Allergy Active [facility] cephalosporins drug Allergy Active [facility] drug Allergy Active [facility] Demerol TABS drug drug Active [place] allergy [...] 126 70 - 99 09/01 [place] <sup>2</sup>I [facility] GLUCOSE [place] nterpretive Medical TESTING Data: [place] Reportable Limit: 200 mg/dL. BEDSIDE Comment2 Sliding 09/01 NA [place] GLUCOSE Scale /2011 Medical TESTING Center BEDSIDE Comment1 Notify 09/01 NA [facility] GLUCOSE RN/MD /2011 Medical TESTING Center BEDSIDE Gluc POC 171 70 - 99 09/01 [place] <sup>3</sup>I [facility] GLUCOSE [place] /2011 nterpretive Medical TESTING Data: [place] Reportable Limit: 200 mg/dL. CHEMISTRY Ca Ion mgdL 4.00 4.65 - 08/31 [facility] 5. [facility] CHEMISTRY Ca Ion 1.00 1.16 - 08/31 [facility] [place] 1.30 Medical [place] CHEMISTRY Ca Norm 1.01 1.16 - 08/31 [facility] 1.30 [facility] CHEMISTRY Ca Norm mgdL 4.04 4.65 - 08/31 [facility] 5. [facility] CHEMISTRY Globulin 3.2 2.0 - 4.0 08/31 Normal [facility] CHEMISTRY Bili Indirect 0.6 0.0 - 1.0 08/31 Normal [facility] CHEMISTRY A/G Ratio 1.0 0.7 - 1.6 08/31 Normal [facility] CHEMISTRY Total Protein 6.3 6.4 - 8.4 08/31 LOW [facility] CHEMISTRY Bili Total 0.8 0.2 - 1.3 08/31 Normal [facility] CHEMISTRY Bili Direct 0.2 0.0 - 0.3 08/31 Normal [facility] CHEMISTRY AST 11 0 - 37 08/31 Normal [facility] CHEMISTRY Alk Phos 70 39 - 136 08/31 Normal [facility] CHEMISTRY Albumin Lvl 3.1 3.5 - 5.0 08/31 LOW [facility] CHEMISTRY ALT 17 0 - 65 08/31 Normal [facility] HEMATOLOGY PTT 30.9 22.9 - 08/31 Normal <sup>5</sup>I Jeanne s 35.8 nterpretive Medical Data: Heparin Center Therapeutic Range: 57 - 92 Seconds HEMATOLOGY PT 13.7 12.0 - 08/31 Normal [place] 14.7 [facility] HEMATOLOGY INR 1.05 0.85 - 08/31 Normal <sup>4</sup>I Jeanne s 1. nterpretive Medical Data: Center RECOMMENDED RANGES FOR PROTIME INR:
2.0-3.0 for most medical and surgical thromboemboli c states.
2.5-3.5 for artificial heart valves and recurrent embolism.<br/ >
INR SHOULD BE USED ONLY FOR PATIENTS ON STABLE ANTICOAGULANT THERAPY. HEMATOLOGY MCV 96.0 81.0 - 08/31 Normal [facility] 99.0 [facility] HEMATOLOGY MPV 8.4 7.4 - 10.4 08/31 Normal /2011 Medical [place] HEMATOLOGY Platelet 181 133 - 450 08/31 Normal [facility] Center HEMATOLOGY RDW 16.9 11.5 - 07 [...] WBC 13.2 3.7 - 10.4 08/31 HI [facility] Center HEMATOLOGY Lymphocytes 3.0 20.0 - 08/31 LOW [place] 40.0 /2011 Medical Center HEMATOLOGY Monocytes 1.0 2.0 - 12.0 08/31 LOW [facility] HEMATOLOGY Lymphocytes # 0.4 1.0 - 5.5 08/31 [place] /2011 [facility] HEMATOLOGY Monocytes # 0.1 0.0 - 0.8 08/31 [place] [facility] HEMATOLOGY Atypical 0.0 <=0.0 08/31 Normal [place] Lymphs /2011 [facility] HEMATOLOGY Bands 1.0 0.0 - 11.0 08/31 Normal [facility] HEMATOLOGY Segs 95.0 45.0 - 08/31 [facility] [place] 75.0 /2011 Medical [place] HEMATOLOGY Segs-Bands # 12.7 1.5 - 8.1 08/31 [facility] Peter as /2011 [facility] BODY FLUIDS Supernat CSF Colorless Colorless 08/31 Normal [place] (09/01/2011 03:10:00) [facility] BODY FLUIDS Tube Num CSF 4 08/31 [place] [facility] Center BODY FLUIDS Color CSF Colorless Colorless 08/31 Normal [place] (09/01/2011 03:10:00) [facility] BODY FLUIDS Clarity CSF Slight Clear 08/31 ABN [place] *ABN* /2011 Medical (09/01/2011 03:10:00) Ce nter BODY FLUIDS WBC CSF 1566 0 - 5 08/31 HI [facility] Center BODY FLUIDS RBC CSF 2 0 - 0 / HI Medical [place] BODY FLUIDS Lymph CSF 4 40 - 80 / LOW [facility] BODY FLUIDS Monocyte CSF 3 15 - 45 08/31 [place] [facility] BODY FLUIDS Segs CSF 93 0 - 6 08/31 HI [facility] Center BODY FLUIDS Lactic Acid 3.0 0.6 - 2.2 08/31 HI [place] CSF Medical [place] BODY FLUIDS Protein CSF 176 15 - 45 08/31 HI <sup>1</sup>R esult Medical Comment: Center "Significant Findings called to dr hastings __at _09/01/2011 04:15:41 CDT__by _lg__.Read Back OK." BODY FLUIDS Tube Num CSF 1 08/31 NA [place] [facility] BODY FLUIDS Color CSF Colorless Colorless 08/31 Normal [place] (09/01/2011 03:05:00) [facility] BODY FLUIDS Supernat CSF Colorless Colorless 08/31 Normal [place] (09/01/2011 03:05:00) /2011 [facility] BODY FLUIDS WBC CSF 1761 0 - 5 08/31 [facility] BODY FLUIDS Clarity CSF Slight Clear 08/31 ABN [place] *ABN* /2011 Medical (09/01/2011 03:05:00) Ce nter BODY FLUIDS RBC CSF 2 0 - 0 08/31 [facility] BODY FLUIDS Segs CSF 92 0 - 6 08/31 [facility] BODY FLUIDS Lymph CSF 4 40 - 80 08/31 LOW [facility] BODY FLUIDS Monocyte CSF 4 15 - 45 08/31 [place] [facility] BODY FLUIDS Glucose CSF 78 45 - 80 08/31 Normal [facility] FUNGAL - Crypto Ag CSF Negative Negative 08/31 [facility]09[facility]2011 03:05:00[facility] V[facility]L Scr CSF Non Reactive Non 08/31 Normal [facility] (09/01/2011 03:05:00) /2011 edical Center IMMUNOLOGY CSF Men B Negative Negative 08/31 Normal [facility] (09/01/2011 03:05:00) /2011 [facility] IMMUNOLOGY CSF Men A Negative Negative 08/31 Normal [facility] (09/01/2011 03:05:00) [facility] IMMUNOLOGY CSF H Influ B Negative 6 Negative 08/31 Normal <sup>6</sup >I [facility] (09/01/2011 03:05:00) nterpretiv e Medical Data: Testing Center includes polyclonal antibody to Haemophilus influenzae
type b. IMMUNOLOGY CSF S pneumo Negative Negative 08/31 Normal [place] (09/01/2011 03:05:00) [facility] IMMUNOLOGY CSF Men C Negative Negative 08/31 Normal [facility] (09/01/2011 03:05:00) [facility] IMMUNOLOGY CSF Strep B Negative Negative 08/31 [place] (09/01/2011 03:05:00) [facility] Microbiolog Culture: CSF 08/31 [facility] s y w/Gram [facility] BEDSIDE Gluc POC 174 70 - 99 08/15 [place] <sup>2</sup>I [facility] Data: [place] Reportable Limit: 200 mg/dL. BEDSIDE Gluc POC 151 70 - 99 08/15 [place] <sup>3</sup>I [facility]SE [facility] TESTING Data: [place] Reportable Limit: 200 mg/dL. BEDSIDE Gluc POC 147 70 - 99 08/15 [place] <sup>4</sup>I [place] [facility] n[facility]pret[facility] Medical TESTING Data: [place] Reportable Limit: 200 mg/dL. CHEMISTRY Magnesium Lvl 2.0 1.8 - 2.4 08/15 Normal [place] [facility] CHEMISTRY AGAP 7.6 10.0 - 08/15 LOW [place] 20.0 Medical Center CHEMISTRY Calcium Lvl 8.4 8.5 - 10.5 08/15 LOW [facility] Center CHEMISTRY CO2 32 24 - 32 08/15 Normal [facility] Center CHEMISTRY Chloride Lvl 107 95 - 109 08/15 Normal [facility] Center CHEMISTRY Creatinine 1.0 0.5 - 1.4 08/15 Normal [facility] [place] [facility] Center CHEMISTRY BUN 21 7 - 22 08/15 Normal Medical Center CHEMISTRY Potassium Lvl 3.6 3.5 - 5.1 08/15 Normal [facility] CHEMISTRY Sodium Lvl 143 135 - 145 08/15 Normal Medical Center CHEMISTRY Glucose Lvl 136 70 - 99 08/15 HI <sup>5</sup>I T ex nterpretive Medical Data: Adult Center reference range values reflect the clinical guidelines of the [place] [employer]. CHEMISTRY Phosphorus 2.2 2.5 - 4.5 08/15 LOW [facility] CHEMISTRY Ca Ion 1.09 1.16 - 08/15 LOW [place] [facility] CHEMISTRY Ca Ion mgdL 4.36 4.65 - 08/15 LOW [place] 07.08 Medical Center CHEMISTRY Ca Norm mgdL 4.60 4. - 08/15 [facility] [place] 07.08 Medical Center CHEMISTRY Ca Norm 1.15 1. - 08/15 [facility] [place] [facility] HEMATOLOGY Platelet 211 133 - 450 08/15 Normal Medical Center HEMATOLOGY RDW 15.9 11.5 - 08/15 [facility] [place] 14.5 Medical Center HEMATOLOGY MCV 93.4 81.0 - 08/15 Normal [place] 99.0 Medical Center HEMATOLOGY MCHC 34.1 32.0 - 08/15 [facility] [place] 36.0 Medical Center HEMATOLOGY MCH 31.8 27.0 - 08/15 [facility] [place] 31.0 Medical Center HEMATOLOGY MPV 9.3 7.4 - 10.4 08/15 Normal Medical Center HEMATOLOGY Hct 29.6 36.0 - 08/15 [facility] [place] 48.0 /2011 Medical Center HEMATOLOGY Hgb 10.1 12.0 - 08/15 LOW [place] 16.0 Medical Center HEMATOLOGY RBC 3.17 4.20 - 08/15 [facility] [place] 5.40 Medical Center HEMATOLOGY WBC 16.3 3.7 - 10.4 08/15 [place] [facility] HEMATOLOGY Basophils # 0.0 0.0 - 0.2 08/15 [place] [facility] [place] HEMAT[place]Y Eosinophils # 0.0 0.0 - 0.5 08/15 [facility] [place] [facility] HEMATOLOGY Lymphocytes 3.1 20.0 - 08/15 LOW [place] 40.0 Medical Center HEMATOLOGY Segs 95.4 45.0 - 08/15 [facility] [place] 75.0 Medical Center HEMATOLOGY Lymphocytes # 0.5 1.0 - 5.5 08/15 [place] [facility] HEMATOLOGY Eosinophils 0.0 0.0 - 4.0 08/15 Normal [facility] [place] HEMATOLOGY Monocytes 1.5 2.0 - 12.0 08/15 LOW [facility] HEMATOLOGY Segs-Bands # 15.6 1.5 - 8.1 08/15 [facility] Medical Center HEMATOLOGY Basophils 0.0 0.0 - 1.0 08/15 Normal Medical [place] HEMATOLOGY Monocytes # 0.2 0.0 - 0.8 08/15 Normal [facility] BEDSIDE Comment1 Notify 08/15 [facility] GLUCOSE RN/MD Medical TESTING Center CHEMISTRY Total CK 75 12 - 191 08/15 Normal [facility] CHEMISTRY CK MB Index 1.6 0.0 - 2.5 08/15 Normal [facility] [place] CHEMISTRY CK MB 1.2 0.5 - 3.6 08/15 Normal Medical Center BEDSIDE Comment1 Notify 08/15 [facility] GLUCOSE RN/MD Medical TESTING Center CHEMISTRY POC A O2 Sat 100.0 95.0 - 08/14 [facility] 100.0 Medical Center CHEMISTRY POC A BE 3 -2-2 - 2 08/14 [facility] Medical Center CHEMISTRY POC A PO2 184 80 - 100 08/14 [facility] Medical Center CHEMISTRY POC A pH 7.44 7.35 - 08/14 [facility] 7.45 Medical Center CHEMISTRY POC A Temp 37.0 08/14 [facility] Medical Center CHEMISTRY POC A HCO3 28 22 - 26 08/14 [facility] Medical Center CHEMISTRY POC A PCO2 41 35 - 45 08/14 [facility] Medical Center CHEMISTRY POC A Source ART 08/14 [facility] Medical Center CHEMISTRY POC A %FIO2 50.0 18.0 - 08/14 Normal [place] 100.0 Medical Center CHEMISTRY POC A O2 Sat 70.0 95.0 - 08/14 LOW [place] 100.0 Medical Center CHEMISTRY POC A BE 3 -2-2 - 2 08/14 [facility] Medical Center CHEMISTRY POC A %FIO2 [...] Medical Center BEDSIDE Comment1 Notify 08/14 NA [facility] GLUCOSE RN/MD Medical TESTING Center CHEMISTRY Total [...] values reflect the clinical guidelines of the [place] [employer]. CHEMISTRY Sodium Lvl 145 135 - 145 08/14 Normal [facility] Center CHEMISTRY Potassium Lvl 4.1 3.5 - 5.1 08/14 Normal [facility] Center CHEMISTRY BUN 25 7 - 22 08/14 [facility] Medical Center CHEMISTRY Creatinine 1.3 0.5 - 1.4 08/14 Normal [place] [facility] Medical Center CHEMISTRY CK MB Index 2.4 0.0 - 2.5 08/14 Normal [facility] Center CHEMISTRY CK MB 1.9 0.5 - 3.6 08/14 Normal [facility] HEMATOLOGY Basophils # 0.0 0.0 - 0.2 08/14 [place] [facility] HEMATOLOGY Basophils 0.0 0.0 - 1.0 08/14 Normal Medical [place] HEMATOLOGY Segs-Bands # 14.6 1.5 - 8.1 08/14 [facility] HEMATOLOGY Lymphocytes # [...] Center HEMATOLOGY Segs 93.5 45.0 - 08/14 [facility] [place] 75.0 Medical Center HEMATOLOGY Platelet 255 133 - 450 08/14 Normal Medical Center HEMATOLOGY RDW 16.1 11.5 - 08/14 [facility] [place] 14.5 Medical Center HEMATOLOGY Hct 33.2 36.0 - 08/14 LOW [place] 48.0 Medical Center HEMATOLOGY MCV 94.5 81.0 - 08/14 Normal [place] 99.0 Medical Center HEMATOLOGY MCH 32.3 27.0 - 08/14 [facility] [place] 31.0 Medical Center HEMATOLOGY Hgb 11.3 12.0 - 08/14 [facility] 16.0 [facility] HEMATOLOGY MCHC 34.1 32.0 - 08/14 [facility] 36.0 [facility] HEMATOLOGY MPV 8.9 7.4 - 10.4 08/14 [facility] HEMATOLOGY WBC 15.6 3.7 - 10.4 08/14 [facility] HEMATOLOGY RBC 3.51 4.20 - 08/14 LOW [facility] 5.40 [facility] CHEMISTRY POC A %FIO2 40.0 18.0 - 08/14 Normal [facility] 100.0 [facility] CHEMISTRY POC A 5.0 0.0 - 40.0 08/14 Normal [facility] BIPAP(E) [facility] CHEMISTRY POC A 10.0 0.0 - 50.0 08/14 [facility] BIPAP(I) [facility] CHEMISTRY POC A Mech 5 0 - 70 08/14 Normal [facility] Rate [facility] CHEMISTRY Troponin-I <0.02 0.00 - 08/14 Normal [facility] 0.40 [facility] CHEMISTRY Troponin-T <0.010 0.000 - 08/14 Normal [facility] 0.100 [facility] CHEMISTRY Myoglobin 117 25 - 72 08/14 [facility] Microbiolog Culture: 08/13 [facility] y Resistant [facility] Center Screen BACTERIAL - MRSA by PCR Negative 1 08/13 Normal <sup>1</sup>I [facility] SEROLOGY (08/14/2011 15:45:00) nterpreti ve Medical Data: [...] Lvl 8.0 8.5 - 10.5 08/13 LOW [facility] CHEMISTRY Chloride Lvl 108 95 - 109 08/13 Normal Medical Center CHEMISTRY CO2 22 24 - 32 08/13 LOW [facility] CHEMISTRY BUN 22 7 - 22 08/13 Normal [facility] Center CHEMISTRY Glucose Lvl 179 70 - 99 08/13 [place] <sup>7</sup>I T ex nterpretive Medical Data: Adult Center reference range values reflect the clinical guidelines of the [place] [employer]. CHEMISTRY Sodium Lvl 140 135 - 145 08/13 Normal [facility] CHEMISTRY Potassium Lvl 3.6 3.5 - 5.1 08/13 Normal [facility] Center CHEMISTRY Creatinine 1.4 0.5 - 1.4 08/13 Normal [place] L[place] [facility] CHEMISTRY AGAP 13.6 10.0 - 08/13 Normal [place] 20.0 [facility] HEMATOLOGY Segs-Bands # 10.1 1.5 - 8.1 08/13 [facility] HEMATOLOGY Monocytes 0.6 2.0 - 12.0 08/13 [facility] HEMATOLOGY Basophils 0.0 0.0 - 1.0 08/13 Normal [facility] HEMATOLOGY Eosinophils 0.0 0.0 - 4.0 08/13 [place] [facility] HEMATOLOGY Lymphocytes 5.5 20.0 - 08/13 [facility] [place] 40.0 [facility] HEMATOLOGY Basophils # 0.0 0.0 - 0.2 08/13 [place] [facility] HEMATOLOGY Eosinophils # 0.0 0.0 - 0.5 08/13 [place] [facility] HEMATOLOGY Monocytes # 0.1 0.0 - 0.8 08/13 [place] [facility] Center HEMATOLOGY Lymphocytes # 0.6 1.0 - 5.5 08/13 [facility] [place] [facility] HEMATOLOGY Segs 93.9 45.0 - 08/13 [facility] [place] 75.0 Medical Center HEMATOLOGY INR 1.12 0.85 - 08/13 Normal <sup>8</sup>[place] 1[place] nterpretive Medical Data: Center RECOMMENDED RANGES FOR PROTIME INR: 2.0-3.0 for most medical and surgical thromboemboli c states. 2.5-3.5 for artificial heart valves and recurrent embolism. INR SHOULD BE USED ONLY FOR PATIENTS ON STABLE ANTICOAGULANT THERAPY. HEMATOLOGY PT 14.4 12.0 - 08/13 Normal [facility] 14.7 /2011 [facility] HEMATOLOGY MPV 9.5 7.4 - 10.4 08/13 Normal /2011 [facility] HEMATOLOGY Platelet 230 133 - 450 08/13 Normal /2011 [facility] HEMATOLOGY RDW 16.4 11.5 - 08/13 [facility] [place] 14.5 /2011 [facility] HEMATOLOGY MCHC 33.7 32.0 - 08/13 Normal [facility] 36.0 /2011 [facility] HEMATOLOGY WBC 10.7 3.7 - 10.4 08/13 [facility] HEMATOLOGY MCH 31.4 27.0 - 08/13 [facility] 31.0 [facility] HEMATOLOGY MCV 93.2 81.0 - 08/13 Normal [facility] 99.0 /2011 [facility] HEMATOLOGY Hct 33.3 36.0 - 08/13 LOW [facility] 48.0 /2011 [facility] HEMATOLOGY Hgb 11.2 12.0 - 08/13 LOW [facility] 16.0 /2011 [facility] HEMATOLOGY RBC 3.57 4.20 - 08/13 LOW [facility] 5.40 /2011 [facility] URINALYSIS UA Mucus Few /LPF None [facility] ([facility]/14/2011 15:44:00) Ce nter URINALYSIS UA Amorph Occasional /HPF None Seen 08/13 [facility] Juju * Medical (08/14/2011 15:44:00) Ce nter URINALYSIS UA 0.1 - 1.0 08/13 [facility] Urobilinogen /2011 [facility] URINALYSIS UA Bacteria Occasional /HPF None Seen 08/13 [facility] Medical (08/14/2011 15:44:00) Ce nter URINALYSIS UA Leuk Est Negative Negative 08/13 [place]08[place]14/2011 15:44:00) /2011 [facility] URINALYSIS UA RBC 6 0 - 2 08/13 [facility] URINALYSIS UA Sq Epi Occasional /LPF Few [facility] (08/14/2011 15:44:00) Ce nter URINALYSIS UA WBC 1 0 - 5 08/13 [facility] URINALYSIS UA Blood Negative Negative 08/13 Normal [facility] (08/14/2011 15:44:00) [facility] [facility] URINALYSIS UA Nitrite Negative Negative 08/13 Normal [facility] (08/14/2011 15:44:00) [facility] [facility] URINALYSIS UA Bili Negative Negative 08/13 NA [facility] *NA Medical (08/14/2011 15:44:00) Ce nter URINALYSIS UA Turbidity Slight Clear 08[facility] 15:44:00) Ce nter URINALYSIS UA Color Yellow Yellow [facility]2011 15:44:00) Ce nter URINALYSIS UA Ketones Negative mg/dL Negative [facility]/14/2011 15:44:00) Ce nter URINALYSIS UA Glucose 50 mg/dL Negative 08/13 [facility] (08/14/2011 15:44:00) Ce nter URINALYSIS UA Protein 20 mg/dL Negative 08/13 [facility] (08/14/2011 15:44:00) Ce nter URINALYSIS UA Spec Grav 1.036 <=1.030 08/13 [place] [facility] Center URINALYSIS UA pH 5.5 5.0 - 8.0 08/13 Normal [facility] Microbiolog Culture: 08/13 [facility] y [facility] CHEMISTRY POC A Ca Ion 1.14 1.16 - 08/13 LOW 1.30 [facility] CHEMISTRY POC A LA 2.3 0.5 - 2.2 08/13 [place] [facility] Center CHEMISTRY POC A Glu 100 70 - 99 08/13 [facility] CHEMISTRY POC A Na 136 135 - 145 08/13 Normal [facility] CHEMISTRY POC A K 3.2 3.5 - 5.1 08/13 LOW [facility] CHEMISTRY POC A Hct 36.0 36.0 - 08/13 Normal 48.0 [facility] BLOOD BANK ABO/Rh A NEG 08/13 Unknown Medical Center BLOOD BANK Antibody Scrn Negative 08/13 Normal [facility] [place] as RESULTS (08/14/2011 06:20:00) /2011 [facility] [facility] HEMATOLOGY INR 1.12 0.85 - 07/31 Normal <sup>9</sup>I [facility]UD[facility] luz 1.17 nterpretive Medical Data: Center RECOMMENDED RANGES FOR PROTIME INR: 2.0-3.0 for most medical and surgical thromboemboli c states. 2.5-3.5 for artificial heart valves and recurrent embolism. INR SHOULD BE USED ONLY FOR PATIENTS ON STABLE ANTICOAGULANT THERAPY. HEMATOLOGY PT 14.4 12.0 - 07/31 Normal [facility] 14.7 [facility] Center HEMATOLOGY PTT 32.4 22.9 - 07/31 [...] 138 08/12/2014 [facility] Height 66 [facility]12[facility]2014 [facility] 80 08/12/2014 [facility] Systolic (mm Hg) 141 08/12/2014 [facility] [place] [facility] Diastolic (mm Hg) 80 08/12/2014 [facility] Ne uro Weight 140.0 06/17/2014 [facility] Height 66 06[facility]17/2014 [facility] Heart Rate 90 06/17/2014 [facility] Neuro Systolic (mm Hg) [...] [facility] Respitory Rate 18 09/02/2011 [facility] joann Center Systolic (mm Hg) 159 09/02/2011 [facility] dical Center Diastolic (mm Hg) 77 09/02/2011 [facility] [place] Temperature Oral (F) 98.7 F 09/02/2011 [facility] Heart Rate 74 09/02/2011 [facility] Diastolic (mm Hg) 65 09/02/2011 [facility] edical Center Respitory Rate 20 09/02/2011 [facility] joann Center Systolic (mm Hg) 139 09/02/2011 [facility] dical Center Heart Rate 86 09/02/2011 [facility] Temperature Oral (F) 98.3 F 09/02/2011 [facility] Heart Rate 86 09/02/2011 [facility] Center Diastolic (mm Hg) 70 09/02/2011 [facility] edical Center Systolic (mm Hg) 147 09/02/2011 [facility] dical Center Respitory Rate 20 09/02/2011 [facility] Center Temperature Oral (F) 98.4 F 09/02/2011 [facility] Weight 65.909 09/01/2011 [facility] Center Height 167.64 cm 09/01/2011 [facility] Center Height 167.64 cm 09/01/2011 [facility] Center Weight 77.273 09/01/2011 [facility] Center Weight 147.6 08/29/2011 [facility] Height 66 08/29/2011 [facility] Temperature Oral (F) 99.0 F 08/29/2011 [facility] Heart Rate 76 08/29/2011 [facility] Diastolic (mm Hg) 143 08/29/2011 [facility] Systolic (mm Hg) 128 08/16/2011 [facility] dical Center Diastolic (mm Hg) 74 08/16/2011 [facility] edical Center Respitory Rate 43 08/16/2011 [facility] Diastolic (mm Hg) 70 08/16/2011 [facility] Systolic (mm Hg) 133 08/16/2011 [facility] [place] Respitory Rate 29 08/16/2011 [facility] Diastolic (mm Hg) 64 08/16/2011 [facility] Systolic (mm Hg) 145 08/16/2011 [facility] Center Respitory Rate 34 08/16/2011 [facility] Temperature Oral (F) 98.1 F 08/14/2011 [facility] Heart Rate 61 08/14/2011 [facility] Height 167.64 cm 08/14/2011 [facility] Center Weight 65.909 08/14/2011 [facility] Center Weight 147.8 08/01/2011 [facility] Height 66 08/01/2011 [facility] Temperature Oral (F) 98.8 F 08/01/2011 [facility] Heart Rate 83 08/01/2011 [facility] Systolic (mm Hg) 144 08/01/2011 [facility] [place] [facility] Diastolic (mm Hg) 86 08/01/2011 [facility] Height 167.64 cm 08/01/2011 [facility] Center Weight 65.909 08/01/2011 [facility] Encounters Location Location Encounter Encounter Reason Attending ADM [place] Stat us Source Details Type Number For Provider Date Date Visit [facility] Inpatient [id number] PANTERA DILLON 08/13 08/15 Disch arg [facility] ed [facility] [place] [facility] OU [id number] YESSICA DILLON 08/31 09/01 Active [facility] [place] [facility] AUDIT [id number] 02/08 [facility] AUDIT [id number] 02/11 [facility], [id number] 03/12 02/11 [place] Provider: /2012 ELISSA Ozuna mary ann , Status: Pen, Time: 11:30 AM AUDIT [id number] 04/19 [facility] [id number] Pantera Dillon 05/13 05/13 [facility] 95[facility] [id number] Pantera Dillon 06/17 06/17 [facility] 43522 [facility] [id number] Pantera Dillon 08/12 08/12 [facility] Visit 51842 [facility] Outpatient [id number] RHODA 12/03 [facility] FENOY Giorgi Procedures Procedure Code Date Perfomer Comments Source smoking/tobacco 14 07/18/2011 not needed [facility] cessation, patient education and counseling Assessment and Plan No Data Provided for This Section Plan of Care No Data Provided for This Section Social History Social History Date Source Alcohol Use (Active) 04/20/2012 [place] [facility] Never A Smoker (Active) Marital History - Currently (Active) No History of Drug Use (Denied) Family History Value Date Source Paternal history of Acute 04/20/2012 [place] [facility] Myocardial Infarction (V17.3); (Active) Paternal history of Stroke Syndrome (V17.1); (Active) Paternal history of Stroke 02/12/2012 [place] [facility] Syndrome (V17.1); (Active) Paternal history of Acute Myocardial Infarction (V17.3); (Active) Paternal history of Acute 02/09/2012 [place] [facility] Myocardial Infarction (V17.3); (Active) Paternal history of Stroke Syndrome (V17.1); (Active) Advance Directives Order Name Results Value Date Source Advance Directives Advance Directives No Advance 04/20/2012 [place] [facility] Directives available. Advance Directives Advance Directives No Advance 02/12/2012 [place] [facility] Directives available. Advance Directives Advance Directives No Advance 02/09/2012 [place] [facility] Directives available. Functional Status No Data Provided for This Section
--- OUTSIDE RECORDS SUMMARY | 2020-03-13 22:42 | XMS REPORT | Summary of Care ---
:1940 Author Organization [facility] Address [address] [place] [id number] Care Team Providers Name Role Phone Crystal Serena Primary Care Provider Reason for Visit Reason Comments Refill Request Encounter Details Date Type Department Care Team Description 03/05/2020 Refill [facility] César Ortiz MD Refill Request Neurology-[address] [place] [id number] Suite [facility] [phone] [place] [address]-6 [facility] [phone] Allergies Active Allergy Reactions Severity Noted Date Comments Onabotulinumtoxina Other - See comments 02/26/2018 Codeine Hallucinations 02/26/2018 Meperidine Hcl Other - See comments 02/26/2018 fever Penicillin Hives 02/26/2018 documented as of this encounter (statuses as of 03/12/2020) Medications Medication Sig Dispensed Refills Start Date End Date Status levothyroxine 75 mcg 0 10/29/2017 Active tablet pravastatin 80 mg 0 10/29/2017 A ctive tablet spironolactone 50 mg 0 10/29/2017 Active tablet traZODONE 100 mg 0 12/27/2017 Ac tive tablet clonazePAM 2 mg Take 1 60 tablet 0 03/12/2020 Act albertina tabletIndications: tablet by 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 on: 03/12/2020 04:03 PM Modules accepted: Orders elephone Encounter - Crispin Harrington LVN - 03/12/2020 4:00 PM CST Per Tae at Pharmacy, medication can not be faxed. As of Feb controlled substances have to be escribed. CRISPIN HARRINGTON LVN 03/12/2020 4:02 PM Requested Prescriptions Signed Prescriptions Disp Refills clonazePAM 2 mg tablet 60 tablet 0 Sig: Take 1 tablet by mouth 2 (two) times daily. Authorizing Provider: CÉSAR ORTIZ Ordering User: CRISPIN HARRINGTON elephone Encounter - Crispin Harrington LVN - 03/09/2020 11:39 AM CST Requested Prescriptions Signed Prescriptions Disp Refills clonazePAM 2 mg tablet 60 tablet 0 Sig: Take 1 tablet by mouth 2 (two) times daily. Authorizing Provider: CÉSAR ORTIZ Ordering User: CRISPIN HARRINGTON. Printed and faxed to pharmacy. CRISPIN HARRINGTON LVN 03/09/2020 11:42 AM documented in this encounter Plan of Treatment [...] ss Type Group MEDICARE MEDICARE PART A [id number] 1993-[place] [phone] [facility] Medicare & B t [id number] G[place]IERRE[place] BYRNES [id number] AET[employer] AETNA INDEMNITY [id number] 2013-[place] Briceñoemkrystalty t documented as of this encounter
--- OUTSIDE RECORDS SUMMARY | 2020-03-13 22:42 | XMS REPORT | Continuity of Care Document ---
:1940 Author Organization [facility] t Address [address] [place] [address] Care Team Providers Name Role Phone Diana GIBBS, Gene Attending Clinician Problems Condition Condition Condition Status Onset Resolution [...] Giorgi LUMBOSACRA 00 L STEPHEN Active 06/02/2014 [facility] LUMBAR Condition Active 2014-08-12 Mem oria RADICULOPA 05-13 11:35:12 l THY LUMBAR 00:00: [place] RADICULOPA 00 THY Active 05/13/2014 Condition 5 [facility] LOW BACK Condition Active 2014-08-12 M emoria PAIN 05-13 11:35:12 l LOW BACK 00:00: Richie n PAIN 00 Active 05/13/2014 Condition 5 [facility] JUAN Diagnosis Active 2011-09-11 Mem oria 7-12 21:43:00 l JUAN 00:00: Giorgi 00 Active 08/31/2011 [facility] HISTORY OF Condition Active 2014-08-12 Memoria HYPERCHOLE 07-17 11:35:12 l STEROLEMIA HISTORY 00:00: Her gray OF 00 HYPERCHOLE STEROLEMIA Active 07/18/2011 Condition 5 [facility] HISTORY OF Condition Active 2014-08-12 Memoria DEPRESSION 07-17 11:35:12 l HISTORY 00:00: [place] OF 00 DEPRESSION Active 07/18/2011 Condition 5 [...] 00:00: Giorgi TRIGEMINAL 00 NERVE Active 07/18/2011 [facility] History of Problem Active 2011-08-18 M emoria - 08:27:27 l trigeminal History Her gray neuralgia of - trigeminal neuralgia Active Problem 08/18/2011 [facility] Pain Problem Active 2011-08-18 Memor ia 08:27:27 l Pain Giorgi Active Problem 08/18/2011 [facility] Headache Problem Active 2011-09-04 Mem oria 08:24:51 l Headache Richie n Active Problem 09/04/2011 [facility] TRIGEMINAL Condition Active 2014-08-12 Memoria NEURALGIA 11:35:12 l Giorgi TRIGEMINAL NEURALGIA Active Condition 08/12/2014 [facility] Peripheral Problem Active 2012-04-20 M emoria Neuropathy 02:06:39 l Giorgi Peripheral Neuropathy Active 04/20/2012 [facility] Herniated Problem Active 2012-04-20 Me moria Interverte 02:06:39 l bral Disc Giorgi Herniated Interverte bral Disc Active 3 [facility] Facial Problem Active 2012-04-20 Memor ia Pain 02:06:39 l Facial [place] Pain Active 3 [facility] Fibromyalg Problem Active 2012-04-20 M emoria ia 02:06:39 l [place] Fibromyalg ia Active 04/20/2012 [facility] Chronic Problem Active 2012-04-20 José Luis ke Fatigue 02:06:39 l Syndrome Chronic Kiera nn Fatigue Syndrome Active 3 [facility] TRIGEMINAL Diagnosis Active 2011-08-16 Memoria NEURALGIA 02:41:00 l Giorgi TRIGEMINAL NEURALGIA Active [facility] Allergies, Adverse Reactions, Alerts Allergy Allergy Status Severity Reaction(s) Onset Inactive Treating Comm ents Source Name Type Date Date Clinician DEMEROL DEMEROL Active Memoria 5-29 l 00:00: [place] 00 PCN PCN Active Memoria 5-29 l 00:00: Giorgi 00 CODEINE CODEINE Active Memoria 5-29 l 00:00: Giorgi 00 FENTANYL FENTANYL Active Memori a 5-29 l 00:00: Giorgi 00 codeine codeine Active Memoria l Giorgi Demerol Demerol Active Memoria HCl HCl l Giorgi fentaNYL fentaNYL Active Memori a l [place] penicill penicill Active Memori a ins ins l Giorgi cephalos cephalos Active Memori a porins porins l [place] Darvon Darvon Active Memoria l [place] Demerol Demerol Active Memoria TABS TABS l Giorgi Penicill Penicill Active Memori a ins ins l [place] Codeine Codeine Active Memoria Derivati Derivati l ves ves [place] FentaNYL FentaNYL Active Memori a PT72 PT72 l [place] Family History Family Member Diagnosis Comments Start Date Stop Date Source Unknown Family Family History 2012-02-09 2012-02-09 Memori al Giorgi Member 12:35:28 12:35:28 Social History Social Habit Start Date Stop Date Quantity Comments Source Social History 2012-04-20 2012-04-20 [facility] 02:06:39 02:06:39 Medications Ordered Filled Start Stop Current Ordering Indication Dosage Frequency Signature Comments Components Source Medication Medication Date Date Medication? Clinician (SIG) Name Name OCTAVIA No to be Memoria (MITCHEL) 4 MG 4-29 taken as l TABS 00:00: directed Giorgi 00 LIDODERM 5 No apply to Mem oria % PTCH 4-29 affected l 00:00: area 12h [place] 00 on 12h off per 24h period (may use up to 3 patches at one time) LIDODERM 5 No Apply to Mem oria % PTCH 3-25 the l 00:00: affected [place] 00 area 12 hrs on and 12hrs off per 24 hr period. ( up to 3 patches at one time) Pravastatin Yes (Active) M emoria Sodium 80 3-02 l MG Oral 02:06: [place] Tablet 39 ClonazePAM Yes (Active) Me moria 2 MG Oral 3-02 l Tablet 02:06: Giorgi 39 Hydrochloro Yes (Active) M emoria thiazide 3-02 l 12.5 MG 02:06: Giorgi Oral 39 Capsule Levothyroxi Yes (Active) M emoria ne Sodium 3-02 l 75 MCG Oral 02:06: Richie n Tablet 39 Amitriptyli 2011-02 Yes ; Start Mem oria ne HCl 10 04-13 Date: l MG Oral 06:00: 02/11/2012 [facility] Tablet 00 ; End Date: (Active) hydrochloro No Patel 12.5 mg, 1 Memoria thiazide 7-15 Ping-Mora tab, l 14:00: Lo Route: PO, [place] 00 Drug form: TAB, Daily, Start date: 09/03/11 9:00:00, Duration: 30 day, Stop date: 10/02/11 9:00:00 pravastatin No Patel 80 mg, 4 Memoria 7-15 Ping-Mora tab, l 14:00: Lo Route: PO, Giorgi Drug form: TAB, Daily, Start date: 09/03/11 9:00:00, Duration: 30 day, Stop date: 10/02/11 9:00:00 levothyroxi No Patel 0.075 mg, Memoria ne 7-15 Ping-Mora 1 tab, l 14:00: Lo Route: PO, [place] Drug form: TAB, Daily, Start date: 09/03/11 9:00:00, Duration: 30 day, Stop date: 10/02/11 9:00:00 fluoxetine No Patel 40 mg, 2 M emoria 7-15 Ping-Mora cap, l 14:00: Lo Route: PO, [place] 00 Drug form: CAP, Daily, Start date: 09/03/11 9:00:00, Duration: 30 day, Stop date: 10/02/11 9:00:00 diphenhydrA No Patel 25 mg, 1 Memoria MINE 7-15 Ping-Mora cap, l 02:00: Lo Route: PO, Drug form: CAP, Bedtime, Start date: 09/02/11 [...] Ping-Mora microgram, l 16:33: Lo PO, Daily, [place] 01 Substituti on Allowed diphenhydrA Yes Patel 25 mg, PO, Memoria MINE 09-01 Ping-Mora Bedtime, l 16:32: Lo Substituti [place] 13 on Allowed acetaminoph Yes 325 mg, Mem oria en 714 PO, Q4H, l 16:31: Substituti [place] 17 on Allowed hydrochloro Yes Patel 12.5 mg, Memoria thiazide 09-01 Ping-Mora PO, Daily, l 16:29: Lo Substituti [place] 58 on Allowed fluoxetine Yes Patel 40 [...] l mg oral 14:00: Mendoza Route: PO, [place] capsule 00 Drug form: CAP, Q12H, Start date: 09/01/11 9:00:00, Duration: 30 day, Stop date: 09/30/11 21:00:00 senna No Alexey 8.6 mg, 1 Me moria 7-13 Efren tab, l 14:00: Mendoza Route: PO, H ermann 00 Drug Form: TAB, Q12H, Start date: 09/01/11 9:00:00, Duration: 30 day, Stop date: 09/30/11 21:00:00 docusate 2012-0 No Alexey 100 mg, 10 Memoria sodium 100 7-13 Efren mL, Route: l mg/25 mL 14:00: Mendoza NG, Drug [place] oral syrup 00 form: LIQ, Q12H, Start date: 09/01/11 9:00:00, Duration: 30 day, Stop date: 09/30/11 21:00:00 dexamethaso 2011-0 No Alexey 4 mg, 1 Memoria ne - Efren tab, l 11:00: Mendoza Route: PO, [...] 3:07:00 insulin 2011-0 No Alexey 7 unit, Ms moria regular 08-31 Efren 0.07 mL, l human 08:08: Mendoza [...] 30 day, Stop date: 10/01/11 3:07:00 acetaminoph 2011- No Alexey 1 tab, Memoria en-hydrocod 08-31 [...] - Efren supp, l 08:08: Mendoza Route: NM, H ermann 00 Drug form: SUPP, Daily, [...] NE 1 MG 7-10 l TABS 00:00: Flomax No Cl 0.8 mg, 2 Memor ia 08-15 Patel cap, l 13:30: Abdunnur Route: PO, Her Drug form: CAP, After Breakfast, Start date: 08/16/11 8:30:00, Duration: 1 day, Stop date: 08/16/11 8:30:00 calcium No Dong H Wilma 3,000 mg, Memoria gluconate 08-15 30 mL, l 08:30: Route: IVPB, ONCE, Start date: 08/16/11 3:30:00, Stop [...] 30 day, Stop date: 09/14/11 10:38:00 Prozac No Cl 40 mg, 2 Memori a 08-14 Patel cap, l 14:00: Abdunnur Route: PO, Her gray 00 Drug form: CAP, Daily, Start date: 08/15/11 9:00:00, Duration: 30 day, Stop date: 09/13/11 9:00:00 Microzide 2011-0 No Cl 12.5 mg, 1 M rajria 08-14 Patel cap, l 14:00: Abdunnur Route: [...] IVPB, Drug Her gray 00 form: INJ, MIUM54I, Start date: 08/14/11 20:00:00, Duration: 2 doses [...] Zakaria mL, Route: l 23:00: IVP, Drug Giorgi 00 form: INJ, Q6H, Start date: 08/14/11 [...] Chavez Moreno 0.1 mL, l 19:23: Route: [place] 00 IVP, Drug form: INJ, Q2MIN, PRN Narcotic Reversal, Start date: 08/14/11 14:23:00, Duration: 8 doses or times, Stop date: 08/15/11 0:00:00 flumazenil 2011-0 No Kin 0.2 mg, 2 Memoria 6-25 Chavez Moreno mL, Route: l 19:23: IVP, Drug Giorgi 00 form: INJ, PRN, PRN Benzodiaze pine Reversal, Initial dose, Start date: 08/14/11 14:23:00, Stop date: 08/15/11 0:00:00 hydromorpho 2012-0 No Kin 0.5 mg, M emoria ne 6-25 Chavez Moreno 0.25 mL, l 19:23: Route: [place] IVP, Drug form: INJ, Q5Min, PRN Pain Score 4-6, Start date: 08/14/11 14:23:00, Duration: 5 doses or times, Stop date: 08/15/11 0:00:00 hydrALAZINE 2012-0 No Kin 5 mg, 0.25 Memoria 6-25 Chavez Moreno mL, Route: l 19:23: IVP, Drug [place] 00 form: INJ, Q5Min, PRN Elevated BP, Start date: 08/14/11 14:23:00, Duration: 4 doses or times, Stop date: 08/15/11 0:00:00 labetalol 2012-0 No Kin 5 mg, 1 Mem oria [...] 30 day, Stop date: 09/13/11 6:00:00 metoclopram 2012-0 No Cl 10 mg, 2 M emoria [...] l mg oral 14:00: Abdunnur Route: PO, [place] capsule 00 Drug form: CAP, Q12H, Start date: 08/14/11 9:00:00, Duration: 30 day, Stop date: 09/12/11 21:00:00 levothyroxi 2011-0 No Cl 0.075 mg, Memoria ne 6-25 Patel 1 tab, l 14:00: Abdunnur Route: PO, Her gray 00 Drug form: TAB, Daily, Start date: 08/14/11 9:00:00, Duration: 30 day, Stop date: 09/12/11 9:00:00 pravastatin 2011- No Cl 80 mg, 4 M emoria 6-25 Patel tab, l 14:00: Abdunnur Route: PO, Her gray 00 Drug form: TAB, Daily, Start date: 08/14/11 9:00:00, Duration: 30 day, Stop date: 09/12/11 9:00:00 hydrochloro 2011-0 No Cl 12.5 mg, 1 Memoria thiazide 6-25 Patel cap, l 12.5 mg 14:00: Abdunnur Route: PO, [place] oral 00 Drug form: capsule CAP, Daily, Start date: 08/14/11 9:00:00, Duration: 30 day, Stop date: 09/12/11 9:00:00 Prozac 2011-0 No Cl 40 mg, 2 Memori a 6-25 Patel cap, l 14:00: Abdunnur Route: PO, Her gray 00 Drug form: CAP, Daily, Start date: 08/14/11 9:00:00, Duration: 30 day, Stop date: 09/12/11 9:00:00 magnesium 2011-0 Yes Cl 17.45 gm, Me moria citrate 6-25 Patel 300 mL, l 8.85% oral 11:49: Abdunnur PO, ONCE, [place] liquid 24 PRN, 1 mL, 1, 1, [...] 16 Giorgi 16 tab, Substituti on Allowed Wirtz No Asma 1 tab, PO, Memori a 10/325 oral 6-25 Zakaria Q4H, PRN, l tablet 11:49: 30 tab, 2, Kiera nn 14 2, as needed for pain, Substituti on Allowed, Maintenanc e, TAB dexamethaso Yes Cl 1 mg, 1 Me moria ne 1 mg -25 Patel tab, PO, l oral tablet 11:49: [...] No Cl 7 unit, Memori a regular 25 Patel 0.07 mL, l human 11:47: Abdunnur Route: Richie n recombinant 00 SUB-Q, 100 Drug form: units/mL SOLN, PRN, injectable PRN solution Abnormal Lab Result, Start date: 08/14/11 6:47:00, Duration: 30 day, Stop date: 09/13/11 6:46:00 Dextrose No Cl 12.5 gm, José Luis ke 50% Syringe 08-13 Patel 25 mL, l 11:47: Abdunnur Route: Giorgi 00 IVP, Drug Form: INJ, PRN, PRN [...] 30 day, Stop date: 09/13/11 6:46:00 morphine 2011- No Cl 2 mg, 0.5 Mem oria Sulfate 6-25 Patel mL, Route: l 11:47: Abdunnur IVP, Drug Herm heber 00 form: INJ, Q1H, PRN Pain Score 7-10, Start date: 08/14/11 6:47:00, Duration: 30 day, Stop date: 09/13/11 6:46:00 ondansetron No Cl 4 mg, 2 Me moria 6-25 Patel mL, Route: l 11:47: Abdunnur IVP, Drug Herm heber 00 form: INJ, Q8H, PRN Nausea & Vomiting, Start date: 08/14/11 6:47:00, Duration: 30 day, Stop date: 09/13/11 6:46:00 Sodium 2011- No Asma 1,000 mL, Memori a Chloride 6-25 Zakaria Rate: 50 l 0.9% IV 11:47: ml/hr, Giorgi 1,000 mL 00 Infuse over: 20 hr, Route: IV, Dosing Weight 65.909 kg, Total Volume: 1,000, Start date: 08/14/11 6:47:00, Duration: 30 day, Stop date: 09/13/11 6:46:00 Benadryl 2011- No Cl 25 mg, 1 José Luis [...] Oral 5-30 Date: l Capsule 05:00: 07/19/2011 Franco heber 00 ; End Date: (Active) LEVOTHYROXI Yes 1 tab po Me moria NE SODIUM 5-29 qd l 75 MCG TABS 00:00: Richie n 00 HYDROCHLORO Yes 1 cap po Me moria THIAZIDE 5-29 qd l 12.5 MG 00:00: Giorgi CAPS 00 FLUOXETINE 2011-0 Yes 1 cap po Mem oria HCL 40 MG 5-29 qd l CAPS 00:00: [place] 00 PRAVASTATIN 2011-0 Yes 1 tab po Me moria SODIUM 80 5-29 qd l MG TABS 00:00: [place] CLONAZEPAM 2011-0 Yes 1 tab po Mem oria 2 MG TABS 5-29 tid l 00:00: [place] CLONAZEPAM 2011-0 Yes 1 tab po Mem oria 2 MG TABS 5-29 tid l 00:00: [place] Vital Signs Vital Name Observation Time Observation Value Comments Source Weight 2014-08-12 16:35:12 [facility] Giorgi Height 2014-08-12 16:35:12 [facility] Heart Rate 2014-08-12 16:35:12 [facility] [place] Systolic (mm Hg) 2014-08-12 16:35:12 José Luis rial Giorgi Diastolic (mm Hg) 2014-08-12 16:35:12 Mem orial Giorgi Weight 2014-06-17 17:09:01 [facility] Giorgi Height 2014-06-17 17:09:01 [facility] [place] Heart Rate 2014-06-17 17:09:01 [facility] G[facility]gi Systolic (mm Hg) 2014-06-17 17:09:01 José Luis rial [place] Diastolic (mm Hg) 2014-06-17 17:09:01 Mem orial [place] Temperature Oral (F) 2014-06-17 17:09:01 97.9 F [facility] [place] Respitory Rate 2014-06-17 17:09:01 Memori al Giorgi Weight 2014-05-13 18:20:11 [facility] Height 2014-05-13 18:20:11 [facility] Temperature Oral (F) 2014-05-13 18:20:11 98.4 F [facility] Giorgi Heart Rate 2014-05-13 18:20:11 [facility] [place] Systolic (mm Hg) 2014-05-13 18:20:11 José Luis rial [place] Diastolic (mm Hg) 2014-05-13 18:20:11 Mem orial [place] Respitory Rate 2014-05-13 18:20:11 Memori al Giorgi Weight 2011-09-12 14:52:20 [facility] G[facility] Height 2011-09-12 14:52:20 [facility] [place] Temperature Oral (F) 2011-09-12 14:52:20 98.7 F [facility] [place] Heart Rate 2011-09-12 14:52:20 [facility] [place] Systolic (mm Hg) 2011-09-12 14:52:20 José Luis rial Giorgi Diastolic (mm Hg) 2011-09-12 14:52:20 Mem orial [place] Respitory Rate 2011-09-02 16:30:00 Memori al [place] Systolic (mm Hg) 2011-09-02 16:30:00 José Luis rial [place] Diastolic (mm Hg) 2011-09-02 16:30:00 Mem orial Giorgi Temperature Oral (F) 2011-09-02 16:30:00 98.7 F [facility] G[facility]gi Heart Rate 2011-09-02 16:30:00 [facility] [place] Diastolic (mm Hg) 2011-09-02 12:00:00 Mem orial [place] Respitory Rate 2011-09-02 12:00:00 Memori al Giorgi Systolic (mm Hg) 2011-09-02 12:00:00 José Luis rial Giorgi Heart Rate 2011-09-02 12:00:00 [facility] Temperature Oral (F) 2011-09-02 12:00:00 98.3 F [facility] [place] Heart Rate 2011-09-02 09:00:00 [facility] Diastolic (mm Hg) 2011-09-02 09:00:00 Mem orial [place] Systolic (mm Hg) 2011-09-02 09:00:00 José Luis rial [place] Respitory Rate 2011-09-02 09:00:00 Memori al [place] Temperature Oral (F) 2011-09-02 09:00:00 98.4 F [facility] [place] Weight 2011-09-01 11:48:00 [facility] Giorgi Height 2011-09-01 11:48:00 167.64 cm [facility] [place] Height 2011-09-01 04:34:00 167.64 cm [facility] [place] Weight 2011-09-01 04:34:00 [facility] [place] Weight 2011-08-29 17:03:50 [facility] G[facility] Height 2011-08-29 17:03:50 [facility] [place] Temperature Oral (F) 2011-08-29 17:03:50 99.0 F [facility]gi Heart Rate 2011-08-29 17:03:50 [facility] [place] Diastolic (mm Hg) 2011-08-29 17:03:50 Mem orial [place] Systolic (mm Hg) 2011-08-16 23:00:00 José Luis rial [place] Diastolic (mm Hg) 2011-08-16 23:00:00 Mem orial Giorgi Respitory Rate 2011-08-16 23:00:00 Memori al [place] Diastolic (mm Hg) 2011-08-16 22:00:00 Mem orial [place] Systolic (mm Hg) 2011-08-16 22:00:00 José Luis rial Giorgi Respitory Rate 2011-08-16 22:00:00 Memori al [place] Diastolic (mm Hg) 2011-08-16 21:00:00 Mem orial Giorgi Systolic (mm Hg) 2011-08-16 21:00:00 José Luis rial Giorgi Respitory Rate 2011-08-16 21:00:00 Memori al [place] Temperature Oral (F) 2011-08-14 20:00:00 98.1 F [facility] [place] Heart Rate 2011-08-14 11:10:00 [facility] Height 2011-08-14 11:01:00 167.64 cm [facility] [place] Weight 2011-08-14 11:01:00 [facility] Weight 2011-08-01 17:53:50 [facility] Height 2011-08-01 17:53:50 [facility] Temperature Oral (F) 2011-08-01 17:53:50 98.8 F [facility] [place] Heart Rate 2011-08-01 17:53:50 [facility] [place] Systolic (mm Hg) 2011-08-01 17:53:50 José Luis rial Giorgi Diastolic (mm Hg) 2011-08-01 17:53:50 Mem orial [place] Height 2011-08-01 17:42:00 167.64 cm [facility] [place] Weight 2011-08-01 17:42:00 [facility] Procedures Procedure Date / Time Performed Performing Clinician [facility] e smoking/tobacco 2011-07-18 18:46:51 [facility] [place] cessation, patient education and counseling Encounters Start End Encounter Admission Attending Care Care Encounter Source Date/Time Date/Time Type Type Clinicians Facility Department ID 2020-03-05 2020-03-05 IESHA Gan [id number] 00:00:00 00:00:00 Miky Rowell [id number] [place] [id number] [facility] [id number] [facility] 2012-04-19 2012-04-19 [id number] 20:06:57 20:06:39 2012-02-12 2012-02-12 Outpatient [facility] [id number] 03:02:06 03:01:32 2012-02-09 2012-02-09 Outpatient [facility] [id number] 06:35:44 06:35:28 Results Test Description Test Time Test Comments Results Result Comments Source BEDSIDE GLUCOSE 2011-09-02 126 [facility] TESTING 17:02:00 BEDSIDE GLUCOSE 2011-09-02 171 [facility] [...] = PTT) 30.9 s 22.9-35.8 N [facility] [id number] 11:00:00 Test Item Value Reference Range Interpretation Comments PT (test code = PT) 13.7 s 12.0-14.7 N [facility] [id number] 11:00:001.05[facility] 2011-09-01 11:00:0096.0[facility] QhmapcsIYNQLHLEQA2409-78-91 11:00:008.4[facility] NmppaehZMBBZIMZTP1320-58-51 11:00:26070Aejxczpr YmidtjgOJUUYNPVED1960-25-14 11:00:0016.9[facility] CqvurudDDSTSUHRYK1041-13-31 11:00:0033.7[facility] LPUJSGXWWX9146-52-78 11:00:00 Test Item Value Reference Range Interpretation Comments MCH (test code = MCH) 32.3 pg 27.0-31.0 H Memorial MqpowdhUJTAUWYDNB5166-46-21 11:00:0032.5[facility] 2011-09-01 11:00:0011.0[facility] ZfndjbtKJORPKUORS9631-21-15 11:00:003.39[facility] ZtjxpkaLAXPQMVZBM4402-89-98 11:00:0013.2[facility] DhidfylWVLVVUFJXE4113-88-04 11:00:003.0[facility] MpryhxyUZAPPLIXBT0824-64-14 11:00:001.0[facility] HFFEQHGXRW5298-89-15 11:00:000.4[facility] FajvlwhXVRIENVNNZ9001-51-17 11:00:000.1 [facility] WezhvtzBZTRAFTSTS1503-47-68 11:00:000.0[facility] 2011-09-01 11:00:001.0[facility] IqjqjklQVOAXZUAVN9203-18-30 11:00:0095.0[facility] TbhbfjhHGBTUNQDAZ7619-97-91 11:00:0012.7[facility]ann[facility] YSPJSY6135-70-57 08:10:00Colorless (09/01/2011 03:10:00)[facility] [id number] 08:10:00 Test Item Value Reference Range Interpretation Comments Tube Num CSF (test code = Tube Num CSF) 4 1 [facility] [id number] 08:10:00Colorless (09/01/2011 03:10:00) [facility] [id number] 08:10:00Slight *ABN*(09/01/2011 03:10:00) [facility] [id number] 08:10:962159Uykctmch [facility] FLUIDS 2011-09-01 08:10:002[facility] MPGSCK0377-46-15 08:10:004[facility] RSAQES5075-72-49 08:10:003[facility] QHOXMI7573-33-33 08:10:0093[facility] SJOYYJ2746-22-15 08:05:003.0[facility] [id number] 08:05:99229Aovwvgnf [facility] [id number] 08:05:00 Test Item Value Reference Range Interpretation Comments Tube Num CSF (test code = Tube Num CSF) 1 1 [facility] [id number] 08:05:00Colorless (09/01/2011 03:05:00) [facility] [id number] 08:05:00Colorless (09/01/2011 03:05:00) [facility] VPORMP9445-87-52 08:05:854640Pjrsjhnp [facility] FLUIDS 2011-09-01 08:05:00Slight *ABN*(09/01/2011 03:05:00)[facility] FLUIDS 2011-09-01 08:05:002[facility] [id number] 08:05:0092[facility] FJFSFE6751-09-34 08:05:004[facility] QUKGPF9699-29-17 08:05:004[facility] ITOLKQ0322-91-69 08:05:0078[facility] HermannFUNGAL - GTHXJZFD5675-42-24 08:05:00Negative (09/01/2011 03:05:00)[facility] QFUTHHAZUD7220-22-64 08:05:00Non Reactive (09/01/2011 03:05:00)[facility] DZQTNTXOZC2709-42-39 08:05:00Negative (09/01/2011 03:05:00)[facility] HYMYGEKYIR5855-06-57 08:05:00Negative (09/01/2011 03:05:00)[facility] XSRBBXGOZW2430-75-60 08:05:00Negative 6(09/01/2011 03:05:00)[facility] TJKVHFQEZQ8802-14-11 08:05:00Negative (09/01/2011 03:05:00)[facility] MCOLGTIZTT8160-95-07 08:05:00Negative (09/01/2011 03:05:00)[facility] TQKHXPPBXW1342-24-56 08:05:00Negative (09/01/2011 03:05:00)[facility] BEDSIDE GLUCOSE [id number] 22:14:03980Fmjknxiw HermannBEDSIDE GLUCOSE LYFHWSG2257-90-81 16:37:49980Uhiijdrv HermannBEDSIDE GLUCOSE EBUHNFN5189-57-71 12:56:18985Hadqjjsf HrpnidgRABJTJMFM3454-20-11 05:50:002.0[facility] UHPZWWYAZ9983-93-01 05:50:007.emorial WjxfmmnPQJDTCCMJ2329-42-65 05:50:008.4 [facility] NuqycjbJXDCNUBWR9211-25-48 05:50:0032[facility] HermannCHEMISTRY 2011-08-16 05:50:53733Nihbmrjg ZprujhvNFAKVOXZR9737-79-63 05:50:001.0[facility] MaztnkaTCQFSPMFG0417-22-71 05:50:0021[facility] QzpxqkhCQRISYYPV7751-65-71 05:50:003.6[facility] GuuqussIRFNFGBYW1334-35-97 05:50:29534Falkmhsm [place] IPWPDUECP0237-50-86 05:50:68364Ueqcyocn UimujivIZZJYMFOO4380-62-28 05:50:002.2 Memorial LcdrojgVJAUHPISY9347-15-37 05:50:001.09[facility] HermannCHEMISTRY 2011-08-16 05:50:004.36[facility] IuzxfhiAFIDDNWKV1338-77-39 05:50:004.60[facility] KmkgdpuTWYTKXAMH9438-69-89 05:50:001.15[facility] JwjmhajMMDMMEXZFF0063-53-77 05:50:55837Qrnijdtc UqqfdjyYFLDAQIGIT8134-75-95 05:50:0015.9[facility] EXWVNMEIJE8503-22-67 05:50:0093.4[facility] SxzzgteQIIVJISKMR3810-44-83 05:50:00 34.1[facility] DdokrwfALVZBCCCAC0725-69-11 05:50:00 Test Item Value Reference Range Interpretation Comments MCH (test code = MCH) 31.8 pg 27.0-31.0 H [facility] HpxfgklXESHGVHVKU6518-18-97 05:50:009.3[facility]annHEMATOLOGY 2011-08-16 05:50:0029.6[facility] ElbfnvdFLMBXKFOZS3237-96-79 05:50:0010.1[facility] HbxbsmvKOFJKEKOEU9824-87-01 05:50:003.17[facility] VkwnxvaTPOUGJAWSN9604-46-37 05:50:0016.3[facility] AopznowMMFMIRRUPD3512-38-52 05:50:000.0[facility] PKNOWJAKQT1343-75-06 05:50:000.0[facility] OtlvkjbVCIDNMRULM6828-00-14 05:50:003.1 [facility] YyizutuMPOWKNPWVW9235-29-12 05:50:0095.4[facility]annHEMATOLOGY 2011-08-16 05:50:000.5[facility] FbhobcpXALHUMFJEM4133-01-79 05:50:000.0[facility] LoafhgdJQUDZFDHEE5908-67-73 05:50:001.5[facility] LpryhdnRJDNYRAAHH4199-73-18 05:50:0015.6[facility] OghzqixPKDAGFSPZM9402-82-36 05:50:000.0[facility] AHGBSBRNXX3416-20-90 05:50:000.2[facility] EjwafjpLYYKQOYHO1100-42-20 01:19:0075 [facility] GzghemrXVEENUXQA4253-43-50 01:19:001.6[facility]annCHEMISTRY 2011-08-16 01:19:001.2[facility] FkymkbcKUDUCYQUD4653-19-95 22:15:42035.0[facility] YvlabllAYDJJSOXI0972-67-83 22:15:003[facility] WrlhtaiFZOSSHSLO9152-47-17 22:15:00 184[facility] WdevzuzBGBPTBNZH3204-79-26 22:15:007.44[facility]annCHEMISTRY 2011-08-15 22:15:0037.0[facility] CsgppxpQOFUKUYHN7823-09-32 22:15:0028[facility] BkleswmTVPTYYTEK1839-36-25 22:15:0041[facility] JkmlrwbOBNHLGLBM7589-06-01 22:15:0050.0[facility] SzzbgbnRJHKFCPCZ3136-47-53 22:09:0070.0[facility] OOROZNDSY1294-69-83 22:09:003[facility] PwpoolwOPSFVIWUU0678-83-59 22:09:0050.0 [facility] NpgldxxUODHXCXTZ6134-43-53 22:09:0037.0[facility]annCHEMISTRY 2011-08-15 22:09:007.39[facility] CnhvnscBQJUVYQXO6663-72-80 22:09:0037[facility] ZypazkwWIIEAIAIG7856-29-72 22:09:0029[facility] NlrciteMGHDAYQND8026-48-83 22:09:0048[facility] NedohffXHHNHQTEE3396-34-14 17:50:0076[facility] BRVQDIOVL5741-40-85 17:50:001.6[facility] DyaspltZNPEBBKNE1671-89-72 17:50:001.2 [facility] JqvognvGFITOYIIS0108-11-08 08:25:0054[facility]annCHEMISTRY 2011-08-15 08:25:48067Opbkqhni HbgjttcCDODPEBBI4378-50-59 08:25:007.32[facility] ZgcnzkwCBZSZOBHB4568-56-61 08:25:0037.0[facility] YitzpsmZTSMEFQYK1741-85-86 08:25:0098.0[facility] GzvnerxVUJTHXWRA3144-72-20 08:25:001[facility] EOYMDBBAQ9661-17-45 08:25:0028[facility] VkfocgaWCFJXUBHQ0935-74-30 06:00:0078 [facility] CsctgitSNERHYZSI1048-79-34 06:00:0014.1[facility]annCHEMISTRY 2011-08-15 06:00:62973Wsyxspvq BbrxncpLXVVHKWEY0075-87-37 06:00:008.2[facility] SohitxqXDGYXYSRW2374-51-11 06:00:0024[facility] TtcsevkFCGLTRPDB3327-08-56 06:00:75034Xojeilwz MhjagavITGYUYKLR4792-47-76 06:00:08041Zpuzsdfg [place] QNYZAKPME2363-50-48 06:00:004.1[facility] LixefvzSMFQMYZTI6021-82-91 06:00:0025 [facility] SlofobwYUKJXNYJY2373-39-89 06:00:001.3[facility]annCHEMISTRY 2011-08-15 06:00:002.4[facility] YssgpgyPJMPPVBPF8118-06-70 06:00:001.9[facility] QnclmjeCACQBBEVFO6360-72-73 06:00:000.0[facility] QryfokwGDEJYZMRKI5741-81-32 06:00:000.0[facility] QmsygnqQQJKUIMOHF5818-82-80 06:00:0014.6[facility] [place] CBRGENCJYT3852-83-31 06:00:000.5[facility] QobqcxjBTRXUXBWOW0260-55-88 06:00:000.0 [facility] YozmlkdTFYOUUTVTO9622-46-29 06:00:000.5[facility]annHEMATOLOGY 2011-08-15 06:00:003.1[facility] EnuwyviISLFUTDWQG4486-79-95 06:00:000.0[facility] FugjazjOHOILCTMFL0978-67-54 06:00:003.4[facility] XftoqmjJCIUHNCFUL3213-86-61 06:00:0093.5[facility] XpswubeUKJMHDKGDX5292-37-90 06:00:51022Hbqcekhb [place] KHOIMWVCLL9602-05-87 06:00:0016.1[facility] MftwvkpYWDRRLPIBW2996-04-84 06:00:00 33.2[facility] JcqmgflMGYVRFGKNK2392-98-94 06:00:0094.5[facility]annHEMATOLOGY 2011-08-15 06:00:00 Test Item Value Reference Range Interpretation Comments MCH (test code = MCH) 32.3 pg 27.0-31.0 H [facility] FwiyelgYBYMGLTXCS4161-45-93 06:00:0011.3[facility]annHEMATOLOGY 2011-08-15 06:00:0034.1[facility] HddromdCGECAOORPS1183-98-81 06:00:008.9[facility] DyflybeKJOUWAHORY4268-78-75 06:00:0015.6[facility] TzbbfpkELOCHYKSQK6516-85-53 06:00:003.51[facility] ChgpukoWNVKZVEMB9790-81-03 03:11:0040.0[facility] [place] CIYVNHGEY5207-67-72 03:11:005.0[facility] IxeaxwhTBOEGPHCN7455-74-94 03:11:0010.0 [facility] ZgvtacbMMNRMFUBL7510-45-04 03:11:00 Test Item Value Reference Range Interpretation Comments POC A Mech Rate (test code = POC A Mech 5 bpm <=70 N Rate) [facility] UtxonvzXFGHGSKKP8067-20-22 02:21:00<0.02[facility]annCHEMISTRY 2011-08-15 02:21:00<0.010[facility] NfxnvseJYJTTSDAO4059-91-80 02:21:15273 [facility] HermannBACTERIAL - IALPYQAK0278-28-18 20:45:00Negative 1(08/14/2011 15:45:00)[facility] PadrjwbBPLJHJPTS9482-91-64 20:44:008.0[facility] [place] JVYUUNOTA4256-15-32 20:44:32140Oyrkomar QqwysqtKYNQFUBAS3608-44-14 20:44:0022 [facility] VecnndgFNEUBZJBV1523-72-89 20:44:0022[facility]annCHEMISTRY 2011-08-14 20:44:62709Solzwsta JikazpiZOFTHDPWR9152-73-05 20:44:37243Bdedvjqw WahrrsvBLTFNKSGE9188-75-01 20:44:003.6[facility] GvvjbcyLJFGTZXBW8673-44-69 20:44:001.4[facility] EozbjxiFXXKZMETK1199-00-22 20:44:0013.6[facility] ABXWSNNDPT2191-60-09 20:44:0010.1[facility] UvlghhySZUFANLKKU2902-59-69 20:44:00 0.6[facility] DszfihbNVRJJKZGEJ5176-40-30 20:44:000.0[facility]annHEMATOLOGY 2011-08-14 20:44:000.0[facility] UpmixnaNPRVKJIYLD0651-03-68 20:44:005.5[facility] UbmrjmxLEJIUPPVHC0880-15-48 20:44:000.0[facility] OfgwrqeHIVQHOBJRA8646-61-73 20:44:000.0[facility] YoxyokxIBXHLWXIOQ3601-84-42 20:44:000.1[facility] [place] NXJNCVFSXY0777-07-72 20:44:000.6[facility] YqfqzrlOIBGTVHPQU7678-41-74 20:44:00 93.9[facility] RpmbhveZMBRSXSGYV3752-38-71 20:44:001.12[facility]annHEMATOLOGY 2011-08-14 20:44:00 Test Item Value Reference Range Interpretation Comments PT (test code = PT) 14.4 s 12.0-14.7 N [facility] RypfsqzETBOYWJKRL3853-89-55 20:44:009.5[facility]annHEMATOLOGY 2011-08-14 20:44:43294Ahzusfjx CueybbqHITDLDVTFF9127-18-84 20:44:0016.4[facility] AglplyiOOCPJJDPJN1222-02-76 20:44:0033.7[facility] KvceupfXGGEAHYJMM0773-42-88 20:44:0010.7[facility] AagssjrTRXWDTXHVZ2325-83-59 20:44:00 Test Item Value Reference Range Interpretation Comments MCH (test code = MCH) 31.4 pg 27.0-31.0 H [facility] InthwraGFQQKKEAQX7296-81-00 20:44:0093.2[facility] HermannHEMATOLOGY 2011-08-14 20:44:0033.3[facility] RocfuafELMJNRNDMY0049-54-87 20:44:0011.2[facility] ZrgkjjcUPDGJPLERL7058-65-68 20:44:003.57[facility] MwflhmoYRDZAUZPOZ7032-54-98 20:44:00Few /LPF *NA*(08/14/2011 15:44:00)[facility] ZpapdawBLPFBRIICQ5316-50-88 20:44:00Occasional /HPF *NA*(08/14/2011 15:44:00)[facility] HermannURINALYSIS 2011-08-14 20:44:00Occasional /HPF *NA*(08/14/2011 15:44:00)[facility] GZYIKDPCJX3759-87-08 20:44:00Negative (08/14/2011 15:44:00)[facility] RKLGGQBKZD2000-72-69 20:44:006[facility] EpgfxfsUUPYUZFASK1583-94-73 20:44:00 Occasional /LPF *NA*(08/14/2011 15:44:00)[facility] BesmgsrPLXBRHHYYO5722-40-09 20:44:001[facility] DwqxfoiQBKWMMUDPG2361-90-51 20:44:00Negative (08/14/2011 15:44:00)[facility] PyttyjqRGFKBNMTTK9811-48-93 20:44:00Negative (08/14/2011 15:44:00)[facility] PgmxrhsOWRGPPRNBL1414-63-68 20:44:00Negative *NA*(08/14/2011 15:44:00)[facility] MiasyimLATKMMQSFB0794-82-32 20:44:00Slight *ABN*(08/14/2011 15:44:00)[facility] FiefbxxSPWMJDBRPP4152-11-75 20:44:00Yellow *NA*(08/14/2011 15:44:00)[facility] YdkvrvnYYEKDVYMNF4915-99-97 20:44:00Negative mg/dL *NA*(08/14/2011 15:44:00)[facility] LnlihisRUEOMDOXJM2860-85-37 20:44:0050 mg/dL *ABN*(08/14/2011 15:44:00)[facility] AhbsopuVIRIQCLGIW3133-71-68 20:44:0020 mg/dL *ABN*(08/14/2011 15:44:00)[facility] JdmtogtCZXHPXILVI8381-13-90 20:44:001.[address] [facility] DrchfiqHKUZDFIZLT6778-86-76 20:44:005.5[facility] HermannCHEMISTRY 2011-08-14 14:17:001.14[facility] NpcxpyzKSOBJJNPX9723-75-71 14:17:002.3[facility] BwnsuquAUYIKTKED1936-86-24 14:17:71254Tyusfwtm MhtecmyATFBQVJLR6400-88-54 14:17:73014Bybacleb XudneieJLIKAQWGD0395-32-67 14:17:003.2[facility] ZFECSJJBC2700-68-88 14:17:0036.0[facility] HermannBLOOD BANK BNPDCSA8388-91-55 11:20:00Negative (08/14/2011 06:20:00)[facility] NkqidrcJTHDYLIXSA0756-10-94 16:30:001.12[facility] DhntezyPKHWMDPLFI6799-22-26 16:30:00 Test Item Value Reference Range Interpretation Comments PT (test code = PT) 14.4 s 12.0-14.[address] [facility] AyjknigSFHFXEKNHI6245-43-91 16:30:00 Test Item Value Reference Range Interpretation Comments PTT (test code = PTT) 32.4 s 22.9-35.[address] [facility] HnctxraUkcygwiks3142-23-01 20:25:62547 MEQ/LMemorial HermannChemistry 2011-07-18 20:25:003.9 MEQ/LMemorial XnasoikTpnicbmej3284-34-54 20:25:001.[address] [facility] EnbzqhoGluetqorp4919-12-61 20:25:0017[facility] HermannChemistry 2011-07-18 20:25:00 Test Item Value Reference Range Interpretation Comments BUN/CREAT (test code = BUN/CREAT) 14 08-[address] [facility] KbcfqnkYdajwmhcb3532-21-17 20:25:004.5[facility] HermannChemistry 2011-07-18 20:25:009.3[facility] HymkvwzUpaugaook1878-65-87 20:25:0020[facility] AbjakeoIpzylbfnd0047-40-25 20:25:0015[facility] SkwckybJapremurq4932-83-01 20:25:74093Lljokbqb LfafqwtMjxjwwwdd2473-87-94 20:25:003.200[facility] Unnecpfpd4246-38-68 20:25:08380 MEQ/LMemorial EhiqshvWesvfoimb8327-92-79 20:25:003.9 MEQ/LMemorial IoawtxbAfgxjldgi0664-53-45 20:25:001.2[facility] [place] Ogicqollp5463-08-42 20:25:0017[facility] GrzvzflBqrukvrse8014-14-45 20:25:00 Test Item Value Reference Range Interpretation Comments BUN/CREAT (test code = BUN/CREAT) 14 08-13 [facility] OwqdhzuMlnjykbby1366-08-18 20:25:004.5[facility] HermannChemistry 2011-07-18 20:25:009.3[facility] NzncajsCvvgmwidh8349-44-41 20:25:0020[facility] RiqckzvSggzjggnb5783-06-75 20:25:0015[facility] EpxswsmZzethheff9833-33-30 20:25:32112Vojopiwl RbocskmMlrxwnjxp4379-58-65 20:25:003.200[facility] Zsfamilpk2214-24-09 20:25:47828 MEQ/LMemorial FxgnfnjDmkrfldxb0691-02-38 20:25:003.9 MEQ/LMemorial SbfjxgfErxksuupg2982-66-75 20:25:001.2[facility] [place] Ptjsqrrbf2259-85-99 20:25:0017[facility] KeticklGdyjpnqnh3661-85-42 20:25:00 Test Item Value Reference Range Interpretation Comments BUN/CREAT (test code = BUN/CREAT) 14 6- [facility] UoygakbTnflpjafj2352-18-74 20:25:004.5[facility] HermannChemistry 2011-07-18 20:25:009.3[facility] HenfrfmXkclcthxm8893-07-09 20:25:0020[facility] GgqnujfLnpgagogm1694-05-00 20:25:0015[facility] VhornhdXfkkxukdw0882-43-37 20:25:34424Weefjqxg YuscsscBiuvwsrpq5509-81-94 20:25:003.200[facility] Ftyvcrxln4581-11-96 20:25:21629 MEQ/LMemorial EwxxrttZxjuswmwq0200-59-83 20:25:003.9 MEQ/LMemorial ClshwrhKnsaguhmy4507-75-01 20:25:001.2[facility] Skanerazf6759-32-16 20:25:0017[facility] EqwsrtwOfbewlwdy1946-29-88 20:25:00 Test Item Value Reference Range Interpretation Comments BUN/CREAT (test code = BUN/CREAT) 14 08-13 [facility] WonjtwgStzipeesr7279-72-47 20:25:004.5[facility] HermannChemistry 2011-07-18 20:25:009.3[facility] DzclxfcKqmygtrsm5483-87-73 20:25:0020[facility] MluudyxSxnjaqobm8791-69-29 20:25:0015[facility] ScifzawHvzlllwds9990-18-44 20:25:78486Pupklgtn KyxiydgEokcqeboh1177-81-46 20:25:003.200[facility] [place] Vothwtcplr9311-54-46 20:25:0014.0[facility] WasurhkYwaojfoqco2623-74-32 20:25:00 41.1[facility] LltdjfpFmqutlfgyb8107-42-94 20:25:92186 K/CMMMemorial Giorgi Mpktakcywe9069-01-57 20:25:0018[facility] OdbtafhGqnbssgayj0451-05-76 20:25:0014.0 [facility] OczztpkCsjvqxjepn6890-83-70 20:25:0041.1[facility] HermannHematology 2011-07-18 20:25:23115 K/CMMMemorial SircisoLiawekqcqt7615-28-71 20:25:0018 [facility] XvzzcqmUzqevqkcgt5781-10-15 20:25:0014.0[facility] HermannHematology 2011-07-18 20:25:0041.1[facility] SvcajhwGefhvjhiql2495-23-38 20:25:88666 /[facility] WouawzfAismfrcxaa2295-56-88 20:25:0018[facility] HermannHematology 2011-07-18 20:25:0014.0[facility] WeobzlrNulmpdmygt6519-38-31 20:25:0041.1[facility] RmuvsweBmgvblqfqz2575-90-56 20:25:83535 /[facility] 2011-07-18 20:25:0018[facility] TleugupIssgvhua1236-20-03 20:25:00PositiveMemorial OsihezdHmmwktfs5633-59-42 20:25:00PositiveMemorial RagpucaPbakviap0187-40-33 20:25:00PositiveMemorial MqkrzvdKmjqgydq4383-45-21 20:25:00PositiveMemorial [place]
--- OUTSIDE RECORDS SUMMARY | 2020-03-13 22:42 | XMS REPORT | Summary of Care ---
:1940 Author Organization [facility] Address [address] [place] [id number] Care Team Providers Name Role Phone Serena Rojas Primary Care Provider Reason for Visit Reason Comments Refill Request Encounter Details Date Type Department Care Team Description 03/05/2020 Refill [facility] César Ortiz MD Refill Request Neurology-[address] [place] [id number] Suite [facility] [phone] [place] [address] [facility] [phone] Allergies Active Allergy Reactions Severity Noted Date Comments Onabotulinumtoxina Other - See comments 02/26/2018 Codeine Hallucinations 02/26/2018 Meperidine Hcl Other - See comments 02/26/2018 fever Penicillin Hives 02/26/2018 documented as of this encounter (statuses as of 03/09/2020) Medications Medication Sig Dispensed Refills Start Date End Date Status levothyroxine 75 mcg 0 10/29/2017 Active tablet pravastatin 80 mg 0 10/29/2017 A ctive tablet spironolactone 50 mg 0 10/29/2017 Active tablet traZODONE 100 mg 0 12/27/2017 Ac tive tablet clonazePAM 2 mg Take 1 60 tablet 0 03/09/2020 Act albertina tabletIndications: tablet by 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 documented as of this encounter (statuses as of 03/09/2020) Active Problems Not on filedocumented as of this encounter (statuses as of 03/09/2020) Social History Tobacco Use Types Packs/Day Years Used Date Never Smoker Smokeless Tobacco: Never Used Alcohol Use Drinks/Week oz/Week Comments No Sex Assigned at Date Recorded Not on file documented as of this encounter Last Filed Vital Signs Not on filedocumented in this encounter Miscellaneous Notes Telephone Encounter - Crispin Harrington LVN - 03/09/2020 [...] ss Type Group MEDICARE MEDICARE PART A [id number] 1993-[place] [phone] [id number] [place] [id number] AETNA AETNA INDEMNITY [id number] 2013-[place] Indemnity t documented as of this encounter
[2020-03-14 00:51] LABS: Absolute Lymphocytes (CBC) 1.3 K/uL (0.7-4.9); Basophils % 0.8 % (0-1.3); Hematocrit 38.7 % (36.0-45.0); MPV 8.6 fL (7.6-11.3); RBC Red Blood Cell Count 4.29 M/uL (3.86-4.86)
[2020-03-14 00:55] LABS: Protime INR 1.05
[2020-03-14 01:09] LABS: ALT/SGPT 16 U/L (12-78); AST/SGOT 9 U/L (15-37); Albumin 3.5 g/dL (3.4-5.0); Alkaline Phosphatase 96 U/L (45-117); BUN Blood Urea Nitrogen 17 mg/dL (7-18); Bicarbonate 30 mmol/L (21-32); Bilirubin Direct 0.1 mg/dL (0-0.2); Bilirubin Total 0.6 mg/dL (0.2-1.0); Glucose Level 110 mg/dL (74-106); Magnesium 2.2 mg/dL (1.8-2.4); NT PRO-BNP 162 pg/mL (<450); Potassium 3.2 mmol/L (3.5-5.1); Protein, Total 6.8 g/dL (6.4-8.2); Sodium Level 144 mmol/L (136-145); Troponin (Emerg Dept Use Only) < 0.02 ng/mL (0.0-0.045)
[2020-03-14] MEDS ORDERED: ASPIRIN 81 MG CHEWABLE TABLET ONE (02:15)
[2020-03-14] MEDS ORDERED: FOLIC ACID 5 MG/ML VIAL ONE (02:16)
--- NOTE | 2020-03-14 02:37 | P.HP ---
Certification for Inpatient Patient admitted to: Observation With expected LOS: <2 Midnights Patient will require the following post-hospital care: None Practitioner: I am a practitioner with admitting privileges, knowledge of patient current condition, hospital course, and medical plan of care. Services: Services provided to patient in accordance with Admission requirements found in Title 42 Section 412.3 of the Code of Federal Regulations <Andrea Coley - Last Filed: 03/14/20 02:31> Patient History Date of Service: 03/14/20 Reason for admission: Paresthesias History of Present Illness: 80-year-old female with history of hypertension, hyperlipidemia, hypothyroidism, presents emergency department for paresthesias. Patient reports that she has had numbness to her bottom lip that started at around 6:00 p.m. last night that has progressed to also include her upper lip at this time. Patient also reports some numbness to the left for 2nd and 3rd fingers although this is more likely to be carpal tunnel or the like. Patient was evaluated in the ER, labs only significant for mild hypokalemia, CT head without contrast negative for acute findings. Patient reports that she has had problems with her C-spine and bulging disks in the past. ED provider wishes to admit pt for further evaluation and management. - Past Medical/Surgical History Diabetic: No -: HTN -: HYPERLIPIDEMIA -: HYPOTHYROIDISM -: BELLS PALSY -: HERNIATED DISC -: VIRAL MENINGITIS -: FULL BODY SPASMS -: HYSTERECTOMY -: BRAIN SURGERY -: BELLS PALSY SURGERY -: NOSE SURGERY- SINUSES -: APPENDECTOMY -: HEMMORHOIDECTOMY Psychosocial/ Personal History: Pt retired, , lives alone - Family History Mother -: Hypertension, Lung disease, Stroke Father -: Heart disease, Hypertension, Stroke Notes: Post Traumatic Stress Disorder - Social History Smoking Status: Never smoker Alcohol use: No CD- Drugs: No Caffeine use: No Place of Residence: Home <Andrea Coley - Last Filed: 03/14/20 02:31> Date of Service: 03/21/20 <Raghav Grullon - Last Filed: 03/21/20 20:00> Allergies fentanyl Allergy (Verified 03/14/20 06:50) Hives/Rash haloperidol [From Haldol] Allergy (Verified 03/14/20 06:58) hallucination lorazepam [From Ativan] Allergy (Verified 03/14/20 06:58) hallucination pregabalin [From Lyrica] Allergy (Verified 03/14/20 06:57) unknown codeine [Codeine] Adverse Reaction (Intermediate, Verified 03/14/20 06:50) rash/hallucination meperidine HCl [From Demerol] Adverse Reaction (Mild, Verified 03/14/20 06:50) hives/fever/kidney problems Penicillins Adverse Reaction (Mild, Verified 03/14/20 06:50) Hives, DIARRHEA trazodone Adverse Reaction (Mild, Verified 03/14/20 06:50) Hives codeine Allergy (Uncoded 03/14/20 06:50) Hives Tramadol HCl Allergy (Uncoded 03/14/20 06:50) Anaphylaxis Home Medications: Clonazepam 2 mg PO BEDTIME 06/11/14 Pravastatin Sodium 80 mg PO DAILY 06/11/14 Levothyroxine [Synthroid*] 100 mcg PO MXQCB4CG 02/23/20 Magnesium Oxide [Magnesium] 500 mg PO DAILY 02/23/20 Spironolactone 50 mg PO DAILY 02/23/20 Trazodone [Desyrel*] 50 mg PO BEDTIME 02/23/20 Aspirin [Aspirin EC 81 MG] 81 mg PO DAILY 30 Days #30 tablet. 03/14/20 Clopidogrel Bisulfate [Plavix] 75 mg PO DAILY 30 Days #30 tablet 03/14/20 Doxycycline Hyclate 100 mg PO BID 7 Days #14 tablet 03/14/20 Folic Acid 1 mg PO DAILY 30 Days #30 tablet 03/14/20 Valacyclovir HCl [Valtrex] 1,000 mg PO TID 7 Days #21 tablet 03/14/20 predniSONE [Deltasone] 60 mg PO DAILY 7 Days #21 tab 03/14/20 Review of Systems 10-point ROS is otherwise unremarkable Neurological: Other (paresthesias), As per HPI <Andrea Coley - Last Filed: 03/14/20 02:31> Physical Examination - Physical Exam General: Alert, In no apparent distress HEENT: Atraumatic, PERRLA, Mucous membr. 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.) - Studies Laboratory Data (last 24 hrs) 03/14/20 00:40: PT 12.4, INR 1.05 03/14/20 00:40: WBC 4.8, Hgb 13.1, Hct 38.7, Plt Count 222 03/14/20 00:40: Sodium 144, Potassium 3.2 L, BUN 17, Creatinine 1.24, Glucose 110 H, Magnesium 2.2, Total Bilirubin 0.6, AST 9 L, ALT 16, Alkaline Phosphatase 96 <Andrea Coley - Last Filed: 03/14/20 02:31> Assessment and Plan - Plan Assessment Paresthesias of upper/lower lip Paresthesia left 1st 2nd and 3rd fingers Paronychia left great toe Hypertension Hyperlipidemia Hypothyroidism Plan Paresthesias of upper/lower lip: Aspirin, folic acid, statin therapy ordered, patient had procedure for cluster headaches where a metal plate was inserted into her skull, not a candidate for MRI. Patient does admit to some cervical disk disease, have ordered CT C-spine without contrast to evaluate. Carotid Dopplers ordered, neurology consult in place. DVT prophylaxis with Lovenox 40 mg subcutaneous once daily. Paresthesia left 1st 2nd and 3rd fingers: Likely carpal tunnel. Doubt relation to paresthesias of the lip. Paronychia left great toe: Patient drained paronychia at home, reports moderate amount of pus, still some surrounding redness. Patient allergic to penicillins, will give doxycycline p.o.. Hypertension: Obtain and continue home medications Hyperlipidemia: Obtain and continue home medications Hypothyroidism: Obtain thyroid panel with morning labs. Continue home medications as appropriate. Discharge Plan: Home Plan to discharge in: 24 Hours - Advance Directives Does patient have a Living Will: Yes Does patient have a Durable POA for Healthcare: No - Code Status/Comfort Care Code Status Assessed: Yes (Full code) Critical Care: No Time Spent Managing Pts Care (In Minutes): 55 <Andrea Coley - Last Filed: 03/14/20 02:31> - Plan Plan of care reviewed as noted above by Andrea Coley. Paresthesias concerning for stroke vs levy's palsy Patient outside of timeframe for acute intervention. CT head negative Neurology consulted <Raghav Grullon - Last Filed: 03/21/20 20:00>
[2020-03-14] MEDS ORDERED: POTASSIUM 25 MEQ EFFERV TAB ONE (03:09)
--- NOTE | 2020-03-14 03:10 | ER ---
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 Coronavirus screen: Client denies travel out of the [place] in the last 14 days. Reports diagnosed COVID positive on 02/10/21. Ebola Screen: No symptoms or risks identified at this time. Initial Sepsis Screen: Does the patient meet any 2 criteria? No. Patient's initial sepsis screen is negative. Does the patient have a suspected source of infection? No. Patient's initial sepsis screen is negative. Risk Assessment: Do you want to hurt yourself or someone else? Patient reports no desire to harm self or others. Onset of symptoms was March 13, 2020. 22:43 Method Of Arrival: Wheelchair lp1 22:43 Acuity: JIN 3 lp1 Historical: - Allergies: 22:48 Codeine; lp1 22:48 Fentanyl; lp1 22:48 meperidine HCl; lp1 22:48 PENICILLINS; lp1 22:48 Trazodone; lp1 - PMHx: 22:48 Hypertension; Thyroid problem; dillon's palsy; lp1 22:50 Ruptured discs in vertebrae; lp1 - PSHx: 22:48 Hysterectomy; Metal plate in skull; lp1 - Immunization history:: Adult Immunizations up to date. - Social history:: Smoking status: Patient denies any tobacco usage or history of. Screenin:46 VAN Screening: Arm Drift: Patient shows no arm weakness. Patient is VAN negative. lp1 Visual Disturbance: No visual disturbance noted. Aphasia: No aphasia noted. Neglect: No neglect noted. 03/14 04:42 Abuse screen: Denies threats or abuse. Denies injuries from another. Nutritional lp1 screening: No deficits noted. Tuberculosis screening: No symptoms or risk factors identified. Fall Risk None identified. Assessment: 03/13 22:51 VAN Scoring: Arm Drift: Patients demonstrates NO arm weakness. Patient is VAN Negative. lp1 Neuro: Level of Consciousness is awake, alert, obeys commands, Oriented to person, place, time, situation, Dish Person are equal bilaterally Gait is steady, Speech is normal, Facial droop on right, Reports hx of dillon's palsy. 22:56 Reassessment: Verbal order from Dr. Bocanegra for CT head w/o contrast. lp1 03/14 00:00 General: Appears in no apparent distress. comfortable, Behavior is calm, cooperative. jb4 Pain: Denies pain. Neuro: Level of Consciousness is awake, alert, obeys commands, Oriented to person, place, time, situation, Dish Person are equal bilaterally Moves all extremities. Full function Gait is steady, Speech is normal, Facial droop on right. Cardiovascular: Patient's skin is warm and dry. Respiratory: Airway is patent Respiratory effort is even, unlabored, Respiratory pattern is regular, symmetrical. GI: No signs and/or symptoms were reported involving the gastrointestinal system. : No signs and/or symptoms were reported regarding the genitourinary system. EENT: No signs and/or symptoms were reported regarding the EENT system. Derm: Skin is intact, Skin is pink, warm \T\ dry. Musculoskeletal: Circulation, motion, and sensation intact. Range of motion: intact in all extremities. 01:00 Reassessment: Patient appears in no apparent distress at this time. Patient and/or jb4 family updated on plan of care and expected duration. Pain level reassessed. Patient is alert, oriented x 3, equal unlabored respirations, skin warm/dry/pink. 02:00 Reassessment: Patient appears in no apparent distress at this time. Patient and/or jb4 family updated on plan of care and expected duration. Pain level reassessed. Patient is alert, oriented x 3, equal unlabored respirations, skin warm/dry/pink. 04:42 Reassessment: Patient appears in no apparent distress at this time. Patient is alert, lp1 oriented x 3, equal unlabored respirations, skin warm/dry/pink. Patient aware of waiting for COVID result. Vital Signs: 03/13 22:43 BP 133 / 74; Pulse 84; Resp 18; Temp 97.1(TE); Pulse Ox 99% on R/A; Weight 65.77 kg lp1 (R); Pain 0/10; 03/14 02:15 BP 162 / 69; Pulse 68; Resp 16; Pulse Ox 98% on R/A; jb4 04:41 BP 144 / 62; Pulse 78; Resp 18; Pulse Ox 100% on R/A; lp1 ED Course: 03/13 22:37 Patient arrived in ED. am2 22:37 Geronimo Miller MD is Private Physician. am2 22:46 Triage completed. lp1 22:46 Arm band placed on. lp1 23:55 Olman Bocanegra MD is Attending Physician. mh7 03/14 00:11 CT Head Brain wo Cont In Process Unspecified. EDMS 00:31 Nimesh Coelho, RN is Primary Nurse. jb4 01:12 Foot Right 3 View XRAY In Process Unspecified. EDMS 01:13 XRAY Chest (1 view) In Process Unspecified. EDMS 03:09 Raghav Grullon MD is Hospitalizing Provider. mh7 04:30 Patient has correct armband on for positive identification. lp1 04:42 Report received from Nagi Coelho RN. lp1 05:39 No provider procedures requiring assistance completed. Patient admitted, IV remains in lp1 place. 20g IV noted to R AC. Administered Medications: 02:19 Drug: Aspirin Chewable Tablet 324 mg Route: PO; jb4 02:19 Drug: foLIC Acid 1 mg Route: IVPB; Site: right antecubital; jb4 03:00 Drug: Potassium Effervescent Tablet 50 mEq Route: PO; jb4 Outcome: 03:10 Decision to Hospitalize by Provider. 7 05:38 Admitted to Med/surg via wheelchair, room 209, with chart, Report called to RIKA Phillips lp1 05:38 Condition: stable 05:38 Instructed on the need for admit. 06:20 Patient left the ED. lp1 Signatures: Dispatcher [employer] EDYolanda Neumann RN RN lp1 Nimesh Coelho, RIKA RN jb4 Elyse Robertson am2 Olman Bocanegra MD MD 7
--- NOTE | 2020-03-14 03:11 | EDPHYS ---
Physician Documentation [facility] Name: Jarrod Graham Age: 80 yrs Sex: Female : 1940 Arrival Date: 03/13/2020 Time: 22:37 Bed 17 Private MD: Geronimo Miller T ED Physician Olman Bocanegra HPI: 03/14 00:32 This 80 yrs old Female presents to ER via Wheelchair with complaints of S/S mh7 of Possible Stroke. 00:32 The patient's problem is reported as paresthesias, in left upper extremity, in left mh7 side of face. Onset: The symptoms/episode began/occurred 2 day(s) ago. Duration: The episode is continuous. Context: the episode(s) was witnessed, by no one, symptoms became apparent occurred at home, occurred while the patient was sitting. The symptoms are alleviated by nothing. The symptoms are aggravated by nothing. Associated signs and symptoms: Pertinent positives: numbness, tingling, Pertinent negatives: abdominal pain, agitation, ataxia, blurred vision, chest pain, combativeness, confusion, diaphoresis, diarrhea, dizziness, headache, lightheadedness, nausea, palpitations, seizure, shortness of breath, vertigo, vomiting, weakness. Severity of symptoms: At their worst the symptoms were mild 2 day(s) ago, in the emergency department the symptoms are unchanged. 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 Patient states that she started having numbness/tingling to her left thumb, index finger, and middle finger then last night started to have numbness and tingling to her lower lip. She also complains of redness to her right great toe for 2 days. She reports testing positive for COVID 19 earlier this month.. 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 - Social history:: Smoking status: Patient denies any tobacco usage or history of. ROS: 03/14 00:32 Constitutional: Negative for fever, chills, and weight loss, Eyes: Negative for injury, mh7 pain, redness, and discharge, ENT: Negative for injury, pain, and discharge, Neck: Negative for injury, pain, and swelling, Cardiovascular: Negative for chest pain, palpitations, and edema, Respiratory: Negative for shortness of breath, cough, wheezing, and pleuritic chest pain, Abdomen/GI: Negative for abdominal pain, nausea, vomiting, diarrhea, and constipation, Back: Negative for injury and pain, : Negative for injury, bleeding, discharge, and swelling, Psych: Negative for depression, anxiety, suicide ideation, homicidal ideation, and hallucinations, Allergy/Immunology: Negative for hives, rash, and allergies, Endocrine: Negative for neck swelling, polydipsia, polyuria, polyphagia, and marked weight changes, Hematologic/Lymphatic: Negative for swollen nodes, abnormal bleeding, and unusual bruising. Exam: 00:32 Constitutional: This is a well developed, well nourished patient who is awake, alert, mh7 and in no acute distress. 00:32 Head/Face: Normocephalic, atraumatic. Eyes: Pupils equal round and reactive to light, extra-ocular motions intact. Lids and lashes normal. Conjunctiva and sclera are non-icteric and not injected. Cornea within normal limits. Periorbital areas with no swelling, redness, or edema. Neck: Trachea midline, no thyromegaly or masses palpated, and no cervical lymphadenopathy. Supple, full range of motion without nuchal rigidity, or vertebral point tenderness. No Meningismus. Chest/axilla: Normal chest wall appearance and motion. Nontender with no deformity. No lesions are appreciated. Cardiovascular: Regular rate and rhythm with a normal S1 and S2. No gallops, murmurs, or rubs. Normal PMI, no JVD. No pulse deficits. Respiratory: Lungs have equal breath sounds bilaterally, clear to auscultation and percussion. No rales, rhonchi or wheezes noted. No increased work of breathing, no retractions or nasal flaring. Abdomen/GI: Soft, non-tender, with normal bowel sounds. No distension or tympany. No guarding or rebound. No evidence of tenderness throughout. Back: No spinal tenderness. No costovertebral tenderness. Full range of motion. 00:32 Head/face: 00:32 Musculoskeletal/extremity: Extremities: noted in the dorsal right great toe: erythema, ROM: intact in all extremities, Circulation is intact in all extremities. Pulses: are normal with no appreciated deficits, Perfusion: the patient is normally perfused throughout, Perfusion: the extremity is normally perfused throughout, Sensation intact. Joints: All joints appear normal with full range of motion. Weight bearing: able to fully bear weight, without difficulty. 00:32 Skin: cellulitis, that is minimal, on the dorsal right great toe. 00:32 Neuro: Orientation: is normal, Mentation: is normal, Memory: is normal, Cranial nerves: facial droop noted on right, Nystagmus is absent. Speech is clear and appropriate. Cerebellar function: is grossly normal, Motor: is normal, Sensation: is normal, Gait: is steady, at a normal pace, without difficulty, Deep tendon reflexes are normal, Babinski testing is normal, seizure activity, is not displayed by the patient, Abnormal movements: there are no abnormal movements. 03:10 Radiologist reports: No Acute Findings [facility] Vital Signs: 03/13 22:43 BP 133 / 74; Pulse 84; Resp 18; Temp 97.1(TE); Pulse Ox 99% on R/A; Weight 65.77 kg lp1 (R); Pain 0/10; 03/14 02:15 BP 162 / 69; Pulse 68; Resp 16; Pulse Ox 98% on R/A; jb4 04:41 BP 144 / 62; Pulse 78; Resp 18; Pulse Ox 100% on R/A; lp1 MDM: 03:06 Differential diagnosis: CVA, TIA, paralysis, metabolic disorder, Paresthesia. Data [facility] reviewed: vital signs, nurses notes, lab test result(s), cardiac enzymes, CBC, electrolytes, urinalysis, EKG, radiologic studies, CT scan, plain films. Data interpreted: Pulse oximetry: on room air is 98 %. Interpretation: normal. Counseling: I had a detailed discussion with the patient and/or guardian regarding: the historical points, exam findings, and any diagnostic results supporting the discharge/admit diagnosis, the presence of at least one elevated blood pressure reading (>120/80) during this emergency department visit, lab results, radiology results, the need for further work-up and treatment in the hospital. Response to treatment: the patient's symptoms have mildly improved after treatment. 03:[address] [facility] 03/14 00:31 Order name: Basic Metabolic Panel; Complete Time: :39 03/14 00:31 Order name: CBC with Diff; Complete Time: :39 03/14 00:31 Order name: LFT's; Complete Time: : [facility] 03/14 00:31 Order name: Magnesium; Complete Time: : [facility] 03/14 00:31 Order name: NT PRO-BNP; Complete Time: : 03/14 00:31 Order name: PT-INR; Complete Time: :39 [facility] 03/13 22:56 Order name: CT Head Brain wo Cont lp1 03/14 00:31 Order name: Troponin (emerg Dept Use Only); Complete Time: :39 03/14 00:31 Order name: XRAY Chest (1 view) [facility] 03/14 00:31 Order name: Foot Right [address] [facility] 03/14 03:28 Order name: COVID-19 [facility] 03/14 04:22 Order name: [facility] 03/14 05:11 Order name: SARS-COV-2 RT PCR [facility] 03/14 00:31 Order name: EKG; Complete Time: 00:32 03/14 00:31 Order name: Cardiac monitoring; Complete Time: 00:43 03/14 00:31 Order name: EKG - Nurse/Tech; Complete Time: 00:43 03/14 00:31 Order name: IV Saline Lock; Complete Time: 00:43 03/14 00:31 Order name: Labs collected and sent; Complete Time: 00:43 [facility] 03/14 00:31 Order name: O2 Per Protocol; Complete Time: 00:44 03/14 00:31 Order name: O2 Sat Monitoring; Complete Time: 00:44 mh7 Administered Medications: 02:19 Drug: Aspirin Chewable Tablet 324 mg Route: PO; jb4 02:19 Drug: foLIC Acid 1 mg Route: IVPB; Site: right antecubital; jb4 03:00 Drug: Potassium Effervescent Tablet 50 mEq Route: PO; jb4 Disposition: 03/14/20 03:10 Hospitalization ordered by Raghav Grullon for Observation. Preliminary diagnosis is Paresthesias. - Bed requested for Telemetry/MedSurg (observation). - Status is Observation. lp1 - Condition is Stable. - Problem is new. - Symptoms have improved. Signatures: Dispatcher [employer] EDMS Yolanda Hilliard, RN RN lp1 Andrea Coley, OPTOMETRY TEACHER-C OPTOMETRY TEACHER-Cla1 Meggan Holder, RN RN cg Nimesh Coelho RN RN jb4 Olman Bocanegra MD MD 7 Corrections: (The following items were deleted from the chart) 05:19 03:10 Hospitalization Ordered by Raghav Grullon MD for Observation. Preliminary cg diagnosis is Paresthesias. Bed requested for Telemetry/MedSurg (observation). Status is Observation. Condition is Stable. Problem is new. Symptoms have improved. [facility] 06:20 05:19 03/14/2020 03:10 Hospitalization Ordered by Raghav Grullon MD for Observation. lp1 Preliminary diagnosis is Paresthesias. Bed requested for Telemetry/MedSurg (observation). Status is Observation. Condition is Stable. Problem is new. Symptoms have improved. cg
[2020-03-14] MEDS ORDERED: ONDANSETRON 4 MG/2 ML VIAL IV PRN (06:00)
[2020-03-14] MEDS ORDERED: ACETAMINOPHEN 500 MG TAB PO PRN (06:00)
[2020-03-14 06:27] VITALS: O2SAT 100
[2020-03-14 06:51] VITALS: BMI 22.1
[2020-03-14 07:00] LABS: Potassium 3.8 mmol/L (3.5-5.1)
--- NOTE | 2020-03-14 08:12 | RAD REPORT ---
EXAM DESCRIPTION: RAD - Chest Single View - 03/14/2020 1:13 am CLINICAL HISTORY: weaknessweakness, shortness of breath, stroke-like symptoms COMPARISON: February 21 TECHNIQUE: AP portable chest image was obtained 03/14/2020 1:13 am . FINDINGS: No acute lung parenchymal process identified. Interstitial pattern matches comparison. Hea rt and vasculature are normal. No measurable pleural effusion and no pneumothorax. No acute bony abno rmality seen. No acute aortic findings suspected. IMPRESSION: No acute cardiopulmonary process. No significant change from comparison study.
[2020-03-14] MEDS ORDERED: POTASSIUM CL SA 10 MEQ TAB PO ONE (09:00)
[2020-03-14] MEDS ORDERED: FOLIC ACID 1 MG TABLET PO SCH (09:00)
[2020-03-14] MEDS ORDERED: DOXYCYCLINE 100 MG CAP PO SCH (09:00)
[2020-03-14] MEDS ORDERED: ASPIRIN EC 81 MG TAB PO SCH (09:00)
[2020-03-14] MEDS ORDERED: ENOXAPARIN 40 MG/0.4 ML SQ SCH (09:00)
--- NOTE | 2020-03-14 09:50 | RAD REPORT ---
EXAM DESCRIPTION: RAD - Foot Right 3 View - 03/14/2020 1:12 am CLINICAL HISTORY: PAIN, redness and drainage from the right first toe COMPARISON: No comparisons FINDINGS: No fracture, dislocation or periosteal reaction. Technologist post acquisition notation on the exam shows area of concern and distal medial first toe. There is no air or foreign body in the soft tissue. No erosive or destructive changes at the first MT P joint or first toe. No periosteal reaction. There is remodeling of the distal first metatarsal from prior surgery or fracture. IP joint space narrowing is present. IMPRESSION: No air or foreign body seen in the right first toe. Soft tissues are edematous. No bone destructive changes or acute bone finding at this time.
[2020-03-14 09:59] VITALS: TEMP 97
--- NOTE | 2020-03-14 10:03 | RAD REPORT ---
EXAM DESCRIPTION: CT - C Spine Wo Con - 03/14/2020 9:02 am CLINICAL HISTORY: Neck pain, paresthesias, radiculopathy COMPARISON: CT cervical spine May 2014 TECHNIQUE: Axial 2 mm thick images of the cervical spine were obtained with sagittal and coronal rec onstruction images generated and reviewed. All CT scans are performed using dose optimization technique as appropriate and may include automated exposure control or mA/KV adjustment according to patient size. FINDINGS: Cervical body height and alignment are normal. Moderate severity disc space narrowing note d at C5-6 and C6-7. Mild to moderate disc space narrowing at C3-4 with mild C4-5 disc space narrowing . Severity has not changed since 2014. No fracture or acute bone process. No pathologic bone finding identifiable. Posterior endplate spurring changes and disc bulge changes cause spinal stenosis down to 7 mm at C3-4 . There is right bony foraminal encroachment from uncovertebral joint hypertrophy. Posterior disc bul ge and endplate spurring changes at C5-6 result in borderline to mild spinal stenosis at 9-10 mm. Mil d left foraminal stenosis from uncovertebral joint hypertrophy. C6-7 posterior disc bulge and endplat e spurring changes are present without significant canal stenosis. Left foraminal stenosis from disc bulge and uncovertebral joint hypertrophy noted. Central canal detail is inherently limited on CT imaging. IMPRESSION: No fracture or acute bone process identifiable. Multilevel cervical spondylosis changes are present spanning C3-C7. Spinal stenosis is present at C3-4 with borderline to mild spinal stenosis at C5-6.
[2020-03-14 14:05] VITALS: BP 137/76
[2020-03-14] MEDS ORDERED: INFLUENZA VACCINE (for 3y+) 0.5 ML DOSE IMVAC ONE (16:00)
--- NOTE | 2020-03-14 21:35 | P.DS ---
Admission Date: 03/14/20 Discharge Date: 03/14/20 Disposition: ROUTINE DISCHARGE Discharge Condition: FAIR Reason for Admission: Paresthesias Procedures: CT brain (03/13): negative for acute process CT c-spine (03/14): no significant change compared to prior. FINDINGS: Cervical body height and alignment are normal. Moderate severity disc space narrowing noted at C5-6 and C6-7. Mild to moderate disc space narrowing at C3-4 with mild C4-5 disc space narrowing. Severity has not changed since 2014. No fracture or acute bone process. No pathologic bone finding identifiable. Posterior endplate spurring changes and disc bulge changes cause spinal stenosis down to 7 mm at C3-4. There is right bony foraminal encroachment from uncovertebral joint hypertrophy. Posterior disc bulge and endplate spurring changes at C5-6 result in borderline to mild spinal stenosis at 9-10 mm. Mild left foraminal stenosis from uncovertebral joint hypertrophy. C6-7 posterior disc bulge and endplate spurring changes are present without significant canal stenosis. Left foraminal stenosis from disc bulge and uncovertebral joint hypertrophy noted. Problem List: Paresthesias of upper/lower lip Paresthesia left 1st 2nd and 3rd fingers Paronychia left great toe Hypertension Hyperlipidemia Hypothyroidism Brief History of Present Illness: 80yo F, PMH: HTN, HLD, hypothyroidism, presented to ED for facial paresthesias. Numbness across entire lower lip started ~6pm last night. Also reporting numbness to the left thumb and index finger x 4 days. And reported some redness of R great toe for a few days, stating she drained some liquid. Evaluation in ED revealed mild hypokalemia, CT head negative for acute findings. She reported h/o bulging discs and narrowing in her C-spine. She had COVID-19 in January 2020. Hospital Course: Patient reported h/o [place] palsy x 2 episodes in the past. States the first episode was due to "inflammation in my brain that compressed my nerves" causing the nerves of her R face to "". She underwent a surgical procedure that helped and she regained most of her motor function back over time, but reports still has asymmetry of smile. Patient also reported having a metal plate implanted in her skull due to separate procedure for cluster headaches and stated she was told she couldn't have MRIs. Her case was reviewed with Neurology who felt this may be reactivation of Levy's palsy, but she should be treated for possible CVA with aspirin, plavix, statin, and folic acid. Patient was requesting to be discharged home. Seeing as her symptoms were stable and the MRI would not change treatment, patient was discharged home. She is to f/u with Neurology and can consider outpatient MRI - CT scan was reviewed with diologflavio and there was no metal plate identified. Review of EMR revealed patient had an MRI in 2014 without issue. She is discharged with a 7 day course of steroids and valacyclovir for levy's palsy. L thumb & index finger numbness - patient will need to f/u as outpatient for EMG / nerve conduction studies to further evaluate. R Great toe paronychia - improving after patient released some fluid/pressure at home. Will treat with Doxy Vital Signs/Physical Exam: Temp Pulse Resp BP Pulse Ox 97 F 79 18 137/76 96 03/14/20 12:00 03/14/20 12:00 03/14/20 12:00 03/14/20 12:00 03/14/20 12:00 General: Alert, In no apparent distress, Oriented x3 HEENT: Sclerae nonicteric Cardiovascular: No edema, Regular rate/rhythm Gastrointestinal: Soft and benign, Non-distended, No tenderness Musculoskeletal: No tenderness Integumentary: Erythema (slightly around R great toe, no abscess) Neurological: Normal speech, Normal strength at 5/5 x4 extr, Cranial nerves 3-12 intact (except for R-sided facial weaknes - including eyebrow. tearing of R eye, unable to purse lips (chronic). numbness of lower lip), Normal affect, Abnormal sensation (L thumb and index finger - tips with dimished sensation / parasthesias. +Phalen's, -Tinel's (in eliciting worse pain/symptoms). Negative spurling's test), Abnormal reflexes (dimished L triceps reflex.) Laboratory Data at Discharge: WBC 4.8 K/uL (4.3-10.9) 03/14/20 00:40 Hgb 13.1 g/dL (12.0-15.0) 03/14/20 00:40 Hct 38.7 % (36.0-45.0) 03/14/20 00:40 Plt Count 222 K/uL (152-406) 03/14/20 00:40 PT 12.4 SECONDS (9.5-12.5) 03/14/20 00:40 INR 1.05 03/14/20 00:40 Sodium 143 mmol/L (136-145) 03/14/20 06:27 Potassium 3.8 mmol/L (3.5-5.1) 03/14/20 06:27 BUN 19 mg/dL (7-18) H 03/14/20 06:27 Creatinine 1.02 mg/dL (0.55-1.3) 03/14/20 06:27 Glucose 99 mg/dL (74-106) 03/14/20 06:27 Magnesium 2.2 mg/dL (1.8-2.4) 03/14/20 00:40 Total Bilirubin 0.6 mg/dL (0.2-1.0) 03/14/20 00:40 AST 9 U/L (15-37) L 03/14/20 00:40 ALT 16 U/L (12-78) 03/14/20 00:40 Alkaline Phosphatase 96 U/L (45-117) 03/14/20 00:40 Triglycerides 93 mg/dL (<150) 03/14/20 06:27 Cholesterol 217 mg/dL (<200) H 03/14/20 06:27 HDL Cholesterol 51 mg/dL (40-60) 03/14/20 06:27 Cholesterol/HDL Ratio 4.25 03/14/20 06:27 Home Medications: Clonazepam 2 mg PO BEDTIME 06/11/14 Pravastatin Sodium 80 mg PO DAILY 06/11/14 Levothyroxine [Synthroid*] 100 mcg PO [id number] 02/23/20 Magnesium Oxide [Magnesium] 500 mg PO DAILY 02/23/20 Spironolactone 50 mg PO DAILY 02/23/20 Trazodone [Desyrel*] 50 mg PO BEDTIME 02/23/20 Aspirin [Aspirin EC 81 MG] 81 mg PO DAILY 30 Days #30 tablet. 03/14/20 Clopidogrel Bisulfate [Plavix] 75 mg PO DAILY 30 Days #30 tablet 03/14/20 Doxycycline Hyclate 100 mg PO BID 7 Days #14 tablet 03/14/20 Folic Acid 1 mg PO DAILY 30 Days #30 tablet 03/14/20 Valacyclovir HCl [Valtrex] 1,000 mg PO TID 7 Days #21 tablet 03/14/20 predniSONE [Deltasone] 60 mg PO DAILY 7 Days #21 tab 03/14/20 New Medications: Aspirin [Aspirin EC 81 MG] 81 mg PO DAILY 30 Days #30 tablet. Doxycycline Hyclate 100 mg PO BID 7 Days #14 tablet Folic Acid 1 mg PO DAILY 30 Days #30 tablet Clopidogrel Bisulfate [Plavix] 75 mg PO DAILY 30 Days #30 tablet predniSONE [Deltasone] 60 mg PO DAILY 7 Days #21 tab Valacyclovir HCl [Valtrex] 1,000 mg PO TID 7 Days #21 tablet Patient Discharge Instructions: Your CT Brain did not show any acute findings - no bleed, no mass. Your CT spine showed your known cervical spinal stenosis. Your facial / lip symptoms are likely reactivation of Levy's palsy, however given your risk with prior surgery, prior nerve damage, and COVID-19 infection, we recommend treatment for possible stroke with: 81mg aspirin, plavix (clopidogrel), folic acid, and continue your cholesterol medication (-statin). You are prescribed prednisone and valacyclovir for treatment of your Levy's palsy. You are prescribed doxycycline for treatment of your toe (paronychia). Please follow up with your PCP to determine if you need further drainage and to monitor the progress. Please follow up with Neurology regarding your facial symptoms and left hand numbness. Your left hand numbness may be due to your cervical spine or carpal tunnel syndrome. You are recommended to follow up with your PCP to have EMG / nerve conduction studies done in the near future. Diet: Regular Activity: Ad harinder Followup: Geronimo Miller MD [Primary Care Provider] - 1 Week (PCP- call to schedule an appointment ) Time spent managing pt's care (in minutes): 45
--- NOTE | 2020-03-15 14:45 | RAD REPORT ---
EXAM DESCRIPTION: CT - Head Brain Wo Cont - 03/14/2020 1:51 am CLINICAL HISTORY: NUMBNESS COMPARISON: 01/29/2018 TECHNIQUE: Axial CT of the head obtained from the skull apex to the skull base without contrast. FINDINGS: No acute intracranial hemorrhage identified. No mass, mass effect, shift of the midline, a bnormal extra-axial fluid collection or CT evidence of acute ischemic change identified. The ventricu lar system and sulcal spaces are mildly enlarged compatible with mild cerebral atrophy. Scattered a reas of hypodensity throughout the supratentorial white matter are nonspecific and may be related to chronic small vessel ischemic change. The visualized paranasal sinuses and mastoid air cells are well aerated. No skull fracture identifi ed. Visualized orbits and globes are unremarkable. Atherosclerotic calcification of the intracranial internal carotid arteries. Prior right occipital craniectomy. IMPRESSION: 1. No acute intracranial abnormality by CT criteria. This exam was performed according to our departmental dose-optimization program, which includes autom ated exposure control, adjustment of the mA and/or kV according to patient size and/or use of iterati ve reconstruction technique. Electronically signed by: Jair Roman 03/14/2020 12:58 AM ADULT MANAGER Due to temporary technical issues with the PACS/Fluency reporting system, reports are being signed by the in house radiologists without review as a courtesy to insure prompt reporting. The interpreting radiologist is fully responsible for the content of the report.
== END 2020-03-14 16:44 | disposition home or self-care (01) ==
LOC: ER 22:33 → ERHOLD 03-14 02:21 → 2ND 03-14 05:53
PROVIDERS: ADMIT Hospitalist; ATTEND Hospitalist
DX: G51.0 Bell's palsy (principal); R20.2 Paresthesia of skin; L03.032 Cellulitis of left toe; I10 Essential (primary) hypertension; E78.5 Hyperlipidemia, unspecified; E03.9 Hypothyroidism, unspecified; E87.6 Hypokalemia; M48.02 Spinal stenosis, cervical region; Z86.16 Personal history of COVID-19; Z88.6 Allergy status to analgesic agent; Z88.0 Allergy status to penicillin; Z88.8 Allergy status to other drugs, medicaments and biological substances; Z23 Encounter for immunization; Z20.822 Contact with and (suspected) exposure to COVID-19
CPT/HCPCS: 93005; 85025; 80048 ×2; 36415; 83735; 85610; 80061; 80076; 84484; 83880; 70450; 72125; 71045; 73630; 90471; 96374; 99285; U0003; Q2035; J1650; G0378 ×2; G0008

== ENCOUNTER 2020-12-21 13:30 | Emergency (ER) | payer OTHER ==
[2020-12-21 14:19] LABS: Absolute Lymphocytes (CBC) 1.3 K/uL (0.7-4.9); Basophils % 0.7 % (0-1.3); Hematocrit 39.5 % (36.0-45.0); MPV 9.3 fL (7.6-11.3); RBC Red Blood Cell Count 4.48 M/uL (3.86-4.86)
[2020-12-21 14:22] LABS: Protime INR 1.09
--- NOTE | 2020-12-21 14:32 | RAD REPORT ---
EXAM DESCRIPTION: RAD - Chest Single View - 12/21/2020 1:51 pm CLINICAL HISTORY: COUGH Chest pain. COMPARISON: Chest Single View dated 03/14/2020; Chest Single View dated 02/22/2020; CHEST PA AND LAT 2 VIEW dated 09/10/2014; CHEST SINGLE VIEW dated 06/11/2014 FINDINGS: Portable technique limits examination quality. The lungs are grossly clear. The heart is normal in size. No displaced fractures. IMPRESSION: No acute intrathoracic process suspected.
--- NOTE | 2020-12-21 14:32 | RAD REPORT ---
EXAM DESCRIPTION: CT - Head Brain Wo Cont - 12/21/2020 2:17 pm CLINICAL HISTORY: DIZZINESS Headache, drowsiness COMPARISON: Head Brain Wo Cont dated 03/14/2020; Head Brain Wo Cont dated 01/29/2018 TECHNIQUE: All CT scans are performed using dose optimization technique as appropriate and may inclu de automated exposure control or mA/KV adjustment according to patient size. FINDINGS: No intracranial hemorrhage, hydrocephalus or extra-axial fluid collection.Mild generalized brain atrophy.No areas of brain edema or evidence of midline shift. The paranasal sinuses and mastoids are clear. The calvarium is intact. IMPRESSION: No acute intracranial abnormality.
[2020-12-21 14:38] LABS: ALT/SGPT 28 U/L (12-78); AST/SGOT 19 U/L (15-37); Albumin 3.6 g/dL (3.4-5.0); Alkaline Phosphatase 139 U/L (45-117); BUN Blood Urea Nitrogen 17 mg/dL (7-18); Bicarbonate 27 mmol/L (21-32); Bilirubin Direct 0.2 mg/dL (0-0.2); Bilirubin Total 1.1 mg/dL (0.2-1.0); Glucose Level 104 mg/dL (74-106); Magnesium 2.6 mg/dL (1.8-2.4); NT PRO-BNP 179 pg/mL (<450); Potassium 3.5 mmol/L (3.5-5.1); Protein, Total 7.1 g/dL (6.4-8.2); Sodium Level 142 mmol/L (136-145); Troponin (Emerg Dept Use Only) < 0.02 ng/mL (0.0-0.045)
[2020-12-21] MEDS ORDERED: NA CHLORIDE 0.9% 1,000 ML ONE (15:26)
[2020-12-21 15:38] LABS: Urine Blood Negative (Negative); Urine Glucose Negative (Negative); Urine Protein Negative (Negative); Urine Specific Gravity 1.015 (1.005-1.030)
--- NOTE | 2020-12-21 17:50 | EDPHYS ---
Physician Documentation [facility] Name: Jarrod Graham Age: 80 yrs Sex: Female : 1940 Arrival Date: 12/21/2020 Time: 13:31 Bed 5 Private MD: ED Physician Jb Brar HPI: 12/21 17:43 This 80 yrs old Female presents to ER via EMS with complaints of Dizziness. mary jo 17:43 The patient presents with generalized weakness, lightheadedness. Onset: The mary jo symptoms/episode began/occurred just prior to arrival, today. Context: occurred at home, occurred while the patient was standing. Modifying factors: The symptoms are alleviated by lying down, the symptoms are aggravated by standing up. Associated signs and symptoms: Pertinent positives: dizzy. Severity of symptoms: At their worst the symptoms were mild in the emergency department the symptoms have improved moderately. Patient's baseline: Neuro: alert and fully oriented. The patient has experienced similar episodes in the past, several times. 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 - Social history:: Smoking status: Patient denies any tobacco usage or history of. - Family history:: not pertinent. ROS: 17:43 Constitutional: Negative for fever, chills, and weight loss, Eyes: Negative for injury, mary jo pain, redness, and discharge, ENT: Negative for injury, pain, and discharge, Neck: Negative for injury, pain, and swelling, Cardiovascular: Negative for chest pain, palpitations, and edema, Respiratory: Negative for shortness of breath, cough, wheezing, and pleuritic chest pain, Abdomen/GI: Negative for abdominal pain, nausea, vomiting, diarrhea, and constipation, Back: Negative for injury and pain, : Negative for injury, bleeding, discharge, and swelling, MS/Extremity: Negative for injury and deformity, Skin: Negative for injury, rash, and discoloration, Psych: Negative for depression, anxiety, suicide ideation, homicidal ideation, and hallucinations, Allergy/Immunology: Negative for hives, rash, and allergies, Endocrine: Negative for neck swelling, polydipsia, polyuria, polyphagia, and marked weight changes, Hematologic/Lymphatic: Negative for swollen nodes, abnormal bleeding, and unusual bruising. 17:43 Neuro: Positive for dizziness, weakness. Exam: 17:43 Constitutional: This is a well developed, well nourished patient who is awake, alert, mary jo and in no acute distress. Head/Face: Normocephalic, atraumatic. Eyes: Pupils equal round and reactive to light, extra-ocular motions intact. Lids and lashes normal. Conjunctiva and sclera are non-icteric and not injected. Cornea within normal limits. Periorbital areas with no swelling, redness, or edema. ENT: Nares patent. No nasal discharge, no septal abnormalities noted. Tympanic membranes are normal and external auditory canals are clear. Oropharynx with no redness, swelling, or masses, exudates, or evidence of obstruction, uvula midline. Mucous membranes moist. Neck: Trachea midline, no thyromegaly or masses palpated, and no cervical lymphadenopathy. Supple, full range of motion without nuchal rigidity, or vertebral point tenderness. No Meningismus. Chest/axilla: Normal chest wall appearance and motion. Nontender with no deformity. No lesions are appreciated. Cardiovascular: Regular rate and rhythm with a normal S1 and S2. No gallops, murmurs, or rubs. Normal PMI, no JVD. No pulse deficits. Respiratory: Lungs have equal breath sounds bilaterally, clear to auscultation and percussion. No rales, rhonchi or wheezes noted. No increased work of breathing, no retractions or nasal flaring. Abdomen/GI: Soft, non-tender, with normal bowel sounds. No distension or tympany. No guarding or rebound. No evidence of tenderness throughout. Back: No spinal tenderness. No costovertebral tenderness. Full range of motion. Skin: Warm, dry with normal turgor. Normal color with no rashes, no lesions, and no evidence of cellulitis. MS/ Extremity: Pulses equal, no cyanosis. Neurovascular intact. Full, normal range of motion. Neuro: Awake and alert, GCS 15, oriented to person, place, time, and situation. Cranial nerves II-XII grossly intact. Motor strength 5/5 in all extremities. Sensory grossly intact. Cerebellar exam normal. Normal gait. Psych: Awake, alert, with orientation to person, place and time. Behavior, mood, and affect are within normal limits. 17:43 Musculoskeletal/extremity: DVT Exam: No signs of deep vein thrombosis. no pain, no swelling, no tenderness, negative Homans' sign noted on exam, no appreciated bluish discoloration, no erythema, no increased warmth. 17:51 ECG was reviewed by the Attending Physician. mary jo Vital Signs: 13:39 BP 188 / 89; Pulse 82; Resp 15 S; Temp 98.2(O); Pulse Ox 99% on R/A; Weight 65.32 kg jd3 (R); Height 5 ft. 6 in. (167.64 cm) (R); Pain 0/10; 14:55 BP 174 / 69; Pulse 80; Resp 14 S; Pulse Ox 99% on R/A; jd3 15:54 BP 159 / 79; Pulse 82; Resp 17 S; Pulse Ox 99% on R/A; jd3 17:42 BP 189 / 79 Supine; Pulse 84; Resp 18; Pulse Ox 98% on R/A; mh5 17:44 BP 181 / 79 Sitting; Pulse 83; Resp 14; Pulse Ox 100% on R/A; mh5 17:46 BP 149 / 82 Standing; Pulse 90; Resp 15; Pulse Ox 100% on R/A; mh5 18:30 BP 165 / 93; Pulse 66; Resp 17 S; Pulse Ox 100% on R/A; jd3 13:39 Body Mass Index 23.24 (65.32 kg, 167.64 cm) jd3 MDM: 13:38 Patient medically screened. mary jo 17:45 Differential diagnosis: cardiac arrhythmia, CVA, generalized weakness, hypovolemia, mary jo near-syncope, TIA, vertigo. Data reviewed: vital signs, nurses notes, lab test result(s), EKG, radiologic studies, CT scan, plain films. Data interpreted: pvc monitor: rate is 82 beats/min, rhythm is regular, Pulse oximetry: on room air is 99 %. Test interpretation: by ED physician or midlevel provider: ECG, plain radiologic studies. Counseling: I had a detailed discussion with the patient and/or guardian regarding: the historical points, exam findings, and any diagnostic results supporting the discharge/admit diagnosis, lab results, radiology results, the need for outpatient follow up, for definitive care, a sex worker or escort, a family practitioner, a neurologist. 12/21 13:41 Order name: Basic Metabolic Panel [facility] 12/21 13:41 Order name: CBC with Diff [facility] 12/21 13:41 Order name: LFT's [facility] 12/21 13:41 Order name: Magnesium [facility] 12/21 13:41 Order name: NT PRO-BNP; Complete Time: 16:05 [facility] 12/21 13:41 Order name: PT-INR; Complete Time: 16:05 [facility] 12/21 13:41 Order name: Troponin (emerg Dept Use Only); Complete Time: 16:05 [facility] 12/21 13:41 Order name: Urine Culture [facility] 12/21 13:41 Order name: SARS-COV-2 RT PCR (Document "Date of Onset" if Symptomatic); Complete Time: [facility] 17:41 12/21 13:42 Order name: Basic Metabolic Panel; Complete Time: 16:05 [facility] 12/21 13:42 Order name: CBC with Automated Diff; Complete Time: 16:05 [facility] 12/21 13:42 Order name: Liver (Hepatic) Function; Complete Time: 16:05 [facility] 12/21 13:42 Order name: Magnesium; Complete Time: 16:05 [facility] 12/21 15:37 Order name: Urine Dipstick-Ancillary; Complete Time: 16:05 [facility] 12/21 13:41 Order name: XRAY Chest (1 view); Complete Time: 16:05 [facility] 12/21 13:41 Order name: EKG; Complete Time: 13:42 [facility] 12/21 13:41 Order name: Cardiac monitoring; Complete Time: 13:57 [facility] 12/21 13:41 Order name: EKG - Nurse/Tech; Complete Time: 14:25 [facility] 12/21 13:41 Order name: IV Saline Lock; Complete Time: 14:13 [facility] 12/21 13:41 Order name: Labs collected and sent; Complete Time: 14:13 [facility] 12/21 13:41 Order name: O2 Per Protocol; Complete Time: 13:57 [facility] 12/21 13:41 Order name: O2 Sat Monitoring; Complete Time: 13:57 [facility] 12/21 13:41 Order name: CT Head Brain wo Cont; Complete Time: 16:05 [facility] 12/21 17:47 Order name: PO challenge; Complete Time: 18:32 [facility] EC:51 Rate is 77 beats/min. Rhythm is regular. QRS [place] is Normal. NM interval is normal. QRS mary jo interval is normal. QT interval is normal. No Q waves. T waves are Normal. No ST changes noted. Clinical impression: Normal ECG and No evidence of ischemia. Interpreted by me. Reviewed by me. Administered Medications: 14:37 Drug: NS 0.9% 1000 ml Route: IV; Rate: 1 bolus; Site: right wrist; jd3 15:30 Follow up: Response: No adverse reaction; IV Status: Completed infusion jd3 18:50 Drug: Rocephin (cefTRIAXone) 1 grams Route: IV; Rate: per protocol; Site: right wrist; jd3 19:21 Follow up: IV Status: Completed infusion em 18:50 Drug: Aspirin Chewable Tablet 162 mg Route: PO; jd3 19:21 Follow up: Response: No adverse reaction em 18:50 Drug: Cipro (ciprofloxacin) 500 mg Route: PO; jd3 19:21 Follow up: Response: No adverse reaction em Disposition Summary: 12/21/20 17:48 Discharge Ordered Location: Home mary jo Problem: new mary jo Symptoms: have improved mary jo Condition: Stable mary jo Diagnosis - Dizziness and giddiness mary jo - UTI/ Urinary tract infection, site not specified mary jo - Dehydration mary jo - Unspecified kidney failure - chronic, acute on chronic mary jo Followup: mary jo - With: Private Physician - When: 2 - 3 days - Reason: Recheck today's complaints, Continuance of care, Re-evaluation by your physician Followup: mary jo - With: Abelardo Macario MD - When: 2 - 3 days - Reason: Recheck today's complaints, Re-evaluation by your physician Followup: mary jo - With: Jose E Lemus MD - When: 2 - 3 days - Reason: Recheck today's complaints, Re-evaluation by your physician Discharge Instructions: - Discharge Summary Sheet mary jo - Dehydration, Adult mary jo - Dizziness mary jo - Dysuria mary jo - Urinary Tract Infection, Adult mary jo - Urinary Tract Infection, Adult, [id number] mary jo - Near-Syncope, [id number] mary jo - Aspirin and Your Heart mary jo - Dizziness, [id number] mary jo - Chronic Kidney Disease, Adult, [id number] mary jo Forms: - Medication Reconciliation Form mary jo - Thank You Letter mary jo - Antibiotic Education mary jo - Prescription Opioid Use mary jo Prescriptions: - Cipro 250 mg Oral Tablet - take 1 tablet by ORAL route every 12 hours; 14 tablet; Refills: 0, Product mary jo Selection Permitted Signatures: Dispatcher [employer] Jb Cano MD MD cha Davies, Jonathon RN RN Elliott Hemphill RN
--- NOTE | 2020-12-21 17:50 | ER ---
Nurse's Notes [facility] Name: Jarrod Graham Age: 80 yrs Sex: Female : 1940 Arrival Date: 12/21/2020 Time: 13:31 Bed 5 Private MD: Diagnosis: Dizziness and giddiness;UTI/ Urinary tract infection, site not specified;Dehydration;Unspecified kidney failure-chronic, acute on chronic Presentation: 12/21 13:35 Chief complaint: EMS states: "pt reporting upon waking up at 1100 that she was dizzy jd3 and when standing she would get dizzy and her vision would get blurry. pt was orthostatic positive for us and we gave 250 ml NS with a 20 G tot he right wrist. pt reported the vision problem has resolved or now only happens with standing up.". Coronavirus screen: At this time, the client does not indicate any symptoms associated with coronavirus-19. Ebola Screen: Patient negative for fever greater than or equal to 101.5 degrees Fahrenheit, and additional compatible Ebola Virus Disease symptoms. Initial Sepsis Screen: Does the patient meet any 2 criteria? No. Patient's initial sepsis screen is negative. Does the patient have a suspected source of infection? No. Patient's initial sepsis screen is negative. Risk Assessment: Do you want to hurt yourself or someone else? Patient reports no desire to harm self or others. Onset of symptoms was December 21, 2020. 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 - Social history:: Smoking status: Patient denies any tobacco usage or history of. - Family history:: not pertinent. Screenin:45 Abuse screen: Denies threats or abuse. Nutritional screening: No deficits noted. jd3 Tuberculosis screening: No symptoms or risk factors identified. Fall Risk Ambulatory Aid- None/Bed Rest/Nurse Assist (0 pts). Gait- Normal/Bed Rest/Wheelchair (0 pts) Mental Status- Oriented to own ability (0 pts). Total Vanegas Fall Scale indicates No Risk (0-24 pts). Assessment: 13:41 General: Appears in no apparent distress. comfortable, Behavior is calm, cooperative, jd3 appropriate for age, Reports fatigue for >3 days. Pain: Denies pain. Neuro: Level of Consciousness is awake, alert, obeys commands, Oriented to person, place, time, situation, Pupils are PERRLA, Reports dizziness, blurred vision with dizziness on standing. Cardiovascular: Capillary refill < 3 seconds Patient's skin is warm and dry. Rhythm is regular. Respiratory: Airway is patent Respiratory effort is even, unlabored, Respiratory pattern is regular, symmetrical, Denies cough, shortness of breath. GI: No signs and/or symptoms were reported involving the gastrointestinal system. : No signs and/or symptoms were reported regarding the genitourinary system. EENT: No signs and/or symptoms were reported regarding the EENT system. Derm: Skin is intact, Skin is dry, Skin is normal, Skin temperature is warm. Musculoskeletal: Circulation, motion, and sensation intact. Range of motion: intact in all extremities. 14:55 Reassessment: No changes from previously documented assessment. Patient and/or family jd3 updated on plan of care and expected duration. Pain level reassessed. Patient is alert, oriented x 3, equal unlabored respirations, skin warm/dry/pink. 15:54 Reassessment: Patient appears in no apparent distress at this time. No changes from jd3 previously documented assessment. Patient and/or family updated on plan of care and expected duration. Pain level reassessed. Patient is alert, oriented x 3, equal unlabored respirations, skin warm/dry/pink. 16:50 Reassessment: Patient appears in no apparent distress at this time. Patient and/or jd3 family updated on plan of care and expected duration. Pain level reassessed. Patient is alert, oriented x 3, equal unlabored respirations, skin warm/dry/pink. Patient states feeling better. 17:50 Reassessment: Patient appears in no apparent distress at this time. Patient and/or jd3 family updated on plan of care and expected duration. Pain level reassessed. Patient is alert, oriented x 3, equal unlabored respirations, skin warm/dry/pink. 18:50 Reassessment: Patient appears in no apparent distress at this time. Patient and/or jd3 family updated on plan of care and expected duration. Pain level reassessed. Patient is alert, oriented x 3, equal unlabored respirations, skin warm/dry/pink. Patient states feeling better. Vital Signs: 13:39 BP 188 / 89; Pulse 82; Resp 15 S; Temp 98.2(O); Pulse Ox 99% on R/A; Weight 65.32 kg jd3 (R); Height 5 ft. 6 in. (167.64 cm) (R); Pain 0/10; 14:55 BP 174 / 69; Pulse 80; Resp 14 S; Pulse Ox 99% on R/A; jd3 15:54 BP 159 / 79; Pulse 82; Resp 17 S; Pulse Ox 99% on R/A; jd3 17:42 BP 189 / 79 Supine; Pulse 84; Resp 18; Pulse Ox 98% on R/A; mh5 17:44 BP 181 / 79 Sitting; Pulse 83; Resp 14; Pulse Ox 100% on R/A; mh5 17:46 BP 149 / 82 Standing; Pulse 90; Resp 15; Pulse Ox 100% on R/A; mh5 18:30 BP 165 / 93; Pulse 66; Resp 17 S; Pulse Ox 100% on R/A; jd3 13:39 Body Mass Index 23.24 (65.32 kg, 167.64 cm) [facility] ED Course: 13:31 Patient arrived in ED. am2 13:35 Manfred Mejia, RIKA is Primary Nurse. jd3 13:38 Jb Brar MD is Attending Physician. mary jo 13:38 Triage completed. jd3 13:41 Arm band placed on. jd3 13:45 Patient has correct armband on for positive identification. Bed in low position. Call [facility] light in reach. Side rails up X2. monitoring tech on. Pulse ox on. NIBP on. 13:51 XRAY Chest (1 view) In Process Unspecified. EDMS 14:13 Maintain EMS IV. Dressing intact. Good blood return noted. Site clean \\T\\ dry. Gauge \\T\\ crystal 3 site: 20 G to the right wrist. 14:17 CT Head Brain wo Cont In Process Unspecified. EDNV 17:47 Abelardo Macario MD is Referral Physician. [facility] 17:47 Jose E Lemus MD is Referral Physician. [facility] 19:15 Primary Nurse role handed off by Manfred Mejia, RN mw2 19:21 No provider procedures requiring assistance completed. IV discontinued, intact, em bleeding controlled, No redness/swelling at site. Pressure dressing applied. Administered Medications: 14:37 Drug: NS 0.9% 1000 ml Route: IV; Rate: 1 bolus; Site: right wrist; jd3 15:30 Follow up: Response: No adverse reaction; IV Status: Completed infusion jd3 18:50 Drug: Rocephin (cefTRIAXone) 1 grams Route: IV; Rate: per protocol; Site: right wrist; jd3 19:21 Follow up: IV Status: Completed infusion em 18:50 Drug: Aspirin Chewable Tablet 162 mg Route: PO; jd3 19:21 Follow up: Response: No adverse reaction em 18:50 Drug: Cipro (ciprofloxacin) 500 mg Route: PO; jd3 19:21 Follow up: Response: No adverse reaction em Outcome: 17:48 Discharge ordered by MD. [facility] 19:21 Discharged to home via wheelchair. em 19:21 Condition: stable 19:21 Discharge instructions given to patient, Instructed on discharge instructions, follow up and referral plans. medication usage, Demonstrated understanding of instructions, follow-up care, medications, Prescriptions given X 1. 19:21 Patient left the ED. em Signatures: Dispatcher [employer] EDNV Jb Brar MD MD cha Munoz, Edgar, RN RN Janine Strickland [facility] Elyse Robertson [facility] Manfred Mejia RN RN Claritza Cortes mw2
[2020-12-21] MEDS ORDERED: CIPROFLOXACIN HCL 500 MG TAB ONE (18:41)
[2020-12-21] MEDS ORDERED: ASPIRIN 81 MG CHEWABLE TABLET ONE (18:42)
[2020-12-21] MEDS ORDERED: CEFTRIAXONE 1000 MG/VIAL ONE (18:42)
[2020-12-21] MEDS ORDERED: NA CHLORIDE 0.9% 50 ML ONE (18:42)
[2020-12-21 19:26] VITALS: TEMP 98.2
[2020-12-21 19:31] VITALS: O2SAT 100
[2020-12-21 19:32] VITALS: BP 149/82
--- NOTE | 2020-12-22 13:13 | EKG ---
Test Date: 2020-12-21 Test Time: 14:25:16 [place] Consultant: GWYN MEASUREMENT RESULTS: Intervals: Rate: 77 MD: 126 QRSD: 108 QT: 402 QTc: 454 [place]: P: 70 MD: 126 QRS: -19 T: 50 INTERPRETIVE STATEMENTS: Normal sinus rhythm Normal ECG Compared to ECG 03/14/2020 00:40:49 Ventricular premature complex(es) no longer present ST (T wave) deviation no longer present Electronically Signed On 12-22-20 13:10:33 CDT by Abelardo Macario
--- OUTSIDE RECORDS SUMMARY | 2021-01-01 08:15 | XMS REPORT | Continuity of Care Document ---
:1940 Author Organization [facility] t Address [address] [place] [address] Dr. Jaramillo [address] [place] [id number] Care Team Providers Name Role Phone Serena Rojas Jr. Primary Care Physician Diana GIBBS, Gene Attending Clinician Payers Payer Name Policy Type Policy Number Effective Date Expiration Date S ource Problems Condition Condition Condition Status Onset Resolution Last Treating Co mments Source Name Details Category Date Date Treatment Clinician Date No known No known Disease Unive rs active active ity of problems problems [facility] [place] [facility] Allergies, Adverse Reactions, Alerts Allergy Allergy Status Severity Reaction(s) Onset Inactive Treating Comm ents Source Name Type Date Date Clinician Penicill Propensi Active Hives 2019-0 Univer s in ty to -08 ity of adverse 00:00: [place] reaction 00 [facility] Onabotul Propensi Active Other - See 2019-0 U nivers inumtoxi ty to comments -08 ity of na adverse 00:00: [place] reaction 00 [facility] s [facility] Codeine Propensi Active Hallucinatio 2019-0 U nivers ty to ns 1-08 ity of adverse 00:00: [place] reaction 00 [facility] s [facility] Meperidi Propensi Active Other - See 2019-0 fever U nivers ne Hcl ty to comments 1-08 ity of adverse 00:00: [place] reaction 00 [facility] s [facility] Social History Social Habit Start Date Stop Date Quantity Comments Source Exposure to Not sure University SARS-CoV-2 [place] [facility] (event) Branch Alcohol intake 2020-12-07 2020-12-07 Current University 00:00:00 00:00:00 non-drinker of [facility] alcohol Branch (finding) Tobacco use and 2018-02-26 2018-02-26 Never used Universit y of exposure 00:00:00 00:00:00 [facility] Sex Ass[birth year] Universit y of 00:00:00 00:00:00 [facility] Smoking Status Start Date Stop Date Source Never smoker [facility] Medications Ordered Filled Start Stop Current Ordering Indication Dosage Frequency Signature Comments Components Source Medication Medication Date Date Medication? Clinician (SIG) Name Name baclofen 5 2020-02 Yes 5mg Take 1 Unive rs mg tablet 1-05 tablet by ity o f 00:00: mouth 2 [place] (two) Medical times Branch daily. clonazePAM 2020-02 Yes [id number] 2mg Take 1 U nivers 2 mg tablet 0-19 tablet by ity of 00:00: mouth 2 [place] (two) Medical times Branch daily. clonazePAM 2020-02 Yes [id number] 2mg Take 1 U nivers 2 mg tablet 0-19 tablet by ity of 00:00: mouth 2 [place] (two) Medical times Branch daily. clonazePAM 2020-0 2020- No [id number] 2mg Take 1 Univers 2 mg tablet 6-14 10-19 tablet by it y of 00:00: 00:00 mouth 2 [place] 00 :00 (two) Medical times Branch daily. traZODONE 2017- Yes Univers 100 mg 1-08 ity of tablet 00:00: [address] traZODONE 2018-1 Yes Univers 100 mg 1-08 ity of tablet 00:00: [address] levothyroxi 2018-0 Yes Univer s ne 75 mcg 9-10 ity of tablet 00:00: [address] pravastatin 2018-0 Yes Univer s 80 mg 9-10 ity of tablet 00:00: [address] Branch spironolact 2018-0 Yes Univer s one 50 mg 9-10 ity of tablet 00:00: [address] levothyroxi 2018-0 Yes Univer s ne 75 mcg 9-10 ity of tablet 00:00: [address] pravastatin 2018-0 Yes Univer s 80 mg 9-10 ity of tablet 00:00: [address] spironolact 2018-0 Yes Univer s one 50 mg 9-10 ity of tablet 00:00: [address] Vital Signs Vital Name Observation Time Observation Value Comments Source Systolic blood 2020-12-07 21:28:00 131 mm[Hg] Univer sity of pressure [facility] Diastolic blood 2020-12-07 21:28:00 84 mm[Hg] Unive rsity of pressure [facility] Heart rate 2020-12-07 21:28:00 91 /min [facility] Respiratory rate 2020-12-07 21:28:00 18 /min Univ ersity of [facility] Body height 2020-12-07 21:28:00 167.6 cm [facility] Body weight 2020-12-07 21:28:00 65.318 kg [facility] BMI 2020-12-07 21:28:00 23.24 kg/m2 [facility] Oxygen saturation in 2020-12-07 21:28:00 98 /min [facility] Arterial blood by [facility] Pulse oximetry Branch Procedures This patient has no known procedures. Encounters Start End Encounter Admission Attending Care Care Encounter Source Date/Time Date/Time Type Type Clinicians Facility Department ID 2020-12-24 2020-12-24 Telephone Diana, [facility] [id number] [facility] 00:00:00 00:00:00 [facility] [id number] ity of [place] [id number] Peter as SHERMAN?BLEA [id number] [address] MEDICAL OFFICE BUILDING 2020-12-07 2020-12-07 Office [facility] [id number] 16:17:14 17:01:25 Visit [facility] [id number] ity of [place] [id number] Peter as SHERMAN?BLEA [id number] [address] MEDICAL OFFICE BUILDING 2020-03-05 2020-03-05 Refill Diana, [facility] [id number] 00:00:00 00:00:[address] [facility] [id number] [place] [id number] [facility] [id number] [facility] 092 Building Results This patient has no known results.
== END 2020-12-21 19:21 | disposition home or self-care (01) ==
LOC: ER 13:30
DX: N39.0 Urinary tract infection, site not specified (principal); E86.0 Dehydration; I12.9 Hypertensive chronic kidney disease with stage 1 through stage 4 chronic kidney disease, or unspecified chronic kidney disease; N18.9 Chronic kidney disease, unspecified; N17.9 Acute kidney failure, unspecified; Z20.822 Contact with and (suspected) exposure to COVID-19; Z88.0 Allergy status to penicillin; Z88.5 Allergy status to narcotic agent; Z88.8 Allergy status to other drugs, medicaments and biological substances
CPT/HCPCS: 96365; 96361; 93005; 87088; 85025; 87086; 80048; 36415; 83735; 85610; 80076; 81003; 84484; 83880; 70450; 71045; 99284; U0003; J7030

== ENCOUNTER 2022-09-04 08:47 | Emergency (ER) | payer OTHER ==
[2022-09-04] MEDS ORDERED: dexAMETHasone 10 MG/ML VIAL ONE (09:16)
--- OUTSIDE RECORDS SUMMARY | 2022-09-04 14:32 | XMS REPORT | Continuity of Care Document ---
:1940 Author Organization [facility] t Address [address] [facility] [address] [place] [id number] Care Team Providers Name Role Phone Geronimo Miller Cheng Primary Care Physician Michael Patel Attending Clinician Gerard Albarran MD Attending Clinician Miky Ortiz MD Attending Clinician GERARD ALBARRAN Attending Clinician Unavailable MIKY ORTIZ Attending Clinician Unavailable MIKY ORTIZ Attending Clinician Unavailable Doctor Unassigned, Morse Attending Clinician Unavailable MIKY ORTIZ Admitting Clinician Unavailable Payers Payer Name Policy Type Policy Number Effective Date Expiration Date charm[place] MEDICARE PART A [id number] 1993 \T\ B 00:00:00 Problems Condition Condition Condition Status Onset Resolution Last Treating Co mments Source Name Details Category Date Date Treatment Clinician Date 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 00:00: [address] 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-17 ity of 00:00: [address] 724.4 - 724.4 - Diagnosis Active 2014-07-05 Memoria LUMBOSACRA LUMBOSACRA 06-02 15:44:00 l L STEPHEN L STEPHEN 00:01: [place] Active 00 06/02/2014 [facility] JUAN JUAN Active Diagnosis Active 2011-09-11 Memoria 08/31/201108-30 21:43:00 l [facility] 00:00: [address] TRIGEMINAL TRIGEMINA Diagnosis Active 2011-08-16 Memoria NERVE L NERVE 07-17 02:41:00 l Active 00:00: [place] 07/18/2011 00 [facility] History of History Problem Active 2011-08-18 Memoria - of - 08:27:27 l trigeminal trigeminal He rmann neuralgia neuralgia Active Problem 08/18/2011 [facility] Pain Pain Problem Active 2011-08-18 Memor ia Active 08:27:27 l Problem [place] 08/18/2011 [facility] Headache Headache Problem Active 2011-09-04 Memoria Active 08:24:51 l Problem [place] 09/04/2011 [facility] TRIGEMINAL TRIGEMINA Diagnosis Active 2011-08-16 Memoria NEURALGIA L 02:41:00 l NEURALGIA Giorgi Active [facility] HEADACHE HEADACHE Diagnosis Active 2011-09-11 Memoria Active 21:43:00 l [facility] Allergies, Adverse Reactions, Alerts Allergy Allergy Status Severity Reaction(s) Onset Inactive Treating Comm ents Source Name Type Date Date Clinician Penicill Propensi Active Hives 2019-0 Univer s in ty to 1-08 ity of adverse 00:00: [place] reaction 00 [facility] Onabotul Propensi Active Other - See 2019-0 U nivers inumtoxi ty to comments 1-08 ity of na adverse 00:00: [place] reaction 00 [facility] Codeine Propensi Active Hallucinatio 2019-0 U nivers ty to ns 1-08 ity of adverse 00:00: [place] reaction 00 [facility] Meperidi Propensi Active Other - See 2019-0 fever U nivers ne Hcl ty to comments 1-08 ity of adverse 00:00: [place] reaction 00 [facility] Demerol Demerol Active Memoria HCl HCl l [place] fentaNYL fentaNYL Active Memori a l Giorgi penicill penicill Active Memori a ins ins l [place] cephalos cephalos Active Memori a porins porins l [place] Darvon Darvon Active Memoria l [place] codeine codeine Active Memoria l [place] Social History Social Habit Start Date Stop Date Quantity Comments Source Alcohol intake 2021-08-17 2021-08-17 Current University of 00:00:00 00:00:00 non-drinker of [facility] alcohol ([facility]) [place] Tobacco use and 2018-02-26 2018-02-26 Smokeless tobacco Un iversity of exposure 00:00:00 00:00:00 non-user [facility] Sex Assigned At [birth year] Universit y of 00:00:00 00:00:00 [facility] Smoking Status Start Date Stop Date Source Never smoked tobacco [facility] Medications Ordered Filled Start Stop Current Ordering Indication Dosage Frequency Signature Comments Components Source Medication Medication Date Date Medication? Clinician (SIG) Name Name clonazePAM Yes [id number] .5mg TAKE 1 U nivers 0.5 mg 8-09 TABLET BY ity of tablet 00:00: MOUTH 2 [place] ([facility]) Medical TIMES [place] DAILY. clonazePAM Yes [id number] .25mg Take 1 Univers 0.25 mg 8-08 tablet by ity of disintegrat 00:00: mouth 2 [place] as ing tablet ([facility] daily as needed for Anxiety. metoprolol Yes Univers succinate 5-18 ity of XL 50 mg 24 00:00: [place] hr tablet [facility] divalproex Yes 125mg Take 1 Univ ers 125 mg EC 4-06 tablet by ity o f tablet 00:00: mouth 2 [place] ([facility]) Medical times [place] daily. Take 1 tablet by mouth twice daily for 14 days, then increase to 2 tablets by mouth twice daily. Call office for refills. levETIRAcet Yes [id number] 250mg Take 1 Univers am (KEPPRA) 3-11 tablet by ity of 250 mg 00:00: mouth 2 [place] tablet ([facility]) Medical times [place] daily. traZODONE 2017-02 Yes Univers 100 mg 1-08 ity of tablet 00:00: [place] [facility] levothyroxi Yes Univer s ne 75 mcg 9-10 ity of tablet 00:00: [address] pravastatin Yes Univer s 80 mg 9-10 ity of tablet 00:00: [address] spironolact Yes Univer s one 50 mg 9-10 ity of tablet 00:00: [address] hydrochloro No Patel 12.5 mg, 1 Memoria thiazide 7-15 Ping-Mora tab, l 14:00: Lo Route: PO, [place] 00 Drug form: TAB, Daily, Start date: [...] cap, l 14:00: Lo Route: PO, Giorgi 00 Drug form: CAP, Daily, Start date: 09/03/11 9:00:00, Duration: 30 day, Stop date: 10/02/11 9:00:00 diphenhydrA No Patel 25 mg, 1 Memoria MINE 7-15 [place] cap, l 02:00: Lo Route: PO, [place] 00 Drug form: CAP, Bedtime, Start date: 09/02/11 21:00:00, Duration: 30 day, Stop date: 10/01/11 21:00:00 Pepcid 20 Yes Patel 20 mg, 1 Me moria mg oral 7-14 [place] tab, PO, l tablet 17:49: Lo BID, 180 [place] 52 tab, Substituti on Allowed dexamethaso Yes [...] mg, 1 M emoria 40 mg oral 7-14 [place] cap, PO, l capsule 16:29: Lo Daily, 30 Kiera nn 22 cap, Substituti on Allowed, CAP pravastatin Yes Patel 80 mg, 1 Memoria 80 mg oral 7-14 P[place] tab, PO, l tablet 16:28: Lo Daily, 30 Richie n 44 tab, Substituti on Allowed, TAB Saline No Alexey 5 ml, Memor ia Flush 0.9% 08-31 Efren Route: l 14:00: [place] IVP, Drug He Form: INJ, Q12H, Start date: 09/01/11 9:00:00, Duration: 30 day, Stop date: 09/30/11 21:00:00 vancomycin No Alexey 1 gm, M emoria 08-31 Efren Route: l 14:00: Mendoza IVPB, Richie n 00 Q12H, For 65 - 90kg, Start date: 09/01/11 9:00:00, Duration: 30 day, Stop date: 09/30/11 21:00:00 docusate 2012-0 No Alexey 100 mg, 1 Memoria sodium 100 7-13 Efren cap, l mg oral 14:00: Mendoza Route: PO, Giorgi capsule 00 Drug form: CAP, Q12H, Start date: 09/01/11 9:00:00, Duration: 30 day, Stop date: 09/30/11 21:00:00 senna 2011-0 No Alexey 8.6 mg, 1 Me moria 7-13 Efren tab, l 14:00: Mendoza Route: PO, H ermann 00 Drug Form: TAB, Q12H, Start date: 09/01/11 9:00:00, Duration: 30 day, Stop date: 09/30/11 21:00:00 docusate 2011-0 No Alexey 100 mg, 10 Memoria sodium 100 7-13 Efren mL, Route: l mg/25 mL 14:00: Mendoza NG, Drug [place] oral syrup 00 form: LIQ, Q12H, Start date: 09/01/11 9:00:00, Duration: 30 day, Stop date: 09/30/11 21:00:00 dexamethaso 2011-0 No Alexey 4 mg, 1 Memoria ne 7-13 Efren tab, l 11:00: Mendoza Route: PO, H ermann 00 Drug form: TAB, Q6H, Start date: 09/01/11 6:00:00, Duration: 30 day, Stop date: 10/01/11 0:00:00 Dextrose 2011-0 No Alexey 6.25 gm, Memoria 50% Syringe 7-13 Efren 12.5 mL, l 08:08: Mendoza Route: Kiera nn 00 IVP, Drug Form: INJ, PRN, PRN Abnormal Lab Result, Start date: 09/01/11 3:08:00, Duration: 30 day, Stop date: 10/01/11 3:07:00 insulin 2011-0 No Alxeey 7 unit, Me moria regular 7-13 Efren 0.07 mL, l human 08:08: Mendoza Route: Herm heber recombinant 00 SUB-Q, 100 Drug form: units/mL SOLN, PRN, injectable PRN solution Abnormal Lab Result, Start date: 09/01/11 3:08:00, Duration: 30 day, Stop date: 10/01/11 3:07:00 Saline 2011-0 No Alexey 5 ml, Memor ia Flush 0.9% 08-31 Efren Route: l 08:08: Mendoza IVP, Drug He rm Form: INJ, PRN, PRN Line Flush, Start date: 09/01/11 3:08:00, Duration: 30 day, Stop date: 10/01/11 3:07:00 acetaminoph 2011- No Alexey 1 tab, Memoria en-hydrocod 08-31 Efren Route: PO, l one 325 08:08: Mendoza Drug Form: [place] mg-10 mg 00 TAB, Q4H, oral tablet PRN Pain Score 4-6, Start date: 09/01/11 3:08:00, Duration: 30 day, Stop date: 10/01/11 3:07:00 ondansetron 2011-0 No Alexey 4 mg, 2 Memoria 08-31 Efren mL, Route: l 08:08: Mendoza IVP, Drug He rm form: INJ, Q8H, PRN Nausea & Vomiting, Start date: 09/01/11 3:08:00, Duration: 30 day, Stop date: 10/01/11 3:07:00 bisacodyl 2011-0 No Alexey 10 mg, 1 Memoria 08-31 Efren supp, l 08:08: Mendoza Route: NC, H ermann 00 Drug form: SUPP, Daily, [...] or times, Stop date: 09/01/11 3:37:00 Sodium No Alexey 1,000 mL, M emoria Chloride 08-31 Efren Rate: 50 l 0.9% IV 08:08: Mendoza ml/hr, He rmann 1,000 mL 00 Infuse over: 20 hr, Route: IV, Dosing Weight 77.273 kg, Total Volume: 1,000, Start date: 09/01/11 3:08:00, Duration: 30 day, Stop date: 10/01/11 3:07:00 Flomax No Cl 0.8 mg, 2 Memor ia 08-15 Patel cap, l 13:30: Abdunnur Route: PO, Her Drug form: CAP, After Breakfast, Start date: 08/16/11 8:30:00, Duration: 1 day, Stop date: 08/16/11 8:30:00 calcium No Pantera Dillon 3,000 mg, Memoria gluconate 08-15 30 mL, l 08:30: Route: [place] 00 IVPB, ONCE, Start date: 08/16/11 3:30:00, Stop date: 08/16/11 3:30:00 K-Dur 20 No Pantera H Wilma 40 mEq, 2 Memoria 08-15 tab, l 08:00: Route: PO, Giorgi Drug form: ERTAB, ONCE, Start date: 08/16/11 3:00:00, Stop date: 08/16/11 3:00:00 heparin No Asma 5,000 Memoria 08-15 Zakaria unit, 1 l 05:00: mL, Route: Giorgi 00 SUB-Q, Drug form: INJ, Q8H, Start date: 08/16/11 0:00:00, Duration: 30 day, Stop date: 09/14/11 16:00:00 acetaminoph No Asma 650 mg, 2 M emoria en 08-14 Zakaria tab, l 15:56: Route: PO, [place] Drug form: TAB, Q6H, PRN Pain, Start date: 08/15/11 10:56:00, Duration: 30 day, Stop date: 09/14/11 10:55:00 Tylenol 2011-0 No Asma 325 mg, 1 Memor ia 08-14 Zakaria tab, l 15:39: Route: PO, [place] 00 Drug form: TAB, Q4H, PRN Pain, Start date: 08/15/11 10:39:00, Duration: 30 day, Stop date: 09/14/11 10:38:00 Prozac 2011-0 No Cl 40 mg, 2 Memori a 08-14 Patel cap, l 14:00: Abdunnur Route: PO, Her gray Drug form: CAP, Daily, Start date: 08/15/11 9:00:00, Duration: 30 day, Stop date: 09/13/11 9:00:00 Microzide 2011-0 No Cl 12.5 mg, 1 M emoria 08-14 Patel cap, l 14:00: Abdunnur Route: PO, Her gray Drug form: CAP, Daily, Start date: 08/15/11 9:00:00, Duration: 30 day, Stop date: 09/13/11 9:00:00 Synthroid 2011-0 No Cl 0.075 mg, Me moria 08-14 Patel 1 tab, l 12:30: Abdunnur Route: PO, Her gray Drug form: TAB, Before Breakfast, Start date: 08/15/11 7:30:00, Duration: 30 day, Stop date: 09/13/11 7:30:00 Senokot 2011-0 No Cl 8.6 mg, 1 José Luis ke 08-14 Patel tab, l 02:00: Abdunnur Route: PO, Her gray Drug Form: TAB, Q12H, Start date: 08/14/11 21:00:00, Duration: 30 day, Stop date: 09/13/11 9:00:00 vancomycin 2011-0 No Cl 1 gm, Memor ia (SCIP) 08-14 Patel Route: l 01:00: Abdunnur IVPB, Drug Her gray form: INJ, [id number], Start date: 08/14/11 20:00:00, Duration: 2 doses or times, Stop date: 08/15/11 8:00:00 dexamethaso 2011-0 No Cl 4 mg, 1 Me moria ne 6-25 Patel tab, l 23:00: Abdunnur Route: PO, Her gray 00 Drug form: TAB, Q6H, Start date: 08/14/11 18:00:00, Duration: 30 day, Stop date: 09/13/11 12:00:00 Reglan 2012-0 No Asma 10 mg, 2 Memoria 6-25 Zakaria mL, Route: l 23:00: IVP, Drug Giorgi 00 form: INJ, Q6H, Start date: 08/14/11 18:00:00, Duration: 48 hr, Stop date: 08/16/11 12:00:00 Pravachol 2012-0 No Cl 80 mg, 4 Mem oria 6-25 Patel tab, l 22:00: Abdunnur Route: PO, Her gray 00 Drug form: TAB, QPM, Start date: 08/14/11 17:00:00, Duration: 30 day, Stop date: 09/12/11 17:00:00 Klonopin 2011-0 No Cl 2 mg, 1 Memor ia 6-25 Patel tab, l 22:00: Abdunnur Route: PO, Her gray 00 Drug form: TAB, TID, Start date: 08/14/11 17:00:00, Duration: 30 day, Stop date: 09/13/11 13:00:00 promethazin 2011-0 No Kin 6.25 mg, Memoria e 6-25 Chavez Moreno 0.25 mL, l 19:23: Route: [place] 00 IVPB, Drug form: INJ, ONCE, PRN Nausea & Vomiting, Start date: 08/14/11 14:23:00 ondansetron 2011-0 No Kin 4 mg, 2 M emoria 6-25 Chavez Moreno mL, Route: l 19:23: IVP, Drug [place] 00 form: INJ, ONCE, PRN Nausea & Vomiting, Start date: 08/14/11 14:23:00 dexamethaso 2011-0 No Kin 4 mg, 1 M emoria ne 6-25 Chavez Moreno mL, Route: l 19:23: IVP, Drug [place] 00 form: INJ, ONCE, PRN Nausea & Vomiting, Start date: 08/14/11 14:23:00 naloxone 2011-0 No Kin 0.04 mg, Mem oria 6-25 Hcavez Moreno 0.1 mL, l 19:23: Route: [place] IVP, Drug form: INJ, Q2MIN, PRN Narcotic Reversal, Start date: 08/14/11 14:23:00, Duration: 8 doses or times, Stop date: 08/15/11 0:00:00 flumazenil 2011-0 No Kin 0.2 mg, 2 Memoria 6-25 Chavez Moreno mL, Route: l 19:23: IVP, Drug form: INJ, PRN, PRN Benzodiaze pine Reversal, Initial dose, Start date: 08/14/11 14:23:00, Stop date: 08/15/11 0:00:00 hydromorpho 2011-0 No Kin 0.5 mg, M emoria ne 6-25 Chavez Moreno 0.25 mL, l 19:23: Route: IVP, Drug form: INJ, Q5Min, PRN Pain Score 4-6, Start date: 08/14/11 14:23:00, Duration: 5 doses or times, Stop date: 08/15/11 0:00:00 hydrALAZINE 2011-0 No Kin 5 mg, 0.25 Memoria 6-25 Chavez Moreno mL, Route: l 19:23: IVP, Drug form: INJ, Q5Min, PRN Elevated BP, Start date: 08/14/11 14:23:00, Duration: 4 doses or times, Stop date: 08/15/11 0:00:00 labetalol 2011-0 No Kin 5 mg, 1 Mem oria 6-25 Chavez Moreno mL, Route: l 19:23: IVP, Drug form: INJ, Q5Min, PRN Elevated BP, Start date: 08/14/11 14:23:00, Duration: 5 doses or times, Stop date: 08/15/11 0:00:00 dexamethaso 2011-0 No Cl 4 mg, 1 Me moria ne 6-25 Patel tab, l 17:00: Abdunnur Route: PO, Her gray Drug form: TAB, Q6H, Start date: 08/14/11 12:00:00, Duration: 30 day, Stop date: 09/13/11 6:00:00 metoclopram 2011-0 No Cl 10 mg, 2 M emoria virgie 6-25 Patel mL, Route: l 17:00: Abdunnur IVP, Drug Herm heber 00 form: INJ, Q6H, Start date: 08/14/11 12:00:00, [...] l mg oral 14:00: Abdunnur Route: PO, Giorgi capsule 00 Drug form: CAP, Q12H, Start date: 08/14/11 9:00:00, Duration: 30 day, Stop date: 09/12/11 21:00:00 levothyroxi 2011-0 No Cl 0.075 mg, Memoria ne 6-25 Patel 1 tab, l 14:00: Abdunnur Route: PO, Her gray 00 Drug form: TAB, Daily, Start date: 08/14/11 9:00:00, Duration: 30 day, Stop date: 09/12/11 9:00:00 pravastatin 2011-0 No Cl 80 mg, 4 M emoria 6-25 Patel tab, l 14:00: Abdunnur Route: PO, Her gray 00 Drug form: TAB, Daily, Start date: 08/14/11 9:00:00, Duration: 30 day, Stop date: 09/12/11 9:00:00 hydrochloro 2011-0 No Cl 12.5 mg, 1 Memoria thiazide 6-25 Patel cap, l 12.5 mg 14:00: Abdunnur Route: PO, [place] oral 00 Drug form: capsule CAP, Daily, Start date: 08/14/11 9:00:00, Duration: 30 day, Stop date: 09/12/11 9:00:00 Prozac 2011-0 No Cl 40 mg, 2 Memori a 6-25 Patel cap, l 14:00: Abdunnur Route: PO, Her gray 00 Drug form: CAP, Daily, Start date: 08/14/11 9:00:00, Duration: 30 day, Stop date: 09/12/11 9:00:00 magnesium 2012-0 Yes Cl 17.45 gm, Me moria citrate 6-25 Patel 300 mL, l 8.85% oral 11:49: Abdunnur PO, ONCE, [place] liquid 24 PRN, 1 mL, 1, 1, Severe constipati on, Substituti on Allowed, Maintenanc e, LIQ docusate 2011-0 Yes Cl 100 mg, 0, Me moria sodium 100 6-25 Patel PO, BID, l mg oral 11:49: Abdunnur 20 cap, Her gray capsule 20 Substituti on Allowed Pepcid 20 No Asma 20 mg, 1 José Luis ke mg oral 6-25 Zakaria tab, PO, l tablet 11:49: BID, 16 Giorgi 16 tab, Substituti on Allowed [place] No Asma 1 tab, PO, Memori a 10/325 oral 6-25 Zakaria Q4H, PRN, l tablet 11:49: 30 tab, 2, Kiera nn 14 2, as needed for pain, Substituti on Allowed, Maintenanc e, TAB dexamethaso Yes Cl 1 mg, 1 Me moria ne 1 mg 6-25 Patel tab, PO, l oral tablet 11:49: Abdunnur BID, 37 [place] 13 tab, Substituti on Allowed, Please take [...] 6-25 Patel 0.07 mL, l human 11:47: Parul Route: Richie n recombinant 00 SUB-Q, 100 Drug form: units/mL SOLN, PRN, injectable PRN solution Abnormal Lab Result, Start date: 08/14/11 6:47:00, Duration: 30 day, Stop date: 09/13/11 6:46:00 Dextrose No Cl 12.5 gm, José Luis ke 50% Syringe 6-25 Patel 25 mL, l 11:47: Abdunnur Route: [place] 00 IVP, Drug Form: INJ, PRN, PRN Abnormal Lab Result, Start date: 08/14/11 6:47:00, Duration: 30 day, Stop date: 09/13/11 6:46:00 Saline 2012-0 No Cl 5 ml, Memoria Flush 0.9% 6-25 Patel Route: l 11:47: Abdunnur IVP, Drug Herm heber 00 Form: INJ, PRN, PRN Line Flush, Start date: 08/14/11 6:47:00, Duration: 30 day, Stop date: 09/13/11 6:46:00 acetaminoph 2012-0 No Asma 2 tab, José Luis ke en-hydrocod 6-25 Zakaria Route: PO, l one 325 11:47: Drug Form: Herm heber mg-5 mg 00 TAB, Q4H, oral tablet PRN Pain Score 4-6, Start date: 08/14/11 6:47:00, Duration: 30 day, Stop date: 09/13/11 6:46:00 morphine 2012-0 No Cl 2 mg, 0.5 Mem oria [...] 30 day, Stop date: 09/13/11 6:46:00 Sodium 2012-0 No Asma 1,000 mL, Memori a Chloride 6-25 Zakaria Rate: 50 l 0.9% IV 11:47: ml/hr, Giorgi 1,000 mL 00 Infuse over: 20 hr, Route: IV, Dosing Weight 65.909 kg, Total Volume: 1,000, Start date: 08/14/11 6:47:00, Duration: 30 day, Stop date: 09/13/11 6:46:00 Benadryl 2012-0 No Cl 25 mg, 1 José Luis ke 6-25 Patel cap, l 11:44: Abdunnur Route: PO, Her gray 00 Drug form: CAP, Bedtime, PRN as needed for sleep, Start date: 08/14/11 6:44:00, Stop date: 09/13/11 6:43:00 vancomycin No Cl 1 gm, Memor ia 6-25 Patel Route: l 03:00: Abdunnur IVPB, Drug Her gray 00 form: INJ, PRE OP, Start date: 08/13/11 22:00:00, Duration: 1 day, Stop date: 08/14/11 21:59:00 Tylenol 325 Yes 325 mg, 1 M emoria mg oral 12 tab, PO, l tablet 17:22: Q4H, PRN, Richie n 58 60 tab, Pain, Substituti on Allowed hydrochloro Yes Cl 12.5 mg, 1 Memoria thiazide -12 Patel tab, PO, l 12.5 mg 17:22: Abdunnur Daily, 30 H ermann oral tablet 47 tab, Substituti on Allowed, TAB Prozac 40 Yes Cl 40 mg, 1 Mem oria mg oral 612 Patel cap, PO, l capsule 17:22: Abdunnur Daily, 30 H ermann 10 cap, Substituti on Allowed, CAP clonazepam Yes Cl 2 mg, 1 Mem oria 2 mg oral 6-12 Patel tab, PO, l tablet 17:21: Abdunnur TID, [place] 55 Substituti on Allowed, TAB diphenhydrA Yes [...] Giorgi 52 Substituti on Allowed, Maintenanc e Vital Signs Vital Name Observation Time Observation Value Comments Source Respitory Rate 2011-09-02 16:30:00 Memori al Giorgi Systolic (mm Hg) 2011-09-02 16:30:00 José Luis rial Giorgi Diastolic (mm Hg) 2011-09-02 16:30:00 Mem orial [place] Temperature Oral (F) 2011-09-02 16:30:00 98.7 F Memorial Giorgi Heart Rate 2011-09-02 16:30:00 Memorial Giorgi Diastolic (mm Hg) 2011-09-02 12:00:00 Mem orial [place] Respitory Rate 2011-09-02 12:00:00 Memori al Giorgi Systolic (mm Hg) 2011-09-02 12:00:00 José Luis rial Giorgi Heart Rate 2011-09-02 12:00:00 Memorial Giorgi Temperature Oral (F) 2011-09-02 12:00:00 98.3 F Memorial [place] Heart Rate 2011-09-02 09:00:00 [facility] [place] Diastolic (mm Hg) 2011-09-02 09:00:00 Mem orial Giorgi Systolic (mm Hg) 2011-09-02 09:00:00 José Luis rial Giorgi Respitory Rate 2011-09-02 09:00:00 Memori al Giorgi Temperature Oral (F) 2011-09-02 09:00:00 98.4 F [facility] [place] Weight 2011-09-01 11:48:00 [facility] [place] Height 2011-09-01 11:48:00 167.64 cm Memorial [place] Height 2011-09-01 04:34:00 167.64 cm Memorial Giorgi Weight 2011-09-01 04:34:00 [facility] [place] Systolic (mm Hg) 2011-08-16 23:00:00 José Luis rial [place] Diastolic (mm Hg) 2011-08-16 23:00:00 Mem orial Giorgi Respitory Rate 2011-08-16 23:00:00 Memori al [place] Diastolic (mm Hg) 2011-08-16 22:00:00 Mem orial Giorgi Systolic (mm Hg) 2011-08-16 22:00:00 José Luis rial [place] Respitory Rate 2011-08-16 22:00:00 Memori al [place] Diastolic (mm Hg) 2011-08-16 21:00:00 Chelsie yang [place] Systolic (mm Hg) 2011-08-16 21:00:00 José Luis nielsen [place] Respitory Rate 2011-08-16 21:00:00 Kerri Emanuel Temperature Oral (F) 2011-08-14 20:00:00 98.1 F [facility] [place] Heart Rate 2011-08-14 11:10:00 [facility] [place] Height 2011-08-14 11:01:00 167.64 cm [facility] [place] Weight 2011-08-14 11:01:00 [facility] [place] Height 2011-08-01 17:42:00 167.64 cm [facility] [place] Weight 2011-08-01 17:42:00 [facility] [place] Procedures This patient has no known procedures. Encounters Start End Encounter Admission Attending Care Care Encounter Source Date/Time Date/Time Type Type Clinicians Facility Department ID 2022-04-12 2022-04-12 Ambulatory [facility] MNA [id number] Memoria 17:00:00 17:00:00 Pre-Reg Neurology 02 nicole Gamezann 2022-04-12 2022-04-12 Outpatient [facility] MHIE [id number] Memoria 11:00:00 11:00:00 02 nicole Rand 2022-04-12 2022-04-12 Outpatient AUDREY PatelCOSCHER MISCHER [id number] 11:00:00 11:00:00 Michael 02 Dada 2022-04-04 2022-04-04 Ambulatory [facility]IE MNA [id number] Memoria 15:45:00 15:45:00 Pre-Reg Neurology 01 nicole Rand 2022-04-04 2022-04-04 Outpatient AUDREY PatelCOSCHER MHMISCHER [id number] 09:45:00 09:45:00 Michael 01 Dada 2022-03-28 2022-03-28 Outpatient MHIE MHIE [id number] Memoria 15:00:00 15:00:00 01 nicole Rand 2022-02-07 2022-02-07 Ambulatory [facility]IE MNA [id number] Memoria 16:00:00 16:00:00 Pre-Reg Neurology 00 l Fran Rand 2022-02-07 2022-02-07 Outpatient [facility] MHIE [id number] Memoria 10:00:00 10:00:00 00 nicole Rand 2022-02-07 2022-02-07 Outpatient GUNNER Patel [facility] [id number] 10:00:00 10:00:00 Michael Nadya Garland 2021-10-04 2021-10-04 Telephone Gerard Albarran [facility] [id number] Univers 00:00:00 00:00:00 SPECIALTY [id number] ity of [id number] [id number] Pa jody ARCHBALDSukh [address] [place] [address] 2021-09-26 2021-09-26 Telephone Diana [facility] [id number] Univers 00:00:00 00:00:00 [facility] [id number] ity of [place] [id number] Peter as SHERMAN?BLEA [id number] Pa lizette[address] OFFICE [facility] 2021-09-23 2021-09-23 [facility] [id number] Univers 00:00:00 00:00:00 [facility] [id number] ity of [place] [id number] Peter as SHERMAN?BLEA [id number] [address] 2021-08-23 2021-08-23 [facility] [id number] Univers 00:00:00 00:00:00 [facility] [id number] ity of [place] [id number] Peter as SHERMAN?BLEA [id number] [address] OFFICE [facility] 2021-08-17 2021-08-17 Outpatient R GERARD ALBARRAN [facility] [id number] Univers 14:30:00 15:30:40 ity of [facility] 2021-08-17 2021-08-17 Office Gerard Albarran [facility] 1.2.840.114 [id number] Univers 14:30:00 15:30:40 Visit SPECIALTY [id number] ity [place]2.[place] [facility] [phone] Pa jody HARRIS [address] [place] [address] 2021-08-01 2021-08-01 [facility] 1.2.840.114 [id number] Univers 00:00:00 00:00:00 [facility] [id number] ity of [place] [id number] Peter as SHERMAN?BLEA [phone] Pa lizettepa CINDY[address] OFFICE [facility] 2021-07-22 2021-07-22 [facility] 1.2.840.114 [id number] Univers 00:00:00 00:00:00 [facility] [id number] ity of [place] 4.2.7.2.686 Peter as SHERMAN?BLEA [phone] [facility] [address] 2021-07-21 2021-07-21 [facility] Diana, [facility] 1.2.840.114 [id number] Univers 00:00:00 00:00:00 [facility] [id number] ity of [place] 4.2.7.2.686 Peter as SHERMAN?BLEA [phone] [address] 2021-07-20 2021-07-20 [facility] 1.2.840.114 [id number] Univers 00:00:00 00:00:00 [facility] [id number] ity of [place] 4.2.7.2.686 Peter as SHERMAN?BLEA [phone] [address] 2021-07-19 2021-07-19 [facility] Diana, [facility] 1.2.840.114 [id number] Univers 00:00:00 00:00:00 [facility] [id number] ity of [place] 4.2.7.2.686 Peter as SHERMAN?BLEA [phone] [address] 2021-07-152021-07-15 [facility] 1.2.840.114 [id number] Univers 00:00:00 00:00:00 [facility] [id number] ity of [place] [id number] Peter as SHERMAN?BLEA [phone] [address] 2021-07-15 2021-07-15 [facility] 1.2.840.114 [id number] Univers 00:00:00 00:00:00 [facility] [id number] ity of [place] [id number] Peter as SHERMAN?BLEA [phone] [address] 2021-05-30 2021-05-30 Telephone [facility] 1.2.840.114 [id number] Univers 00:00:00 00:00:00 [facility] [id number] ity of [place] 4.2.7.2.686 Peter as SHERMAN?BLEA [phone] [address] 2021-05-23 2021-05-23 Telephone [facility] 1.2.840.114 [id number] Univers 00:00:00 00:00:00 [facility] [id number] ity of [place] [id number] Peter as SHERMAN?BLEA [phone] [address] 2021-04-29 2021-04-29 Outpatient MIKY PARNELL [facility] [id number] Univers 11:00:00 12:03:08 MIKY ORTIZ [facility] 2021-03-15 2021-03-15 Outpatient MIKY PARNELL [facility] [id number] Univers 11:20:00 11:20:00 MIKY ORTIZ [facility] 2021-03-11 2021-03-11 Telephone [facility] 1.2.840.114 [id number] Univers 00:00:00 00:00:00 [facility] [id number] ity of [place] [id number] Peter as SHERMAN?BLEA [phone] Pa jody WHITE[address] 2021-03-01 2021-03-01 Telephone Diana [facility] 1.2.840.114 [id number] Univers 00:00:00 00:00:00 [facility] [id number] ity of [place] 4.2.7.2.686 Peter as SHERMAN?BLEA [phone] Pa jody WHITE[address] 2021-02-23 2021-02-23 Outpatient R DIANAMIKY Lyons [facility] [id number] Univers 11:11:27 23:59:00 MIKY ORTIZ sukh [facility] 2021-02-23 2021-02-23 [facility] [id number] [id number] Univers 11:11:27 23:59:00 [facility] [id number] [place] [phone] [address] 2021-02-04 2021-02-04 Outpatient Erick GOVEAGildardo MIKY [facility] [id number] Univers 11:00:00 11:00:00 MIKY ORTIZ [facility] 2021-01-31 2021-01-31 [place] Diana, [facility] 1.2.840.114 [id number] Univers 00:00:00 00:00:00 [facility] [id number] ity of [place] [id number] Peter as SHERMAN?BLEA [phone] Pa lizette[address] 2021-01-18 2021-01-18 [place] [facility] 1.2.840.114 [id number] Univers 00:00:00 00:00:00 [facility] [id number] [place] 4.2.7.2.[place] [facility] [phone] Pa jody [address] 2021-01-03 2021-01-03 Telephone [facility] 1.2.840.114 [id number] Univers 00:00:00 00:00:00 [facility] [id number] ity of [place] 4.2.7.2.686 Peter as SHERMAN?BLEA [phone] Pa jody WHITE[address] OFFICE [facility] 2020-12-24 2020-12-24 Telephone [facility] 1.2.840.114 [id number] Univers 00:00:00 00:00:00 [facility] [id number] ity of [place] 4.2.7.2.686 Peter as SHERMAN?BLEA [phone] [address] OFFICE [facility] 2020-12-17 2020-12-17 Telephone [facility] 1.2.840.114 [id number] Univers 00:00:00 00:00:00 [facility] [id number] ity of [place] 4.2.7.2.686 Peter as SHERMAN?BLEA [phone] Pa jody [address] OFFICE [facility] 2020-12-07 2020-12-07 Outpatient R MIKY ORTIZ [facility] [id number] Univers 16:20:00 17:01:25 MIKY ORTIZ [facility] 2020-12-07 2020-12-07 Office [facility] 1.2.840.114 [id number] Univers 16:17:14 17:01:25 Visit [facility] [id number] ity of [place] 4.2.7.2.686 Peter as SHERMAN?BLEA [phone] Pa jody BYRNES [address] [place] [address] OFFICE [facility] 2020-08-02 2020-08-02 Telephone [facility] 1.2.840.114 [id number] Univers 00:00:00 00:00:00 [facility] [id number] ity of [place] 4.2.7.2.686 Peter as Professio [phone] Pa jody [address] Office [address] [facility] 2020-06-25 2020-06-25 Refill [facility] 1.2.840.114 [id number] Univers 00:00:00 00:00:00 Miky Rowell 350.1.13.10 it[place] of [place] [phone] [address] 2020-05-25 2020-05-25 [facility] 1.2.840.114 [id number] Univers 00:00:00 00:00:00 Miky Kay Sorin 350.1.13.10 it[place] of [place].2.[place] [phone] [address] 2020-04-20 2020-04-20 Refill [facility] 1.2.840.114 [id number] Univers 00:00:00 00:00:00 Miky Rahul Rowell 350.1.13.10 [place] of [place].2.[place] [phone] [address] 2020-03-09 2020-03-09 Orders Doctor STEFAN 1.2.840.114 [id number] Univers 00:00:00 00:00:00 Only Unassigned, REGAN 350.1.13.10 ity of [place] [facility] 4.2.7.2.686 Peter as [phone] [address] 2020-03-05 2020-03-05 Refill [facility] 1.2.840.114 [id number] 00:00:00 00:00:00 Miky Rowell 350.1.13.10 [place] 4.2.7.2.686 Professio [phone] [address] 2020-03-05 2020-03-05 Refill [facility] 1.2.840.114 [id number] Univers 00:00:00 00:00:00 Miky Rowell 350.1.13.10 it[place] of [place].2.[place] [phone] [address] 2020-01-30 2020-01-30 Refronnie [facility] 1.2.840.114 [id number] Univers 00:00:00 00:00:00 Miky Rowell 350.1.13.10 it[place] of [place] 4[place]2.[place].2.[place] [phone] Pa dic[address] 2019-10-31 2019-10-31 [facility] 1.2.840.114 [id number] Univers 00:00:00 00:00:00 Miky Rowell 350.1.13.10 it[place] of [place] 4[place].2.[place] [phone] [address] 2019-10-31 2019-10-31 Orders Doctor STEFAN 1.2.840.114 [id number] Univers 00:00:00 00:00:00 Only Unassigned, REGAN 350.1.13.10 ity of [place] [facility] 4.2.7.2.686 Peter as [phone] [address] 2019-10-08 2019-10-08 [facility] 1.2.840.114 [id number] Univers 00:00:00 00:00:00 Miky Rowell 350.1.13.10 ity of [place] 4[place].2.[place] [phone] Pa dicpa nal [address] [place] [address] 2019-09-04 2019-09-04 [facility] 1.2.840.114 [id number] Univers 00:00:00 00:00:00 Miky Rowell 350.1.13.10 ity of [place] 4.2.7.2.[place] [phone] Pa dicpa nal [address] [place] [address] 2019-08-29 2019-08-29 [facility] 1.2.840.114 [id number] Univers 00:00:00 00:00:00 Miky Rowell 350.1.13.10 it[place] of [place] 4.2.[place].2.[place] [phone] Pa dicpa nal [address] [place] [address] 2019-07-29 2019-07-29 Refronnie Pryorochgildardo [facility] 1.2.840.114 [id number] Univers 00:00:00 00:00:00 Miky Rowell 350.1.13.10 ity of [place] 4[place].2.[place] [phone] [address] 2019-07-08 2019-07-08 [facility] 1.2.840.114 [id number] Univers 00:00:00 00:00:00 Miky Rowell 350.1.13.10 it[place] of [place].2.[place] [phone] [address] 2019-06-27 2019-06-27 [facility] 1.2.840.114 [id number] Univers 00:00:00 00:00:00 Miky Rowell 350.1.13.10 ity of [place] 4[place].2.[place] [phone] [address] 2019-05-27 2019-05-27 [facility] 1.2.840.114 [id number] Univers 00:00:00 00:00:00 Miky Rowell 350.1.13.10 it[place] of [place] 4[place]2.[place].2.[place] [phone] [address] 2019-04-22 2019-04-22 Outpatient R MIKY ORTIZ [facility] [id number] Univers 16:00:00 16:00:00 MIKY ORTIZ ity of [facility] 2019-04-22 2019-04-22 Office Diana [facility] 1.2.840.114 [id number] Univers 10:43:35 11:31:38 Visit Miky Rowell 350.1.13.10 it[place] of [place] 4[place].2.[place] [phone] [address] 2019-04-07 2019-04-07 Telephone Diana [facility] 1.2.840.114 [id number] Univers 00:00:00 00:00:00 Miyk Rowell 350.1.13.10 it[place] of [place] 4[place] [phone] Pa jody smith 2 [facility] 2019-04-02 2019-04-02 [facility] 1.2.840.114 [id number] Univers 00:00:00 00:00:00 Miky Rowell 350.1.13.10 it[place] of [place] 4[place].2.[place] [phone] Pa lizettepa sarah [address] [place] [address] 2019-02-20 2019-02-20 [facility] 1.2.840.114 [id number] Univers 00:00:00 00:00:00 Miky Rowell 350.1.13.10 it[place] of [place] 4[place] [phone] [address] 2018-09-20 2018-09-20 [facility] 1.2.840.114 [id number] Univers 00:00:00 00:00:00 Miky Rowell 350.1.13.10 it[place] of [place] 4[place].2.[place] [phone] [address] 2014-12-03 2014-12-03 Outpatient [facility] [id number] Memoria 09:45:00 09:45:00 00 nicole Rand 2011-09-01 2011-09-02 OU nullFlavo [facility] [id number] Memoria 03:08:00 13:26:00 r Medical 94 l [facility] 2011-08-14 2011-08-16 Inpatient nullFlavo [facility] [id number] Memoria 05:27:00 19:50:00 r Medical 00 l [facility] Results Test Description Test Time Test Comments Results Result Comments Source BEDSIDE GLUCOSE TESTING 2011-09-02 17:02:00 Test Item Value Reference Range Interpretation Comme nts Gluc POC Lifscn (test code = Gluc POC Lifscn) 126 70-99 H [facility] GLUCOSE [id number] 17:02:00 Test Item Value Reference Range Interpretation Comments Comment2 (test code = Comment2) Sliding Scale [facility] GLUCOSE [id number] 17:02:00 Test Item Value Reference Range Interpretation Comments Comment1 (test code = Comment1) Leoy RN/ [facility] GLUCOSE [id number] 03:35:00 Test Item Value Reference Range Interpretation Comments Gluc POC Lifscn (test code = Gluc POC 171 70-99 H Lifscn) [facility]PvunohrVXJEWOHCM7153-98-86 11:00:00 Test Item Value Reference Range Interpretation Comments Ca Ion mgdL (test code = Ca Ion mgdL) 4.00 4.65-5.20 L [facility] HospitalFneeakkCFPVVKNTX3334-59-83 11:00:00 Test Item Value Reference Range Interpretation Comments Ca Ion (test code = Ca Ion) 1.00 1.16-1.30 L [facility] HospitalEmbyssqIKXOXFYGL9768-39-25 11:00:00 Test Item Value Reference Range Interpretation Comments Ca Norm (test code = Ca Norm) 1.01 1.16-1.30 L [facility] HospitalJljmvqnJOFCGJNAX6941-56-00 11:00:00 Test Item Value Reference Range Interpretation Comments Ca Norm mgdL (test code = Ca Norm mgdL) 4.04 4.65-5.20 L [facility] HospitalFxqxdxpTQUSNNFOH8821-27-04 11:00:00 Test Item Value Reference Range Interpretation Comments Globulin (test code = Globulin) 3.2 2.0-4.0 N [facility] HospitalBzlodinBWSOWQEXM4842-48-11 11:00:00 Test Item Value Reference Range Interpretation Comments Bili Indirect (test 0.6 See_Comment N [Automa christian message] The code = Bili Indirect) system which generated this result tra nsmitted reference range : <=1.0. The reference r alejandra was not used to int erpret this result as normal/abnormal . [facility] HospitalPauvohxIEPBIOIQD0341-99-53 11:00:00 Test Item Value Reference Range Interpretation Comments A/G Ratio (test code = A/G Ratio) 1.0 0.7-1.6 N [facility] HospitalSfgovbjZMXKUOABI4430-63-76 11:00:00 Test Item Value Reference Range Interpretation Comments Total Protein (test code = Total 6.3 6.4-8.4 L Protein) [facility] HospitalUizfqrcRGBPHTHNU3364-36-88 11:00:00 Test Item Value Reference Range Interpretation Comments Bili Total (test code = Bili Total) 0.8 0.2-1.3 N [facility] HospitalSizrojnJQHCSQREB9605-61-48 11:00:00 Test Item Value Reference Range Interpretation Comments Bili Direct (test code 0.2 See_Comment N [Aut omated message] The = Bili Direct) system which generated this result tra nsmitted reference range : <=0.3. The reference r alejandra was not used to int erpret this result as preeti l/abnormal. [facility] HospitalXrmtvprBDOJJFIKV3715-63-25 11:00:00 Test Item Value Reference Range Interpretation Comments AST (test code = AST) 11 See_Comment N [Auto mated message] The system which ge nerated this result transmit christian reference range : <=37. The reference range was not used to interpr et this result as preeti l/abnormal. [facility] HospitalUmeabcsUQQFRCEKX0728-28-65 11:00:00 Test Item Value Reference Range Interpretation Comments Alk Phos (test code = Alk Phos) 70 39-136 N [facility] HospitalLyazzkgWGMHDPVST9940-25-90 11:00:00 Test Item Value Reference Range Interpretation Comments Albumin Lvl (test code = Albumin Lvl) 3.1 3.5-5.0 L [facility] HospitalTjyfaaeZEYTAIGJP9558-95-24 11:00:00 Test Item Value Reference Range Interpretation Comments ALT (test code = ALT) 17 See_Comment N [Auto mated message] The system which ge nerated this result transmit christian reference range : <=65. The reference range was not used to interpr et this result as preeti l/abnormal. [facility] CenterEaivjzzNKJSMTMROE7692-28-23 11:00:00 Test Item Value Reference Range Interpretation Comments PTT (test code = PTT) 30.9 s 22.9-35.8 N [facility] CenterMqwffezIFIVMUCTEO9874-26-22 11:00:00 Test Item Value Reference Range Interpretation Comments PT (test code = PT) 13.7 s 12.0-14.7 N [facility] CenterXfbievtRYPWRMJKWP5003-23-67 11:00:00 Test Item Value Reference Range Interpretation Comments INR (test code = INR) 1.05 0.85-1.17 N [facility] CenterLycbqcmCVYDTBQHPQ7804-41-26 11:00:00 Test Item Value Reference Range Interpretation Comments MCV (test code = MCV) 96.0 81.0-99.0 N [facility] CenterJeffcvhQMSMABZCLS6168-31-97 11:00:00 Test Item Value Reference Range Interpretation Comments MPV (test code = MPV) 8.4 7.4-10.4 N [facility] CenterFoxgsvcDSHYBOPQWV0540-81-15 11:00:00 Test Item Value Reference Range Interpretation Comments Platelet (test code = Platelet) 181 133-450 N [facility] CenterHzongbsDNDEZANGYG4414-35-57 11:00:00 Test Item Value Reference Range Interpretation Comments RDW (test code = RDW) 16.9 11.5-14.5 H [facility] CenterQnzfmpwQNQFPLQNFB3514-76-45 11:00:00 Test Item Value Reference Range Interpretation Comments MCHC (test code = MCHC) 33.7 32.0-36.0 N [facility] CenterFrenkesBNUMFAVBZM0615-93-03 11:00:00 Test Item Value Reference Range Interpretation Comments MCH (test code = MCH) 32.3 pg 27.0-31.0 H [facility] CenterSemnewgRFRSXJINDW4661-72-93 11:00:00 Test Item Value Reference Range Interpretation Comments Hct (test code = Hct) 32.5 36.0-48.0 L [facility] CenterQifslvyZYLUFFLJAF0285-13-81 11:00:00 Test Item Value Reference Range Interpretation Comments Hgb (test code = Hgb) 11.0 12.0-16.0 L [facility] CenterOsyqunqADOMARFYXS6764-04-81 11:00:00 Test Item Value Reference Range Interpretation Comments RBC (test code = RBC) 3.39 4.20-5.40 L [facility] CenterKopasjuVWONDTRXBH5539-02-15 11:00:00 Test Item Value Reference Range Interpretation Comments WBC (test code = WBC) 13.2 3.7-10.4 H [facility] CenterYylmlbhQAKJBKBPCJ6095-01-38 11:00:00 Test Item Value Reference Range Interpretation Comments Lymphocytes (test code = Lymphocytes) 3.0 20.0-40.0 L [facility] CenterIypwezdVPRUPEASLW2300-76-23 11:00:00 Test Item Value Reference Range Interpretation Comments Monocytes (test code = Monocytes) 1.0 2.0-12.0 L [facility] CenterKqpviosLAOTPGDJSY4783-11-45 11:00:00 Test Item Value Reference Range Interpretation Comments Lymphocytes # (test code = Lymphocytes 0.4 1.0-5.5 L #) [facility] CenterNmjayhmBYTBXPPTAX1533-03-80 11:00:00 Test Item Value Reference Range Interpretation Comments Monocytes # (test code 0.1 See_Comment N [Aut omated message] The = Monocytes #) system which generated this result tra nsmitted reference range : <=0.8. The reference r alejandra was not used to int erpret this result as normal/abnormal . [facility] CenterQvpreueZHVYPKYMIO4769-13-89 11:00:00 Test Item Value Reference Range Interpretation Comments Atypical Lymphs (test code = Atypical 0.0 N Lymphs) [facility] CenterTklvkdmLDCESWTVGS4837-79-79 11:00:00 Test Item Value Reference Range Interpretation Comments Bands (test code = 1.0 See_Comment N [Automat ed message] The Bands) system which ge nerated this result transmit christian reference range : <=11.0. The reference r alejandra was not used to interpr et this result as preeti l/abnormal. [facility] CenterEtaupqpRCFYENJEZE6536-32-58 11:00:00 Test Item Value Reference Range Interpretation Comments Segs (test code = Segs) 95.0 45.0-75.0 H [facility] CenterYugbpijEYXJFCUIMZ9465-50-78 11:00:00 Test Item Value Reference Range Interpretation Comments Segs-Bands # (test code = Segs-Bands #) 12.7 1.5-8.1 H [facility]2012-07-13 08:10:00 Test Item Value Reference Range Interpretation Comments Supernat CSF (test Colorless (09/01/2011 N code = Supernat CSF) 03:10:00) [facility]2012-07-13 08:10:00 Test Item Value Reference Range Interpretation Comments Tube Num CSF (test code = Tube Num CSF) 4 1 [facility]2012-07-13 08:10:00 Test Item Value Reference Range Interpretation Comments Color CSF (test code Colorless (09/01/2011 N = Color CSF) 03:10:00) [facility]2012-07-13 08:10:00 Test Item Value Reference Range Interpretation Comments Clarity CSF (test code Slight A = Clarity CSF) *ABN*(09/01/2011 03:10:00) [facility]XKZG0518-[facility]-12 08:10:00 Test Item Value Reference Range Interpretation Comments WBC CSF (test code = 1566 See_Comment H [Autom ated message] The WBC CSF) system which ge nerated this result transmit christian reference range : <=5. The reference range was not used to interpr et this result as preeti l/abnormal. [facility] [place] [id number] 08:10:00 Test Item Value Reference Range Interpretation Comments RBC CSF (test code = 2 See_Comment H [Autom ated message] The RBC CSF) system which ge nerated this result transmit christian reference range : <=0. The reference range was not used to interpr et this result as preeti l/abnormal. [facility] QPZLSG0415-70-03 08:10:00 Test Item Value Reference Range Interpretation Comments Lymph CSF (test code = Lymph CSF) 4 40-80 L [facility] [id number] 08:10:00 Test Item Value Reference Range Interpretation Comments Monocyte CSF (test code = Monocyte CSF) 3 15-45 L [facility] [id number] 08:10:00 Test Item Value Reference Range Interpretation Comments Segs CSF (test code = 93 See_Comment H [Auto mated message] The Segs CSF) system which ge nerated this result transmit christian reference range : <=6. The reference range was not used to interpr et this result as preeti l/abnormal. [facility] MGXIPC8305-78-18 08:05:00 Test Item Value Reference Range Interpretation Comments Lactic Acid CSF (test code = Lactic 3.0 0.6-2.2 H Acid CSF) [facility]2012-07-13 08:05:00 Test Item Value Reference Range Interpretation Comments Protein CSF (test code = Protein CSF) 176 15-45 H [facility] [id number] 08:05:00 Test Item Value Reference Range Interpretation Comments Tube Num CSF (test code = Tube Num CSF) 1 1 [facility] [id number] 08:05:00 Test Item Value Reference Range Interpretation Comments Color CSF (test code Colorless (09/01/2011 N = Color CSF) 03:05:00) [facility] CCXBHJ1839-28-66 08:05:00 Test Item Value Reference Range Interpretation Comments Supernat CSF (test Colorless (09/01/2011 N code = Supernat CSF) 03:05:00) [facility] CenterCode71EQBLPX2262-49-70 08:05:00 Test Item Value Reference Range Interpretation Comments WBC CSF (test code = 1761 See_Comment H [Autom ated message] The WBC CSF) system which ge nerated this result transmit christian reference range : <=5. The reference range was not used to interpr et this result as preeti l/abnormal. [facility] JEJIJR8905-95-84 08:05:00 Test Item Value Reference Range Interpretation Comments Clarity CSF (test code Slight A = Clarity CSF) *ABN*(09/01/2011 03:05:00) [facility] [id number] 08:05:00 Test Item Value Reference Range Interpretation Comments RBC CSF (test code = 2 See_Comment H [Autom ated message] The RBC CSF) system which ge nerated this result transmit christian reference range : <=0. The reference range was not used to interpr et this result as preeti l/abnormal. [facility] HZBMOG4745-55-10 08:05:00 Test Item Value Reference Range Interpretation Comments Segs CSF (test code = 92 See_Comment H [Auto mated message] The Segs CSF) system which ge nerated this result transmit christian reference range : <=6. The reference range was not used to interpr et this result as preeti l/abnormal. [facility] [id number] 08:05:00 Test Item Value Reference Range Interpretation Comments Lymph CSF (test code = Lymph CSF) 4 40-80 L [facility] VGXYWR5028-48-30 08:05:00 Test Item Value Reference Range Interpretation Comments Monocyte CSF (test code = Monocyte CSF) 4 15-45 L [facility] CenterLander [employer]otive RWJPTE3879-07-38 08:05:00 Test Item Value Reference Range Interpretation Comments Glucose CSF (test code = Glucose CSF) 78 45-80 N [facility] CenterFUNGAL - IEKDDZTP9815-55-06 08:05:00 Test Item Value Reference Range Interpretation Comments Crypto Ag CSF (test Negative (09/01/2011 N code = Crypto Ag CSF) 03:05:00) [facility] CenterGhpshxjSZCBMFCRKD0586-72-64 08:05:00 Test Item Value Reference Range Interpretation Comments VDRL Scr CSF (test Non Reactive (09/01/2011 N code = VDRL Scr CSF) 03:05:00) [facility] CenterGkfpynuBCGONFVWCL9033-65-08 08:05:00 Test Item Value Reference Range Interpretation Comments CSF Men B (test code Negative (09/01/2011 N = CSF Men B) 03:05:00) [facility] CenterJdbjussDHNXUPSWTK5077-88-26 08:05:00 Test Item Value Reference Range Interpretation Comments CSF Men A (test code Negative (09/01/2011 N = CSF Men A) 03:05:00) [facility] CenterTbmehimFACHBHYNDQ3690-62-87 08:05:00 Test Item Value Reference Range Interpretation Comments CSF H Influ B (test Negative 6(09/01/2011 N code = CSF H Influ B) 03:05:00) [facility]EvxsajnIPZKCATNYF3597-17-18 08:05:00 Test Item Value Reference Range Interpretation Comments CSF S pneumo (test Negative (09/01/2011 N code = CSF S pneumo) 03:05:00) [facility] CenterHznzhhuDOYADRJZPW5860-35-62 08:05:00 Test Item Value Reference Range Interpretation Comments CSF Men C (test code Negative (09/01/2011 N = CSF Men C) 03:05:00) [facility] CenterUecpoeeWQBIABFTKK1744-70-71 08:05:00 Test Item Value Reference Range Interpretation Comments CSF Strep B (test Negative (09/01/2011 N code = CSF Strep B) 03:05:00) [facility] CenterOfnvelkRavxjikfddun5161-27-78 08:05:00 Test Item Value Reference Range Interpretation Comments Culture: CSF w/Gram Stain (test code = Culture: CSF w/Gram Stain) [facility] GLUCOSE [id number] 22:14:00 Test Item Value Reference Range Interpretation Comments Gluc POC Lifscn (test code = Gluc POC 174 70-99 H Lifscn) [facility] GLUCOSE [id number] 16:37:00 Test Item Value Reference Range Interpretation Comments Gluc POC Lifscn (test code = Gluc POC 151 70-99 H Lifscn) [facility] GLUCOSE NVHWFOB2481-55-83 12:56:00 Test Item Value Reference Range Interpretation Comments Gluc POC Lifscn (test code = Gluc POC 147 70-99 H Lifscn) [facility]LsyeszmRULESZBEB7190-66-87 05:50:00 Test Item Value Reference Range Interpretation Comments Magnesium Lvl (test code = Magnesium 2.0 1.8-2.4 N Lvl) [facility] HospitalTurjuigKXRBRQSHM9033-09-41 05:50:00 Test Item Value Reference Range Interpretation Comments AGAP (test code = AGAP) 7.6 10.0-20.0 L [facility] HospitalAtksaxwJPHMWYWLU1435-00-91 05:50:00 Test Item Value Reference Range Interpretation Comments Calcium Lvl (test code = Calcium Lvl) 8.4 8.5-10.5 L [facility] HospitalRtmkwraRZVUMIBXT9617-48-87 05:50:00 Test Item Value Reference Range Interpretation Comments CO2 (test code = CO2) 32 24-32 N [facility] HospitalTbwfuozIOIURCAYT1501-20-47 05:50:00 Test Item Value Reference Range Interpretation Comments Chloride Lvl (test code = Chloride Lvl) 107 95-109 N [facility] HospitalMfkqupjBMAHQUAFM7754-70-48 05:50:00 Test Item Value Reference Range Interpretation Comments Creatinine Lvl (test code = Creatinine 1.0 0.5-1.4 N Lvl) [facility] HospitalGsbipzmWCXZEYGRU8881-26-71 05:50:00 Test Item Value Reference Range Interpretation Comments BUN (test code = BUN) 21 7-22 N [facility] HospitalXgrmmfgPGSYKMCSA6126-53-16 05:50:00 Test Item Value Reference Range Interpretation Comments Potassium Lvl (test code = Potassium 3.6 3.5-5.1 N Lvl) [facility] HospitalEpbgchsZAODUIGVA1435-21-35 05:50:00 Test Item Value Reference Range Interpretation Comments Sodium Lvl (test code = Sodium Lvl) 143 135-145 N [facility] HospitalKdwbayoWDAKBFIJW8333-11-40 05:50:00 Test Item Value Reference Range Interpretation Comments Glucose Lvl (test code = Glucose Lvl) 136 70-99 H [facility] HospitalLyyarlhNHRBTOSSU3201-50-85 05:50:00 Test Item Value Reference Range Interpretation Comments Phosphorus (test code = Phosphorus) 2.2 2.5-4.5 L [facility] HospitalNntmnuhPTUOSTQXJ1941-68-71 05:50:00 Test Item Value Reference Range Interpretation Comments Ca Ion (test code = Ca Ion) 1.09 1.16-1.30 L [facility] HospitalGtoziufVSHZKCTLS3788-07-32 05:50:00 Test Item Value Reference Range Interpretation Comments Ca Ion mgdL (test code = Ca Ion mgdL) 4.36 4.65-5.20 L [facility] HospitalRzkbginZYTXRVTTM4469-53-81 05:50:00 Test Item Value Reference Range Interpretation Comments Ca Norm mgdL (test code = Ca Norm mgdL) 4.60 4.65-5.20 L [facility] HospitalHmlbsqaRUAAMWCOF1438-71-87 05:50:00 Test Item Value Reference Range Interpretation Comments Ca Norm (test code = Ca Norm) 1.15 1.16-1.30 L [facility] CenterUtvdufuVIIUZYVHVQ2777-90-39 05:50:00 Test Item Value Reference Range Interpretation Comments Platelet (test code = Platelet) 211 133-450 N [facility] CenterOyrvytrOLFTZMBAMO0261-72-00 05:50:00 Test Item Value Reference Range Interpretation Comments RDW (test code = RDW) 15.9 11.5-14.5 H [facility] CenterEvejvrrLRCNAYLFOY2894-13-12 05:50:00 Test Item Value Reference Range Interpretation Comments MCV (test code = MCV) 93.4 81.0-99.0 N [facility] CenterMfpyenxGAKSIUPLRZ9808-07-94 05:50:00 Test Item Value Reference Range Interpretation Comments MCHC (test code = MCHC) 34.1 32.0-36.0 N [facility] CenterZosmvspMWGVTOLRPN5110-60-80 05:50:00 Test Item Value Reference Range Interpretation Comments MCH (test code = MCH) 31.8 pg 27.0-31.0 H [facility] CenterFinkokxRLOTITGJCI4868-47-75 05:50:00 Test Item Value Reference Range Interpretation Comments MPV (test code = MPV) 9.3 7.4-10.4 N [facility] CenterXrvorgvJMOGPIMMBF6544-75-36 05:50:00 Test Item Value Reference Range Interpretation Comments Hct (test code = Hct) 29.6 36.0-48.0 L [facility] CenterVoknrvnXNSQILHKMA0933-05-93 05:50:00 Test Item Value Reference Range Interpretation Comments Hgb (test code = Hgb) 10.1 12.0-16.0 L [facility] CenterTohdbgqMDWNVHOAJQ6531-50-86 05:50:00 Test Item Value Reference Range Interpretation Comments RBC (test code = RBC) 3.17 4.20-5.40 L [facility] CenterXgxytcrRSHOQVGIYX1231-72-50 05:50:00 Test Item Value Reference Range Interpretation Comments WBC (test code = WBC) 16.3 3.7-10.4 H [facility] CenterYmwbvitCGFEXCTTBK4978-63-12 05:50:00 Test Item Value Reference Range Interpretation Comments Basophils # (test code 0.0 See_Comment N [Aut omated message] The = Basophils #) system which generated this result tra nsmitted reference range : <=0.2. The reference r alejandra was not used to int erpret this result as normal/abnormal . [facility] CenterYbnntfqYYLIHRFCXX1938-94-86 05:50:00 Test Item Value Reference Range Interpretation Comments Eosinophils # (test code 0.0 See_Comment N [A utomated message] The = Eosinophils #) system whic h generated this result tra nsmitted reference range : <=0.5. The reference r alejandra was not used to int erpret this result as normal/abnormal . [facility] CenterGezbuuaYEGEREAFBE7326-62-12 05:50:00 Test Item Value Reference Range Interpretation Comments Lymphocytes (test code = Lymphocytes) 3.1 20.0-40.0 L [facility] CenterOoaegehYAMDERPAYX9084-64-05 05:50:00 Test Item Value Reference Range Interpretation Comments Segs (test code = Segs) 95.4 45.0-75.0 H [facility] CenterFysjkzgGFDMTBFAUY1779-31-02 05:50:00 Test Item Value Reference Range Interpretation Comments Lymphocytes # (test code = Lymphocytes 0.5 1.0-5.5 L #) [facility] CenterKwmvxugUIQZEANPSI0092-24-45 05:50:00 Test Item Value Reference Range Interpretation Comments Eosinophils (test code = 0.0 See_Comment N [A utomated message] The Eosinophils) system which ge nerated this result tra nsmitted reference range : <=4.0. The reference r alejandra was not used to int erpret this result as normal/abnormal . [facility] CenterDprmdrxTSWDSTBSEY5697-95-06 05:50:00 Test Item Value Reference Range Interpretation Comments Monocytes (test code = Monocytes) 1.5 2.0-12.0 L [facility] CenterGnqroheEXUNHPCEKA6133-29-28 05:50:00 Test Item Value Reference Range Interpretation Comments Segs-Bands # (test code = Segs-Bands #) 15.6 1.5-8.1 H [facility] CenterMewmvimTXPIHKIWXG6620-97-53 05:50:00 Test Item Value Reference Range Interpretation Comments Basophils (test code = 0.0 See_Comment N [Aut omated message] The Basophils) system which ge nerated this result tra nsmitted reference range : <=1.0. The reference r alejandra was not used to int erpret this result as normal/abnormal . [facility] CenterUmdovqwHYHIVJONIK4773-09-90 05:50:00 Test Item Value Reference Range Interpretation Comments Monocytes # (test code 0.2 See_Comment N [Aut omated message] The = Monocytes #) system which generated this result tra nsmitted reference range : <=0.8. The reference r alejandra was not used to int erpret this result as normal/abnormal . [facility] GLUCOSE MRXUJXH6695-42-43 05:33:00 Test Item Value Reference Range Interpretation Comments Comment1 (test code = Comment1) Notify RN/ [facility] HospitalIytdvxcPAUNIMAGP4851-05-85 01:19:00 Test Item Value Reference Range Interpretation Comments Total CK (test code = Total CK) 75 12-191 N [facility] HospitalGgemzkoQYJMIHQXG1354-25-88 01:19:00 Test Item Value Reference Range Interpretation Comments CK MB Index (test 1.6 See_Comment N [Automate d message] The code = CK MB Index) [facility] this result transmit christian reference range : <=2.5. The reference range was not used to interpr et this result as preeti l/abnormal. [facility] HospitalNxumbhhNLWNCXBWV8038-73-86 01:19:00 Test Item Value Reference Range Interpretation Comments CK MB (test code = CK MB) 1.2 0.5-3.6 N [facility] GLUCOSE PHNVXCF7757-12-68 01:01:00 Test Item Value Reference Range Interpretation Comments Comment1 (test code = Comment1) Notify RIKA/ [facility] HospitalTfkoyqqKIIYSUMOR6108-74-46 22:15:00 Test Item Value Reference Range Interpretation Comments POC A O2 Sat (test code = POC A O2 Sat) 100.0 95.0-100.0 N [facility] HospitalXiyipewXZYCZZYXP6926-71-75 22:15:00 Test Item Value Reference Range Interpretation Comments POC A BE (test code = 3 See_Comment H [Auto mated message] The POC A BE) system which ge nerated this result transmit christian reference range : <=2. The reference range was not used to interpr et this result as preeti l/abnormal. [facility] HospitalKvyekngRXAZXKWHK4573-91-28 22:15:00 Test Item Value Reference Range Interpretation Comments POC A PO2 (test code = POC A PO2) 184 80-100 H [facility] HospitalRlqupznTFIGKUVLV3919-48-58 22:15:00 Test Item Value Reference Range Interpretation Comments POC A pH (test code = POC A pH) 7.44 7.35-7.45 N [facility] HospitalXvzmpcmABFKTSWBO3190-44-60 22:15:00 Test Item Value Reference Range Interpretation Comments POC A Temp (test code = POC A Temp) 37.0 [facility] HospitalKvpliizXZEEQJXSD9129-98-11 22:15:00 Test Item Value Reference Range Interpretation Comments POC A HCO3 (test code = POC A HCO3) 28 22-26 H [facility] HospitalEiunnkgLUIDKLCKW8783-74-02 22:15:00 Test Item Value Reference Range Interpretation Comments POC A PCO2 (test code = POC A PCO2) 41 35-45 N [facility] HospitalHsqipqqCMAZOPBOB4332-44-39 22:15:00 Test Item Value Reference Range Interpretation Comments POC A Source (test code = POC A Source) ART [facility] HospitalOismvqyLPFIIOBSU1943-75-26 22:15:00 Test Item Value Reference Range Interpretation Comments POC A %FIO2 (test code = POC A %FIO2) 50.0 18.0-100.0 N [facility] HospitalUpkathsUAABTUEZD0611-17-07 22:09:00 Test Item Value Reference Range Interpretation Comments POC A O2 Sat (test code = POC A O2 Sat) 70.0 95.0-100.0 L [facility] HospitalNenibzwWYLVYYNFX9022-97-12 22:09:00 Test Item Value Reference Range Interpretation Comments POC A BE (test code = 3 See_Comment H [Auto mated message] The POC A BE) system which ge nerated this result transmit christian reference range : <=2. The reference range was not used to interpr et this result as preeti l/abnormal. [facility] HospitalExfcshvAAPKSPBCV6227-05-87 22:09:00 Test Item Value Reference Range Interpretation Comments POC A %FIO2 (test code = POC A %FIO2) 50.0 18.0-100.0 N [facility]KmdsobrWAPPUMGDJ9591-43-09 22:09:00 Test Item Value Reference Range Interpretation Comments POC A Source (test code = POC A Source) ART [facility] HospitalFslnjafZTIUSDGJT2457-73-94 22:09:00 Test Item Value Reference Range Interpretation Comments POC A Temp (test code = POC A Temp) 37.0 [facility] HospitalTszjpthXZIIEPTDH9123-66-37 22:09:00 Test Item Value Reference Range Interpretation Comments POC A pH (test code = POC A pH) 7.39 7.35-7.45 N [facility] HospitalVqcpqsrRQYFZXVXQ5066-85-19 22:09:00 Test Item Value Reference Range Interpretation Comments POC A PO2 (test code = POC A PO2) 37 80-100 A [facility] HospitalMwdcyhwSWVLWYNHR7442-03-58 22:09:00 Test Item Value Reference Range Interpretation Comments POC A HCO3 (test code = POC A HCO3) 29 22-26 H [facility] HospitalMjfkhluFBWFDDDBE0473-31-08 22:09:00 Test Item Value Reference Range Interpretation Comments POC A PCO2 (test code = POC A PCO2) 48 35-45 H [facility] GLUCOSE WHJBPQR8402-16-22 20:54:00 Test Item Value Reference Range Interpretation Comments Comment1 (test code = Comment1) Notify RN/MD [facility] HospitalTlkhaalVKMAPJDRV6328-19-77 17:50:00 Test Item Value Reference Range Interpretation Comments Total CK (test code = Total CK) 76 12-191 N [facility] HospitalBogzsqnJKPBYBCLH3438-60-31 17:50:00 Test Item Value Reference Range Interpretation Comments CK MB Index (test 1.6 See_Comment N [Automate d message] The code = CK MB Index) [facility] generated this result transmit christian reference range : <=2.5. The reference range was not used to interpr et this result as preeti l/abnormal. [facility] HospitalNdbhjyyKHBURXOYX2331-36-51 17:50:00 Test Item Value Reference Range Interpretation Comments CK MB (test code = CK MB) 1.2 0.5-3.6 N [facility] HospitalBbnfbpqUTPFWRXER1146-10-76 08:25:00 Test Item Value Reference Range Interpretation Comments POC A Source (test code = POC A Source) [facility]2012-06-26 08:25:00 Test Item Value Reference Range Interpretation Comments POC A PCO2 (test code = POC A PCO2) 54 35-45 H [facility] HospitalVgiccgmSIWJUCHJU3717-96-65 08:25:00 Test Item Value Reference Range Interpretation Comments POC A PO2 (test code = POC A PO2) 113 80-100 H [facility] HospitalSpsveedJKJMKYGET9674-77-83 08:25:00 Test Item Value Reference Range Interpretation Comments POC A pH (test code = POC A pH) 7.32 7.35-7.45 L [facility] HospitalIshhajxYJLRFFHHE5776-52-40 08:25:00 Test Item Value Reference Range Interpretation Comments POC A Temp (test code = POC A Temp) 37.0 [facility] HospitalPrljspwFWPKCVBOT6275-81-95 08:25:00 Test Item Value Reference Range Interpretation Comments POC A O2 Sat (test code = POC A O2 Sat) 98.0 95.0-100.0 N [facility] HospitalDgxnuvsENNJNZMTC0880-36-23 08:25:00 Test Item Value Reference Range Interpretation Comments POC A BE (test code = 1 See_Comment N [Auto mated message] The POC A BE) system which ge nerated this result transmit christian reference range : <=2. The reference range was not used to interpr et this result as preeti l/abnormal. [facility] HospitalBbmeucwYCYZVFGBE1784-16-28 08:25:00 Test Item Value Reference Range Interpretation Comments POC A HCO3 (test code = POC A HCO3) 28 22-26 H [facility] HospitalZxexpwbAUMYWZJVY8898-26-60 06:00:00 Test Item Value Reference Range Interpretation Comments Total CK (test code = Total CK) 78 12-191 N [facility] HospitalCimdakuAXVTSGULH6977-36-39 06:00:00 Test Item Value Reference Range Interpretation Comments AGAP (test code = AGAP) 14.1 10.0-20.0 N [facility] HospitalQppjppcCQJDXNESH6709-79-25 06:00:00 Test Item Value Reference Range Interpretation Comments Chloride Lvl (test code = Chloride Lvl) 111 95-109 H [facility] HospitalIqpmliyYCDQKGTGR4594-56-32 06:00:00 Test Item Value Reference Range Interpretation Comments Calcium Lvl (test code = Calcium Lvl) 8.2 8.5-10.5 L [facility] HospitalYjtiycqQIPTDYNWW2383-68-29 06:00:00 Test Item Value Reference Range Interpretation Comments CO2 (test code = CO2) 24 24-32 N [facility] HospitalPmgurliTLLTLZVAS9880-55-08 06:00:00 Test Item Value Reference Range Interpretation Comments Glucose Lvl (test code = Glucose Lvl) 120 70-99 H [facility] HospitalVuzvmceRKGCRFSNN7095-26-14 06:00:00 Test Item Value Reference Range Interpretation Comments Sodium Lvl (test code = Sodium Lvl) 145 135-145 N [facility] HospitalBwlardjSRFJFEOEU2878-68-01 06:00:00 Test Item Value Reference Range Interpretation Comments Potassium Lvl (test code = Potassium 4.1 3.5-5.1 N Lvl) [facility] HospitalSrrjenhIYKBAPDDU0656-61-38 06:00:00 Test Item Value Reference Range Interpretation Comments BUN (test code = BUN) 25 7-22 H [facility] HospitalYpoxeprYWVQIYIAK8252-97-87 06:00:00 Test Item Value Reference Range Interpretation Comments Creatinine Lvl (test code = Creatinine 1.3 0.5-1.4 N Lvl) [facility] HospitalOhdufxdZFADFBHVA5927-40-30 06:00:00 Test Item Value Reference Range Interpretation Comments CK MB Index (test 2.4 See_Comment N [Automate d message] The code = CK MB Index) [facility] generated this result transmit christian reference range : <=2.5. The reference range was not used to interpr et this result as preeti l/abnormal. [facility] HospitalYjtvarnGDWVLPEYE0200-26-28 06:00:00 Test Item Value Reference Range Interpretation Comments CK MB (test code = CK MB) 1.9 0.5-3.6 N [facility] CenterBxuzavfTRQJDDEZZI9666-90-75 06:00:00 Test Item Value Reference Range Interpretation Comments Basophils # (test code 0.0 See_Comment N [Aut omated message] The = Basophils #) system which generated this result tra nsmitted reference range : <=0.2. The reference r alejandra was not used to int erpret this result as normal/abnormal . [facility] CenterVgpygakGPLEOZOSOV4256-96-31 06:00:00 Test Item Value Reference Range Interpretation Comments Basophils (test code = 0.0 See_Comment N [Aut omated message] The Basophils) system which ge nerated this result tra nsmitted reference range : <=1.0. The reference r alejandra was not used to int erpret this result as normal/abnormal . [facility] CenterVqseqqsIXSQVJGFKZ8364-25-65 06:00:00 Test Item Value Reference Range Interpretation Comments Segs-Bands # (test code = Segs-Bands #) 14.6 1.5-8.1 H [facility] CenterAtjgnpsKDFTVZFTJB7405-37-10 06:00:00 Test Item Value Reference Range Interpretation Comments Lymphocytes # (test code = Lymphocytes 0.5 1.0-5.5 L #) [facility] CenterRwqokxtBJOCOXQLIG4880-81-65 06:00:00 Test Item Value Reference Range Interpretation Comments Eosinophils # (test code 0.0 See_Comment N [A utomated message] The = Eosinophils #) system whic h generated this result tra nsmitted reference range : <=0.5. The reference r alejandra was not used to int erpret this result as normal/abnormal . [facility] CenterCkjuccaDQCQKGBCBX0219-57-19 06:00:00 Test Item Value Reference Range Interpretation Comments Monocytes # (test code 0.5 See_Comment N [Aut omated message] The = Monocytes #) system which generated this result tra nsmitted reference range : <=0.8. The reference r alejandra was not used to int erpret this result as normal/abnormal . [facility] CenterPajdbmqOGQYHYFGEC6014-13-80 06:00:00 Test Item Value Reference Range Interpretation Comments Lymphocytes (test code = Lymphocytes) 3.1 20.0-40.0 L [facility] CenterPbjavbhJEGNLDASLZ6846-08-45 06:00:00 Test Item Value Reference Range Interpretation Comments Eosinophils (test code = 0.0 See_Comment N [A utomated message] The Eosinophils) system which ge nerated this result tra nsmitted reference range : <=4.0. The reference r alejandra was not used to int erpret this result as normal/abnormal . [facility] CenterZbqiqviFTWSCLSRIW6601-34-85 06:00:00 Test Item Value Reference Range Interpretation Comments Monocytes (test code = Monocytes) 3.4 2.0-12.0 N [facility] CenterTrlfutkUFDRLTULMD8390-37-96 06:00:00 Test Item Value Reference Range Interpretation Comments Segs (test code = Segs) 93.5 45.0-75.0 H [facility] CenterBiwthvnHQYBKHDGLO0948-14-44 06:00:00 Test Item Value Reference Range Interpretation Comments Platelet (test code = Platelet) 255 133-450 N [facility] CenterYwabmyxSCSSVBSZTJ4066-95-20 06:00:00 Test Item Value Reference Range Interpretation Comments RDW (test code = RDW) 16.1 11.5-14.5 H [facility] CenterGjzjhkjKXMEYZTNLA0481-14-01 06:00:00 Test Item Value Reference Range Interpretation Comments Hct (test code = Hct) 33.2 36.0-48.0 L [facility] CenterUiediafNZGDSBXLGC6992-20-46 06:00:00 Test Item Value Reference Range Interpretation Comments MCV (test code = MCV) 94.5 81.0-99.0 N [facility] CenterTloalmcFNRFILMBHA1097-80-35 06:00:00 Test Item Value Reference Range Interpretation Comments MCH (test code = MCH) 32.3 pg 27.0-31.0 H [facility] CenterRtsgzfaSDJOMHEQRW3757-43-57 06:00:00 Test Item Value Reference Range Interpretation Comments Hgb (test code = Hgb) 11.3 12.0-16.0 L [facility] CenterQpdybgqREGYRHIUWT4215-07-36 06:00:00 Test Item Value Reference Range Interpretation Comments MCHC (test code = MCHC) 34.1 32.0-36.0 N [facility] CenterKitroxxZGJSKVOYXF8808-82-16 06:00:00 Test Item Value Reference Range Interpretation Comments MPV (test code = MPV) 8.9 7.4-10.4 N [facility] CenterYhmyvkrECXRFTXPUQ7247-32-94 06:00:00 Test Item Value Reference Range Interpretation Comments WBC (test code = WBC) 15.6 3.7-10.4 H [facility] CenterNwsxbwkUEAWYVUBMH1859-80-47 06:00:00 Test Item Value Reference Range Interpretation Comments RBC (test code = RBC) 3.51 4.20-5.40 L [facility] HospitalQxijovdFSUGNOGJT9287-51-23 03:11:00 Test Item Value Reference Range Interpretation Comments POC A %FIO2 (test code = POC A %FIO2) 40.0 18.0-100.0 N [facility] HospitalUqgoiuhOUCPZZOJT3957-36-80 03:11:00 Test Item Value Reference Range Interpretation Comments POC A BIPAP(E) (test 5.0 See_Comment N [Autom ated message] The code = POC A system which ge nerated this BIPAP(E)) result transmit christian reference range : <=40.0. The reference r alejandra was not used to interpr et this result as preeti l/abnormal. [facility] HospitalWygpqhcBTGGPECEK2634-58-33 03:11:00 Test Item Value Reference Range Interpretation Comments POC A BIPAP(I) (test 10.0 See_Comment N [Autom ated message] The code = POC A system which ge nerated this BIPAP(I)) result transmit christian reference range : <=50.0. The reference r alejandra was not used to interpr et this result as preeti l/abnormal. [facility] HospitalXmuyutbOPGCWMSKI1500-76-34 03:11:00 Test Item Value Reference Range Interpretation Comments POC A Mech Rate (test 5 bpm See_Comment N [Auto mated message] The code = POC A Mech system whi ch generated this Rate) result transmit christian reference range : <=70. The reference range was not used to interpr et this result as preeti l/abnormal. [facility] HospitalMxmgjprPOUTVKYXP2571-97-63 02:21:00 Test Item Value Reference Range Interpretation Comments Troponin-I (test code no gt See_Comment N [Auto mated message] The = Troponin-I) system which g enerated this result transmit christian reference range : <=0.40. The reference r alejandra was not used to interpr et this result as preeti l/abnormal. [facility] HospitalSxadlaaVSIBDSAWQ8937-46-68 02:21:00 Test Item Value Reference Range Interpretation Comments Troponin-T (test code no gt See_Comment N [Auto mated message] The = Troponin-T) system which g enerated this result transmit christian reference range : <=0.100. The reference r alejandra was not used to interpr et this result as preeti l/abnormal. [facility] HospitalRodwmgzEJXRGDEGO0666-92-56 02:21:00 Test Item Value Reference Range Interpretation Comments Myoglobin (test code = Myoglobin) 117 25-72 [facility] CenterItpdhncCfmhthmecsiw1500-79-23 20:48:00 Test Item Value Reference Range Interpretation Comments Culture: Resistant Acinetobacter Screen (test code = Culture: Resistant Acinetobacter Screen) [facility]BACT[facility] - ECBZCXQP7069-47-97 20:45:00 Test Item Value Reference Range Interpretation Comments MRSA by PCR (test Negative 1(08/14/2011 N code = MRSA by PCR) 15:45:00) [facility] HospitalDkuqztsSFHXIRCZS0612-55-20 20:44:00 Test Item Value Reference Range Interpretation Comments Calcium Lvl (test code = Calcium Lvl) 8.0 8.5-10.5 L [facility] HospitalArvyetjUHXJMQEFN6772-53-95 20:44:00 Test Item Value Reference Range Interpretation Comments Chloride Lvl (test code = Chloride Lvl) 108 95-109 N [facility] HospitalZeoteroIJVKCWFDR9539-64-06 20:44:00 Test Item Value Reference Range Interpretation Comments CO2 (test code = CO2) 22 24-32 L [facility] HospitalPxgsbwnNLNVQLMRG4636-35-41 20:44:00 Test Item Value Reference Range Interpretation Comments BUN (test code = BUN) 22 7-22 N [facility] HospitalZahxujsJBVYJNBUB8624-23-42 20:44:00 Test Item Value Reference Range Interpretation Comments Glucose Lvl (test code = Glucose Lvl) 179 70-99 H [facility] HospitalCfohiaoLQRCOFEFY2437-74-59 20:44:00 Test Item Value Reference Range Interpretation Comments Sodium Lvl (test code = Sodium Lvl) 140 135-145 N [facility] HospitalEwkesshBSSZGGFID3859-70-39 20:44:00 Test Item Value Reference Range Interpretation Comments Potassium Lvl (test code = Potassium 3.6 3.5-5.1 N Lvl) [facility] HospitalFgifpzzLLRKMENDP9511-31-02 20:44:00 Test Item Value Reference Range Interpretation Comments Creatinine Lvl (test code = Creatinine 1.4 0.5-1.4 N Lvl) [facility] HospitalPfhpqnoCAJBIAQRQ9823-51-27 20:44:00 Test Item Value Reference Range Interpretation Comments AGAP (test code = AGAP) 13.6 10.0-20.0 N [facility]OhcsetjIHRLMZIFUF6171-66-55 20:44:00 Test Item Value Reference Range Interpretation Comments Segs-Bands # (test code = Segs-Bands #) 10.1 1.5-8.1 H [facility] CenterRcemmazASEOOASMAY3546-66-99 20:44:00 Test Item Value Reference Range Interpretation Comments Monocytes (test code = Monocytes) 0.6 2.0-12.0 L [facility] CenterWrviqqbTEJBVPFOMQ0382-81-08 20:44:00 Test Item Value Reference Range Interpretation Comments Basophils (test code = 0.0 See_Comment N [Aut omated message] The Basophils) system which ge nerated this result tra nsmitted reference range : <=1.0. The reference r alejandra was not used to int erpret this result as normal/abnormal . [facility] CenterJwugqusQUGZCGGRRO9835-67-53 20:44:00 Test Item Value Reference Range Interpretation Comments Eosinophils (test code = 0.0 See_Comment N [A utomated message] The Eosinophils) system which ge nerated this result tra nsmitted reference range : <=4.0. The reference r alejandra was not used to int erpret this result as normal/abnormal . [facility] CenterMptnobeAVGHWZDROH6513-92-45 20:44:00 Test Item Value Reference Range Interpretation Comments Lymphocytes (test code = Lymphocytes) 5.5 20.0-40.0 L [facility] CenterRgilsqxTEPTGFGAKC6679-71-80 20:44:00 Test Item Value Reference Range Interpretation Comments Basophils # (test code 0.0 See_Comment N [Aut omated message] The = Basophils #) system which generated this result tra nsmitted reference range : <=0.2. The reference r alejandra was not used to int erpret this result as normal/abnormal . [facility] CenterVoymzicSPZGXGGGPA0398-17-37 20:44:00 Test Item Value Reference Range Interpretation Comments Eosinophils # (test code 0.0 See_Comment N [A utomated message] The = Eosinophils #) system whic h generated this result tra nsmitted reference range : <=0.5. The reference r alejandra was not used to int erpret this result as normal/abnormal . [facility] CenterNpqqnpsSVJWVOCDUR3574-28-19 20:44:00 Test Item Value Reference Range Interpretation Comments Monocytes # (test code 0.1 See_Comment N [Aut omated message] The = Monocytes #) system which generated this result tra nsmitted reference range : <=0.8. The reference r alejandra was not used to int erpret this result as normal/abnormal . [facility] CenterAhrpjeoXGDUQRFLPO6715-81-20 20:44:00 Test Item Value Reference Range Interpretation Comments Lymphocytes # (test code = Lymphocytes 0.6 1.0-5.5 L #) [facility] CenterQlyhmbjQPHOCGHLQD7960-03-64 20:44:00 Test Item Value Reference Range Interpretation Comments Segs (test code = Segs) 93.9 45.0-75.0 H [facility] CenterUwhgdlvGKKYDGVKDG0470-35-67 20:44:00 Test Item Value Reference Range Interpretation Comments INR (test code = INR) 1.12 0.85-1.17 N [facility] CenterFpnmgafSXBEOSRBKB4602-18-30 20:44:00 Test Item Value Reference Range Interpretation Comments PT (test code = PT) 14.4 s 12.0-14.7 N [facility] CenterEraqjmyIRVTWHBFUU1658-31-10 20:44:00 Test Item Value Reference Range Interpretation Comments MPV (test code = MPV) 9.5 7.4-10.4 N [facility] CenterMowrwoqQPVGOUFDKM7838-63-09 20:44:00 Test Item Value Reference Range Interpretation Comments Platelet (test code = Platelet) 230 133-450 N [facility] CenterDzskbanJZKDLRAOUZ2436-86-25 20:44:00 Test Item Value Reference Range Interpretation Comments RDW (test code = RDW) 16.4 11.5-14.5 H [facility] CenterModclclKFCAUOUEHZ3789-85-39 20:44:00 Test Item Value Reference Range Interpretation Comments MCHC (test code = MCHC) 33.7 32.0-36.0 N [facility] CenterAkrcjohIICTXGWHPM3702-64-12 20:44:00 Test Item Value Reference Range Interpretation Comments WBC (test code = WBC) 10.7 3.7-10.4 H [facility] CenterJzeccepOTZQMVQAFT0670-66-12 20:44:00 Test Item Value Reference Range Interpretation Comments MCH (test code = MCH) 31.4 pg 27.0-31.0 H [facility] CenterWmgebetGMYOUNVKEZ5747-07-84 20:44:00 Test Item Value Reference Range Interpretation Comments MCV (test code = MCV) 93.2 81.0-99.0 N [facility] CenterRkmmshpJWZCPQFMWY9021-45-73 20:44:00 Test Item Value Reference Range Interpretation Comments Hct (test code = Hct) 33.3 36.0-48.0 L [facility] CenterZfpautnRLXKGIRSEF1016-09-80 20:44:00 Test Item Value Reference Range Interpretation Comments Hgb (test code = Hgb) 11.2 12.0-16.0 L [facility] CenterWbfgmnpEJYKOEZZVT2566-38-94 20:44:00 Test Item Value Reference Range Interpretation Comments RBC (test code = RBC) 3.57 4.20-5.40 L [facility] SystemNcwlazdEAIVMJGTVF6972-10-08 20:44:00 Test Item Value Reference Range Interpretation Comments UA Mucus (test code = Few /LPF UA Mucus) *NA*(08/14/2011 15:44:00) [facility]wxvjvyBBAWDGVGVF5436-96-90 20:44:00 Test Item Value Reference Range Interpretation Comments UA Amorph Juju (test Occasional /HPF code = UA Amorph *NA*(08/14/2011 Juju) 15:44:00) [facility] SystemBkkdhnqQPZFPQMEUD5030-47-68 20:44:00 Test Item Value Reference Range Interpretation Comments UA Urobilinogen (test code *NA*(08/14/2011 0.1-1.0 = UA Urobilinogen) 15:44:00) [facility]YcmttjcOTCLTRJETM2521-99-88 20:44:00 Test Item Value Reference Range Interpretation Comments UA Bacteria (test code Occasional /HPF = UA Bacteria) *NA*(08/14/2011 15:44:00) [facility]oCapyfkgIFIECJVCNX6576-16-78 20:44:00 Test Item Value Reference Range Interpretation Comments UA Leuk Est (test Negative (08/14/2011 N code = UA Leuk Est) 15:44:00) [facility] SystemBweaqllJUZVAKZJIP0812-22-11 20:44:00 Test Item Value Reference Range Interpretation Comments UA RBC (test code = 6 See_Comment H [Automa christian message] The UA RBC) system which ge nerated this result transmit christian reference range : <=2. The reference range was not used to interpr et this result as preeti l/abnormal. [facility] SystemNsqfechYENQOVJRUP2307-65-02 20:44:00 Test Item Value Reference Range Interpretation Comments UA Sq Epi (test code Occasional /LPF = UA Sq Epi) *NA*(08/14/2011 15:44:00) [facility] SystemFaadnqxOYSBSOUGKD9844-55-42 20:44:00 Test Item Value Reference Range Interpretation Comments UA WBC (test code = 1 See_Comment N [Automa christian message] The UA WBC) system which ge nerated this result transmit christian reference range : <=5. The reference range was not used to interpr et this result as preeti l/abnormal. [facility] SystemVyqwjtoOHMXNWLXEO2238-82-29 20:44:00 Test Item Value Reference Range Interpretation Comments UA Blood (test code = Negative (08/14/2011 N UA Blood) 15:44:00) [facility] SystemBzhdcegIKSITYGNJY6072-62-50 20:44:00 Test Item Value Reference Range Interpretation Comments UA Nitrite (test code Negative (08/14/2011 N = UA Nitrite) 15:44:00) [facility] SystemHewfkweAVQMTPHPGO5948-45-58 20:44:00 Test Item Value Reference Range Interpretation Comments UA Bili (test code = Negative *NA*(08/14/2011 UA Bili) 15:44:00) [facility] SystemXemclvzAMXJCPQGID1610-27-98 20:44:00 Test Item Value Reference Range Interpretation Comments UA Turbidity (test code Slight A = UA Turbidity) *ABN*(08/14/2011 15:44:00) [facility]oBzmhtaxPVANKDTMQG4073-28-24 20:44:00 Test Item Value Reference Range Interpretation Comments UA Color (test code = Yellow *NA*(08/14/2011 UA Color) 15:44:00) [facility] SystemRppfegzXEOIHUPUVU0428-43-34 20:44:00 Test Item Value Reference Range Interpretation Comments UA Ketones (test code Negative mg/dL = UA Ketones) *NA*(08/14/2011 15:44:00) [facility] SystemWjefulvQPQSSMANPN2117-29-68 20:44:00 Test Item Value Reference Range Interpretation Comments UA Glucose (test code = 50 mg/dL A UA Glucose) *ABN*(08/14/2011 15:44:00) [facility]oHbedyfwJYMZPRMRKQ2115-38-40 20:44:00 Test Item Value Reference Range Interpretation Comments UA Protein (test code = 20 mg/dL A UA Protein) *ABN*(08/14/2011 15:44:00) [facility] SystemIpgdjtxGLKTARZURM4992-14-88 20:44:00 Test Item Value Reference Range Interpretation Comments UA Spec Grav (test code = UA Spec Grav) 1.036 H [facility] SystemMuxywicDBUUBSKPQY5850-59-04 20:44:00 Test Item Value Reference Range Interpretation Comments UA pH (test code = UA pH) 5.5 5.0-8.0 N [facility] CenterZzrajgyYoouplzdphbz6544-80-95 20:44:00 Test Item Value Reference Range Interpretation Comments Culture: Urine (test code = Culture: Urine) [facility] CenterObwjkfsANGAFEMRV5587-28-69 14:17:00 Test Item Value Reference Range Interpretation Comments POC A Ca Ion (test code = POC A Ca Ion) 1.14 1.16-1.30 L [facility] RockUagaenpDBAFINQGP6649-27-30 14:17:00 Test Item Value Reference Range Interpretation Comments POC A LA (test code = POC A LA) 2.3 0.5-2.2 H [facility] RockAczbskdAVRVHANZH0477-43-31 14:17:00 Test Item Value Reference Range Interpretation Comments POC A Glu (test code = POC A Glu) 100 70-99 H [facility] HospitalDqeylyjCQRCBWXLD1534-24-65 14:17:00 Test Item Value Reference Range Interpretation Comments POC A Na (test code = POC A Na) 136 135-145 N [facility] RockEnxrjpzPKOMPMCRZ1272-22-56 14:17:00 Test Item Value Reference Range Interpretation Comments POC A K (test code = POC A K) 3.2 3.5-5.1 L [facility] RockEfvppmfYFBKZGLOI3951-76-94 14:17:00 Test Item Value Reference Range Interpretation Comments POC A Hct (test code = POC A Hct) 36.0 36.0-48.0 N [facility] RockCal[facility] Data RIHGWDQ2031-69-01 11:20:00 Test Item Value Reference Range Interpretation Comments ABO/Rh (test code = ABO/Rh) A NEG [facility] [employer] YUEJKKT9377-15-98 11:20:00 Test Item Value Reference Range Interpretation Comments Antibody Scrn (test Negative (08/14/2011 N code = Antibody Scrn) 06:20:00) [facility] CenterKyvrqswUZAUOOIKXN8080-43-01 16:30:00 Test Item Value Reference Range Interpretation Comments INR (test code = INR) 1.12 0.85-1.17 N [facility] CenterYxxrjmyZGLZIPXWCZ4592-82-63 16:30:00 Test Item Value Reference Range Interpretation Comments PT (test code = PT) 14.4 s 12.0-14.7 N [facility] CenterZqzcvsaHMBGELAUWJ2758-47-14 16:30:00 Test Item Value Reference Range Interpretation Comments PTT (test code = PTT) 32.4 s 22.9-35.8 N [facility]
--- NOTE | 2022-09-04 16:29 | RAD REPORT ---
EXAM DESCRIPTION: RAD - Chest Single View - 09/04/2022 4:21 pm CLINICAL HISTORY: FLU SYMPTOMS SINCE SUNDAY Chest pain. COMPARISON: <Comparisons> FINDINGS: Portable technique limits examination quality. The lungs are grossly clear. The heart is normal in size. No displaced fractures. IMPRESSION: No acute intrathoracic process suspected.
--- NOTE | 2022-09-04 16:43 | EDPHYS ---
Physician Documentation [facility] Name: Jarrod Graham Age: 82 yrs Sex: Female : 1940 Arrival Date: 09/04/2022 Time: 08:47 Bed 16 Private MD: Geronimo Miller T ED Physician Martínez Grullon HPI: 09/04 09:00 This 82 yrs old Female presents to ER via Unassigned with complaints of Flu rn Symptoms, Cough, hoarse voice. 09:00 The patient or guardian reports cough, flu symptoms, low-grade fever, myalgias, hoarse rn voice. 09:01 Onset: The symptoms/episode began/occurred 3 day(s) ago. Severity of symptoms: At their rn worst the symptoms were moderate, in the emergency department the symptoms have improved. Modifying factors: The symptoms are alleviated by nothing, the symptoms are aggravated by nothing. Associated signs and symptoms: Pertinent positives: rhinorrhea, sore throat, Pertinent negatives: chest pain, fever, vomiting. The patient has not experienced similar symptoms in the past. The patient has not recently seen a physician. Reports headache, sore throat, hoarse voice, fatigue, myalgias for 3 days, no fever. + cough, but no sob. NO chest pain. No known sick contacts. . 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 - Social history:: Smoking status: Patient denies any tobacco usage or history of. - Family history:: not pertinent. - Hospitalizations: : No recent hospitalization is reported. ROS: 09:01 Constitutional: Negative for fever, and weight loss, Eyes: Negative for injury, pain, rn redness, and discharge, ENT: + sore throat/congestion/sinus pressure/hoarse voice Neck: Negative for injury Cardiovascular: Negative for chest pain, palpitations, and edema, Respiratory: + cough Abdomen/GI: Negative for abdominal pain, nausea, vomiting, diarrhea, and constipation, MS/Extremity: Negative for injury and deformity, Skin: Negative for injury, rash, and discoloration, Neuro: + headache, no focal neurological deficits Exam: 09:01 Constitutional: This is a well developed, well nourished patient who is awake, alert, rn and in no acute distress. Carrying a box of tissues. Head/Face: Normocephalic, atraumatic. Eyes: Periorbital areas with no swelling, redness, or edema. 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 No Meningismus. Cardiovascular: Regular rate and rhythm. No pulse deficits. Respiratory: Clear bilateral breath sounds, no retractions. Skin: Warm, dry MS/ Extremity: Pulses equal, no cyanosis. Neuro: Awake and alert, GCS 15 Vital Signs: 09:09 BP 190 / 76; Pulse 51; Resp 17; Temp 98.1; Pulse Ox 97% on R/A; Weight 62.14 kg; Height ll1 5 ft. 6 in. ; 09:15 BP 157 / 64; Pulse 45; Resp 16; Pulse Ox 97% on R/A; db 10:30 BP 123 / 80; Pulse 48; Resp 18; Pulse Ox 97% ; db 11:00 BP 173 / 61; Pulse 49; Resp 18; Pulse Ox 95% on R/A; db 09:09 Body Mass Index 22.11 (62.14 kg, 167.64 cm) ll1 MDM: 08:49 Patient medically screened. rn 10:31 Differential Diagnosis: Bronchitis Influenza Upper Respiratory Infection Sinusitis rn Viral Syndrome Pneumonia. Data reviewed: vital signs, nurses notes, lab test result(s), radiologic studies, plain films, and as a result, I will discharge patient. Counseling: I had a detailed discussion with the patient and/or guardian regarding: the historical points, exam findings, and any diagnostic results supporting the discharge/admit diagnosis, lab results, radiology results, the need for outpatient follow up, to return to the emergency department if symptoms worsen or persist or if there are any questions or concerns that arise at home. Special discussion: I discussed with the patient/guardian in detail that at this point there is no indication for admission to the hospital. It is understood, however, that if the symptoms persist or worsen the patient needs to return immediately for re-evaluation. ED course: COVID/flu/strep neg, will cover with abx and return precautions. Administered Medications: 09:20 Drug: Dexamethasone IM 10 mg Route: IM; Site: right ventrogluteal; db 11:00 Follow up: Response: No adverse reaction db Disposition Summary: 09/04/22 10:44 Discharge Ordered Location: Home rn Problem: new rn Symptoms: have improved rn Condition: Stable rn Diagnosis - Acute upper respiratory infection, unspecified rn - Acute sinusitis, unspecified rn Followup: rn - With: Private Physician - When: As needed - Reason: Recheck today's complaints, Re-evaluation by your physician Discharge Instructions: - Discharge Summary Sheet rn - Sinusitis, Adult rn - Upper Respiratory Infection, Adult rn Forms: - Medication Reconciliation Form rn - Thank You Letter rn - 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 Day 2, 3, 4 , 5 take one (1) tablet once daily.; 6 tablet; Refills: 0, Product Selection Permitted - Medrol (Aakash) 4 mg Oral Tablets, Dose Pack - take 1 tablet by ORAL route as directed - follow package instructions; 1 rn packet; Refills: 0, Product Selection Permitted Signatures: Martínez Grullon MD MD rn Lewis, Lynsay, RN RN ll1 Sandra Jiménez RN RN db Corrections: (The following items were deleted from the chart) 09:05 09:01 Constitutional: This is a well developed, well nourished patient who is awake, rn alert, and in no acute distress. Carrying a box of tissues. Head/Face: Normocephalic, atraumatic. Eyes: Periorbital areas with no swelling, redness, or edema. Neck: Trachea midline. No Meningismus. Cardiovascular: Regular rate and rhythm. No pulse deficits. Respiratory: Clear bilateral breath sounds, no retractions. Skin: Warm, dry MS/ Extremity: Pulses equal, no cyanosis. Neuro: Awake and alert, GCS 15 rn
--- NOTE | 2022-09-04 16:43 | ER ---
Nurse's Notes [facility] Name: Jarrod Graham Age: 82 yrs Sex: Female : 1940 Arrival Date: 09/04/2022 Time: 08:47 Bed 16 Private MD: Geronimo Miller T Diagnosis: Acute upper respiratory infection, unspecified;Acute sinusitis, unspecified Presentation: 09/04 09:09 Chief complaint: Patient states: Cough with green phlegm, sore throat, ear pain, hoarse ll1 voice, facial pain since Sunday. No known fever. Coronavirus screen: Vaccine status: Patient reports receiving the 2nd dose of the covid vaccine. Client denies travel out of the [place] in the last 14 days. congestion, cough unrelated to allergies, fatigue, headache, muscle pain, runny nose, sore throat, Client presents with at least one sign or symptom that may indicate coronavirus-19. Standard/surgical mask placed on the client. Ebola Screen: Patient denies travel to an Ebola-affected area in the 21 days before illness onset. Initial Sepsis Screen: Does the patient meet any 2 criteria? No. Patient's initial sepsis screen is negative. Does the patient have a suspected source of infection? Yes: Productive cough/pneumonia. Risk Assessment: Do you want to hurt yourself or someone else? Patient reports no desire to harm self or others. Onset of symptoms was September 01, 2022. 09:09 Method Of Arrival: Ambulatory 1 09:09 Acuity: JIN 3 ll1 Triage Assessment: 09:11 General: Appears uncomfortable, ill, Behavior is calm, cooperative, appropriate for 3 age. Pain: Complains of pain in face Quality of pain is described as aching. EENT: Reports pain when swallowing. Neuro: Reports headache weakness. Respiratory: Reports cough that is. 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 - Social history:: Smoking status: Patient denies any tobacco usage or history of. - Family history:: not pertinent. - Hospitalizations: : No recent hospitalization is reported. Screenin:33 [facility] ED Fall Risk Assessment (Adult) History of falling in the last 3 months, db including since admission No falls in past 3 months (0 pts) Confusion or Disorientation No (0 pts) Intoxicated or Sedated No (0 pts) Impaired Gait No (0 pts) Mobility Assist Device Used No (0 pt) Altered Elimination No (0 pt) Score/Fall Risk Level 0 - 2 = Low Risk Oriented to surroundings, Maintained a safe environment. Abuse screen: Denies threats or abuse. Denies injuries from another. Nutritional screening: No deficits noted. Tuberculosis screening: No symptoms or risk factors identified. Assessment: 09:32 Reassessment: Patient appears in no apparent distress at this time. Patient and/or db family updated on plan of care and expected duration. Pain level reassessed. Patient is alert, oriented x 3, equal unlabored respirations, skin warm/dry/pink. cough, congestion and hoarse voice for 2 to 3 days. General: Appears in no apparent distress. comfortable, Behavior is calm, cooperative. Neuro: Dorantes Agitation-Sedation Scale (RASS): Level of Consciousness is awake, alert, obeys commands, Oriented to person, place, time, situation, Appropriate for age. Respiratory: Airway is patent Respiratory effort is even, unlabored, Respiratory pattern is regular, symmetrical. GI: Abdomen is flat. 10:30 Reassessment: Patient appears in no apparent distress at this time. Patient and/or db family updated on plan of care and expected duration. Pain level reassessed. Patient is alert, oriented x 3, equal unlabored respirations, skin warm/dry/pink. Patient states feeling better. 11:00 Reassessment: Patient appears in no apparent distress at this time. Patient and/or db family updated on plan of care and expected duration. Pain level reassessed. Patient is alert, oriented x 3, equal unlabored respirations, skin warm/dry/pink. Vital Signs: 09:09 BP 190 / 76; Pulse 51; Resp 17; Temp 98.1; Pulse Ox 97% on R/A; Weight 62.14 kg; Height ll1 5 ft. 6 in. ; 09:15 BP 157 / 64; Pulse 45; Resp 16; Pulse Ox 97% on R/A; db 10:30 BP 123 / 80; Pulse 48; Resp 18; Pulse Ox 97% ; db 11:00 BP 173 / 61; Pulse 49; Resp 18; Pulse Ox 95% on R/A; db 09:09 Body Mass Index 22.11 (62.14 kg, 167.64 cm) ll1 ED Course: 08:48 Patient arrived in ED. am2 08:48 Geronimo Miller MD is Private Physician. am2 08:49 Martínez Grullon MD is Attending Physician. rn 08:56 Sandra Jiménez, RN is Primary Nurse. db 09:02 Arm band placed on Patient placed in an exam room, on a stretcher. ll1 09:11 Triage completed. ll1 11:29 Patient has correct armband on for positive identification. Bed in low position. db Provided Education on: DISCHARGE INSTRUCTIONS. 11:29 No provider procedures requiring assistance completed. Patient did not have IV access db during this emergency room visit. Administered Medications: 09:20 Drug: Dexamethasone IM 10 mg Route: IM; Site: right ventrogluteal; db 11:00 Follow up: Response: No adverse reaction db Medication: 11:29 VIS not applicable for this client. db Outcome: 10:44 Discharge ordered by . rn 11:15 Discharged to home ambulatory, with family. db 11:15 Condition: stable 11:15 Discharge instructions given to patient, family, Instructed on discharge instructions, follow up and referral plans. Prescriptions given X 2. 11:30 Patient left the ED. db Signatures: Martínez Grullon MD MD rn Moreno, Amanda 2 Genaro Little RN RN [facility] Sandra Jiménez, RIKA RN db
[2022-09-04 18:22] VITALS: TEMP 98.1
[2022-09-04 18:27] VITALS: BP 173/61; O2SAT 95
== END 2022-09-04 11:30 | disposition home or self-care (01) ==
LOC: ER 08:47
DX: J06.9 Acute upper respiratory infection, unspecified (principal); J01.90 Acute sinusitis, unspecified; I10 Essential (primary) hypertension; G51.0 Bell's palsy; Z88.0 Allergy status to penicillin; Z88.6 Allergy status to analgesic agent; Z88.8 Allergy status to other drugs, medicaments and biological substances; Z20.822 Contact with and (suspected) exposure to COVID-19
CPT/HCPCS: 87070; 87081; 87635; 87804 ×2; 71045; 96372; 99284; J1100